=== PATIENT | female | born 1945 | race Caucasian/White ===

== ENCOUNTER → 2017-03-16 | Outpatient (CLI) | payer BC ==
[~2017-03-16] MED LIST: ASPI81TA28 PO; ATOR-24 PO; CALC-354 PO; CARB50TA3 PO; CHOL1000 PO; CLOP1TAB15 PO; CYAN30003 SL; DILT120C51 PO; GABA-113 PO; ISOS30TA3 PO; MAGN65TA PO; METH500T37 PO; NTRGSL/4 UT; OXYB10TA13 PO; OXYC-57 PO; ROPI1TAB PO; VITA1TAB4 PO; [UNRECOGNIZED DRUG - OTHER] SQ
--- NOTE | 2017-03-16 12:20 | DIAGNOSTIC IMAGING REPORT ---
CHEST 2 VIEWS ROUTINE HISTORY: PRE OP COMPARISON: None. FINDINGS: The lungs are clear. Cardiac silhouette is normal in size. No pleural effusions. No pneumothorax. IMPRESSION: No acute process. Electronically signed by: Dennys Parish M.D. 03/16/2017 12:19 PM Dictated Date/Time: 03/16/2017 12:16 PM
[2017-03-16 12:57] LABS: BASO % 0.3 %; BASO ABS # 0.02 K/uL (0-0.2); COMPLETE YES; HEMATOCRIT 36.3 % (37-47); IG% 0.2 %; LYMPH % 22.4 %; LYMPH ABS # 1.32 K/uL (1.2-3.4); MEAN CELL VOLUME 92.4 fL (80-100); MEAN CORPUSCULAR HEMOGLOBIN 29.5 pg (25-34); MEAN PLATELET VOLUME 10.6 fL (7.4-10.4); MONO % 8.8 %; NEUT % 66.3 %; PLATELET COUNT 334 K/uL (130-400); RED BLOOD COUNT 3.93 M/uL (4.2-5.4)
[2017-03-16 13:27] LABS: BLOOD UREA NITROGEN 22 mg/dl (7-18); CARBON DIOXIDE 28 mmol/L (21-32); CHLORIDE 109 mmol/L (98-107); CREATININE 0.79 mg/dl (0.60-1.20); GLUCOSE 84 mg/dl (70-99); POTASSIUM 4.1 mmol/L (3.5-5.1); SODIUM 143 mmol/L (136-145)
--- NOTE | 2017-04-05 08:19 | CODING QUERY MEDICAL NECESSITY ---
CQSUPPORTING DIAGNOSIS NEEDED A supporting diagnosis is required for the test/procedure performed on this patient in order for us to be reimbursed by the patient's insurance. Please provide a supporting diagnosis for the following test/procedure listed below next to the test name along with your signature. *If there is no additional diagnosis for this patient that would support the following test/procedure please document that below next to the test/procedure. Test(s)/Procedure(s) that require a supporting diagnosis: DOS 03/16/17 BLOOD COUNT Provider Signature: Date: Thank you Rosalie Mcwilliams [employer] Once completed, please kindly fax back to [phone] For questions please call [phone]
== END | disposition home or self-care (01) ==
LOC: C.CPL 10:38
PROVIDERS: ATTEND Orthopaedic Surgery
DX: M75.111 Incomplete rotator cuff tear or rupture of right shoulder, not specified as traumatic (principal)

== ENCOUNTER → 2017-03-31 | Day surgery (SDC) | payer BC ==
[2017-03-21 08:53] VITALS: Ht 165.1 cm; Wt 102.3 kg
[~2017-03-31] VITALS: Ht 165.1 cm; Wt 102.3 kg
[~2017-03-31] MED LIST changes: +ATROPINE SULFATE 0.1 MG/ML 5ML SYR IV PRN; +BUPIVACAINE/EPINEPHRINE 0.25% 1:200,000 30 ML VIAL ONE; +CEFAZOLIN 2000 MG/60 ML D5W IV SCH; +DEXAMETHASONE SOD INJ 4 MG/ML VIAL ONE; +EpHEDrine SULFATE 50MG/5ML SYR ONE; +EpHEDrine SULFATE INJ 50 MG/ML AMP IV PRN; +EpINEphrine INJ 1MG/ML AMP 1 MG/ML AMP ONE; +FENTANYL CITRATE INJ 50 MCG/1 ML 2 ML VIAL IV PRN; +FENTANYL CITRATE INJ 50 MCG/1 ML 2 ML VIAL ONE; +HYDROmorphone INJ 1 MG/ML SYR IV PRN; +LACTATED RINGER'S 1000ML 1,000 ML IV SCH; +LIDOCAINE HCL 1% MPF 2 ML VIAL ONE; +LIDOCAINE HCL 2% 2 ML VIAL (20MG/ML) ONE; +MIDAZOLAM HCL 1 MG/ML 2ML VIAL ONE; +ONDANSETRON INJ 2 MG/ML 2 ML VIAL IV PRN; +ONDANSETRON INJ 2 MG/ML 2 ML VIAL ONE; +OXYCODONE/ACETAMINOPHEN 5-325 TAB PO PRN; +PROPOFOL IV EMULSION 10 MG/ML 20 ML VIAL IV ONE; +ROPIVACAINE 0.5% 5 MG/ML 30 ML VIAL ONE; +SODIUM CHLORIDE 0.9% 1000ML 1,000 ML IV SCH
--- NOTE | 2017-03-31 06:59 | History & Physical Bridge - SC ---
H&P Re-Evaluation Bridge Note: I have examined the patient, reviewed the History & Physical and in the interval since the performance of the History & Physical I have noted the following changes of clinical significance: No changes noted
--- NOTE | 2017-03-31 09:55 | [facility] Post Operative Brief Note ---
Immediate Operative Summary Operative Date Mar 31, 2017. Pre-Operative Diagnosis Right Shoulder Rotator Cuff Syndrome Post-Operative Diagnosis Same Procedure(s) Performed Right Shoulder Arthroscopy, Small Rotator Cuff Repair Surgeon Dr Busch Model Maker Surgeon(s) Kenji Mcneal PA-C Estimated Blood Loss Trace Findings as above Specimens None Complication(s) None Disposition Recovery Room / PACU
--- NOTE | 2017-03-31 09:59 | Discharge Instructions-SurgCtr ---
Discharge Instructions Date of Service Mar 31, 2017. Visit Reason for Visit: Right Shoulder Rotator Cuff Syndrome, Pain Discharge Discharge Diagnosis / Problem: SAME ABOVE Discharge Goals Goal(s): Decrease discomfort, Improve function Medications Stopped Medications Name(s): held plavix for one week Restart Stopped Medication(s): MAY RESTART 01/29/2017 Activity Recommendations Activity Limitations: as noted below Lifting Limitations: until after follow-up appointment Shower/Bathe: tomorrow Anesthesia . Post Anesthesia Instructions: If you have had General Anesthesia or IV Sedation: * Do not drive today. * Resume driving when surgeon permits. * Do not make important decisions or sign legal documents today. * Call surgeon for: 1. Temperature elevations greater than 101 degrees F. 2. Uncontrollable pain. 3. Excessive bleeding. 4. Persistent nausea and vomiting. 5. Medication intolerance (nausea, vomiting or rash). * For nausea and vomiting use only clear liquids such as: tea, soda, bouillon until nausea subsides, then gradually increase diet as tolerated. * If you have any concerns or questions, call your surgeon's office. If physician is unavailable and it is an emergency, call 911 or go to the nearest emergency room. . Instructions / Follow-Up Instructions / Follow-Up MEDICATIONS: * Resume previous medications unless instructed otherwise by your surgeon. * Always take pain medication on a full stomach or with food to avoid upset stomach. * Do not drink alcohol or drive while taking narcotics. * Ibuprofen or Tylenol may be taken if narcotic not needed. SPECIAL CARE INSTRUCTIONS: __ None _X_ Keep extremity elevated and iced x 48 hours; apply ice 20-30 minutes 8-10 times/day. May remove at night. __ Sling __24 hrs/day __ Remove at night _X_ Shoulder Immobilizer (MAY REMOVE AFTER 48 HOURS ONLY TO SHOWER AND FOR THERAPY) _X_ 24 hrs/day __ Remove at night _X_ Dressing __ Maintain until seen in office, may shower with plastic over site _X_ Remove dressings in 24-48 hours and then may shower _X_ Cover incisions with band-aids after showering __ Do not remove steri-strips Call physician if chills or temperature rises above 102 degrees or pain unrelieved by prescribed pain medications at . . Diet Recommendations Home Diet: no limitations Procedures Procedures Performed: Right Shoulder Arthroscopy, Small Rotator Cuff Repair Pending Studies Studies pending at discharge: no Work Instructions Lifting Limitations: NO LIFTING WITH RIGHT ARM Medical Emergencies . Who to Call and When: Medical Emergencies: If at any time you feel your situation is an emergency, please call 911 immediately. . Non-Emergent Contact Non-Emergency issues call your: Primary Care Provider Call Non-Emergent contact if: you have a fever, temperature is above 101.5 . . "Provider Documentation" section prepared by Solitario Mcneal. .
--- NOTE | 2017-03-31 10:10 | OPERATIVE REPORT ---
DATE OF OPERATION: 03/31/2017 PREOPERATIVE DIAGNOSIS: Severe external impingement with medium sized rotator cuff tear of the right shoulder. POSTOPERATIVE DIAGNOSIS: Same. PROCEDURES: Right shoulder diagnostic arthroscopy with limited debridement, acromioplasty, medium size rotator cuff repair and arthroscopic biceps tenodesis. SURGEON: Dr. Garrett Busch. GERMINATION TESTING MANAGER: Kenji Mcneal PA-C, whose assistance was necessary for positioning the arm and helping with instrumentation. ANESTHESIA: General with a right interscalene nerve block. COMPLICATIONS: None. CONDITION: Stable to PACU. INDICATIONS: Gustavo is a 72-year-old female who has been having a several month history of increasing right shoulder pain. MRI and clinical examination were diagnostic for severe external impingement and medium size cuff tear. After failing conservative treatment, she elected to undergo an arthroscopy. DESCRIPTION OF PROCEDURE: On 03/31/2017, she arrived at [facility] for the above procedure. She was seen in the preoperative holding area and the operative extremity was identified and signed. She was given a preoperative antibiotic and a right interscalene nerve block. She was taken back to the operating room, laid on the table in supine position and put under general anesthesia. She was then put into the beachchair position. The right shoulder was prepped and draped in the sterile fashion. Time-out was done and the patient and operative extremity was properly identified. A scope was introduced in the posterior portal. Diagnostic arthroscopy showed grade 2 and grade 3 chondral changes on both the glenoid and the humeral head. There was no exposed bone. There was significant fraying of the anterior and superior labrum. There was a little fraying of the upper border of the subscapularis, but no detachment. There was a tear of the majority of the supraspinatus. The infraspinatus and teres minor were intact. An anterior portal was made. A shaver was used to do a limited debridement of the intraarticular structures and the biceps tendon was arthroscopically tenotomized. The scope was then put into the subacromial space. A lateral portal was made. A shaver was used to do a complete subacromial and subdeltoid bursectomy. An ablator was used to tease the coracoacromial ligament off the undersurface of the acromion and a 5-0 itz was used to complete an acromioplasty of a Bigliani type 3 subacromial spur. A shaver was used to remove any excess debris and attention was turned to the rotator cuff. An additional anterolateral portal was made and Thelma cannulas were placed in each of the lateral portals. Multiple pictures were taken of the cuff tear. The tuberosity was prepared with a ring curette and a microfracture. It was a 2-cm crescent-shaped tear. It was fixed with an Arthrex SpeedBridge configuration using 4.75-mm BioComposite SwiveLock suture anchors on the medial row. The long head of the biceps tendon was tagged with a FiberLink and incorporated into the anterior medial anchor. The fiber tapes were then passed through the tendon at the anticipator articular margin and brought down to two 5.5-mm BioComposite SwiveLock suture anchors. This gave a nice knotless SpeedBridge repair. The remaining stay sutures were tied across anchor to each other to hold down the medial row. Multiple pictures were taken. The scope was then placed back into the glenohumeral joint and the articular margin of the rotator cuff had been restored. Pictures were taken. Arthroscopic instruments removed from the shoulder. Portal sites were closed with 3-0 nylon. She was then placed in a soft dressing and an abduction arm sling. She was then extubated, transferred to a litter and taken to the postanesthesia care unit in stable condition. She tolerated the procedure well. I attest to the content of the Intraoperative Record and any orders documented therein. Any exception s are noted below.
--- NOTE | 2017-03-31 11:13 | Anesthesia Progress Nt - [facility] ---
Anesthesia Post Op Note Date & Time Mar 31, 2017 at 11:13 Vital Signs Pain Intensity: 0 Vital Signs Past 12 Hours Date Time Temp Pulse Resp B/P (MAP) Pulse Ox O2 Delivery O2 Flow Rate FiO2 03/31/17 10:46 58 14 93 03/31/17 10:46 60 14 03/31/17 10:41 58 13 106/50 89 03/31/17 10:41 53 13 03/31/17 10:36 56 12 105/52 92 03/31/17 10:36 55 12 03/31/17 10:35 36.4 56 12 105/52 94 Room Air 03/31/17 10:31 56 13 104/59 96 03/31/17 10:31 57 13 03/31/17 10:26 60 16 107/57 94 03/31/17 10:26 61 16 03/31/17 10:22 101/56 03/31/17 10:21 61 13 03/31/17 10:21 62 13 91/61 92 03/31/17 10:16 14 03/31/17 10:16 62 14 114/78 03/31/17 10:11 58 13 116/61 99 03/31/17 10:11 57 13 03/31/17 10:06 61 13 03/31/17 10:06 62 13 116/61 98 03/31/17 10:01 64 18 03/31/17 10:01 64 18 116/61 96 03/31/17 09:56 71 03/31/17 09:56 71 116/54 97 03/31/17 09:55 36.5 70 16 116/54 96 Mask 9 03/31/17 08:41 0 03/31/17 08:40 16 03/31/17 08:36 131/65 03/31/17 08:35 50 03/31/17 08:35 50 9 99 03/31/17 08:31 119/64 03/31/17 08:30 49 8 100 03/31/17 08:30 49 03/31/17 08:26 123/64 03/31/17 08:25 53 03/31/17 08:25 53 14 99 03/31/17 08:21 132/65 03/31/17 08:20 58 03/31/17 08:20 57 36 100 03/31/17 08:16 120/62 03/31/17 08:15 51 03/31/17 08:15 52 0 99 03/31/17 08:11 119/64 03/31/17 08:10 51 03/31/17 08:10 51 13 99 03/31/17 08:06 119/66 03/31/17 08:05 54 03/31/17 08:05 54 12 99 03/31/17 08:02 127/66 03/31/17 08:01 127/66 03/31/17 08:00 54 4 98 03/31/17 08:00 54 03/31/17 07:57 120/60 03/31/17 07:55 57 03/31/17 07:55 55 8 100 03/31/17 07:51 143/68 03/31/17 07:50 57 23 100 03/31/17 07:50 57 03/31/17 07:46 122/80 03/31/17 07:45 58 0 97 03/31/17 07:45 57 03/31/17 07:44 126/66 03/31/17 07:40 53 03/31/17 07:40 54 0 97 03/31/17 06:35 36.6 57 18 131/71 (91) 95 Room Air Notes Mental Status: alert / awake / arousable, participated in evaluation Pt Amnestic to Procedure: Yes Nausea / Vomiting: adequately controlled Pain: adequately controlled Airway Patency, RR, SpO2: stable & adequate BP & HR: stable & adequate Hydration State: stable & adequate Anesthetic Complications: no major complications apparent
[2017-03-31 11:53] VITALS: BP 104/63; PULSE 53; TEMP 36.5; O2SAT 95
== END | disposition home or self-care (01) ==
LOC: X.SURG 06:04
PROVIDERS: ATTEND Orthopaedic Surgery
DX: M75.101 Unspecified rotator cuff tear or rupture of right shoulder, not specified as traumatic (principal); M25.811 Other specified joint disorders, right shoulder

== ENCOUNTER 2018-08-08 13:00 | Inpatient (IN) ==
[2018-08-08] MEDS ORDERED: SODIUM CHLORIDE 0.9% 500 ML IV STA (13:26)
[2018-08-08] MEDS ORDERED: HYDROmorphone INJ 0.5 MG/0.5 ML SYR IV STA (13:26)
[2018-08-08] MEDS ORDERED: ONDANSETRON INJ 2 MG/ML 2 ML VIAL IV STA (13:26)
[2018-08-08] MEDS ORDERED: ACETAMINOPHEN 1000 MG/100 ML IV IV STA (13:28)
[2018-08-08 13:58] LABS: Hematocrit (blood only) 36.4 % (37-47); Hemoglobin 11.7 g/dL (12.0-16.0); Mean Corpuscular Hgb Conc 32.1 g/dL (32-36); Mean Corpuscular Volume 92.4 fL (80-100); Platelet Count 342 K/uL (130-400); RDW Coefficient of Variation 13.2 % (11.5-14.5); RDW Standard Deviation 44.7 fL (36.4-46.3); Red Blood Count 3.94 M/uL (4.2-5.4); White Blood Count 9.83 K/uL (4.8-10.8)
[2018-08-08 14:13] LABS: BUN Creatinine Ratio 15.5 (10-20); Calcium 8.9 mg/dl (8.5-10.1); Creatinine Clr Calc Pharmacy 55.2 ml/min; Est GFR (African American) 60.3; Potassium 3.4 mmol/L (3.5-5.1)
[2018-08-08 14:25] LABS: Appearance Urine Turbid (Clear); Bacteria Urine Automated Negative (Negative); Color Urine Dark Yellow; Epithelial Cell Urine Auto >30 /lpf (0-5); Glucose Urine UA Negative (Negative); Ketones Urine 1+ (Negative); Leukocyte Esterase Urine Trace (Negative); Nitrite Urine Negative (Negative); Protein Urine 1+ (Negative); Specific Gravity Urine 1.042 (1.000-1.030); Urobilinogen Urine Negative (Negative)
[2018-08-08 14:32] LABS: Bilirubin Urine Negative (Negative); Ictotest Urine Negative (Negative)
[2018-08-08 14:38] LABS: Calcium Oxalate Crystals Urine Present (None Prsent); Mucus Urine Present (None Prsent)
--- NOTE | 2018-08-08 14:56 | CT Scan Report ---
CT abd pelvis wo con CT DOSE: 973.34 mGycm HISTORY: Flank pain left flank pain TECHNIQUE: Multiaxial CT images of the abdomen and pelvis were performed without contrast. A dose lo wering technique was utilized adhering to the principles of ALARA. COMPARISON STUDY: None. FINDINGS: Lung bases are clear. Liver spleen and pancreas appear unremarkable. Operative findings of a prior gastric bypass type procedure process gastrectomy. Prior cholecystectomy. Right kidney demons trates several parapelvic cysts but no evidence for calcification or hydronephrosis. There are findings of several nonobstructing left renal calcifications with additional evidence for a 3 mm obstructing calculus of the proximal left ureter. There is mild left hydronephrosis. The bowel pattern overall is nonobstructive. Appendix is normal. Mild atelectatic change abdominal an d pelvic arterial vasculature are in the postoperative changes to the anterior abdominal wall. IMPRESSION: Obstructing 3 mm calculus proximal left ureter. Mild left hydronephrosis. The above report was generated using voice recognition software. It may contain grammatical, syntax or spelling errors. Electronically signed by: Francisco Paz M.D. 08/08/2018 2:55 PM
--- NOTE | 2018-08-08 15:50 | History & Physical Report ---
Date of Service August 08, 2018 Assessment & Plan (1) Kidney stone on left side: CT a/p on 08/08 showed 3mm left-sided stone is present at the proximal left ureter with mild hydronephrosis. - IV fluids - Pain and nausea control - Tamsulosin - Urology consult - Hold abx given lack of infectious signs/symptoms - NPO @ midnight (2) CVA (cerebral vascular accident): In 2004 with some residual balance issues. - Holding ASA/Plavix for now if urology wants to proceed with a stent - Continue statin (3) Hypertension: BP in the ED was 115/60. - Continue home meds (4) Stable angina: Per patient, has stable angina for which she takes her isosorbide and nitro PRN, but does not have any stents or history of [place]. - Continue home isosorbide - Monitor for symptoms inpatient (5) Hypothyroidism: No signs/symptoms of hypo-/hyperthyroidism. - Continue home Synthroid 25 mcg (6) Restless leg syndrome: Reports taking the Sinemet QID and Requip TID. No current symptoms. - Continue home meds (7) DVT prophylaxis: SCDs while awaiting urology consult History of Present Illness Primary Care Provider: Laurie Cedeno MD 73yo F w/ hx of Parkinson disease who presents with left-sided kidney stone. Was recently seen at [facility] for left flank pain and was diagnosed with the kidney stone. Was sent home with oral pain meds, but was unable to tolerate this and re-presented with nausea, emesis, and continued pain. On CT ap, the 3mm left-sided stone is present at the proximal left ureter with mild hydronephrosis. Allergies Allergy/AdvReac Type Severity Reaction Status Date / Time shellfish derived Allergy Severe HIVES Verified 08/08/18 13:35 pregabalin Allergy Intermediate TRIPLE Verified 08/08/18 13:35 VISION Sulfa (Sulfonamide Allergy Intermediate ITCH Verified 08/08/18 13:35 Antibiotics) pecan nut Allergy Hives Verified 08/08/18 13:35 ibuprofen AdvReac Intermediate NAUSEA/UPSET Verified 08/08/18 13:35 STOMACH Home Medications Home Medications Medication Instructions Recorded Confirmed Type aspirin [Aspir-81] 81 mg PO 3XWK 07/26/18 08/08/18 History atorvastatin [Lipitor] 40 mg PO QAM 07/26/18 08/08/18 History calcium carbonate-vitamin D3 1 tab PO QDL 07/26/18 08/08/18 History [Caltrate 600 + D] carbidopa-levodopa [Sinemet CR] 1 tab PO TID 07/26/18 08/08/18 History cholecalciferol (vitamin D3) 1,000 unit PO QDL 07/26/18 08/08/18 History [Vitamin D3] clopidogrel [Plavix] 75 mg PO QAM 07/26/18 08/08/18 History cyanocobalamin (vitamin B-12) 500 mcg SUBLINGUAL QDL 07/26/18 08/08/18 History diltiazem HCl [Cardizem CD] 120 mg PO HS 07/26/18 08/08/18 History gabapentin 600 mg PO HS 07/26/18 08/08/18 History isosorbide dinitrate 30 mg PO QAM 07/26/18 08/08/18 History levothyroxine 25 mcg PO QAM 07/26/18 08/08/18 History magnesium chloride [Mag 64] 64 mg PO QDL 07/26/18 08/08/18 History methocarbamol 500 mg PO HS 07/26/18 08/08/18 History nitroglycerin 1 tab SUBLINGUAL UD PRN 07/26/18 08/08/18 History ropinirole [Requip] 1 mg PO TID 07/26/18 08/08/18 History vitamin E 400 unit PO QDL 07/26/18 08/08/18 History trazodone 50 mg PO HS 08/02/18 08/08/18 History denosumab [Prolia] 60 mg SUBCUT Q6M 08/08/18 08/08/18 History ferrous gluconate [Fergon] 240 mg PO QDL 08/08/18 08/08/18 History hydrocodone-acetaminophen 1 tab PO UD 08/08/18 08/08/18 History ranitidine HCl [Zantac] 150 mg PO BID 08/08/18 08/08/18 History Past Med/Surg History Medical History Cardiac murmur Hyperlipidemia Hypertension Hypothyroidism Osteoarthritis Osteoporosis Restless leg syndrome 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) "FALLS TO LEFT IF IN A DARK ROOM WITH EYES CLOSE" Transient ischemic attack (TIA) Surgical History Family history of reaction to anesthesia NAUSEA/VOMITTING History of bilateral tubal ligation History of bowel resection BOWEL OBSTRUCTION History of cardiac cath NO STENTS (4 YEARS AGO?) History of cholecystectomy History of colonoscopy History of herniorrhaphy X 3 IN ABDOMEN History of laminectomy LUMBAR History of tooth extraction History of total abdominal hysterectomy and bilateral salpingo-oophorectomy Nausea and vomiting after administration of anesthetic agent Stye SURGICALLY REMOVED Social History Current Living Situation: Spouse Feels Safe at Home: Yes Smoking Status: Former smoker Cigarettes per Day: QUIT 40 YEARS AGO Hx Alcohol Use: Yes Alcohol type: wine Alcohol Intake Frequency: a few times a month Hx Substance Use: No Beliefs That Will Affect Care: None Preferred Language: German Communication Ability: Effective Review of Systems Constitutional: no fever, no chills and no sweats Eyes: no diplopia Ear, Nose, Mouth, Throat: no ear trauma, no nasal discharge and no dental pain Respiratory: no cough, no chest congestion and no dyspnea Cardiovascular: no chest pain, no dyspnea on exertion, no palpitations and no syncope Gastrointestinal: no abdominal pain, no belching, no constipation, no diarrhea/ loose stools, no blood in stools and no melena Genitourinary (Female): + hematuria and + flank pain (Left) Musculoskeletal: no back pain, no joint pain and no muscle weakness Integumentary: no rash, no skin ulcer and no erythema Neurologic: no generalized weakness, no loss of sensation, no numbness and no paresthesia Psychiatric: no depression and no anxiety Endocrine: no fatigue, no polydipsia and no polyphagia Physical Exam 2 Vital Signs (Past 24 Hours): Last Vital Signs Temp 36.3 C L 08/08/18 13:01 Pulse 57 L 08/08/18 15:22 Resp 18 08/08/18 15:22 BP 114/61 08/08/18 15:22 Pulse Ox 99 08/08/18 15:22 Constitutional: WD/WN, vitals as above Eyes: EOM intact bilaterally; no conjunctival abnormality ENMT: external ear and nose normal, oropharynx normal Neck: trachea midline, no thyromegaly normal visual inspection Respiratory: normal respiratory effort, lungs clear to auscultation no respiratory distress Cardiovascular: RRR, no murmur, no edema Gastrointestinal (Abdomen): Inspection/Auscultation: abdomen normal to inspection; abdomen not distended Musculoskeletal: no cyanosis or clubbing, extremities motor strength 5/5 Skin: no rashes, warm and dry Neurologic: moves all extremities and awake Psychiatric: Orientation: alert, oriented to person and cooperative
--- NOTE | 2018-08-08 16:14 | Emergency Department Note ---
Entered by Rosemary Patricia acting as a scribe for Jayden Houston MD History of Present Illness General Chief complaint: Kidney Stone Stated complaint: KIDNEY STONE Time Seen by Provider: 08/08/18 13:22 Source: patient Limitations: no limitations History of Present Illness Provider complaint: left side pain Onset (ago): day(s) 2 Location: left Radiation: back Severity: severe Pain Consistency: + constant Maximum Pain Intensity: 10 Current Pain Intensity: 10 ("12") Quality: + other (side pain) Associated symptoms: + other (Associated symptoms: dry heaving. Denies: fevers, burning with urination, frequency of urination) Treatments prior to arrival: other (hydrocodone) The patient is a 73 year old female who presents to the Emergency Room with complaints of constant, severe left sided abdominal and flank pain beginning 2 days ago. She notes her pain radiates to her back and rates it a 12/10 in severity. The patient reports dry heaving. She denies fevers, burning with urination, or frequency of urination. The patient states she was seen at [facility] 2 days ago, and diagnosed with a "big" left sided kidney stone. She notes she took hydrocodone 1.5 hours ago, which relieved her symptoms for only a short time. The patient denies history of previous kidney stones. Home Medications Home Medications Medication Instructions Recorded Confirmed Type aspirin [Aspir-81] 81 mg PO 3XWK 07/26/18 08/08/18 History atorvastatin [Lipitor] 40 mg PO QAM 07/26/18 08/08/18 History calcium carbonate-vitamin D3 1 tab PO QDL 07/26/18 08/08/18 History [Caltrate 600 + D] carbidopa-levodopa [Sinemet CR] 1 tab PO TID 07/26/18 08/08/18 History cholecalciferol (vitamin D3) 1,000 unit PO QDL 07/26/18 08/08/18 History [Vitamin D3] clopidogrel [Plavix] 75 mg PO QAM 07/26/18 08/08/18 History cyanocobalamin (vitamin B-12) 500 mcg SUBLINGUAL QDL 07/26/18 08/08/18 History diltiazem HCl [Cardizem CD] 120 mg PO HS 07/26/18 08/08/18 History gabapentin 600 mg PO HS 07/26/18 08/08/18 History isosorbide dinitrate 30 mg PO QAM 07/26/18 08/08/18 History levothyroxine 25 mcg PO QAM 07/26/18 08/08/18 History magnesium chloride [Mag 64] 64 mg PO QDL 07/26/18 08/08/18 History methocarbamol 500 mg PO HS 07/26/18 08/08/18 History nitroglycerin 1 tab SUBLINGUAL UD PRN 07/26/18 08/08/18 History ropinirole [Requip] 1 mg PO TID 07/26/18 08/08/18 History vitamin E 400 unit PO QDL 07/26/18 08/08/18 History trazodone 50 mg PO HS 08/02/18 08/08/18 History denosumab [Prolia] 60 mg SUBCUT Q6M 08/08/18 08/08/18 History ferrous gluconate [Fergon] 240 mg PO QDL 08/08/18 08/08/18 History hydrocodone-acetaminophen 1 tab PO UD 08/08/18 08/08/18 History ranitidine HCl [Zantac] 150 mg PO BID 08/08/18 08/08/18 History Allergies Allergy/AdvReac Type Severity Reaction Status Date / Time shellfish derived Allergy Severe HIVES Verified 08/08/18 13:35 pregabalin Allergy Intermediate TRIPLE Verified 08/08/18 13:35 VISION Sulfa (Sulfonamide Allergy Intermediate ITCH Verified 08/08/18 13:35 Antibiotics) pecan nut Allergy Hives Verified 08/08/18 13:35 ibuprofen AdvReac Intermediate NAUSEA/UPSET Verified 08/08/18 13:35 STOMACH Past Med/Surg History Medical History Cardiac murmur Hyperlipidemia Hypertension Hypothyroidism Osteoarthritis Osteoporosis Restless leg syndrome 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) "FALLS TO LEFT IF IN A DARK ROOM WITH EYES CLOSE" Transient ischemic attack (TIA) Surgical History Family history of reaction to anesthesia NAUSEA/VOMITTING History of bilateral tubal ligation History of bowel resection BOWEL OBSTRUCTION History of cardiac cath NO STENTS (4 YEARS AGO?) History of cholecystectomy History of colonoscopy History of herniorrhaphy X 3 IN ABDOMEN History of laminectomy LUMBAR History of tooth extraction History of total abdominal hysterectomy and bilateral salpingo-oophorectomy Nausea and vomiting after administration of anesthetic agent Stye SURGICALLY REMOVED Social History Current Living Situation: Spouse Other Information That Helps Us Care for You: No Feels Safe at Home: Yes Safety Concerns: Feels Safe At This Time Smoking Status: Former smoker Tobacco Type: cigarettes Do You Dip or Chew Tobacco: No Smoking End Date: 1987 Second Hand Exposure: No Tobacco Cessation Education Requested by Patient: No Hx Alcohol Use: No Hx Substance Use: No Beliefs That Will Affect Care: None Preferred Language: Swiss Communication Ability: Effective College Director Required: No Review of Systems See HPI for pertinent positives & negatives. and A total of 10 systems reviewed and were otherwise negative Physical Exam Vital Signs Vital Signs - 24 hr 08/08/18 13:01 08/08/18 14:13 08/08/18 14:18 Temperature 36.3 C L Temperature Source Oral Sepsis Recent Fever Within 48 Hours No Sepsis Action Taken by Nursing No Action Required Pulse Rate 72 Pulse Rate [Left Finger] 53 L Pulse Rhythm Regular Pulse Rhythm [Left Finger] Pulse Strength [Left Finger] Respiratory Rate 20 18 Respiratory Effort / Characteristics Respiratory Depth Respiratory Pattern Blood Pressure 154/89 H Blood Pressure [Left Arm] 96/54 L Blood Pressure Mean 110 Blood Pressure Mean [Left Arm] 68 Blood Pressure Position Sitting Blood Pressure Position [Left Arm] Pulse Oximetry 100 97 97 Oxygen Delivery Method Room Air Room Air Nasal Cannula Oxygen Flow Rate 2 08/08/18 14:21 08/08/18 15:22 08/08/18 16:53 Temperature Temperature Source Sepsis Recent Fever Within 48 Hours Sepsis Action Taken by Nursing Pulse Rate Pulse Rate [Left Finger] 57 L 59 L Pulse Rhythm Pulse Rhythm [Left Finger] Pulse Strength [Left Finger] Respiratory Rate 18 18 Respiratory Effort / Characteristics Respiratory Depth Respiratory Pattern Blood Pressure Blood Pressure [Left Arm] 105/58 L 114/61 117/71 Blood Pressure Mean Blood Pressure Mean [Left Arm] 73 78 86 Blood Pressure Position Blood Pressure Position [Left Arm] Pulse Oximetry 99 99 Oxygen Delivery Method Nasal Cannula Room Air Oxygen Flow Rate 1 08/08/18 18:11 08/08/18 18:43 Temperature 36.7 C Temperature Source Oral Sepsis Recent Fever Within 48 Hours Sepsis Action Taken by Nursing Pulse Rate 56 L Pulse Rate [Left Finger] 64 Pulse Rhythm Pulse Rhythm [Left Finger] Regular Pulse Strength [Left Finger] Normal Respiratory Rate 20 16 Respiratory Effort / Characteristics Non-Labored Spontaneous Normal for Patient Respiratory Depth Normal Respiratory Pattern Regular Blood Pressure 113/66 Blood Pressure [Left Arm] 148/78 H Blood Pressure Mean Blood Pressure Mean [Left Arm] 101 Blood Pressure Position Blood Pressure Position [Left Arm] Lying Pulse Oximetry 99 96 Oxygen Delivery Method Room Air Room Air Oxygen Flow Rate GENERAL: Patient is in significant distress from pain. HEENT: No acute trauma, normocephalic atraumatic, mucous membranes moist, no nasal congestion, no scleral icterus. NECK: No stridor, no adenopathy, no meningismus, trachea is midline. LUNGS: Clear to auscultation bilaterally, no wheeze, no rhonchi, breath sounds equal. HEART: 2/6 systolic murmur, regular rate and rhythm. ABDOMEN: Soft, bowel sounds positive, no hernias, no peritonitis. Tender along entire left side. BACK: Left flank discomfort with percussion. EXTREMITIES: No cyanosis or edema, full range of motion of all the joints without pain or difficulty, no signs for acute trauma. NEUROLOGIC: Oriented x 3, no acute motor or sensory deficits, no focal weakness. SKIN: No rash, no jaundice, no diaphoresis. Course 1324: Past medical records reviewed. The patient was evaluated in room A3, and a complete history and physical examination were performed. 1517: Upon reevaluation, the patient is resting comfortably. I discussed test results. They verbalized agreement with the treatment plan. The patient will be admitted for further evaluation. 1526: I reviewed the patient's case with Dr. Woodward, [facility] hospitalist. He will evaluate the patient for further management. Consultations Consultation #1: I reviewed the patient's case with Dr. Woodward [facility] hospitalist. He will evaluate the patient for further management. Time: 15:26 Administered Medications Carbidopa/Levodopa (Sinemet Cr 50/200mg) 1 tab PO QID [facility] Stop: 09/07/18 16:59 Last Admin: 08/08/18 16:51 Dose: 1 tab Diltiazem HCl (Cardizem Cd) 120 mg PO HS [facility] Stop: 09/07/18 20:59 Last Admin: 08/08/18 20:02 Dose: Not Given Gabapentin (Neurontin) 600 mg PO HS [facility] Stop: 09/07/18 20:59 Last Admin: 08/08/18 20:05 Dose: 600 mg Sodium Chloride (Nss 1000ml) 1,000 mls @ 80 mls/hr IV .[id number] [facility] Stop: 09/07/18 18:59 Last Admin: 08/08/18 19:57 Dose: 80 mls/hr Methocarbamol (Robaxin) 500 mg PO [facility] Stop: 09/07/18 20:59 Last Admin: 08/08/18 20:04 Dose: 500 mg Ranitidine HCl (Zantac) 150 mg PO BID [facility] Stop: 09/07/18 20:59 Last Admin: 08/08/18 20:03 Dose: Not Given Ropinirole HCl (Requip) 1 mg PO TID [facility] Stop: 09/07/18 20:59 Last Admin: 08/08/18 16:51 Dose: 1 mg Tamsulosin HCl (Flomax) 0.4 mg PO [facility] Stop: 09/07/18 20:59 Last Admin: 08/08/18 20:04 Dose: 0.4 mg Trazodone HCl (Desyrel) 50 mg PO [facility] Stop: 09/07/18 20:59 Last Admin: 08/08/18 20:03 Dose: 50 mg Discontinued Medications Acetaminophen (Ofirmev) 1,000 mg IV NOW STA Stop: 08/08/18 13:29 Last Admin: 08/08/18 14:02 Dose: 1,000 mg Hydromorphone HCl (Dilaudid) 0.5 mg IV NOW STA Stop: 08/08/18 13:27 Last Admin: 08/08/18 14:02 Dose: 0.5 mg Sodium Chloride (Nss) 500 mls @ 999 mls/hr IV .Q31M STA Stop: 08/08/18 13:56 Last Infusion: 08/08/18 14:36 Dose: 0 mls/hr Admin: 08/08/18 14:03 Dose: 999 mls/hr Ondansetron HCl (Zofran) 4 mg IV NOW STA Stop: 08/08/18 13:27 Last Admin: 08/08/18 14:02 Dose: 4 mg Medical Decision Making Differential Diagnosis Etiologies considered include renal colic, UTI, pyelonephritis, diverticulitis, nerve impingement, musculoskeletal pain, hydronephrosis, failed outpatient treatment Medical Records Attestation: I reviewed the patient's medical records. Home Medications Current Medication List: was personally reviewed by me Laboratory Data Attestation: I reviewed the patient's lab results. Result diagrams: 08/08/18 13:50 08/08/18 13:50 Lab Results 08/08/18 08/08/18 08/08/18 Range/Units 13:50 13:50 14:15 WBC 9.83 (4.8-10.8) K/uL RBC 3.94 L (4.2-5.4) M/uL Hgb 11.7 L (12.0-16.0) g/dL Hct 36.4 L (37-47) % MCV 92.4 (80-100) fL MCH 29.7 (25-34) pg MCHC 32.1 (32-36) g/dL RDW Std Deviation 44.7 (36.4-46.3) fL RDW Coeff of Jeyson 13.2 (11.5-14.5) % Plt Count 342 (130-400) K/uL MPV 10.0 (7.4-10.4) fL Sodium 140 (136-145) mmol/L Potassium 3.4 L (3.5-5.1) mmol/L Chloride 102 (98-107) mmol/L Carbon Dioxide 29 (21-32) mmol/L Anion Gap 9.0 (3-11) BUN 16 (7-18) mg/dl Creatinine 1.06 (0.6-1.2) mg/dl Est Cr Clr Drug Dosing 55.2 ml/min Est GFR ( Amer) 60.3 Est GFR (Non-Af Amer) 52.0 BUN/Creatinine Ratio 15.5 (10-20) Glucose 109 H (70-99) mg/dl Calcium 8.9 (8.5-10.1) mg/dl Urine Color Dark Yellow Urine Appearance Turbid H (Clear) Urine pH 5.0 (4.5-7.5) Ur Specific [place] 1.042 H (1.000-1.030) Urine Protein 1+ H (Negative) Urine Glucose (UA) Negative (Negative) Urine Ketones 1+ H (Negative) Urine Blood 3+ H (Negative) Urine Nitrite Negative (Negative) Urine Bilirubin Negative (Negative) Urine Urobilinogen Negative (Negative) Ur Leukocyte Esterase Trace H (Negative) Urine WBC (Auto) 10-30 H (0-5) /hpf Urine RBC (Auto) >30 H (0-4) /hpf U Hyaline Cast (Auto) 10-30 H (0-5) /lpf U Epithel Cells (Auto) >30 H (0-5) /lpf Urine Bacteria (Auto) Negative (Negative) Calcium Oxalate Crystal Present H (None Prsent) Urine Mucus Present H (None Prsent) Imaging Data Radiologist's Impression: Radiology results as stated below per my review and the radiologist's interpretation: CT abd pelvis wo con CT DOSE: 973.34 mGycm HISTORY: Flank pain left flank pain TECHNIQUE: Multiaxial CT images of the abdomen and pelvis were performed without contrast. A dose lowering technique was utilized adhering to the principles of ALARA. COMPARISON STUDY: None. FINDINGS: Lung bases are clear. Liver spleen and pancreas appear unremarkable. Operative findings of a prior gastric bypass type procedure process gastrectomy. Prior cholecystectomy. Right kidney demonstrates several parapelvic cysts but no evidence for calcification or hydronephrosis. There are findings of several nonobstructing left renal calcifications with additional evidence for a 3 mm obstructing calculus of the proximal left ureter. There is mild left hydronephrosis. The bowel pattern overall is nonobstructive. Appendix is normal. Mild atelectatic change abdominal and pelvic arterial vasculature are in the postoperative changes to the anterior abdominal wall. IMPRESSION: Obstructing 3 mm calculus proximal left ureter. Mild left hydronephrosis. The above report was generated using voice recognition software. It may contain grammatical, syntax or spelling errors. Electronically signed by: Francisco Paz M.D. 08/08/2018 2:55 PM Blood Pressure Blood Pressure Findings: Elevated blood pressure Blood Pressure Disposition: elevated BP felt to be situational MDM Narrative There is no leukocytosis or worrisome anemia. No significant electrolyte abnormality or kidney failure. Urinalysis shows hematuria and contamination, no obvious infection. Abdominal and pelvis CT shows hydronephrosis with a left ureteral stone about 3 mm in size. No bowel obstruction. The patient was in significant distress. She had an IV placed. She was given IV saline, IV Tylenol, IV Dilaudid and IV Zofran. She feels significantly improved. She did require some O2 supplementation when her saturation dropped slightly after the pain medication was administered. Patient has failed outpatient treatment. She is vomiting, her pain is not controlled despite hydrocodone. I do think a hospital stay is warranted. She may require stenting or some other type of urologic intervention. I did speak to the patient and case management. The on-call hospitalist was consulted. Impression & Plan Left flank pain, Renal colic, Vomiting, Failure of outpatient treatment Discharge Plan Visit Data *Final* Discharge Date/Time: 08/08/18 18:11 Chief Complaint: Kidney Stone Stated Complaint: KIDNEY STONE ED Provider: Jayden Houston Discharge Problem: Left flank pain, Renal colic, Vomiting, Failure of outpatient treatment Patient Disposition: Admitted As Inpatient Discharge Instructions Interventions: ED Discharge Assessment Last Done: 08/08/18 18:11 The milagrose's documentation has been prepared under my direction and personally reviewed by me in its entirety. I confirm that the note above accurately reflects all work, treatment, procedures, and medical decision making performed by me.
[2018-08-08] MEDS: CARBIDOPA/LEVODOPA 50/200MG EXT REL TAB PO SCH ×2 (16:51→20:47)
[2018-08-08] MEDS: ROPINIROLE HCL 1 MG TABLET PO SCH ×2 (16:51→20:47)
[2018-08-08] MEDS ORDERED: ONDANSETRON INJ 2 MG/ML 2 ML VIAL IV PRN (18:38)
[2018-08-08] MEDS ORDERED: MoRPHine SULFATE 4 MG/ML 1 ML CARP\\VIAL IV PRN (18:38)
[2018-08-08] MEDS ORDERED: KETOROLAC TROMETHAMINE 15 MG/ML VIAL IV PRN (18:38)
[2018-08-08] MEDS ORDERED: ACETAMINOPHEN 325 MG TAB PO PRN (18:38)
[2018-08-08] MEDS: SODIUM CHLORIDE 0.9% 1000ML 1,000 ML IV SCH (19:57)
[2018-08-08] MEDS ORDERED: dilTIAZem HCL 120 MG CAPCR PO SCH (21:00)
[2018-08-08] MEDS ORDERED: TRAZODONE HCL 50 MG TAB PO SCH (21:00)
[2018-08-08] MEDS ORDERED: METHOCARBAMOL 500 MG TABLET PO SCH (21:00)
[2018-08-08] MEDS ORDERED: GABAPENTIN 300 MG CAP PO SCH (21:00)
[2018-08-08] MEDS ORDERED: TAMSULOSIN HCL 0.4 MG CAP PO SCH (21:00)
[2018-08-09] MEDS ORDERED: LEVOTHYROXINE SODIUM 25 MCG TABLET PO SCH (06:30)
[2018-08-09 07:35] LABS: Hematocrit (blood only) 32.8 % (37-47); Hemoglobin 10.3 g/dL (12.0-16.0); Mean Corpuscular Hgb Conc 31.4 g/dL (32-36); Mean Corpuscular Volume 91.9 fL (80-100); Mean Platelet Volume 10.3 fL (7.4-10.4); Platelet Count 285 K/uL (130-400); RDW Coefficient of Variation 13.3 % (11.5-14.5); RDW Standard Deviation 44.7 fL (36.4-46.3); Red Blood Count 3.57 M/uL (4.2-5.4); White Blood Count 4.89 K/uL (4.8-10.8)
--- NOTE | 2018-08-09 07:45 | Urology Consultation ---
Date of Consultation August 09, 2018 Assessment & Plan (1) Left flank pain: (2) Kidney stone on left side: 73yo F with 3mm proximal L ureteral stone with mild hydro Hemodynamically stable, afebrile. Cr and WBC within normal limits. Denies flank or abdominal pain at this time. Denies dizziness/lightheadedness since initiating flomax. If continues with SBP 90-100s, may consider discontinuing. UA with contamination, UC&S pending. Agree to hold antibiotics for now. Case discussed with Dr. Tripathi. No urgent surgical intervention required at the present. >8 hours without requiring pain medication. Okay to advance diet to clears for now, will change diet. Will get KUB today to assess stone progression. If able to visualize, we may be able to consider outpatient ESWL therapy if she continues to have pain controlled with PO options. Please contact our service immediately if pt becomes febrile, intractable vomiting, or pain becomes uncontrolled. We will continue to monitor with primary service, thank you for the consultation. History of Present Illness Reason for Consultation: ureteral stone Requesting Physician: ureteral stone Attending Physician: Jag Woodward MD History of Present Illness 73yo F with hx parkinsons, CVA in 2004, and recurrent small bowel obstructions presents with acute L flank and abdominal pain, associated with dry heaving to ED last evening. Previously diagnosed with ureteral stone by [facility] 2 days prior. Diagnosed with 3mm L proximal ureteral stone with mild hydro on CT. Pt currently in no acute distress at time of evaluation, no famly members at bedside. Reports pain and nausea currently controlled. Last dose pain medication, Toradol approximately 2100. Able to sleep through the night comfortably. Currently NPO status. Denies any urinary symptoms, or gross hematuria. Denies fevers/chills. This is her first kidney stone, has never had previous urologic evaluation for any other reason. Recent endoscopy/colonscopy for evaluation of recurrent SBOs. Plavix currently on hold. Allergies Allergy/AdvReac Type Severity Reaction Status Date / Time shellfish derived Allergy Severe HIVES Verified 08/08/18 13:35 pregabalin Allergy Intermediate TRIPLE Verified 08/08/18 13:35 VISION Sulfa (Sulfonamide Allergy Intermediate ITCH Verified 08/08/18 13:35 Antibiotics) pecan nut Allergy Hives Verified 08/08/18 13:35 ibuprofen AdvReac Intermediate NAUSEA/UPSET Verified 08/08/18 13:35 STOMACH Home Medications Home Medications Medication Instructions Recorded Confirmed Type aspirin [Aspir-81] 81 mg PO 3XWK 07/26/18 08/08/18 History atorvastatin [Lipitor] 40 mg PO QAM 07/26/18 08/08/18 History calcium carbonate-vitamin D3 1 tab PO QDL 07/26/18 08/08/18 History [Caltrate 600 + D] carbidopa-levodopa [Sinemet CR] 1 tab PO TID 07/26/18 08/08/18 History cholecalciferol (vitamin D3) 1,000 unit PO QDL 07/26/18 08/08/18 History [Vitamin D3] clopidogrel [Plavix] 75 mg PO QAM 07/26/18 08/08/18 History cyanocobalamin (vitamin B-12) 500 mcg SUBLINGUAL QDL 07/26/18 08/08/18 History diltiazem HCl [Cardizem CD] 120 mg PO HS 07/26/18 08/08/18 History gabapentin 600 mg PO HS 07/26/18 08/08/18 History isosorbide dinitrate 30 mg PO QAM 07/26/18 08/08/18 History levothyroxine 25 mcg PO QAM 07/26/18 08/08/18 History magnesium chloride [Mag 64] 64 mg PO QDL 07/26/18 08/08/18 History methocarbamol 500 mg PO HS 07/26/18 08/08/18 History nitroglycerin 1 tab SUBLINGUAL UD PRN 07/26/18 08/08/18 History ropinirole [Requip] 1 mg PO TID 07/26/18 08/08/18 History vitamin E 400 unit PO QDL 07/26/18 08/08/18 History trazodone 50 mg PO HS 08/02/18 08/08/18 History denosumab [Prolia] 60 mg SUBCUT Q6M 08/08/18 08/08/18 History ferrous gluconate [Fergon] 240 mg PO QDL 08/08/18 08/08/18 History hydrocodone-acetaminophen 1 tab PO UD 08/08/18 08/08/18 History ranitidine HCl [Zantac] 150 mg PO BID 08/08/18 08/08/18 History Patient History Medical History Cardiac murmur Hyperlipidemia Hypertension Hypothyroidism Osteoarthritis Osteoporosis Restless leg syndrome 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) "FALLS TO LEFT IF IN A DARK ROOM WITH EYES CLOSE" Transient ischemic attack (TIA) Surgical History Family history of reaction to anesthesia NAUSEA/VOMITTING History of bilateral tubal ligation History of bowel resection BOWEL OBSTRUCTION History of cardiac cath NO STENTS (4 YEARS AGO?) History of cholecystectomy History of colonoscopy History of herniorrhaphy X 3 IN ABDOMEN History of laminectomy LUMBAR History of tooth extraction History of total abdominal hysterectomy and bilateral salpingo-oophorectomy Nausea and vomiting after administration of anesthetic agent Stye SURGICALLY REMOVED Social History Current Living Situation: Spouse Other Information That Helps Us Care for You: No Feels Safe at Home: Yes Safety Concerns: Feels Safe At This Time Smoking Status: Former smoker Tobacco Type: cigarettes Do You Dip or Chew Tobacco: No Smoking End Date: 1987 Second Hand Exposure: No Tobacco Cessation Education Requested by Patient: No Hx Alcohol Use: No Hx Substance Use: No Beliefs That Will Affect Care: None Preferred Language: Romansh Communication Ability: Effective Mailroom Coordinator Required: No Review of Systems Constitutional: no fever, no chills and no fatigue Eyes: no problem reported Ear, Nose, Mouth, Throat: no ear trauma Respiratory: no cough and no dyspnea Cardiovascular: no chest pain Gastrointestinal: no abdominal pain, no nausea, no vomiting and no constipation Genitourinary (Female): no dysuria, no difficulty urinating, no urinary hesitancy, no urinary urgency and no hematuria Musculoskeletal: no back pain Integumentary: no rash Neurologic: no problem reported Psychiatric: no behavioral changes Endocrine: no polydipsia Allergy / Immunological: no lip swelling Physical Exam 2 Vital Signs (Past 24 Hours): Last Vital Signs Temp 36.6 C 08/08/18 22:57 Pulse 56 L 08/08/18 22:57 Resp 18 08/08/18 22:57 BP 90/56 L 08/08/18 22:57 Pulse Ox 96 08/08/18 22:57 Constitutional: well developed; no acute distress and not ill appearing Eyes: corrective lenses intact ENMT: Ears: no hearing impairment Neck: trachea midline Respiratory: no respiratory distress and does not use accessory muscles Cardiovascular: Rate/Rhythm: + abnormal rate Vessels: no JVD Gastrointestinal (Abdomen): Percussion/Palpation: + abdomen tender (Mild LLQ tenderness with palpation) and abdomen soft; abdomen not rigid Musculoskeletal: Head/Neck/Chest: normocephalic Skin: no rashes, warm and dry Neurologic: awake; not confused and not obtunded Psychiatric: Orientation: alert and oriented to place Lymphatic: no cervical or axillary lymphadenopathy Results & Data Laboratory Results Laboratory Results - last 48 hr 08/08/18 08/08/18 08/08/18 13:50 13:50 14:15 WBC 9.83 RBC 3.94 L Hgb 11.7 L Hct 36.4 L MCV 92.4 MCH 29.7 MCHC 32.1 RDW Std Deviation 44.7 RDW Coeff of Jeyson 13.2 Plt Count 342 MPV 10.0 Sodium 140 Potassium 3.4 L Chloride 102 Carbon Dioxide 29 Anion Gap 9.0 BUN 16 Creatinine 1.06 Est Cr Clr Drug Dosing 55.2 Est GFR ( Amer) 60.3 Est GFR (Non-Af Amer) 52.0 BUN/Creatinine Ratio 15.5 Glucose 109 H Calcium 8.9 Urine Color Dark Yellow Urine Appearance Turbid H Urine pH 5.0 Ur Specific [place] 1.042 H Urine Protein 1+ H Urine Glucose (UA) Negative Urine Ketones 1+ H Urine Blood 3+ H Urine Nitrite Negative Urine Bilirubin Negative Urine Urobilinogen Negative Ur Leukocyte Esterase Trace H Urine WBC (Auto) 10-30 H Urine RBC (Auto) >30 H U Hyaline Cast (Auto) 10-30 H U Epithel Cells (Auto) >30 H Urine Bacteria (Auto) Negative Calcium Oxalate Crystal Present H Urine Mucus Present H 08/09/18 07:20 WBC 4.89 RBC 3.57 L Hgb 10.3 L Hct 32.8 L MCV 91.9 MCH 28.9 MCHC 31.4 L RDW Std Deviation 44.7 RDW Coeff of Jeyson 13.3 Plt Count 285 MPV 10.3 Sodium Potassium Chloride Carbon Dioxide Anion Gap BUN Creatinine Est Cr Clr Drug Dosing Est GFR ( Amer) Est GFR (Non-Af Amer) BUN/Creatinine Ratio Glucose Calcium Urine Color Urine Appearance Urine pH Ur Specific [place] Urine Protein Urine Glucose (UA) Urine Ketones Urine Blood Urine Nitrite Urine Bilirubin Urine Urobilinogen Ur Leukocyte Esterase Urine WBC (Auto) Urine RBC (Auto) U Hyaline Cast (Auto) U Epithel Cells (Auto) Urine Bacteria (Auto) Calcium Oxalate Crystal Urine Mucus
[2018-08-09 08:11] LABS: BUN Creatinine Ratio 18.5 (10-20); Calcium 8.4 mg/dl (8.5-10.1); Est GFR (African American) 87.4; Est GFR (Non-African American) 75.4; Potassium 3.3 mmol/L (3.5-5.1)
[2018-08-09] MEDS: ROPINIROLE HCL 1 MG TABLET PO SCH (08:22)
[2018-08-09] MEDS: SODIUM CHLORIDE 0.9% 1000ML 1,000 ML IV SCH (08:22)
[2018-08-09] MEDS: CARBIDOPA/LEVODOPA 50/200MG EXT REL TAB PO SCH (08:23)
[2018-08-09] MEDS ORDERED: ISOSORBIDE DINITRATE 10 MG TAB PO SCH (09:00)
[2018-08-09] MEDS ORDERED: CLOPIDOGREL BISULFATE 75 MG TAB PO SCH (09:00)
[2018-08-09] MEDS ORDERED: ATORVASTATIN 40 MG TAB PO SCH (09:00)
--- NOTE | 2018-08-09 09:51 | XRay Report ---
KUB CLINICAL HISTORY: L ureteral stone COMPARISON STUDY: CT of the abdomen and pelvis August 08, 2018. FINDINGS: Several left renal calculi measure up to 5 mm. The left ureteral calculus shown on CT of 2018 is not visualized although this could be due to technique. Pelvic calcifications refle ct phleboliths. Surgical sutures and bowel anastomosis as well as cholecystectomy clips are noted. IMPRESSION: 1. Nonvisualization of the left ureteral calculus shown on CT of August 08, 2018, possibly due to te chnique. 2. Left-sided nephrolithiasis. Electronically signed by: Ashu Bustos M.D. 08/09/2018 9:49 AM
--- NOTE | 2018-08-09 14:51 | Discharge Summary ---
Date of Service August 09, 2018 Admission HPI Per Admitting Provider 73yo F w/ hx of Parkinson disease who presents with left-sided kidney stone. Was recently seen at [place] for left flank pain and was diagnosed with the kidney stone. Was sent home with oral pain meds, but was unable to tolerate this and re-presented with nausea, emesis, and continued pain. On CT ap, the 3mm left-sided stone is present at the proximal left ureter with mild hydronephrosis. Admission Exam Per Admitting Provider Constitutional: WD/WN, vitals as above Eyes: EOM intact bilaterally; no conjunctival abnormality ENMT: external ear and nose normal, oropharynx normal Neck: trachea midline, no thyromegaly normal visual inspection Respiratory: normal respiratory effort, lungs clear to auscultation no respiratory distress Cardiovascular: RRR, no murmur, no edema Gastrointestinal (Abdomen): Inspection/Auscultation: abdomen normal to inspection; abdomen not distended Musculoskeletal: no cyanosis or clubbing, extremities motor strength 5/5 Skin: no rashes, warm and dry Neurologic: moves all extremities and awake Psychiatric: Orientation: alert, oriented to person and cooperative Principal Diagnosis Left ureteral stone Discharge Exam Constitutional WD/WN, vitals as above Eyes PERRL, conjunctivae normal, anicteric sclerae ENMT external ear and nose normal, oropharynx normal Neck trachea midline, no thyromegaly Respiratory normal respiratory effort, lungs clear to auscultation Cardiovascular RRR, no murmur, no edema Gastrointestinal (Abdomen) normal bowel sounds, soft, nontender, no hepatosplenomegaly Musculoskeletal no cyanosis or clubbing, extremities motor strength 5/5 Skin no rashes, warm and dry Neurologic patellar DTR's 2+ bilat, sensation intact and PERRL, EOMI, accommodation nl, no face palsy, no dysarthria Psychiatric A+Ox3, euthymic affect Lymphatic no cervical or axillary lymphadenopathy Discharge Data Allergies Allergy/AdvReac Type Severity Reaction Status Date / Time shellfish derived Allergy Severe HIVES Verified 08/08/18 13:35 pregabalin Allergy Intermediate TRIPLE Verified 08/08/18 13:35 VISION Sulfa (Sulfonamide Allergy Intermediate ITCH Verified 08/08/18 13:35 Antibiotics) pecan nut Allergy Hives Verified 08/08/18 13:35 ibuprofen AdvReac Intermediate NAUSEA/UPSET Verified 08/08/18 13:35 STOMACH Consultations 08/08/18 15:29 ED Decision to Admit Stat 08/08/18 18:38 Consult Urology Routine Ordered Studies 08/08/18 13:26 CT abd pelvis wo con Stat Hospital Course (1) Kidney stone on left side: CT a/p on 08/08 showed 3mm left-sided stone is present at the proximal left ureter with mild hydronephrosis. pain controlled since admission, only using Tylenol since the night before KUB on 08/09 did not show stone urology consult - no intervention needed, follow up in office in two weeks will continue Flomax until stone passes provided with strainer instructed to stay well hydrated (2) CVA (cerebral vascular accident): In 2004 with some residual balance issues. - continue ASA/Plavix since no intervention needed - Continue statin (3) Hypertension: BP in the ED was 115/60. - Continue home meds (4) Stable angina: Per patient, has stable angina for which she takes her isosorbide and nitro PRN, but does not have any stents or history of CO. - Continue home isosorbide - Monitor for symptoms inpatient (5) Hypothyroidism: No signs/symptoms of hypo-/hyperthyroidism. - Continue home Synthroid 25 mcg (6) Restless leg syndrome: Reports taking the Sinemet QID and Requip TID. No current symptoms. - Continue home meds (7) DVT prophylaxis: SCDs while awaiting urology consult Total Time Total Time Spent Total Time Spent (In Minutes): 20 minutes Total Time Includes: Examination of the Patient, Discharge Planning, Medication Reconciliation and Communication With Other Providers (urology PA) Discharge Plan Discharge Items Patient Disposition: Home - Self-Care Reason For Visit: KIDNEY STONE Discharge Diagnosis: Left sided kidney stone Condition: Good Discharge Goals: Decrease discomfort and Improve disease control Activity: Resume your previous activity Non-emergency contact: Primary Care Provider and Urologist Call non-emergency contact if: you have any medication questions, your symptoms worsen, your pain is not controlled and you have a fever Follow-up/Referrals: Laurie Cedeno MD [Primary Care Provider] - 08/16/18 1:40 pm (Please, follow up with Dr. Cedeno on TuesdayAugust 16 at 1:40 pm. ) Diet: Heart Healthy Add Provider Instructions: Medications: - FLOMAX: take daily until stone passes, relaxes urethra Left ureteral stone: small, measured 3mm, should pass spontaneously stone not seen on repeat x-ray today continue to stay well hydrated and strain urine at home to check for stone or fragments of stone follow up with [facility] in 2 weeks, their office will call you for appointment Prescriptions: New tamsulosin 0.4 mg Capsule 0.4 mg PO HS 14 Days Qty: 14 RF: 0 Continue atorvastatin [Lipitor] 40 mg Tablet 40 mg PO QAM RF: 0 methocarbamol 500 mg Tablet 500 mg PO HS RF: 0 ropinirole [Requip] 1 mg Tablet 1 mg PO TID RF: 0 carbidopa-levodopa [Sinemet CR] 50-200 mg Tablet Extended Release 1 tab PO TID RF: 0 clopidogrel [Plavix] 75 mg Tablet 75 mg PO QAM RF: 0 aspirin [Aspir-81] 81 mg Tablet,Delayed Release (Dr/Ec) 81 mg PO 3XWK RF: 0 levothyroxine 25 mcg Tablet 25 mcg PO QAM RF: 0 isosorbide dinitrate 30 mg Tablet 30 mg PO QAM RF: 0 nitroglycerin 0.4 mg Tablet, Sublingual 1 tab Sublingual UD PRN (Reason: Chest Pain) RF: 0 gabapentin 300 mg Capsule 600 mg PO HS RF: 0 diltiazem HCl [Cardizem CD] 120 mg Capsule,Extended Release 24hr 120 mg PO HS RF: 0 vitamin E 400 unit Capsule 400 unit PO QDL RF: 0 cholecalciferol (vitamin D3) [Vitamin D3] 1,000 unit Capsule 1,000 unit PO QDL RF: 0 magnesium chloride [Mag 64] 64 mg Tablet,Delayed Release (Dr/Ec) 64 mg PO QDL RF: 0 calcium carbonate-vitamin D3 [Caltrate 600 + D] 600 mg (1,500 mg)-800 unit Tablet,Chewable 1 tab PO QDL RF: 0 cyanocobalamin (vitamin B-12) 500 mcg Tablet, Sublingual 500 mcg SUBLINGUAL QDL RF: 0 trazodone 50 mg Tablet 50 mg PO HS RF: 0 hydrocodone-acetaminophen 10-325 mg tablet 1 tab PO UD RF: 0 ranitidine HCl [Zantac] 150 mg Tablet 150 mg PO BID RF: 0 ferrous gluconate [Fergon] 240 mg (27 mg iron) Tablet 240 mg PO QDL RF: 0 denosumab 60 mg/mL syringe 60 mg subcut Q6M RF: 0 Stand-Alone Forms: [facility] Discharge Orders: Discharge Order (Routine); Ordered 08/09/18 Ordered By: John Melissa Admission Data Admit Date/Time: 08/08/18 16:22 Attending Provider: John Melissa Admit Provider: Jag Woodward Primary Care Provider: Laurie Cedeno Other Providers: Jag Woodward ; Carson Tripathi II Service: Medical Other Interventions: Discharge Summary Assessment (RN) Last Done: 08/09/18 12:19 DC Date/Time DO NOT enter until pt leaves facility: 08/09/18 12:40
== END 2018-08-09 12:40 | disposition home or self-care (01) | DRG 694 ==
LOC: ED 13:00 → SUATTDRO 16:22 → 4E 16:22

== ENCOUNTER 2018-09-27 12:18 | Observation (INO) ==
[2018-09-27] MEDS ORDERED: SODIUM CHLORIDE 0.9% 500 ML IV SCH (13:00)
[2018-09-27 13:15] LABS: Basophils # (auto) 0.01 K/uL (0-0.2); Basophils % (auto) 0.2 %; Eosinophils # (auto) 0.05 K/uL (0-0.5); Eosinophils % (auto) 0.8 %; Hematocrit (blood only) 36.3 % (37-47); Hemoglobin 11.8 g/dL (12.0-16.0); Immature Granulocytes # (auto) 0.01 K/uL (0.00-0.02); Immature Granulocytes % (auto) 0.2 %; Lymphocytes # (auto) 0.63 K/uL (1.2-3.4); Lymphocytes % (auto) 10.5 %; Mean Corpuscular Hgb Conc 32.5 g/dL (32-36); Mean Corpuscular Volume 89.9 fL (80-100); Mean Platelet Volume 10.2 fL (7.4-10.4); Monocytes # (auto) 0.33 K/uL (0.11-0.59); Monocytes % (auto) 5.5 %; Neutrophils # (auto) 4.99 K/uL (1.4-6.5); Neutrophils % (auto) 82.8 %; Platelet Count 271 K/uL (130-400); RDW Coefficient of Variation 15.1 % (11.5-14.5); RDW Standard Deviation 49.6 fL (36.4-46.3); Red Blood Count 4.04 M/uL (4.2-5.4); White Blood Count 6.02 K/uL (4.8-10.8)
[2018-09-27 13:20] LABS: iSTAT Creatinine 0.7 mg/dl (0.6-1.3); iSTAT Hemoglobin 11.6 g/dl (12.0-16.0); iSTAT Ionized Calcium 1.13 mmol/l (1.12-1.32); iSTAT Potassium 3.9 mEq/L (3.3-5.0)
[2018-09-27] MEDS ORDERED: IOVERSOL 100ml IV PRN (13:22)
--- NOTE | 2018-09-27 13:23 | XRay Report ---
XR chest 1V portable CLINICAL HISTORY: abd pain pain COMPARISON STUDY: 08/30/2018 FINDINGS: The bones soft tissues and hemidiaphragms are normal. The cardiomediastinal silhouette is n ormal. The lungs are clear. The pulmonary vasculature is normal. IMPRESSION: Negative chest. The above report was generated using voice recognition software. It may contain grammatical, syntax or spelling errors. Electronically signed by: Francisco Paz M.D. 09/27/2018 1:21 PM
[2018-09-27 13:24] LABS: Prothrombin Time 10.2 Seconds (9.0-12.0)
[2018-09-27 13:30] LABS: Albumin Level 3.2 gm/dl (3.4-5.0); BUN Creatinine Ratio 16.5 (10-20); Calcium 9.1 mg/dl (8.5-10.1); Creatinine Clr Calc Pharmacy 72.8 ml/min; Est GFR (African American) 86.1; Est GFR (Non-African American) 74.3; Potassium 3.9 mmol/L (3.5-5.1)
[2018-09-27 13:33] LABS: Albumin Globulin Ratio 0.9 (0.9-2); Bilirubin,Total 0.5 mg/dl (0.2-1); Globulin 3.6 gm/dl (2.5-4.0); Total Protein 6.9 gm/dl (6.4-8.2)
[2018-09-27 13:51] LABS: Appearance Urine Clear (Clear); Bilirubin Urine Negative (Negative); Blood Urine Negative (Negative); Color Urine Yellow; Glucose Urine UA Negative (Negative); Ketones Urine Negative (Negative); Leukocyte Esterase Urine Negative (Negative); Nitrite Urine Negative (Negative); Protein Urine Negative (Negative); Specific Gravity Urine 1.017 (1.000-1.030); Urobilinogen Urine Negative (Negative); pH Urine >= 9.0 (4.5-7.5)
--- NOTE | 2018-09-27 13:53 | CT Scan Report ---
CT abd pelvis IV con only CT DOSE: 1242.80 mGy.cm HISTORY: Nausea vomiting TECHNIQUE: Multiaxial CT images of the abdomen and pelvis were performed following the use of intrave nous contrast. A dose lowering technique was utilized adhering to the principles of ALARA. COMPARISON STUDY: 08/08/2018 FINDINGS: Lung bases are clear. Liver is uniform throughout. Spleen and pancreas are unremarkable. Prior partial gastrectomy/bypass type procedure combine with cholecystectomy. Several right renal per ipelvic cyst. No evidence for right renal hydronephrosis. Chronic fullness left renal pelvis with several parapelvic cyst. Multiple left renal nonobstructing c alcifications. The appendix is normal. Evidence for an increased fecal load at the low pelvic anastomosis. This may represent a component of fecal stasis. Bladder is midline. The sigmoid shows no evidence for distention. IMPRESSION: 1. Focal distention of the small bowel in the low left central abdomen at a surgically placed anastom otic site. 2. This suggestive of focal fecal stasis in the absence of a mechanical obstructive process. 3. Stable postoperative changes of the upper abdomen. 4. Bilateral renal parapelvic cysts with several nonobstructing left renal calcifications. The above report was generated using voice recognition software. It may contain grammatical, syntax or spelling errors. Electronically signed by: Francisco Paz M.D. 09/27/2018 1:52 PM
[2018-09-27] MEDS ORDERED: MoRPHine SULFATE 4 MG/ML 1 ML CARP\\VIAL IV STA (14:27)
[2018-09-27] MEDS ORDERED: ONDANSETRON INJ 2 MG/ML 2 ML VIAL IV STA (14:27)
--- NOTE | 2018-09-27 16:22 | Surgery Consultation ---
Date of Consultation September 27, 2018 Assessment & Plan (1) Abdominal pain: 73 year-old female with one day history of severe abdominal pain 10/10 that woke her up this morning at 4 am with associated nausea. + bowel function. Pain similar to previous SBO's. Surgical history included hysterectomy, cholecystectomy, gastric bypass, multiple hernia repair with ? mesh, lysis of adhesions for SBO. CT scan of abdomen and pelvis showing focal distention of small bowel at anastomotic site with increased fecal load suggesting fecal stasis. Abdomen is soft, tender, no peritonitis Ddx: Fecal stasis causing focal small bowel distention at anastomosis vs early low grade partial obstruction Plan: There is no acute surgical intervention required at this time. Given her pain is still moderate at 5/10 (after administration of pain medication) and similar to her previous SBO's would recommend medicine admit for observation and conservative management: NPO, IV Fluids, IV pain medicaiton prn, IV Zofran as needed. She may require laxatives given fecal stasis if her pain improves and labs are stable in the morning. Encourage ambulation and oob to chair as much as possible Discussed patient with Dr. Liao who agrees with above and will evaluate patient later. I ( Dr. Liao) reviewed pt's H/P with pt, and agree with the treatment plan, History of Present Illness Reason for Consultation: Abdominal pain, nausea, prior history of SBO Requesting Physician: Dr. Renee History of Present Illness Gustavo is a very pleasant 73 year-old female who presented to emergency department today with complaint of sudden abdominal pain that woke her up this morning at 4 am. States it felt like someone twisting a screwdriver in my abdomen. She has surgical history of hysterectomy, cholecystectomy, gastric bypass, multiple hernia repairs, and ex lap for SBO requiring lysis of adhesions. Last surgery was about 7 years ago for SBO. She states the pain is similar to her previous episodes of SBO. She had two other SBO in which she was treated conservatively with NGT and did not require surgery. Pain currently 5/10 after Morphine administration. She states she has a bowel movement twice a day and last bowel movement was this morning, normal soft and formed. States she is also passing flatus. Emergency room work-up included labs which showed no leukcoytosis, bmp wnl, CT scan of abdomen and pelvis with IV contrast showing a focally distended loop of small bowel in the left lower abdomen at site of surgical anastomosis with evidence of increased fecal load at the anastomosis suggesting of fecal stasis. Allergies Allergy/AdvReac Type Severity Reaction Status Date / Time shellfish derived Allergy Severe HIVES Verified 09/08/18 12:20 Sulfa (Sulfonamide Allergy Intermediate ITCH Verified 09/08/18 12:20 Antibiotics) pecan nut Allergy Hives Verified 09/08/18 12:20 ibuprofen AdvReac Intermediate NAUSEA/UPSET Verified 09/08/18 12:20 STOMACH pregabalin AdvReac Intermediate TRIPLE Verified 09/08/18 12:20 VISION Home Medications Home Medications Medication Instructions Recorded Confirmed Type Caltrate 600 + D 1 tab PO QDL 07/26/18 09/27/18 History aspirin [Aspir-81] 81 mg PO 3XWK 07/26/18 09/27/18 History atorvastatin [Lipitor] 40 mg PO QAM 07/26/18 09/27/18 History carbidopa-levodopa [Sinemet CR] 1 tab PO TID 07/26/18 09/27/18 History cholecalciferol (vitamin D3) 1,000 unit PO DAILY 07/26/18 09/27/18 History [Vitamin D3] clopidogrel [Plavix] 75 mg PO QAM 07/26/18 09/27/18 History cyanocobalamin (vitamin B-12) 500 mcg SUBLINGUAL DAILY 07/26/18 09/27/18 History diltiazem HCl [Cardizem CD] 120 mg PO HS 07/26/18 09/27/18 History levothyroxine 25 mcg PO QAM 07/26/18 09/27/18 History magnesium chloride [Mag 64] 64 mg PO HS 07/26/18 09/27/18 History methocarbamol 500 mg PO HS 07/26/18 09/27/18 History nitroglycerin 1 tab SUBLINGUAL UD PRN 07/26/18 09/27/18 History ropinirole [Requip] 1 mg PO TID 07/26/18 09/27/18 History vitamin E 400 unit PO DAILY 07/26/18 09/27/18 History trazodone 50 mg PO HS 08/02/18 09/27/18 History denosumab 60 mg SUBCUT Q6M 08/08/18 09/27/18 History ferrous gluconate [Fergon] 240 mg PO QDL 08/08/18 09/27/18 History isosorbide mononitrate 30 mg PO QAM 08/11/18 09/27/18 History Patient History Medical History Small bowel obstruction Cardiac murmur Hyperlipidemia Hypertension Hypothyroidism Kidney stones Obese Osteoarthritis Osteoporosis Parkinsons Restless leg syndrome 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) "FALLS TO LEFT IF IN A DARK ROOM WITH EYES CLOSE" Transient ischemic attack (TIA) Surgical History Family history of reaction to anesthesia NAUSEA/VOMITTING History of bilateral tubal ligation History of bowel resection History of cardiac cath NO STENTS (4 YEARS AGO) History of cholecystectomy History of colonoscopy History of herniorrhaphy X 3 IN ABDOMEN History of laminectomy LUMBAR History of tooth extraction History of total abdominal hysterectomy and bilateral salpingo-oophorectomy Nausea and vomiting after administration of anesthetic agent S/P cystoscopy with ureteral stent placement 08/2018 [facility] Stye SURGICALLY REMOVED Family History Other Family history non-contributory Social History Preferred Language: Pakistani Communication Ability: Effective Food Service Worker Required: No Beliefs That Will Affect Care: None marital status: Current Living Situation: Spouse Other Information That Helps Us Care for You: No Feels Safe at Home: Yes Safety Concerns: Feels Safe At This Time Smoking Status: Former smoker Hx Alcohol Use: No Hx Substance Use: No Review of Systems Constitutional: as per Subjective / HPI Physical Exam Vital Signs (Past 24 Hours): Last Vital Signs Temp 36.5 C 09/27/18 12:26 Pulse 55 L 09/27/18 14:18 Resp 18 09/27/18 14:18 BP 148/95 H 09/27/18 14:18 Pulse Ox 98 09/27/18 14:18 Constitutional: WD/WN, vitals as above + obese; no acute distress and not ill appearing Respiratory: normal respiratory effort, lungs clear to auscultation Cardiovascular: RRR, no murmur, no edema Gastrointestinal (Abdomen): Inspection/Auscultation: abdomen not distended and + abnormal bowel sounds Percussion/Palpation: + abdomen tender (LUQ) and abdomen soft; no guarding and abdomen not rigid Skin: no rashes, warm and dry Psychiatric: A+Ox3, euthymic affect Results & Data Laboratory Results 09/27/18 09/27/18 09/27/18 Range/Units 13:35 13:35 13:08 WBC (4.8-10.8) K/uL RBC (4.2-5.4) M/uL Hgb (12.0-16.0) g/dL POC Hgb 11.6 L (12.0-16.0) g/dl Hct (37-47) % POC Hct 34 L (37-47) % MCV (80-100) fL MCH (25-34) pg MCHC (32-36) g/dL RDW Std Deviation (36.4-46.3) fL RDW Coeff of Jeyson (11.5-14.5) % Plt Count (130-400) K/uL MPV (7.4-10.4) fL Immature Gran % (Auto) % Neut % (Auto) % Lymph % (Auto) % [place] % (Auto) % Eos % (Auto) % Baso % (Auto) % Immature Gran # (Auto) (0.00-0.02) K/uL Neut # (Auto) (1.4-6.5) K/uL Lymph # (Auto) (1.2-3.4) K/uL [place] # (Auto) (0.11-0.59) K/uL Eos # (Auto) (0-0.5) K/uL Baso # (Auto) (0-0.2) K/uL PT (9.0-12.0) Seconds INR (0.9-1.1) POC Sodium 143 (135-144) mEq/L Sodium (136-145) mmol/L POC Potassium 3.9 (3.3-5.0) mEq/L Potassium (3.5-5.1) mmol/L POC Chloride 106 (101-112) mEq/L Chloride (98-107) mmol/L Carbon Dioxide (21-32) mmol/L POC Total CO2 24 (24-31) mEq/l Anion Gap (3-11) POC Anion Gap 18.0 (16-25) mmol/L POC BUN 12 (7-18) mg/dl BUN (7-18) mg/dl Creatinine (0.6-1.2) mg/dl POC Creatinine 0.7 (0.6-1.3) mg/dl Est Cr Clr Drug Dosing ml/min Est GFR ( Amer) Est GFR (Non-Af Amer) BUN/Creatinine Ratio (10-20) Glucose (70-99) mg/dl POC Glucose (other) 107 H (70-99) mg/dl Calcium (8.5-10.1) mg/dl POC Ioniz Calcium Donavon 1.13 (1.12-1.32) mmol/l Total Bilirubin (0.2-1) mg/dl AST (15-37) U/L ALT (12-78) U/L Alkaline Phosphatase (45-117) U/L Total Protein (6.4-8.2) gm/dl Albumin (3.4-5.0) gm/dl Globulin (2.5-4.0) gm/dl Albumin/Globulin Ratio (0.9-2) Lipase (73-393) U/L Urine Color Yellow Urine Appearance Clear (Clear) Urine pH >= 9.0 H (4.5-7.5) POC Urine pH Cancelled Ur Specific [place] 1.017 (1.000-1.030) Urine Protein Negative (Negative) POC Urine Protein Cancelled Urine Glucose (UA) Negative (Negative) POC Ur Glucose (UA) Cancelled Urine Ketones Negative (Negative) POC Urine Ketones Cancelled Urine Blood Negative (Negative) POC Urine Blood Cancelled Urine Nitrite Negative (Negative) POC Urine Nitrite Cancelled Urine Bilirubin Negative (Negative) POC Urine Bilirubin Cancelled Urine Urobilinogen Negative (Negative) POC Urine Urobilinogen Cancelled Ur Leukocyte Esterase Negative (Negative) POC U Leukocyte Esteras Cancelled 09/27/18 09/27/18 09/27/18 Range/Units 13:00 13:00 13:00 WBC 6.02 (4.8-10.8) K/uL RBC 4.04 L (4.2-5.4) M/uL Hgb 11.8 L (12.0-16.0) g/dL POC Hgb (12.0-16.0) g/dl Hct 36.3 L (37-47) % POC Hct (37-47) % MCV 89.9 (80-100) fL MCH 29.2 (25-34) pg MCHC 32.5 (32-36) g/dL RDW Std Deviation 49.6 H (36.4-46.3) fL RDW Coeff of Jeyson 15.1 H (11.5-14.5) % Plt Count 271 (130-400) K/uL MPV 10.2 (7.4-10.4) fL Immature Gran % (Auto) 0.2 % Neut % (Auto) 82.8 % Lymph % (Auto) 10.5 % [place] % (Auto) 5.5 % Eos % (Auto) 0.8 % Baso % (Auto) 0.2 % Immature Gran # (Auto) 0.01 (0.00-0.02) K/uL Neut # (Auto) 4.99 (1.4-6.5) K/uL Lymph # (Auto) 0.63 L (1.2-3.4) K/uL [place] # (Auto) 0.33 (0.11-0.59) K/uL Eos # (Auto) 0.05 (0-0.5) K/uL Baso # (Auto) 0.01 (0-0.2) K/uL PT 10.2 (9.0-12.0) Seconds INR 1.0 (0.9-1.1) POC Sodium (135-144) mEq/L Sodium 141 (136-145) mmol/L POC Potassium (3.3-5.0) mEq/L Potassium 3.9 (3.5-5.1) mmol/L POC Chloride (101-112) mEq/L Chloride 110 H (98-107) mmol/L Carbon Dioxide 28 (21-32) mmol/L POC Total CO2 (24-31) mEq/l Anion Gap 3.0 (3-11) POC Anion Gap (16-25) mmol/L POC BUN (7-18) mg/dl BUN 13 (7-18) mg/dl Creatinine 0.79 (0.6-1.2) mg/dl POC Creatinine (0.6-1.3) mg/dl Est Cr Clr Drug Dosing 72.8 ml/min Est GFR ( Amer) 86.1 Est GFR (Non-Af Amer) 74.3 BUN/Creatinine Ratio 16.5 (10-20) Glucose 102 H (70-99) mg/dl POC Glucose (other) (70-99) mg/dl Calcium 9.1 (8.5-10.1) mg/dl POC Ioniz Calcium [place] (1.12-1.32) mmol/l Total Bilirubin 0.5 (0.2-1) mg/dl AST 12 L (15-37) U/L ALT 12 (12-78) U/L Alkaline Phosphatase 73 (45-117) U/L Total Protein 6.9 (6.4-8.2) gm/dl Albumin 3.2 L (3.4-5.0) gm/dl Globulin 3.6 (2.5-4.0) gm/dl Albumin/Globulin Ratio 0.9 (0.9-2) Lipase 87 (73-393) U/L Urine Color Urine Appearance (Clear) Urine pH (4.5-7.5) POC Urine pH Ur Specific [place] (1.000-1.030) Urine Protein (Negative) POC Urine Protein Urine Glucose (UA) (Negative) POC Ur Glucose (UA) Urine Ketones (Negative) POC Urine Ketones Urine Blood (Negative) POC Urine Blood Urine Nitrite (Negative) POC Urine Nitrite Urine Bilirubin (Negative) POC Urine Bilirubin Urine Urobilinogen (Negative) POC Urine Urobilinogen Ur Leukocyte Esterase (Negative) POC U Leukocyte Esteras Diagnostic Findings [place], [place] [phone] CT Scan Report Patient: GUSTAVO PULIDOmit Date: 09/27/18 MR#: [id number] [address] Acct ID:[id number]: Date: [address] [place] [address] Zip: [place] [address] Age: 73Location: ED Sex: F Room/Bed: Att Phy: Diagnosis: SEVERE PAIN Jumana Phy: Laurie Cedeno MDServwilbert Date: 09/27/18 Fam Phy: Interpreting Phy: Francisco Paz MD Admit Phy: Ordering Phy: Arvin Renee DO cc: ~ CT abd pelvis IV con only CT DOSE: 1242.80 mGy.cm HISTORY: Nausea vomiting TECHNIQUE: Multiaxial CT images of the abdomen and pelvis were performed following the use of intravenous contrast. A dose lowering technique was utilized adhering to the principles of ALARA. COMPARISON STUDY: 08/08/2018 FINDINGS: Lung bases are clear. Liver is uniform throughout. Spleen and pancreas are unremarkable. Prior partial gastrectomy/bypass type procedure combine with cholecystectomy. Several right renal peripelvic cyst. No evidence for right renal hydronephrosis. Chronic fullness left renal pelvis with several parapelvic cyst. Multiple left renal nonobstructing calcifications. The appendix is normal. Evidence for an increased fecal load at the low pelvic anastomosis. This may represent a component of fecal stasis. Bladder is midline. The sigmoid shows no evidence for distention. IMPRESSION: 1. Focal distention of the small bowel in the low left central abdomen at a surgically placed anastomotic site. 2. This suggestive of focal fecal stasis in the absence of a mechanical obstructive process. 3. Stable postoperative changes of the upper abdomen. 4. Bilateral renal parapelvic cysts with several nonobstructing left renal calc ifications.
--- NOTE | 2018-09-27 17:26 | History & Physical Report ---
Date of Service September 27, 2018 Assessment & Plan (1) Abdominal pain: Patient with acute onset mid and right sided abdominal pain. Pain similar to prior SBOs. She is afebrile, hemodynamically stable. Abdominal exam with significant tenderness and voluntary guarding otherwise normoactive BS, non- distended. CT with focal distention fo the small bowel in the low left central abdomen suggestive of focal fecal stasis. No definite obstruction noted. -Observation to medical floor -NPO except medications -IVF, NSS at 100mL/hr x 2 liters -Monitor electrolytes and optimize as needed -Zofran PRN nausea -Morphine PRN pain -Appreciate input from Surgery Present on Admission?: Yes (2) Partial small bowel obstruction: As above, concern for partial SBO. Not clearly identified on CT. -Management as above Present on Admission?: Yes (3) Hypertension: Blood pressure mildly elevated at 165/81. -Pain control as above -Continue Diltiazem, monitor HR -Continue Isosorbide -Continue to monitor Present on Admission?: Yes (4) Hypothyroidism: Chronic -Continue Synthroid 25mcg po daily Present on Admission?: Yes (5) Restless leg syndrome: Chronic. Stable -Continue Ropinirole 1mg po TID Present on Admission?: Yes (6) Parkinson disease: Chronic. Stable -Continue Sinimet -Continue Methocarbamol F/E/N - NSS at 100mL/hr x 1 liter, monitor electrolytes and replete as needed, NPO for now Ppx - SCDs to bilateral LE. Will hold ASA and Plavix for now in event of garcia rgical intervention Code - Full Dispo - Observation to medical floor Present on Admission?: Yes History of Present Illness Chief Complaint: abdominal pain Primary Care Provider: Laurie Cedeno MD Patient is a pleasant 73yo female with history of HTN, prior TIA/CVA on ASA and Plavix, PD and RLS presenting today with acute abdominal pain. Pain started suddenly this AM at 04:00 waking her from sleep. Severe, 10/10 located in the mid abdomen with band-like radiation to the back. Pain associated with nausea but no vomiting. She is having normal BMs twice daily and passing flatus. Patient has history of multiple abdominal surgeries, hernia/panchito/TAHBSO, prior SBOs x 4, the first of which required surgical intervention which was performed at [facility]. Remaining SBOs resolved with conservative management. Patient states that the pain this AM was the same as the pain associated with her prior SBOs. No additional complaints at this time. ER Course: Morphine 4mg IV, Zofran mg IV, NSS x 500mL Allergies Allergy/AdvReac Type Severity Reaction Status Date / Time shellfish derived Allergy Severe HIVES Verified 09/08/18 12:20 Sulfa (Sulfonamide Allergy Intermediate ITCH Verified 09/08/18 12:20 Antibiotics) pecan nut Allergy Hives Verified 09/08/18 12:20 ibuprofen AdvReac Intermediate NAUSEA/UPSET Verified 09/08/18 12:20 STOMACH pregabalin AdvReac Intermediate TRIPLE Verified 09/08/18 12:20 VISION Home Medications Home Medications Medication Instructions Recorded Confirmed Type Caltrate 600 + D 1 tab PO QDL 07/26/18 09/27/18 History aspirin [Aspir-81] 81 mg PO 3XWK 07/26/18 09/27/18 History atorvastatin [Lipitor] 40 mg PO QAM 07/26/18 09/27/18 History carbidopa-levodopa [Sinemet CR] 1 tab PO TID 07/26/18 09/27/18 History cholecalciferol (vitamin D3) 1,000 unit PO DAILY 07/26/18 09/27/18 History [Vitamin D3] clopidogrel [Plavix] 75 mg PO QAM 07/26/18 09/27/18 History cyanocobalamin (vitamin B-12) 500 mcg SUBLINGUAL DAILY 07/26/18 09/27/18 History diltiazem HCl [Cardizem CD] 120 mg PO HS 07/26/18 09/27/18 History levothyroxine 25 mcg PO QAM 07/26/18 09/27/18 History magnesium chloride [Mag 64] 64 mg PO HS 07/26/18 09/27/18 History methocarbamol 500 mg PO HS 07/26/18 09/27/18 History nitroglycerin 1 tab SUBLINGUAL UD PRN 07/26/18 09/27/18 History ropinirole [Requip] 1 mg PO TID 07/26/18 09/27/18 History vitamin E 400 unit PO DAILY 07/26/18 09/27/18 History trazodone 50 mg PO HS 08/02/18 09/27/18 History denosumab 60 mg SUBCUT Q6M 08/08/18 09/27/18 History ferrous gluconate [Fergon] 240 mg PO QDL 08/08/18 09/27/18 History isosorbide mononitrate 30 mg PO QAM 08/11/18 09/27/18 History Past Med/Surg History Medical History Small bowel obstruction Cardiac murmur Hyperlipidemia Hypertension Hypothyroidism Kidney stones Obese Osteoarthritis Osteoporosis Parkinsons Restless leg syndrome 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) "FALLS TO LEFT IF IN A DARK ROOM WITH EYES CLOSE" Transient ischemic attack (TIA) Surgical History Family history of reaction to anesthesia NAUSEA/VOMITTING History of bilateral tubal ligation History of bowel resection History of cardiac cath NO STENTS (4 YEARS AGO) History of cholecystectomy History of colonoscopy History of herniorrhaphy X 3 IN ABDOMEN History of laminectomy LUMBAR History of tooth extraction History of total abdominal hysterectomy and bilateral salpingo-oophorectomy Nausea and vomiting after administration of anesthetic agent S/P cystoscopy with ureteral stent placement 08/2018 [facility] Stye SURGICALLY REMOVED Family History Other Family history non-contributory Social History Preferred Language: Wolof Beliefs That Will Affect Care: None marital status: Current Living Situation: Spouse Feels Safe at Home: Yes Smoking Status: Never smoker Hx Alcohol Use: No Hx Substance Use: No Review of Systems All systems reviewed & are unremarkable except as noted in HPI & below Physical Exam Vital Signs (Past 24 Hours): Last Vital Signs Temp 36.5 C 09/27/18 12:26 Pulse 56 L 09/27/18 16:18 Resp 16 09/27/18 16:18 BP 165/81 H 09/27/18 16:18 Pulse Ox 99 09/27/18 16:18 Physical Exam: General: patient resting comfortably, NAD, non-toxic in appearance, AA&O x 4 Skin: warm, dry, intact, no rashes or lesions HEENT: NC/AT, PERRL, EOMI, anicteric sclera, conjunctiva without injection, external ear normal to inspection and nontender, nares patent, moist mucus membranes, dentures in place, no oropharyngeal lesions, neck supple, trachea midline, no LAD, no thyromegaly, no JVD Heart: +S1/S2, regular, 2/6 BARTOLO at cardiac apex with radiation across the precordium Lungs: equal air entry bilaterally, no rales/rhonchi/wheezes Abd: +BS normoactive, soft, tender with palpation of RUQ area, no rebound but some voluntary guarding, ND, no masses/organomegaly/ascites Ext: warm, 2+ pulses in UE/LE bilaterally, no clubbing/cyanosis or edema Neuro: nonfocal, patient AA&O x 4, speech intact, no facial droop, moving all extremities on command with equal strength 5/5 Results & Data Laboratory Results Lab Results 09/27/18 09/27/18 09/27/18 Range/Units 13:00 13:00 13:00 WBC 6.02 (4.8-10.8) K/uL RBC 4.04 L (4.2-5.4) M/uL Hgb 11.8 L (12.0-16.0) g/dL POC Hgb (12.0-16.0) g/dl Hct 36.3 L (37-47) % POC Hct (37-47) % MCV 89.9 (80-100) fL MCH 29.2 (25-34) pg MCHC 32.5 (32-36) g/dL RDW Std Deviation 49.6 H (36.4-46.3) fL RDW Coeff of Jeyson 15.1 H (11.5-14.5) % Plt Count 271 (130-400) K/uL MPV 10.2 (7.4-10.4) fL Immature Gran % (Auto) 0.2 % Neut % (Auto) 82.8 % Lymph % (Auto) 10.5 % [place] % (Auto) 5.5 % Eos % (Auto) 0.8 % Baso % (Auto) 0.2 % Immature Gran # (Auto) 0.01 (0.00-0.02) K/uL Neut # (Auto) 4.99 (1.4-6.5) K/uL Lymph # (Auto) 0.63 L (1.2-3.4) K/uL [place]y # (Auto) 0.33 (0.11-0.59) K/uL Eos # (Auto) 0.05 (0-0.5) K/uL Baso # (Auto) 0.01 (0-0.2) K/uL PT 10.2 (9.0-12.0) Seconds INR 1.0 (0.9-1.1) POC Sodium (135-144) mEq/L Sodium 141 (136-145) mmol/L POC Potassium (3.3-5.0) mEq/L Potassium 3.9 (3.5-5.1) mmol/L POC Chloride (101-112) mEq/L Chloride 110 H (98-107) mmol/L Carbon Dioxide 28 (21-32) mmol/L POC Total CO2 (24-31) mEq/l Anion Gap 3.0 (3-11) POC Anion Gap (16-25) mmol/L POC BUN (7-18) mg/dl BUN 13 (7-18) mg/dl Creatinine 0.79 (0.6-1.2) mg/dl POC Creatinine (0.6-1.3) mg/dl Est Cr Clr Drug Dosing 72.8 ml/min Est GFR ( Amer) 86.1 Est GFR (Non-Af Amer) 74.3 BUN/Creatinine Ratio 16.5 (10-20) Glucose 102 H (70-99) mg/dl POC Glucose (other) (70-99) mg/dl Calcium 9.1 (8.5-10.1) mg/dl POC Ioniz Calcium [place] (1.12-1.32) mmol/l Total Bilirubin 0.5 (0.2-1) mg/dl AST 12 L (15-37) U/L ALT 12 (12-78) U/L Alkaline Phosphatase 73 (45-117) U/L Total Protein 6.9 (6.4-8.2) gm/dl Albumin 3.2 L (3.4-5.0) gm/dl Globulin 3.6 (2.5-4.0) gm/dl Albumin/Globulin Ratio 0.9 (0.9-2) Lipase 87 (73-393) U/L Urine Color Urine Appearance (Clear) Urine pH (4.5-7.5) POC Urine pH Ur Specific [place] (1.000-1.030) Urine Protein (Negative) POC Urine Protein Urine Glucose (UA) (Negative) POC Ur Glucose (UA) Urine Ketones (Negative) POC Urine Ketones Urine Blood (Negative) POC Urine Blood Urine Nitrite (Negative) POC Urine Nitrite Urine Bilirubin (Negative) POC Urine Bilirubin Urine Urobilinogen (Negative) POC Urine Urobilinogen Ur Leukocyte Esterase (Negative) POC U Leukocyte Esteras 09/27/18 09/27/18 09/27/18 Range/Units 13:08 13:35 13:35 WBC (4.8-10.8) K/uL RBC (4.2-5.4) M/uL Hgb (12.0-16.0) g/dL POC Hgb 11.6 L (12.0-16.0) g/dl Hct (37-47) % POC Hct 34 L (37-47) % MCV (80-100) fL MCH (25-34) pg MCHC (32-36) g/dL RDW Std Deviation (36.4-46.3) fL RDW Coeff of Jeyson (11.5-14.5) % Plt Count (130-400) K/uL MPV (7.4-10.4) fL Immature Gran % (Auto) % Neut % (Auto) % Lymph % (Auto) % [place] % (Auto) % Eos % (Auto) % Baso % (Auto) % Immature Gran # (Auto) (0.00-0.02) K/uL Neut # (Auto) (1.4-6.5) K/uL Lymph # (Auto) (1.2-3.4) K/uL [place]y # (Auto) (0.11-0.59) K/uL Eos # (Auto) (0-0.5) K/uL Baso # (Auto) (0-0.2) K/uL PT (9.0-12.0) Seconds INR (0.9-1.1) POC Sodium 143 (135-144) mEq/L Sodium (136-145) mmol/L POC Potassium 3.9 (3.3-5.0) mEq/L Potassium (3.5-5.1) mmol/L POC Chloride 106 (101-112) mEq/L Chloride (98-107) mmol/L Carbon Dioxide (21-32) mmol/L POC Total CO2 24 (24-31) mEq/l Anion Gap (3-11) POC Anion Gap 18.0 (16-25) mmol/L POC BUN 12 (7-18) mg/dl BUN (7-18) mg/dl Creatinine (0.6-1.2) mg/dl POC Creatinine 0.7 (0.6-1.3) mg/dl Est Cr Clr Drug Dosing ml/min Est GFR ( Amer) Est GFR (Non-Af Amer) BUN/Creatinine Ratio (10-20) Glucose (70-99) mg/dl POC Glucose (other) 107 H (70-99) mg/dl Calcium (8.5-10.1) mg/dl POC Ioniz Calcium [place] 1.13 (1.12-1.32) mmol/l Total Bilirubin (0.2-1) mg/dl AST (15-37) U/L ALT (12-78) U/L Alkaline Phosphatase (45-117) U/L Total Protein (6.4-8.2) gm/dl Albumin (3.4-5.0) gm/dl Globulin (2.5-4.0) gm/dl Albumin/Globulin Ratio (0.9-2) Lipase (73-393) U/L Urine Color Yellow Urine Appearance Clear (Clear) Urine pH >= 9.0 H (4.5-7.5) POC Urine pH Cancelled Ur Specific [place] 1.017 (1.000-1.030) Urine Protein Negative (Negative) POC Urine Protein Cancelled Urine Glucose (UA) Negative (Negative) POC Ur Glucose (UA) Cancelled Urine Ketones Negative (Negative) POC Urine Ketones Cancelled Urine Blood Negative (Negative) POC Urine Blood Cancelled Urine Nitrite Negative (Negative) POC Urine Nitrite Cancelled Urine Bilirubin Negative (Negative) POC Urine Bilirubin Cancelled Urine Urobilinogen Negative (Negative) POC Urine Urobilinogen Cancelled Ur Leukocyte Esterase Negative (Negative) POC U Leukocyte Esteras Cancelled Diagnostic Findings XR chest 1V portable CLINICAL HISTORY: abd pain pain COMPARISON STUDY: 08/30/2018 FINDINGS: The bones soft tissues and hemidiaphragms are normal. The cardiomediastinal silhouette is normal. The lungs are clear. The pulmonary vas culature is normal. IMPRESSION: Negative chest. The above report was generated using voice recognition software. It may contain grammatical, syntax or spelling errors. Electronically signed by: Francisco Paz M.D. 09/27/2018 1:21 PM Dictated: 09/27/18 1317 Transcribed: 09/27/[address] abd pelvis IV con only CT DOSE: 1242.80 mGy.cm HISTORY: Nausea vomiting TECHNIQUE: Multiaxial CT images of the abdomen and pelvis were performed following the use of intravenous contrast. A dose lowering technique was utilized adhering to the principles of ALARA. COMPARISON STUDY: 08/08/2018 FINDINGS: Lung bases are clear. Liver is uniform throughout. Spleen and pancreas are unremarkable. Prior partial gastrectomy/bypass type procedure combine with cholecystectomy. Several right renal peripelvic cyst. No evidence for right renal hydronephrosis. Chronic fullness left renal pelvis with several parapelvic cyst. Multiple left renal nonobstructing calcifications. The appendix is normal. Evidence for an increased fecal load at the low pelvic anastomosis. This may represent a component of fecal stasis. Bladder is midline. The sigmoid shows no evidence for distention. IMPRESSION: 1. Focal distention of the small bowel in the low left central abdomen at a surgically placed anastomotic site. 2. This suggestive of focal fecal stasis in the absence of a mechanical obstructive process. 3. Stable postoperative changes of the upper abdomen. 4. Bilateral renal parapelvic cysts with several nonobstructing left renal calcifications. The above report was generated using voice recognition software. It may contain grammatical, syntax or spelling errors. Electronically signed by: Francisco Paz M.D. 09/27/2018 1:52 PM Dictated: 09/27/18 1344 Transcribed: 09/27/18 1344 Code Status & VTE Plan Code Status Full code (1) Abdominal pain Abdominal location: unspecified location Qualified Code(s): R10.9 - Unspecified abdominal pain (2) Hypertension Hypertension type: essential hypertension Qualified Code(s): I10 - Essential (primary) hypertension (3) Hypothyroidism Hypothyroidism type: unspecified Qualified Code(s): E03.9 - Hypothyroidism, unspecified
--- NOTE | 2018-09-27 17:53 | Emergency Department Note ---
Entered by Mary Church acting as a scribe for Arvin Renee DO History of Present Illness General Chief complaint: Pain (Generalized) Stated complaint: SEVERE PAIN Source: patient History of Present Illness Onset (ago): hour(s) 8 Location: abdomen Radiation: back Severity: similar to prior episodes (small bowel obstructions) Pain Consistency: + other (worsening) Maximum Pain Intensity: 10 Quality: + sharp and + other ("punched in the stomach") Associated symptoms: + nausea/vomiting (Positive nausea. Negative vomiting. ) and + other (abdomen feeling distended) The patient is a 73 year old female who presents to the Emergency Room with complaints of worsening abdominal pain starting 8 hours ago. The patient states that she has a history of small bowel obstructions and she thinks she has another. She states that this morning she started having right sided abdominal pain that felt like she was punched in the stomach. She reports that the pain then radiated into her back. She notes that intermittently she has a sharp pain in her abdomen. The patient complains of nausea and her abdomen feeling larger than normal. She notes that she has had a cholecystectomy. The patient denies vomiting. Home Medications Home Medications Medication Instructions Recorded Confirmed Type Caltrate 600 + D 1 tab PO QDL 07/26/18 09/27/18 History aspirin [Aspir-81] 81 mg PO [id number] 07/26/18 09/27/18 History atorvastatin [Lipitor] 40 mg PO QAM 07/26/18 09/27/18 History carbidopa-levodopa [Sinemet CR] 1 tab PO TID 07/26/18 09/27/18 History cholecalciferol (vitamin D3) 1,000 unit PO DAILY 07/26/18 09/27/18 History [Vitamin D3] clopidogrel [Plavix] 75 mg PO QAM 07/26/18 09/27/18 History cyanocobalamin (vitamin B-12) 500 mcg SUBLINGUAL DAILY 07/26/18 09/27/18 History diltiazem HCl [Cardizem CD] 120 mg PO HS 07/26/18 09/27/18 History levothyroxine 25 mcg PO QAM 07/26/18 09/27/18 History magnesium chloride [Mag 64] 64 mg PO HS 07/26/18 09/27/18 History methocarbamol 500 mg PO HS 07/26/18 09/27/18 History nitroglycerin 1 tab SUBLINGUAL UD PRN 07/26/18 09/27/18 History ropinirole [Requip] 1 mg PO BID 07/26/18 09/28/18 History vitamin E 400 unit PO DAILY 07/26/18 09/27/18 History trazodone 50 mg PO HS 08/02/18 09/27/18 History denosumab 60 mg SUBCUT Q6M 08/08/18 09/27/18 History ferrous gluconate [Fergon] 240 mg PO QDL 08/08/18 09/27/18 History isosorbide mononitrate 30 mg PO QAM 08/11/18 09/27/18 History Allergies Allergy/AdvReac Type Severity Reaction Status Date / Time shellfish derived Allergy Severe HIVES Verified 09/08/18 12:20 Sulfa (Sulfonamide Allergy Intermediate ITCH Verified 09/08/18 12:20 Antibiotics) pecan nut Allergy Hives Verified 09/08/18 12:20 ibuprofen AdvReac Intermediate NAUSEA/UPSET Verified 09/08/18 12:20 STOMACH pregabalin AdvReac Intermediate TRIPLE Verified 09/08/18 12:20 VISION Past Med/Surg History Medical History Small bowel obstruction Cardiac murmur Hyperlipidemia Hypertension Hypothyroidism Kidney stones Obese Osteoarthritis Osteoporosis Parkinsons Restless leg syndrome 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) "FALLS TO LEFT IF IN A DARK ROOM WITH EYES CLOSE" Transient ischemic attack (TIA) Surgical History Family history of reaction to anesthesia NAUSEA/VOMITTING History of bilateral tubal ligation History of bowel resection History of cardiac cath NO STENTS (4 YEARS AGO) History of cholecystectomy History of colonoscopy History of herniorrhaphy X 3 IN ABDOMEN History of laminectomy LUMBAR History of tooth extraction History of total abdominal hysterectomy and bilateral salpingo-oophorectomy Nausea and vomiting after administration of anesthetic agent S/P cystoscopy with ureteral stent placement 08/2018 [facility] [place] SURGICALLY REMOVED Family History Other Family history non-contributory Social History Preferred Language: Liberian Communication Ability: Effective Rip Saw Operator Required: No Beliefs That Will Affect Care: None marital status: Current Living Situation: Spouse Other Information That Helps Us Care for You: No Feels Safe at Home: Yes Safety Concerns: Feels Safe At This Time Smoking Status: Former smoker Hx Alcohol Use: No Hx Substance Use: No Review of Systems See HPI for pertinent positives & negatives. and A total of 10 systems reviewed and were otherwise negative Physical Exam Vital Signs Vital Signs - 24 hr 09/28/18 15:13 09/28/18 20:12 09/28/18 23:32 Temperature 36.4 C L 36.5 C Temperature Source Oral Oral Pulse Rate [Finger] 56 L 57 L Pulse Rate [Left Apical] 55 L Pulse Rhythm [Finger] Regular Pulse Rhythm [Left Apical] Regular Pulse Strength [Finger] Normal Pulse Strength [Left Apical] Normal Respiratory Rate 18 18 Respiratory Effort / Characteristics Non-Labored Respiratory Depth Normal Respiratory Pattern Regular Blood Pressure [Right Arm] 112/68 130/65 Blood Pressure Mean [Right Arm] 82 86 Blood Pressure Position [Right Arm] Lying Lying Pulse Oximetry 96 98 Oxygen Delivery Method Room Air Room Air 09/29/18 07:54 09/29/18 09:11 09/29/18 11:36 Temperature 36.8 C 36.6 C Temperature Source Oral Oral Pulse Rate [Finger] Pulse Rate [Left Apical] 61 63 Pulse Rhythm [Finger] Pulse Rhythm [Left Apical] Regular Regular Pulse Strength [Finger] Pulse Strength [Left Apical] Normal Normal Respiratory Rate 14 14 Respiratory Effort / Characteristics Non-Labored Spontaneous Non-Labored Spontaneous Non-Labored Spontaneous Respiratory Depth Normal Normal Normal Respiratory Pattern Regular Regular Regular Blood Pressure [Right Arm] 134/37 L 114/70 Blood Pressure Mean [Right Arm] 69 84 Blood Pressure Position [Right Arm] Lying Lying Pulse Oximetry 95 96 Oxygen Delivery Method Room Air Room Air Room Air GENERAL: Patient is awake, alert, and anxious appearing. She appears uncomfortable. EYES: The conjunctivae are clear. The pupils are round and reactive. EARS, NOSE, MOUTH AND THROAT: The nose is without any evidence of deformity. Mucous membranes are moist. Tongue is midline. NECK: The neck is nontender and supple. RESPIRATORY: Normal respiratory effort is noted. There is no evidence of wheezing rhonchi or rales to auscultation. CARDIOVASCULAR: Regular rate and rhythm noted. There are no murmurs rubs or gallops. Normal S1, normal S2. GASTROINTESTINAL: The abdomen is moderately distended and diffusely tender. Bowel sounds are present in all quadrants. BACK: No midline tenderness or step-off noted. Full range of motion in flexion and extension as well as rotation. No signs of muscle spasm noted. MUSCULOSKELETAL/EXTREMITIES: There is no evidence of gross deformity. Full range of motion is noted in the hips and shoulders. SKIN: There is no obvious evidence of any rash. No edema was noted. There is no petechiae, pallor or cyanosis noted. NEUROLOGIC: Patient is awake alert and oriented x3. Course 1252: Past medical records reviewed. The patient was evaluated in room D4A, and a complete history and physical examination were performed. 1538: I reevaluated the patient and updated her on her test results at this time. 1540: I discussed the patient's case with WILFREDO Maynard. She will come look at her. 1612: WILFREDO Maynard recommends the patient be admitted for observation. She states that she already went over it with patient and she is agreeable. 1624: I reviewed the patient's case with Dr. Razia PANTOJA Hospitalist. She will evaluate the patient for further management. Consultations Consultation #1: I discussed the patient's case with WILFREDO Maynard. She will come look at her. Time: 15:40 Consultation #2: WILFREDO Maynard recommends the patient be admitted for observation. She states that she already went over it with patient and she is agreeable. Time: 16:12 Consultation #3: I reviewed the patient's case with Dr. Razia PANTOJA Hospitalist. She will evaluate the patient for further management. Time: 16:24 Administered Medications Atorvastatin Calcium (Lipitor) 40 mg PO QAM [facility] Stop: 10/28/18 08:59 Last Admin: 09/29/18 08:27 Dose: 40 mg Documented by: [id number] Admin: 09/28/18 07:30 Dose: 40 mg Documented by: [id number] Carbidopa/Levodopa (Sinemet Cr 50/200mg) 1 tab PO TID [facility], [facility]1983 Stop: 10/27/18 20:59 Last Admin: 09/29/18 13:51 Dose: 1 tab Documented by: [id number] Admin: 09/29/18 08:27 Dose: 1 tab Documented by: [id number] Admin: 09/28/18 20:16 Dose: 1 tab Documented by: [id number] Admin: 09/28/18 15:00 Dose: 1 tab Documented by: [id number] Admin: 09/28/18 07:30 Dose: 1 tab Documented by: [id number] Admin: 09/27/18 21:28 Dose: 1 tab Documented by: [id number] Cyanocobalamin (Vitamin B-12) 500 mcg PO DAILY OLIVA Stop: 10/28/18 08:59 Last Admin: 09/29/18 08:27 Dose: 500 mcg Documented by: [id number] Admin: 09/28/18 07:30 Dose: 500 mcg Documented by: [id number] Diltiazem HCl (Cardizem Cd) 120 mg PO HS OLIVA Stop: 10/27/18 20:59 Last Admin: 09/28/18 20:13 Dose: Not Given Documented by: [id number] Admin: 09/27/18 21:27 Dose: Not Given Documented by: [id number] Docusate Sodium (Colace) 100 mg PO BID OLIVA Stop: 10/28/18 11:29 Last Admin: 09/29/18 08:26 Dose: 100 mg Documented by: [id number] Admin: 09/28/18 20:15 Dose: 100 mg Documented by: [id number] Admin: 09/28/18 11:59 Dose: 100 mg Documented by: [id number] Isosorbide Mononitrate (Imdur Extended Rel) 30 mg PO QAM OLIVA Stop: 10/28/18 08:59 Last Admin: 09/29/18 08:26 Dose: 30 mg Documented by: [id number] Admin: 09/28/18 07:30 Dose: 30 mg Documented by: [id number] Levothyroxine Sodium (Synthroid) 25 mcg PO DAILYBB OLIVA Stop: 10/28/18 06:29 Last Admin: 09/29/18 06:37 Dose: 25 mcg Documented by: [id number] Admin: 09/28/18 05:18 Dose: 25 mcg Documented by: [id number] Magnesium Chloride (Slow-Mag) 64 mg PO HS OLIVA Stop: 10/27/18 20:59 Last Admin: 09/28/18 20:16 Dose: 64 mg Documented by: [id number] Admin: 09/27/18 21:29 Dose: 64 mg Documented by: [id number] Methocarbamol (Robaxin) 500 mg PO HS [facility], [facility] Stop: 10/27/18 20:59 Last Admin: 09/28/18 20:21 Dose: 500 mg Documented by: [id number] Admin: 09/27/18 21:28 Dose: 500 mg Documented by: [id number] Miscellaneous (Order Awaiting Action) 1 ea N/A QS [facility], [facility]1983 Stop: 10/28/18 00:00 Last Admin: 09/29/18 13:52 Dose: Not Given Documented by: [id number] Admin: 09/29/18 07:04 Dose: Not Given Documented by: [id number] Admin: 09/29/18 02:11 Dose: Not Given Documented by: [id number] Admin: 09/28/18 15:24 Dose: Not Given Documented by: [id number] Admin: 09/28/18 06:54 Dose: Not Given Documented by: [id number] Admin: 09/27/18 23:44 Dose: Not Given Documented by: [id number] Morphine Sulfate (Morphine Sulfate) 4 mg IV Q4H PRN PRN Reason: pain Stop: 10/11/18 18:25 Last Admin: 09/28/18 00:47 Dose: 4 mg Documented by: [id number] Admin: 09/27/18 18:55 Dose: 4 mg Documented by: [id number] Ondansetron HCl (Zofran) 4 mg IV Q6H PRN PRN Reason: Nausea Stop: 10/27/18 18:25 Last Admin: 09/28/18 05:35 Dose: 4 mg Documented by: [id number] Polyethylene Glycol (Miralax Powder Packet) 17 gm PO DAILY [facility]1983 Stop: 10/28/18 11:29 Last Admin: 09/29/18 08:27 Dose: 17 gm Documented by: [id number] Admin: 09/28/18 11:59 Dose: 17 gm Documented by: [id number] Ropinirole HCl (Requip) 1 mg PO BID@1700,2100 OLIVA; Protocol Stop: 10/28/18 16:59 Last Admin: 09/28/18 20:15 Dose: 1 mg Documented by: [id number] Admin: 09/28/18 17:02 Dose: 1 mg Documented by: [id number] Trazodone HCl (Desyrel) 50 mg PO [facility] Stop: 10/27/18 20:59 Last Admin: 09/28/18 20:15 Dose: 50 mg Documented by: [id number] Admin: 09/27/18 21:29 Dose: 50 mg Documented by: [id number] Discontinued Medications Sodium Chloride (Nss) 500 mls @ 999 mls/hr IV .Q31M OLIVA Stop: 09/27/18 13:30 Last Infusion: 09/27/18 13:44 Dose: 0 mls/hr Documented by: [id number] Admin: 09/27/18 13:13 Dose: 999 mls/hr Documented by: [id number] Sodium Chloride (Nss 1000ml) 1,000 mls @ 100 mls/hr IV .Q10H OLIVA Stop: 09/28/18 14:25 Last Infusion: 09/28/18 15:14 Dose: 0 mls/hr Documented by: [id number] Infusion: 09/28/18 05:44 Dose: 100 mls/hr Documented by: [id number] Admin: 09/28/18 05:14 Dose: 100 mls/hr Documented by: [id number] Infusion: 09/28/18 04:55 Dose: 100 mls/hr Documented by: [id number] Admin: 09/27/18 18:55 Dose: 100 mls/hr Documented by: [id number] Ioversol (Optiray 320 100ml) 100 ml IV ONCE PRN PRN Reason: Interaction Checking Stop: 10/01/18 13:21 Last Admin: 09/27/18 13:24 Dose: 100 ml Documented by: [id number] Morphine Sulfate (Morphine Sulfate) 4 mg IV NOW STA Stop: 09/27/18 14:28 Last Admin: 09/27/18 14:37 Dose: 4 mg Documented by: [id number] Ondansetron HCl (Zofran) 4 mg IV NOW STA Stop: 09/27/18 14:28 Last Admin: 09/27/18 14:38 Dose: 4 mg Documented by: [id number] Ropinirole HCl (Requip) 1 mg PO TID OLIVA Stop: 10/27/18 20:59 Last Admin: 09/28/18 15:00 Dose: Not Given Documented by: [id number] Admin: 09/28/18 07:30 Dose: 1 mg Documented by: [id number] Admin: 09/27/18 21:29 Dose: 1 mg Documented by: [id number] Medical Decision Making Differential Diagnosis Etiologies such as appendicitis, diverticulitis, obstruction, inflammatory bowel disease, renal colic, PUD, biliary pathology, pancreatitis, mesenteric ischemia, aortic pathology, infections, gentourinary, UTI, perforated viscus, as well as others were entertained. Medical Records Attestation: I reviewed the patient's medical records. Home Medications Current Medication List: was personally reviewed by me Laboratory Data Attestation: I reviewed the patient's lab results. Result diagrams: 09/28/18 07:22 09/28/18 07:03 Lab Results 09/27/18 09/27/18 09/27/18 Range/Units 13:00 13:00 13:00 WBC 6.02 (4.8-10.8) K/uL RBC 4.04 L (4.2-5.4) M/uL Hgb 11.8 L (12.0-16.0) g/dL POC Hgb (12.0-16.0) g/dl Hct 36.3 L (37-47) % POC Hct (37-47) % MCV 89.9 (80-100) fL MCH 29.2 (25-34) pg MCHC 32.5 (32-36) g/dL RDW Std Deviation 49.6 H (36.4-46.3) fL RDW Coeff of Jeyson 15.1 H (11.5-14.5) % Plt Count 271 (130-400) K/uL MPV 10.2 (7.4-10.4) fL Immature Gran % (Auto) 0.2 % Neut % (Auto) 82.8 % Lymph % (Auto) 10.5 % [place] % (Auto) 5.5 % Eos % (Auto) 0.8 % Baso % (Auto) 0.2 % Immature Gran # (Auto) 0.01 (0.00-0.02) K/uL Neut # (Auto) 4.99 (1.4-6.5) K/uL Lymph # (Auto) 0.63 L (1.2-3.4) K/uL Sumner # (Auto) 0.33 (0.11-0.59) K/uL Eos # (Auto) 0.05 (0-0.5) K/uL Baso # (Auto) 0.01 (0-0.2) K/uL PT 10.2 (9.0-12.0) Seconds INR 1.0 (0.9-1.1) POC Sodium (135-144) mEq/L Sodium 141 (136-145) mmol/L POC Potassium (3.3-5.0) mEq/L Potassium 3.9 (3.5-5.1) mmol/L POC Chloride (101-112) mEq/L Chloride 110 H (98-107) mmol/L Carbon Dioxide 28 (21-32) mmol/L POC Total CO2 (24-31) mEq/l Anion Gap 3.0 (3-11) POC Anion Gap (16-25) mmol/L POC BUN (7-18) mg/dl BUN 13 (7-18) mg/dl Creatinine 0.79 (0.6-1.2) mg/dl POC Creatinine (0.6-1.3) mg/dl Est Cr Clr Drug Dosing 72.8 ml/min Est GFR ( Amer) 86.1 Est GFR (Non-Af Amer) 74.3 BUN/Creatinine Ratio 16.5 (10-20) Glucose 102 H (70-99) mg/dl POC Glucose (other) (70-99) mg/dl Calcium 9.1 (8.5-10.1) mg/dl POC Ioniz Calcium [place] (1.12-1.32) mmol/l Phosphorus (2.5-4.9) mg/dl Magnesium (1.8-2.4) mg/dl Total Bilirubin 0.5 (0.2-1) mg/dl AST 12 L (15-37) U/L ALT 12 (12-78) U/L Alkaline Phosphatase 73 (45-117) U/L Total Protein 6.9 (6.4-8.2) gm/dl Albumin 3.2 L (3.4-5.0) gm/dl Globulin 3.6 (2.5-4.0) gm/dl Albumin/Globulin Ratio 0.9 (0.9-2) Lipase 87 (73-393) U/L Urine Color Urine Appearance (Clear) Urine pH (4.5-7.5) POC Urine pH Ur Specific [place] (1.000-1.030) Urine Protein (Negative) POC Urine Protein Urine Glucose (UA) (Negative) POC Ur Glucose (UA) Urine Ketones (Negative) POC Urine Ketones Urine Blood (Negative) POC Urine Blood Urine Nitrite (Negative) POC Urine Nitrite Urine Bilirubin (Negative) POC Urine Bilirubin Urine Urobilinogen (Negative) POC Urine Urobilinogen Ur Leukocyte Esterase (Negative) POC U Leukocyte Esteras 09/27/18 09/27/18 09/27/18 Range/Units 13:00 13:08 13:35 WBC (4.8-10.8) K/uL RBC (4.2-5.4) M/uL Hgb (12.0-16.0) g/dL POC Hgb 11.6 L (12.0-16.0) g/dl Hct (37-47) % POC Hct 34 L (37-47) % MCV (80-100) fL MCH (25-34) pg MCHC (32-36) g/dL RDW Std Deviation (36.4-46.3) fL RDW Coeff of Jeyson (11.5-14.5) % Plt Count (130-400) K/uL MPV (7.4-10.4) fL Immature Gran % (Auto) % Neut % (Auto) % Lymph % (Auto) % [place] % (Auto) % Eos % (Auto) % Baso % (Auto) % Immature Gran # (Auto) (0.00-0.02) K/uL Neut # (Auto) (1.4-6.5) K/uL Lymph # (Auto) (1.2-3.4) K/uL Sumner # (Auto) (0.11-0.59) K/uL Eos # (Auto) (0-0.5) K/uL Baso # (Auto) (0-0.2) K/uL PT (9.0-12.0) Seconds INR (0.9-1.1) POC Sodium 143 (135-144) mEq/L Sodium (136-145) mmol/L POC Potassium 3.9 (3.3-5.0) mEq/L Potassium (3.5-5.1) mmol/L POC Chloride 106 (101-112) mEq/L Chloride (98-107) mmol/L Carbon Dioxide (21-32) mmol/L POC Total CO2 24 (24-31) mEq/l Anion Gap (3-11) POC Anion Gap 18.0 (16-25) mmol/L POC BUN 12 (7-18) mg/dl BUN (7-18) mg/dl Creatinine (0.6-1.2) mg/dl POC Creatinine 0.7 (0.6-1.3) mg/dl Est Cr Clr Drug Dosing ml/min Est GFR ( Amer) Est GFR (Non-Af Amer) BUN/Creatinine Ratio (10-20) Glucose (70-99) mg/dl POC Glucose (other) 107 H (70-99) mg/dl Calcium (8.5-10.1) mg/dl POC Ioniz Calcium [place] 1.13 (1.12-1.32) mmol/l Phosphorus 2.6 (2.5-4.9) mg/dl Magnesium 2.1 (1.8-2.4) mg/dl Total Bilirubin (0.2-1) mg/dl AST (15-37) U/L ALT (12-78) U/L Alkaline Phosphatase (45-117) U/L Total Protein (6.4-8.2) gm/dl Albumin (3.4-5.0) gm/dl Globulin (2.5-4.0) gm/dl Albumin/Globulin Ratio (0.9-2) Lipase (73-393) U/L Urine Color Urine Appearance (Clear) Urine pH (4.5-7.5) POC Urine pH Cancelled Ur Specific [place] (1.000-1.030) Urine Protein (Negative) POC Urine Protein Cancelled Urine Glucose (UA) (Negative) POC Ur Glucose (UA) Cancelled Urine Ketones (Negative) POC Urine Ketones Cancelled Urine Blood (Negative) POC Urine Blood Cancelled Urine Nitrite (Negative) POC Urine Nitrite Cancelled Urine Bilirubin (Negative) POC Urine Bilirubin Cancelled Urine Urobilinogen (Negative) POC Urine Urobilinogen Cancelled Ur Leukocyte Esterase (Negative) POC U Leukocyte Esteras Cancelled 09/27/18 09/28/18 09/28/18 Range/Units 13:35 07:03 07:22 WBC 5.34 (4.8-10.8) K/uL RBC 3.59 L (4.2-5.4) M/uL Hgb 10.3 L (12.0-16.0) g/dL POC Hgb (12.0-16.0) g/dl Hct 32.7 L (37-47) % POC Hct (37-47) % MCV 91.1 (80-100) fL MCH 28.7 (25-34) pg MCHC 31.5 L (32-36) g/dL RDW Std Deviation 51.4 H (36.4-46.3) fL RDW Coeff of Jeyson 15.3 H (11.5-14.5) % Plt Count 232 (130-400) K/uL MPV 10.0 (7.4-10.4) fL Immature Gran % (Auto) 0.4 % Neut % (Auto) 74.2 % Lymph % (Auto) 15.9 % Sumner % (Auto) 7.1 % Eos % (Auto) 2.2 % Baso % (Auto) 0.2 % Immature Gran # (Auto) 0.02 (0.00-0.02) K/uL Neut # (Auto) 3.96 (1.4-6.5) K/uL Lymph # (Auto) 0.85 L (1.2-3.4) K/uL [place] # (Auto) 0.38 (0.11-0.59) K/uL Eos # (Auto) 0.12 (0-0.5) K/uL Baso # (Auto) 0.01 (0-0.2) K/uL PT (9.0-12.0) Seconds INR (0.9-1.1) POC Sodium (135-144) mEq/L Sodium 144 (136-145) mmol/L POC Potassium (3.3-5.0) mEq/L Potassium 3.8 (3.5-5.1) mmol/L POC Chloride (101-112) mEq/L Chloride 113 H (98-107) mmol/L Carbon Dioxide 28 (21-32) mmol/L POC Total CO2 (24-31) mEq/l Anion Gap 2.0 L (3-11) POC Anion Gap (16-25) mmol/L POC BUN (7-18) mg/dl BUN 12 (7-18) mg/dl Creatinine 0.73 (0.6-1.2) mg/dl POC Creatinine (0.6-1.3) mg/dl Est Cr Clr Drug Dosing 78.8 ml/min Est GFR ( Amer) 94.7 Est GFR (Non-Af Amer) 81.7 BUN/Creatinine Ratio 17.0 (10-20) Glucose 83 (70-99) mg/dl POC Glucose (other) (70-99) mg/dl Calcium 7.9 L (8.5-10.1) mg/dl POC Ioniz Calcium [place] (1.12-1.32) mmol/l Phosphorus (2.5-4.9) mg/dl Magnesium (1.8-2.4) mg/dl Total Bilirubin (0.2-1) mg/dl AST (15-37) U/L ALT (12-78) U/L Alkaline Phosphatase (45-117) U/L Total Protein (6.4-8.2) gm/dl Albumin (3.4-5.0) gm/dl Globulin (2.5-4.0) gm/dl Albumin/Globulin Ratio (0.9-2) Lipase (73-393) U/L Urine Color Yellow Urine Appearance Clear (Clear) Urine pH >= 9.0 H (4.5-7.5) POC Urine pH Ur Specific [place] 1.017 (1.000-1.030) Urine Protein Negative (Negative) POC Urine Protein Urine Glucose (UA) Negative (Negative) POC Ur Glucose (UA) Urine Ketones Negative (Negative) POC Urine Ketones Urine Blood Negative (Negative) POC Urine Blood Urine Nitrite Negative (Negative) POC Urine Nitrite Urine Bilirubin Negative (Negative) POC Urine Bilirubin Urine Urobilinogen Negative (Negative) POC Urine Urobilinogen Ur Leukocyte Esterase Negative (Negative) POC U Leukocyte Esteras Imaging Data Radiologist's Impression: Radiology results as stated below per my review and the radiologist's interpretation: XR chest 1V portable CLINICAL HISTORY: abd pain pain COMPARISON STUDY: 08/30/2018 FINDINGS: The bones soft tissues and hemidiaphragms are normal. The card iomediastinal silhouette is normal. The lungs are clear. The pulmonary vasculature is normal. IMPRESSION: Negative chest. The above report was generated using voice recognition software. It may contain grammatical, syntax or spelling errors. Electronically signed by: Francisco Paz M.D. 09/27/2018 1:[address] abd pelvis IV con only CT DOSE: 1242.80 mGy.cm HISTORY: Nausea vomiting TECHNIQUE: Multiaxial CT images of the abdomen and pelvis were performed fol lowing the use of intravenous contrast. A dose lowering technique was utilized adhering to the principles of ALARA. COMPARISON STUDY: 08/08/2018 FINDINGS: Lung bases are clear. Liver is uniform throughout. Spleen and pancreas are unremarkable. Prior partial gastrectomy/bypass type procedure combine with cholecystectomy. Several right renal peripelvic cyst. No evidence for right renal hydronephrosis. Chronic fullness left renal pelvis with several parapelvic cyst. Multiple left renal nonobstructing calcifications. The appendix is normal. Evidence for an increased fecal load at the low pelvic anastomosis. This may represent a component of fecal stasis. Bladder is midline. The sigmoid shows no evidence for distention. IMPRESSION: 1. Focal distention of the small bowel in the low left central abdomen at a surgically placed anastomotic site. 2. This suggestive of focal fecal stasis in the absence of a mechanical obstructive process. 3. Stable postoperative changes of the upper abdomen. 4. Bilateral renal parapelvic cysts with several nonobstructing left renal calcifications. The above report was generated using voice recognition software. It may contain grammatical, syntax or spelling errors. Electronically signed by: Francisco Paz M.D. 09/27/2018 1:52 PM Blood Pressure Blood Pressure Findings: Elevated blood pressure Blood Pressure Disposition: Referred to patients primary care provider MDM Narrative The patient is a 73-year-old female who presented to the emergency department for an evaluation of abdominal distention as well as abdominal pain. The patient has a history of similar episodes in the past with bowel obstruction. She has a physical exam that is consistent with significant abdominal discomfort. I discussed the patient's laboratory and radiographic studies with her. Her studies do not appear to be overwhelmingly consistent with bowel obstruction however given her pain and radiographic studies I discussed her case with the on-call general surgical group. They have evaluated the patient in the emergency department and felt that she may require further inpatient observation. For this reason I discussed her case with the on-call hospitalist group. They have agreed to evaluate the patient in the emergency department for further management and disposition. The patient was treated with IV fluids and IV pain medication she was reevaluated multiple times. She was feeling somewhat improved on final reevaluation. Impression & Plan Abdominal pain, Partial small bowel obstruction Discharge Plan Visit Data *Final* Discharge Date/Time: 09/27/18 18:18 Chief Complaint: Pain (Generalized) Stated Complaint: SEVERE PAIN ED Provider: Arvin Renee Discharge Problem: Abdominal pain, Partial small bowel obstruction Patient Disposition: Admitted As Inpatient Discharge Instructions Interventions: ED Discharge Assessment Last Done: 09/27/18 18:18 Discharge Problem: Abdominal pain Qualifiers: Abdominal location: unspecified location Qualified Code(s): R10.9 - Unspecified abdominal pain The scribe's documentation has been prepared under my direction and personally reviewed by me in its entirety. I confirm that the note above accurately reflects all work, treatment, procedures, and medical decision making performed by me.
[2018-09-27] MEDS ORDERED: ONDANSETRON INJ 2 MG/ML 2 ML VIAL IV PRN (18:26)
[2018-09-27] MEDS ORDERED: NON-FORMULARY MEDICATION (Denosumab 60 MG) SQ SCH (18:26)
[2018-09-27] MEDS: SODIUM CHLORIDE 0.9% 1000ML 1,000 ML IV SCH (18:55)
[2018-09-27] MEDS: MoRPHine SULFATE 4 MG/ML 1 ML CARP\\VIAL IV PRN (18:55)
[2018-09-27 19:11] LABS: Magnesium 2.1 mg/dl (1.8-2.4); Phosphorus 2.6 mg/dl (2.5-4.9)
[2018-09-27] MEDS: dilTIAZem HCL 120 MG CAPCR PO SCH (21:27)
[2018-09-27] MEDS: METHOCARBAMOL 500 MG TABLET PO SCH (21:28)
[2018-09-27] MEDS: CARBIDOPA/LEVODOPA 50/200MG EXT REL TAB PO SCH (21:28)
[2018-09-27] MEDS: ROPINIROLE HCL 1 MG TABLET PO SCH (21:29)
[2018-09-27] MEDS: TRAZODONE HCL 50 MG TAB PO SCH (21:29)
[2018-09-27] MEDS: MAGNESIUM CHLORIDE 64MG DELAYED REL TAB PO SCH (21:29)
[2018-09-28] MEDS: MoRPHine SULFATE 4 MG/ML 1 ML CARP\\VIAL IV PRN (00:47)
[2018-09-28] MEDS: SODIUM CHLORIDE 0.9% 1000ML 1,000 ML IV SCH (05:14)
[2018-09-28] MEDS: LEVOTHYROXINE SODIUM 25 MCG TABLET PO SCH (05:18)
[2018-09-28] MEDS: ISOSORBIDE MONO EXTENDED REL 30 MG TABCR PO SCH (07:30)
[2018-09-28] MEDS: CARBIDOPA/LEVODOPA 50/200MG EXT REL TAB PO SCH ×3 (07:30→20:16)
[2018-09-28] MEDS: ATORVASTATIN 40 MG TAB PO SCH (07:30)
[2018-09-28] MEDS: CYANOCOBALAMIN 500 MCG TABLET (VITAMIN B-12) PO SCH (07:30)
[2018-09-28] MEDS: ROPINIROLE HCL 1 MG TABLET PO SCH ×4 (07:30→20:15)
[2018-09-28 07:35] LABS: Basophils # (auto) 0.01 K/uL (0-0.2); Basophils % (auto) 0.2 %; Eosinophils # (auto) 0.12 K/uL (0-0.5); Eosinophils % (auto) 2.2 %; Hematocrit (blood only) 32.7 % (37-47); Hemoglobin 10.3 g/dL (12.0-16.0); Immature Granulocytes # (auto) 0.02 K/uL (0.00-0.02); Immature Granulocytes % (auto) 0.4 %; Lymphocytes # (auto) 0.85 K/uL (1.2-3.4); Lymphocytes % (auto) 15.9 %; Mean Corpuscular Hgb Conc 31.5 g/dL (32-36); Mean Corpuscular Volume 91.1 fL (80-100); Monocytes # (auto) 0.38 K/uL (0.11-0.59); Monocytes % (auto) 7.1 %; Neutrophils # (auto) 3.96 K/uL (1.4-6.5); Neutrophils % (auto) 74.2 %; Platelet Count 232 K/uL (130-400); RDW Coefficient of Variation 15.3 % (11.5-14.5); RDW Standard Deviation 51.4 fL (36.4-46.3); Red Blood Count 3.59 M/uL (4.2-5.4); White Blood Count 5.34 K/uL (4.8-10.8)
[2018-09-28 08:09] LABS: Calcium 7.9 mg/dl (8.5-10.1); Creatinine Clr Calc Pharmacy 78.8 ml/min; Est GFR (African American) 94.7; Est GFR (Non-African American) 81.7; Potassium 3.8 mmol/L (3.5-5.1)
--- NOTE | 2018-09-28 11:21 | Surgery Progress Note ---
Date of Service September 28, 2018 Assessment & Plan (1) Abdominal pain: 73 year-old female with one day history of severe abdominal pain 10/10 that woke her up with associated nausea. + bowel function. Pain similar to previous SBO's. Surgical history included hysterectomy, cholecystectomy, ga stric bypass, multiple hernia repair with ? mesh, lysis of adhesions for SBO. CT scan of abdomen and pelvis showing focal distention of small bowel at anastomotic site with increased fecal load suggesting fecal stasis. Abdomen is soft, tender, no peritonitis Ddx: Fecal stasis causing focal small bowel distention at anastomosis vs early low grade partial obstruction 09/28/2018 Still passing flatus, no bowel movement since admission abdominal pain improved, none so far today no nausea or vomiting Plan: Okay to advance diet to clear liquids, advised to take slow Oral Colace and Miralax given fecal stasis on CT scan OOB to chair and ambulate continue medical management Dr. Liao has seen and examined pt, agrees with above Subjective no pain this morning, had pain at 130 and had Morhpine which completely relieved pain some dry heaves after taking Thyroid medication this morning, otherwise no nausea or vomiting passing flatus, no bowel movement yet this morning Physical Exam Vital Signs (Past 24 Hours): Last Vital Signs Temp 36.5 C 09/28/18 07:40 Pulse 61 09/28/18 07:40 Resp 16 09/28/18 07:40 BP 121/72 09/28/18 07:40 Pulse Ox 96 09/28/18 07:40 Constitutional: WD/WN, vitals as above no acute distress and not ill appearing Respiratory: normal respiratory effort; no respiratory distress Gastrointestinal (Abdomen): Inspection/Auscultation: abdomen not distended and + abnormal bowel sounds Percussion/Palpation: + abdomen tender (LUQ and LLQ, improved, mild guarding) and abdomen soft; abdomen not rigid Skin: no rashes, warm and dry Psychiatric: A+Ox3, euthymic affect Results & Data Laboratory Results 09/28/18 09/28/18 09/27/18 Range/Units 07:22 07:03 13:35 WBC 5.34 (4.8-10.8) K/uL RBC 3.59 L (4.2-5.4) M/uL Hgb 10.3 L (12.0-16.0) g/dL POC Hgb (12.0-16.0) g/dl Hct 32.7 L (37-47) % POC Hct (37-47) % MCV 91.1 (80-100) fL MCH 28.7 (25-34) pg MCHC 31.5 L (32-36) g/dL RDW Std Deviation 51.4 H (36.4-46.3) fL RDW Coeff of Jeyson 15.3 H (11.5-14.5) % Plt Count 232 (130-400) K/uL MPV 10.0 (7.4-10.4) fL Immature Gran % (Auto) 0.4 % Neut % (Auto) 74.2 % Lymph % (Auto) 15.9 % Gila % (Auto) 7.1 % Eos % (Auto) 2.2 % Baso % (Auto) 0.2 % Immature Gran # (Auto) 0.02 (0.00-0.02) K/uL Neut # (Auto) 3.96 (1.4-6.5) K/uL Lymph # (Auto) 0.85 L (1.2-3.4) K/uL Gila # (Auto) 0.38 (0.11-0.59) K/uL Eos # (Auto) 0.12 (0-0.5) K/uL Baso # (Auto) 0.01 (0-0.2) K/uL PT (9.0-12.0) Seconds INR (0.9-1.1) POC Sodium (135-144) mEq/L Sodium 144 (136-145) mmol/L POC Potassium (3.3-5.0) mEq/L Potassium 3.8 (3.5-5.1) mmol/L POC Chloride (101-112) mEq/L Chloride 113 H (98-107) mmol/L Carbon Dioxide 28 (21-32) mmol/L POC Total CO2 (24-31) mEq/l Anion Gap 2.0 L (3-11) POC Anion Gap (16-25) mmol/L POC BUN (7-18) mg/dl BUN 12 (7-18) mg/dl Creatinine 0.73 (0.6-1.2) mg/dl POC Creatinine (0.6-1.3) mg/dl Est Cr Clr Drug Dosing 78.8 ml/min Est GFR ( Amer) 94.7 Est GFR (Non-Af Amer) 81.7 BUN/Creatinine Ratio 17.0 (10-20) Glucose 83 (70-99) mg/dl POC Glucose (other) (70-99) mg/dl Calcium 7.9 L (8.5-10.1) mg/dl POC Ioniz Calcium Donavon (1.12-1.32) mmol/l Phosphorus (2.5-4.9) mg/dl Magnesium (1.8-2.4) mg/dl Total Bilirubin (0.2-1) mg/dl AST (15-37) U/L ALT (12-78) U/L Alkaline Phosphatase (45-117) U/L Total Protein (6.4-8.2) gm/dl Albumin (3.4-5.0) gm/dl Globulin (2.5-4.0) gm/dl Albumin/Globulin Ratio (0.9-2) Lipase (73-393) U/L Urine Color Yellow Urine Appearance Clear (Clear) Urine pH >= 9.0 H (4.5-7.5) POC Urine pH Ur Specific [place] 1.017 (1.000-1.030) Urine Protein Negative (Negative) POC Urine Protein Urine Glucose (UA) Negative (Negative) POC Ur Glucose (UA) Urine Ketones Negative (Negative) POC Urine Ketones Urine Blood Negative (Negative) POC Urine Blood Urine Nitrite Negative (Negative) POC Urine Nitrite Urine Bilirubin Negative (Negative) POC Urine Bilirubin Urine Urobilinogen Negative (Negative) POC Urine Urobilinogen Ur Leukocyte Esterase Negative (Negative) POC U Leukocyte Esteras 09/27/18 09/27/18 09/27/18 Range/Units 13:35 13:08 13:00 WBC (4.8-10.8) K/uL RBC (4.2-5.4) M/uL Hgb (12.0-16.0) g/dL POC Hgb 11.6 L (12.0-16.0) g/dl Hct (37-47) % POC Hct 34 L (37-47) % MCV (80-100) fL MCH (25-34) pg MCHC (32-36) g/dL RDW Std Deviation (36.4-46.3) fL RDW Coeff of Jeyson (11.5-14.5) % Plt Count (130-400) K/uL MPV (7.4-10.4) fL Immature Gran % (Auto) % Neut % (Auto) % Lymph % (Auto) % Gila % (Auto) % Eos % (Auto) % Baso % (Auto) % Immature Gran # (Auto) (0.00-0.02) K/uL Neut # (Auto) (1.4-6.5) K/uL Lymph # (Auto) (1.2-3.4) K/uL Gila # (Auto) (0.11-0.59) K/uL Eos # (Auto) (0-0.5) K/uL Baso # (Auto) (0-0.2) K/uL PT (9.0-12.0) Seconds INR (0.9-1.1) POC Sodium 143 (135-144) mEq/L Sodium (136-145) mmol/L POC Potassium 3.9 (3.3-5.0) mEq/L Potassium (3.5-5.1) mmol/L POC Chloride 106 (101-112) mEq/L Chloride (98-107) mmol/L Carbon Dioxide (21-32) mmol/L POC Total CO2 24 (24-31) mEq/l Anion Gap (3-11) POC Anion Gap 18.0 (16-25) mmol/L POC BUN 12 (7-18) mg/dl BUN (7-18) mg/dl Creatinine (0.6-1.2) mg/dl POC Creatinine 0.7 (0.6-1.3) mg/dl Est Cr Clr Drug Dosing ml/min Est GFR ( Amer) Est GFR (Non-Af Amer) BUN/Creatinine Ratio (10-20) Glucose (70-99) mg/dl POC Glucose (other) 107 H (70-99) mg/dl Calcium (8.5-10.1) mg/dl POC Ioniz Calcium Donavon 1.13 (1.12-1.32) mmol/l Phosphorus 2.6 (2.5-4.9) mg/dl Magnesium 2.1 (1.8-2.4) mg/dl Total Bilirubin (0.2-1) mg/dl AST (15-37) U/L ALT (12-78) U/L Alkaline Phosphatase (45-117) U/L Total Protein (6.4-8.2) gm/dl Albumin (3.4-5.0) gm/dl Globulin (2.5-4.0) gm/dl Albumin/Globulin Ratio (0.9-2) Lipase (73-393) U/L Urine Color Urine Appearance (Clear) Urine pH (4.5-7.5) POC Urine pH Cancelled Ur Specific [place] (1.000-1.030) Urine Protein (Negative) POC Urine Protein Cancelled Urine Glucose (UA) (Negative) POC Ur Glucose (UA) Cancelled Urine Ketones (Negative) POC Urine Ketones Cancelled Urine Blood (Negative) POC Urine Blood Cancelled Urine Nitrite (Negative) POC Urine Nitrite Cancelled Urine Bilirubin (Negative) POC Urine Bilirubin Cancelled Urine Urobilinogen (Negative) POC Urine Urobilinogen Cancelled Ur Leukocyte Esterase (Negative) POC U Leukocyte Esteras Cancelled 09/27/18 09/27/18 09/27/18 Range/Units 13:00 13:00 13:00 WBC 6.02 (4.8-10.8) K/uL RBC 4.04 L (4.2-5.4) M/uL Hgb 11.8 L (12.0-16.0) g/dL POC Hgb (12.0-16.0) g/dl Hct 36.3 L (37-47) % POC Hct (37-47) % MCV 89.9 (80-100) fL MCH 29.2 (25-34) pg MCHC 32.5 (32-36) g/dL RDW Std Deviation 49.6 H (36.4-46.3) fL RDW Coeff of Jeyson 15.1 H (11.5-14.5) % Plt Count 271 (130-400) K/uL MPV 10.2 (7.4-10.4) fL Immature Gran % (Auto) 0.2 % Neut % (Auto) 82.8 % Lymph % (Auto) 10.5 % Gila % (Auto) 5.5 % Eos % (Auto) 0.8 % Baso % (Auto) 0.2 % Immature Gran # (Auto) 0.01 (0.00-0.02) K/uL Neut # (Auto) 4.99 (1.4-6.5) K/uL Lymph # (Auto) 0.63 L (1.2-3.4) K/uL Gila # (Auto) 0.33 (0.11-0.59) K/uL Eos # (Auto) 0.05 (0-0.5) K/uL Baso # (Auto) 0.01 (0-0.2) K/uL PT 10.2 (9.0-12.0) Seconds INR 1.0 (0.9-1.1) POC Sodium (135-144) mEq/L Sodium 141 (136-145) mmol/L POC Potassium (3.3-5.0) mEq/L Potassium 3.9 (3.5-5.1) mmol/L POC Chloride (101-112) mEq/L Chloride 110 H (98-107) mmol/L Carbon Dioxide 28 (21-32) mmol/L POC Total CO2 (24-31) mEq/l Anion Gap 3.0 (3-11) POC Anion Gap (16-25) mmol/L POC BUN (7-18) mg/dl BUN 13 (7-18) mg/dl Creatinine 0.79 (0.6-1.2) mg/dl POC Creatinine (0.6-1.3) mg/dl Est Cr Clr Drug Dosing 72.8 ml/min Est GFR ( Amer) 86.1 Est GFR (Non-Af Amer) 74.3 BUN/Creatinine Ratio 16.5 (10-20) Glucose 102 H (70-99) mg/dl POC Glucose (other) (70-99) mg/dl Calcium 9.1 (8.5-10.1) mg/dl POC Ioniz Calcium Donavon (1.12-1.32) mmol/l Phosphorus (2.5-4.9) mg/dl Magnesium (1.8-2.4) mg/dl Total Bilirubin 0.5 (0.2-1) mg/dl AST 12 L (15-37) U/L ALT 12 (12-78) U/L Alkaline Phosphatase 73 (45-117) U/L Total Protein 6.9 (6.4-8.2) gm/dl Albumin 3.2 L (3.4-5.0) gm/dl Globulin 3.6 (2.5-4.0) gm/dl Albumin/Globulin Ratio 0.9 (0.9-2) Lipase 87 (73-393) U/L Urine Color Urine Appearance (Clear) Urine pH (4.5-7.5) POC Urine pH Ur Specific [place] (1.000-1.030) Urine Protein (Negative) POC Urine Protein Urine Glucose (UA) (Negative) POC Ur Glucose (UA) Urine Ketones (Negative) POC Urine Ketones Urine Blood (Negative) POC Urine Blood Urine Nitrite (Negative) POC Urine Nitrite Urine Bilirubin (Negative) POC Urine Bilirubin Urine Urobilinogen (Negative) POC Urine Urobilinogen Ur Leukocyte Esterase (Negative) POC U Leukocyte Esteras
[2018-09-28] MEDS: DOCUSATE SODIUM 100 MG CAP PO SCH ×2 (11:59→20:15)
[2018-09-28] MEDS: POLYETHYLENE (MIRALAX) 17 GM PACK PO SCH (11:59)
[2018-09-28] MEDS: dilTIAZem HCL 120 MG CAPCR PO SCH (20:13)
[2018-09-28] MEDS: TRAZODONE HCL 50 MG TAB PO SCH (20:15)
[2018-09-28] MEDS: MAGNESIUM CHLORIDE 64MG DELAYED REL TAB PO SCH (20:16)
[2018-09-28] MEDS: METHOCARBAMOL 500 MG TABLET PO SCH (20:21)
--- NOTE | 2018-09-28 23:17 | Hospitalist Progress Note ---
Date of Service September 28, 2018 Assessment & Plan (1) Abdominal pain: Patient with acute onset mid and right sided abdominal pain. Pain similar to prior SBOs. She is afebrile, hemodynamically stable. Abdominal exam with significant tenderness and voluntary guarding otherwise normoactive BS, non- distended. CT with focal distention fo the small bowel in the low left central abdomen suggestive of focal fecal stasis. No definite obstruction noted. -Observation to medical floor Patient is tolerating clear liquids. Will slowly advance diet. Patient appears to have a partial -Monitor electrolytes and optimize as needed -Zofran PRN nausea -Morphine PRN pain -Appreciate input from Surgery: will continue conservative management (2) Partial small bowel obstruction: As above, concern for partial SBO. Not clearly identified on CT. -Management as above (3) Hypertension: Blood pressure mildly elevated at 165/81. -Pain control as above -Continue Diltiazem, monitor HR -Continue Isosorbide -Continue to monitor (4) Hypothyroidism: Chronic -Continue Synthroid 25mcg po daily (5) Restless leg syndrome: Chronic. Stable -Continue Ropinirole 1mg po TID (6) Parkinson disease: Chronic. Stable -Continue Sinimet -Continue Methocarbamol Dispo - Observation to medical floor Spent 25 minutes in management of case. Subjective Patient reports feeling well. She is tolerating her liquid diet. She reports that she has not had a BM this morning, but no longer complainng of N/V.She denies any abdominal pain. Physical Exam Vital Signs (Past 24 Hours): Last Vital Signs Temp 36.4 C L 09/28/18 15:13 Pulse 55 L 09/28/18 20:12 Resp 18 09/28/18 15:13 BP 112/68 09/28/18 15:13 Pulse Ox 96 09/28/18 15:13 Physical Exam: General: patient resting comfortably, NAD, non-toxic in appearance, AA&O x 4 Skin: warm, dry, intact, no rashes or lesions HEENT: NC/AT, PERRL, EOMI, anicteric sclera, conjunctiva without injection, external ear normal to inspection and nontender, nares patent, moist mucus membranes, dentures in place, no oropharyngeal lesions, neck supple, trachea midline, no LAD, no thyromegaly, no JVD Heart: +S1/S2, regular, 2/6 BARTOLO at cardiac apex with radiation across the precordium Lungs: equal air entry bilaterally, no rales/rhonchi/wheezes Abd: +BS normoactive, soft,NT/ND no rebound but some voluntary guarding, no masses/organomegaly/ascites Ext: warm, 2+ pulses in UE/LE bilaterally, no clubbing/cyanosis or edema Neuro: nonfocal, patient AA&O x 4, speech intact, no facial droop, moving all extremities on command with equal strength 5/5 (1) Hypothyroidism Hypothyroidism type: unspecified Qualified Code(s): E03.9 - Hypothyroidism, unspecified (2) Abdominal pain Abdominal location: unspecified location Qualified Code(s): R10.9 - Unspecified abdominal pain (3) Hypertension Hypertension type: essential hypertension Qualified Code(s): I10 - Essential (primary) hypertension
[2018-09-29] MEDS: LEVOTHYROXINE SODIUM 25 MCG TABLET PO SCH (06:37)
[2018-09-29] MEDS: ISOSORBIDE MONO EXTENDED REL 30 MG TABCR PO SCH (08:26)
[2018-09-29] MEDS: DOCUSATE SODIUM 100 MG CAP PO SCH (08:26)
[2018-09-29] MEDS: CARBIDOPA/LEVODOPA 50/200MG EXT REL TAB PO SCH ×2 (08:27→13:51)
[2018-09-29] MEDS: CYANOCOBALAMIN 500 MCG TABLET (VITAMIN B-12) PO SCH (08:27)
[2018-09-29] MEDS: POLYETHYLENE (MIRALAX) 17 GM PACK PO SCH (08:27)
[2018-09-29] MEDS: ATORVASTATIN 40 MG TAB PO SCH (08:27)
--- NOTE | 2018-09-29 09:54 | Surgery Progress Note ---
Date of Service September 29, 2018 Assessment & Plan (1) Abdominal pain: 73 year-old female who presented to ER on 09/27/2018 with one day history of severe abdominal pain / that woke her up with associated nausea. + bowel function. Pain similar to previous SBO's. Surgical history included hysterectomy, cholecystectomy, gastric bypass, multiple hernia repair with ? mesh, lysis of adhesions for SBO. CT scan of abdomen and pelvis showing focal distention of small bowel at anastomotic site with increased fecal load suggesting fecal stasis. Abdomen is soft, tender, no peritonitis Ddx: Fecal stasis causing focal small bowel distention at anastomosis vs early low grade partial obstruction 09/29/2018 + flatus an bowel movement tolerating clear liquids no n/v minimal pain, abdomen soft, mildly tender in RLQ, right mid abdomen Plan: Okay to advance diet to full liquids, advance as tolerated Oral Colace and Miralax given fecal stasis on CT scan, would recommend continuation of bowel regimen on discharge OOB to chair and ambulate continue medical management Our services signing off, thank you for consultation Dr. Liao was present during my examination, agrees with above Subjective feeling good minimal abdominal pain + gas and bowel movement no nausea or vomiting with liquids Physical Exam Vital Signs (Past 24 Hours): Last Vital Signs Temp 36.8 C 09/29/18 07:54 Pulse 61 09/29/18 07:54 Resp 14 09/29/18 07:54 BP 134/37 L 09/29/18 07:54 Pulse Ox 95 09/29/18 07:54 Constitutional: WD/WN, vitals as above no acute distress and not ill appearing Respiratory: normal respiratory effort; no respiratory distress Gastrointestinal (Abdomen): Inspection/Auscultation: abdomen normal to inspection and normal bowel sounds; abdomen not distended Percussion/Palpation: + abdomen tender (mild in the RLQ, improved) and abdomen soft; no guarding and abdomen not rigid Skin: no rashes, warm and dry Psychiatric: A+Ox3, euthymic affect
[2018-09-29] MEDS: ROPINIROLE HCL 1 MG TABLET PO SCH (16:51)
--- NOTE | 2018-10-03 11:34 | Discharge Summary ---
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 Pain started suddenly this AM at 04:00 waking her from sleep. Severe, 10/10 located in the mid abdomen with band-like radiation to the back. Pain associated with nausea but no vomiting. She is having normal BMs twice daily and passing flatus. Patient has history of multiple abdominal surgeries, hernia/panchito/TAHBSO, prior SBOs x 4, the first of which required surgical intervention which was performed at [facility]. Remaining SBOs resolved with conservative management. Patient states that the pain this AM was the same as the pain associated with her prior SBOs. No additional complaints at this time. ER Course: Morphine 4mg IV, Zofran mg IV, NSS x 500mL Principal Diagnosis Partial Small bowel obstruction Discharge Exam General: patient resting comfortably, NAD, non-toxic in appearance, AA&O x 4 Skin: warm, dry, intact, no rashes or lesions HEENT: NC/AT, PERRL, EOMI, anicteric sclera, conjunctiva without injection, external ear normal to inspection and nontender, nares patent, moist mucus membranes, dentures in place, no oropharyngeal lesions, neck supple, trachea midline, no LAD, no thyromegaly, no JVD Heart: +S1/S2, regular, 2/6 BARTOLO at cardiac apex with radiation across the precordium Lungs: equal air entry bilaterally, no rales/rhonchi/wheezes Abd: +BS normoactive, soft,NT/ND no rebound but some voluntary guarding, no masses/organomegaly/ascites Ext: warm, 2+ pulses in UE/LE bilaterally, no clubbing/cyanosis or edema Neuro: nonfocal, patient AA&O x 4, speech intact, no facial droop, moving all extremities on command with equal strength 5/5 Discharge Data Allergies Allergy/AdvReac Type Severity Reaction Status Date / Time shellfish derived Allergy Severe HIVES Verified 09/08/18 12:20 Sulfa (Sulfonamide Allergy Intermediate ITCH Verified 09/08/18 12:20 Antibiotics) pecan nut Allergy Hives Verified 09/08/18 12:20 ibuprofen AdvReac Intermediate NAUSEA/UPSET Verified 09/08/18 12:20 STOMACH pregabalin AdvReac Intermediate TRIPLE Verified 09/08/18 12:20 VISION Consultations 09/27/18 16:24 ED Decision to Admit Stat 09/27/18 18:26 Consult General Surgery Routine Ordered Studies 09/27/18 12:54 CT abd pelvis IV con only Stat Hospital Course (1) Abdominal pain: Patient with acute onset mid and right sided abdominal pain. Pain similar to prior SBOs. She is afebrile, hemodynamically stable. Abdominal exam with significant tenderness and voluntary guarding otherwise normoactive BS, non- distended. CT with focal distention fo the small bowel in the low left central abdomen suggestive of focal fecal stasis. No definite obstruction noted. -Observation to medical floor Patient is tolerating clear liquids. Will slowly advance diet. Patient appears to have a partial SBO. -Monitor electrolytes and optimize as needed -Zofran PRN nausea -Morphine PRN pain -Appreciate input from Surgery: will continue conservative management On day of discharge, patient was tolerating regular diet and had a BM. (2) Partial small bowel obstruction: As above, concern for partial SBO. Not clearly identified on CT. -Management as above (3) Hypertension: Blood pressure mildly elevated at 165/81. -Pain control as above -Continue Diltiazem, monitor HR -Continue Isosorbide -Continue to monitor (4) Hypothyroidism: Chronic -Continue Synthroid 25mcg po daily (5) Restless leg syndrome: Chronic. Stable -Continue Ropinirole 1mg po TID (6) Parkinson disease: Chronic. Stable -Continue Sinimet -Continue Methocarbamol Dispo - Observation to medical floor Total Time Total Time Spent Total Time Spent (In Minutes): 31 Total Time Includes: Examination of the Patient, Discharge Planning, Medication Reconciliation and Communication With Other Providers Discharge Plan Discharge Items Patient Disposition: Home - Self-Care Reason For Visit: POSSIBLE SBO Discharge Diagnosis: Possible small bowel obstruction Discharge Goals: Decrease discomfort Activity: Resume your previous activity Non-emergency contact: Primary Care Provider Call non-emergency contact if: you have any medication questions Follow-up/Referrals: Laurie Cedeno MD [Primary Care Provider] - 10/05/18 10:20 am (Please, follow up with Dr. Cedeno on October 05 at 10:20 am. *If you need to change this appointment, call the office at [phone].) Diet: Heart Healthy Diet Comment: Drink plenty of fluids/ low fiber diet Addtl Provider Instructions: You were seen for a partial small bowel. You improved with conservative management. Prescriptions: New polyethylene glycol 3350 [Miralax] 17 gram Powder In Packet 17 g PO DAILY PRN (Reason: constipation) Qty: 0 RF: 0 docusate sodium 100 mg Capsule 100 mg PO BID Qty: 0 RF: 0 Continued atorvastatin [Lipitor] 40 mg Tablet 40 mg PO QAM RF: 0 methocarbamol 500 mg Tablet 500 mg PO HS RF: 0 ropinirole [Requip] 1 mg Tablet 1 mg PO BID RF: 0 carbidopa-levodopa [Sinemet CR] 50-200 mg Tablet Extended Release 1 tab PO TID RF: 0 clopidogrel [Plavix] 75 mg Tablet 75 mg PO QAM RF: 0 aspirin [Aspir-81] 81 mg Tablet,Delayed Release (Dr/Ec) 81 mg PO 3XWK RF: 0 levothyroxine 25 mcg Tablet 25 mcg PO QAM RF: 0 nitroglycerin 0.4 mg Tablet, Sublingual 1 tab Sublingual UD PRN (Reason: Chest Pain) RF: 0 diltiazem HCl [Cardizem CD] 120 mg Capsule,Extended Release 24hr 120 mg PO HS RF: 0 vitamin E 400 unit Capsule 400 unit PO DAILY RF: 0 cholecalciferol (vitamin D3) [Vitamin D3] 1,000 unit Capsule 1,000 unit PO DAILY RF: 0 magnesium chloride [Mag 64] 64 mg Tablet,Delayed Release (Dr/Ec) 64 mg PO HS RF: 0 Caltrate 600 + D 600 mg (1,500 mg)-800 unit Tablet,Chewable 1 tab PO QDL RF: 0 cyanocobalamin (vitamin B-12) 500 mcg Tablet, Sublingual 500 mcg SUBLINGUAL DAILY RF: 0 trazodone 50 mg Tablet 50 mg PO HS RF: 0 ferrous gluconate [Fergon] 240 mg (27 mg iron) Tablet 240 mg PO QDL RF: 0 denosumab 60 mg/mL syringe 60 mg subcut Q6M RF: 0 isosorbide mononitrate 30 mg tablet extended release 24 hr 30 mg PO QAM RF: 0 Stand-Alone Forms: [facility] Discharge Orders: Discharge Order (Routine); Ordered 09/29/18 Ordered By: Keon Priest Admission Data Admit Date/Time: 09/27/18 17:07 Attending Provider: Keon Priest Admit Provider: Joy Martines Primary Care Provider: Laurie Cedeno Other Providers: Joy Martines ; Reggie Liao Service: Surgical Services Other Interventions: Discharge Summary Assessment (RN) Last Done: 09/29/18 19:18 DC Date/Time DO NOT enter until pt leaves facility: 09/29/18 19:49
== END 2018-09-29 19:49 | disposition home or self-care (01) ==
LOC: 3N 12:18 → ED 12:18 → SUATTDRO 17:07 → 3N 18:18

== ENCOUNTER 2020-11-01 18:32 | Observation (INO) ==
[2020-11-01] MEDS ORDERED: SODIUM CHLORIDE 0.9% 500 ML IV STA (19:04)
[2020-11-01] MEDS ORDERED: MoRPHine SULFATE 4 MG/ML 1 ML CARP\\VIAL IV STA (19:04)
--- NOTE | 2020-11-01 19:16 | Emergency Department Note ---
History of Present Illness General Chief complaint: Abdominal Pain Stated complaint: SEVERE PAIN-SURGERY FOR KIDNEY STONES ON TUESDAY Time Seen by Provider: 11/01/20 18:59 Source: patient Mode of arrival: ambulatory Limitations: no limitations History of Present Illness Provider complaint: Left flank pain Maximum Pain Intensity: 10 This is a 75-year-old female who presents to the ED with a chief complaint of left leg pain. The patient states that she had some kidney stones in the left u reter/kidney that were retrieved on . A stent was placed at that time. The patient had a little bit of pain at the time of the stent but she states this morning when she awoke her pain was very bad. The oxycodone that she was prescribed has not helped much. She took it at 11 AM. She states her pain is now unbearable. It radiates from the left flank to the left abdomen. She had some dry heaves yesterday but none today. No fevers. No additional symptoms. Home Medications Medication Instructions Recorded Confirmed Type clopidogrel [Plavix] 75 mg PO QAM 07/26/18 11/01/20 History cyanocobalamin (vitamin B-12) 500 mcg SUBLINGUAL QA 07/26/18 11/01/20 History magnesium chloride [Mag 64] 64 mg PO HS 07/26/18 11/01/20 History methocarbamol 500 mg PO HS 07/26/18 11/01/20 History vitamin E 400 unit PO QAM 07/26/18 11/01/20 History ferrous gluconate [Fergon] 240 mg PO QAM 08/08/18 11/01/20 History polyethylene glycol 3350 [Miralax] 17 g PO DAILY PRN #0 ea 09/29/18 11/01/20 Rx nitroglycerin 0.4 mg sublingual 0.4 mg SUBLINGUAL Q5M PRN #30 tab 02/14/19 11/01/20 Rx tablet atorvastatin 40 mg tablet 40 mg PO QPM tab 03/13/19 11/01/20 History docusate sodium 100 mg PO QAM 11/13/19 11/01/20 History carbidopa ER 50 mg-levodopa 200 mg 1 tab PO TID #90 tab 05/19/20 11/01/20 Rx tablet,extended release verapamil 180 mg tablet,extended 180 mg PO BID #180 tab 06/04/20 11/01/20 Rx release levothyroxine [Synthroid] 75 mcg PO QAM 08/21/20 11/01/20 History potassium chloride 20 meq PO QPM 08/21/20 11/01/20 History carbidopa ER 25 mg-levodopa 100 mg 1 tab PO TID 30 Days #90 tab 10/01/20 11/01/20 Rx tablet,extended release alendronate 70 mg tablet 70 mg PO .COMPLEX tab 10/08/20 11/01/20 History ropinirole 1 mg PO HS 10/15/20 11/01/20 History ropinirole 2 mg PO QAM 10/15/20 11/01/20 History tamsulosin 0.4 mg PO QAM 10/15/20 11/01/20 History ciprofloxacin HCl [Cipro] 500 mg PO Q12H #6 tab 10/30/20 11/01/20 Rx oxycodone-acetaminophen [Percocet] 1 tab PO Q8H PRN #7 tab 10/30/20 11/01/20 Rx Allergies Allergy/AdvReac Type Severity Reaction Status Date / Time shellfish derived Allergy Severe HIVES Verified 11/01/20 19:50 pecan nut Allergy Intermediate Hives Verified 11/01/20 19:50 Sulfa (Sulfonamide Allergy Intermediate ITCH Verified 11/01/20 19:50 Antibiotics) ibuprofen AdvReac Intermediate NAUSEA/UPSET Verified 11/01/20 19:50 STOMACH pregabalin AdvReac Intermediate TRIPLE Verified 11/01/20 19:50 VISION Past Med/Surg History Medical History Aortic stenosis Mild; per 10/15/19 ECHO= HARPREET 1.6 cm; mean gradient 9 mmHg; AV peak velocity 2.15 m/s Follows with [facility] cardio Hyperlipidemia Hypertension Hypothyroidism Non-occlusive coronary artery disease Per cardio records = Cardiac Syndrome X (small vessel dysfunction causing angina pectoris in a patient with mild nonocclusive CAD) Osteoporosis Restless leg syndrome Follows with neuro Trialing Sinemet for RLS- "no signs of parkinsonism on exam to suggest that symptoms are due to PD." per neuro Small bowel obstruction H/O SOB (shortness of breath) on exertion 1 FLIGHT/FLAT SURFACE 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) "FALLS TO LEFT IF IN A DARK ROOM WITH EYES CLOSE" Transient ischemic attack (TIA) h/o - years ago UTI (urinary tract infection) HX-AVG 1-2 X A YEAR Venous insufficiency (chronic) (peripheral) Per cardio records Surgical History Family history of reaction to anesthesia NAUSEA/VOMITTING History of bilateral tubal ligation History of cardiac cath 10/25/19> [facility]> DUE TO C.P> NO STENTS; 2016- NO STENTS [facility] History of cholecystectomy History of colonoscopy History of esophagogastroduodenoscopy (EGD) History of gastric bypass 2000 History of herniorrhaphy X 3 IN ABDOMEN History of intestinal surgery History of laminectomy LUMBAR [place] of [place]otri[place] [facility] [place] History of tooth extraction History of total abdominal hysterectomy and bilateral salpingo-oophorectomy Nausea and vomiting after administration of anesthetic agent S/P cystoscopy with ureteral stent placement 11/19/2019 [facility] S/P extracorporeal shock wave therapy Stye SURGICALLY REMOVED Family History Sister Ovarian cancer Breast cancer Daughter Family history of reaction to anesthesia PONV Family history of diabetes mellitus Other Family history non-contributory Denies family history of Prostate cancer Myocardial infarction Colorectal cancer Social History Smoking Status: Never smoker Cigarettes Per Day: QUIT 40 YEARS AGO; Second Hand Exposure: Yes (FATHER SMOKED); Hx Alcohol Use: No Hx Substance Use: No Preferred Language: Lao Communication Ability: Effective Social Media Campaign Manager Required: No Beliefs That Will Affect Care: None marital status: Current Living Situation: Spouse current occupational status: retired How many Children do You have: 1 Feels Safe at Home: Yes Dental Care, Regularly: No Physical Activity Frequency: Does not Exercise Seatbelt Use: always Assistive Devices: Cane, Denture - Lower and Glasses Review of Systems A total of 10 systems reviewed and were otherwise negative Physical Exam Vital Signs Vital Signs - 24 hr 11/01/20 18:41 11/01/20 19:04 11/01/20 19:09 Temperature 36.7 C Temperature Source Temporal Artery Scan Pulse Rate 79 78 Pulse Rate from SpO2 Sensor 78 Pulse Rhythm Regular Pulse Strength Normal Respiratory Rate 18 19 Respiratory Effort / Characteristics Non-Labored Spontaneous Respiratory Depth Normal Respiratory Pattern Regular Blood Pressure 138/81 127/67 Blood Pressure Mean 100 87 Blood Pressure Position Sitting Pulse Oximetry 94 100 94 Oxygen Delivery Method Room Air Room Air Sepsis Recent Fever Within 48 Hours No Sepsis New/Unexplained Change in Mental Status N/A Sepsis Action Taken by Nursing No Action Required 11/01/20 19:11 11/01/20 19:23 11/01/20 19:24 Temperature Temperature Source Pulse Rate 80 102 H 80 Pulse Rate from SpO2 Sensor 80 81 Pulse Rhythm Pulse Strength Respiratory Rate 24 20 16 Respiratory Effort / Characteristics Respiratory Depth Respiratory Pattern Blood Pressure 157/80 H Blood Pressure Mean 105 Blood Pressure Position Pulse Oximetry 94 95 Oxygen Delivery Method Sepsis Recent Fever Within 48 Hours Sepsis New/Unexplained Change in Mental Status Sepsis Action Taken by Nursing 11/01/20 19:30 11/01/20 19:40 11/01/20 20:00 Temperature Temperature Source Pulse Rate 75 73 71 Pulse Rate from SpO2 Sensor 73 72 Pulse Rhythm Pulse Strength Respiratory Rate 15 22 17 Respiratory Effort / Characteristics Respiratory Depth Respiratory Pattern Blood Pressure 161/81 H 168/81 H Blood Pressure Mean 107 110 Blood Pressure Position Pulse Oximetry 95 91 Oxygen Delivery Method Sepsis Recent Fever Within 48 Hours Sepsis New/Unexplained Change in Mental Status Sepsis Action Taken by Nursing 11/01/20 20:01 Temperature Temperature Source Pulse Rate 70 Pulse Rate from SpO2 Sensor 70 Pulse Rhythm Pulse Strength Respiratory Rate 15 Respiratory Effort / Characteristics Respiratory Depth Respiratory Pattern Blood Pressure Blood Pressure Mean Blood Pressure Position Pulse Oximetry 93 Oxygen Delivery Method Sepsis Recent Fever Within 48 Hours Sepsis New/Unexplained Change in Mental Status Sepsis Action Taken by Nursing CONSTITUTIONAL/VITAL SIGNS: Reviewed / noted above. GENERAL: Non-toxic in appearance. INTEGUMENTARY: Warm, dry, and [place]. HEAD: Normocephalic. EYES: without scleral icterus or trauma. ENT/OROPHARYNX: clear and moist. LYMPHADENOPATHY/NECK: Is supple without lymphadenopathy or meningismus. RESPIRATORY: Lungs clear and equal. CARDIOVASCULAR: Regular rate and rhythm. GI/ABDOMEN: Soft and mildly tender in the left lower abdomen. No organomegaly or pulsatile mass. No rebound or guarding. Normal bowel sounds. EXTREMITIES: Warm and well perfused. BACK: Left-sided CVA tenderness. NEUROLOGICAL: Intact without focal deficits. PSYCHIATRIC: normal affect. MUSCULOSKELETAL: Normally developed with good muscle tone. TRIAGE NURSING DOCUMENTATION REVIEWED. Course Administered Medications Discontinued Medications Sodium Chloride (Nss) 500 mls @ 999 mls/hr IV .Q31M STA Stop: 11/01/20 19:34 Last Infusion: 11/01/20 20:16 Dose: 0 mls/hr Documented by: [id number] Admin: 11/01/20 19:25 Dose: 999 mls/hr Documented by: [id number] Morphine Sulfate (Morphine Sulfate 4 Mg/Ml 1 Ml Carp\\Vial) 4 mg IV NOW STA Stop: 11/01/20 19:05 Last Admin: 11/01/20 19:25 Dose: 4 mg Documented by: [id number] Medical Decision Making Differential Diagnosis Differential considered: pancreatitis, hepatitis, acute cholecystitis, AAA, UTI, pyelonephritis, kidney stones, appendicitis, diverticulitis, shingles, bowel obstruction, mesenteric ischemia, intussusception,hernia, stent complication. Medical Records Attestation: I reviewed the patient's medical records. Home Medications Current Medication List: was personally reviewed by me Laboratory Data Attestation: I reviewed the patient's lab results. Result diagrams: 11/01/20 19:14 11/01/20 19:14 Lab Results 11/01/20 11/01/20 Range/Units 19:14 19:14 WBC 10.88 H (4.8-10.8) K/uL RBC 3.49 L (4.2-5.4) M/uL Hgb 10.5 L (12.0-16.0) g/dL Hct 32.5 L (37-47) % MCV 93.1 (80-100) fL MCH 30.1 (25-34) pg MCHC 32.3 (32-36) g/dL RDW Std Deviation 48.7 H (36.4-46.3) fL RDW Coeff of Jeyson 14.4 (11.5-14.5) % Plt Count 263 (130-400) K/uL MPV 10.1 (7.4-10.4) fL Immature Gran % (Auto) 0.2 % Neut % (Auto) 84.1 % Lymph % (Auto) 5.5 % [place] % (Auto) 9.8 % Eos % (Auto) 0.3 % Baso % (Auto) 0.1 % Neut # (Auto) 9.15 H (1.4-6.5) K/uL Lymph # (Auto) 0.60 L (1.2-3.4) K/uL [place] # (Auto) 1.07 H (0.11-0.59) K/uL Eos # (Auto) 0.03 (0-0.5) K/uL Baso # (Auto) 0.01 (0-0.2) K/uL Immature Gran # (Auto) 0.02 (0.00-0.02) K/uL Sodium 141 (136-145) mmol/L Potassium 3.9 (3.5-5.1) mmol/L Chloride 111 H (98-107) mmol/L Carbon Dioxide 27 (21-32) mmol/L Anion Gap 3.0 (3-11) BUN 17 (7-18) mg/dl Creatinine 1.04 (0.6-1.2) mg/dl Est Cr Clr Drug Dosing Not Reportable Est GFR ( Amer) 60.9 Est GFR (Non-Af Amer) 52.5 BUN/Creatinine Ratio 16.6 (10-20) Glucose 115 H (70-99) mg/dl Calcium 8.7 (8.5-10.1) mg/dl Total Bilirubin 0.5 (0.2-1) mg/dl AST 12 L (15-37) U/L ALT 10 L (12-78) U/L Alkaline Phosphatase 61 (45-117) U/L Total Protein 6.7 (6.4-8.2) gm/dl Albumin 3.2 L (3.4-5.0) gm/dl Globulin 3.5 (2.5-4.0) gm/dl Albumin/Globulin Ratio 0.9 (0.9-2) Imaging Data Radiologist's Impression: Abdomen/Pelvis CT 11/01/20 19:04 CT SCAN OF THE ABDOMEN AND PELVIS WITHOUT CONTRAST CLINICAL HISTORY: left flank pain, stent x 2 days COMPARISON STUDY: September 23, 2020 TECHNIQUE: CT scan of the abdomen and pelvis was performed from the lung bases to the proximal femurs. Images are reviewed in the axial, sagittal, and coronal planes. IV contrast was not administered for this examination. A dose lowering technique was utilized adhering to the principles of ALARA. CT DOSE: 1604.10 mGy.cm FINDINGS: Lower chest: There are small bilateral pleural effusions right greater than left. There are basilar opacities statistically atelectatic. Liver: The unenhanced liver is normal in size, contour, and attenuation. There is no intrahepatic biliary ductal dilatation. Gallbladder: Surgically absent Spleen: Normal in size and attenuation. Pancreas: Unremarkable. Adrenal glands: Unremarkable. Kidneys: There are bilateral renal calculi. There is left-sided perinephric stra nding. There are parapelvic renal cysts. There is been interval insertion of a double pigtail left sided nephroureteral stent. There is gas present within the bladder, likely iatrogenic. There is a 2 mm calculus adjacent to the stent at the level of the ureteropelvic junction Bowel: There are no transition zones indicate bowel obstruction. There are postsurgical changes of a gastric bypass. There is no evidence of acute diverticulitis. There is no evidence of acute appendicitis. There is moderate right colonic stool. Peritoneum: There is trace pelvic free fluid. There is no free air Vasculature: The abdominal aorta is normal in course and caliber. Adenopathy: None. Pelvic viscera: The uterus is surgically absent. There is presacral edema. Skeletal structures: No destructive osseous lesions are seen. IMPRESSION: 1. Interval development of small bilateral pleural effusions right greater than left with associated basilar atelectasis 2. Bilateral nephrolithiasis and parapelvic cysts 3. Interval placement of a double pigtail left sided nephroureteral stent. Mild left-sided perinephric stranding. 2 mm calculus adjacent to the stent at the level the left UPJ. Left-sided perinephric stranding. 4. Gas within the bladder, likely iatrogenic 5. No evidence of bowel obstruction. No evidence of free air 6. Mild presacral edema 7. Trace free fluid within the pelvis ACT 112: Negative or not required by law. Electronically signed by: Dimitry Mendez M.D. 11/01/2020 7:28 PM MDM Narrative Patient presents with a left flank pain that radiates to the left groin with history of recent stent placement 2 days ago. Details above. Vital signs are normal. Physical exam revealed left CVA tenderness and some left lower quadrant tenderness. The patient CBC was unremarkable. Chemistry panel was unremarkable. CT scan as noted above. Patient was treated with IV morphine for her pain. She still has some pain and does not feel comfortable going home as her oxycodone did not even touch the pain. For this reason she will be observed for further evaluation and care. Impression & Plan Renal colic, S/P ureteral stent placement Discharge Plan Visit Data Chief Complaint: Abdominal Pain Stated Complaint: SEVERE PAIN-SURGERY FOR KIDNEY STONES ON TUESDAY ED Provider: Junito Woodward Discharge Problem: Renal colic, S/P ureteral stent placement Patient Disposition: Being Evaluated by Hospitalist Forms Stand Alone Forms: [facility], Virtual Emergency Department, Important Visit Information Prescriptions Prescriptions: No Action nitroglycerin 0.4 mg tablet, sublingual 0.4 mg Sublingual Q5M PRN (Reason: Chest Pain) Qty: 30 RF: 5 carbidopa-levodopa 50-200 mg tablet extended release 1 tab PO TID Qty: 90 RF: 0 Hold Instructions: trial lower dose verapamil 180 mg tablet extended release 180 mg PO BID Qty: 180 RF: 3 carbidopa-levodopa 25-100 mg tablet extended release 1 tab PO TID 30 Days Qty: 90 RF: 1 alendronate [Fosamax] 70 mg tablet 70 mg PO .COMPLEX RF: 0 methocarbamol 500 mg Tablet 500 mg PO HS RF: 0 clopidogrel [Plavix] 75 mg Tablet 75 mg PO QAM RF: 0 vitamin E 400 unit Capsule 400 unit PO QAM RF: 0 magnesium chloride [Mag 64] 64 mg Tablet,Delayed Release (Dr/Ec) 64 mg PO HS RF: 0 cyanocobalamin (vitamin B-12) 500 mcg Tablet, Sublingual 500 mcg SUBLINGUAL QAM RF: 0 atorvastatin [Lipitor] 40 mg tablet 40 mg PO QPM RF: 0 docusate sodium 100 mg capsule 100 mg PO QAM RF: 0 potassium chloride 20 mEq/15 mL liquid 20 meq PO QPM RF: 0 levothyroxine [Synthroid] 75 mcg tablet 75 mcg PO QAM RF: 0 ferrous gluconate [Fergon] 240 mg (27 mg iron) Tablet 240 mg PO QAM RF: 0 polyethylene glycol 3350 [Miralax] 17 gram Powder In Packet 17 g PO DAILY PRN (Reason: constipation) Qty: 0 RF: 0 tamsulosin 0.4 mg capsule 0.4 mg PO QAM RF: 0 ropinirole 2 mg tablet extended release 24 hr 2 mg PO QAM RF: 0 ropinirole 1 mg tablet 1 mg PO HS RF: 0 ciprofloxacin HCl [Cipro] 500 mg tablet 500 mg PO Q12H Qty: 6 RF: 0 oxycodone-acetaminophen [Percocet] 7.5-325 mg tablet 1 tab PO Q8H PRN (Reason: pain) Qty: 7 RF: 0 Referrals Referrals: Laurie Cedeno MD [Primary Care Provider] -
[2020-11-01 19:27] LABS: Basophils # (auto) 0.01 K/uL (0-0.2); Basophils % (auto) 0.1 %; Eosinophils # (auto) 0.03 K/uL (0-0.5); Eosinophils % (auto) 0.3 %; Hematocrit (blood only) 32.5 % (37-47); Hemoglobin 10.5 g/dL (12.0-16.0); Immature Granulocytes # (auto) 0.02 K/uL (0.00-0.02); Immature Granulocytes % (auto) 0.2 %; Lymphocytes % (auto) 5.5 %; Mean Corpuscular Hemoglobin 30.1 pg (25-34); Mean Corpuscular Hgb Conc 32.3 g/dL (32-36); Mean Corpuscular Volume 93.1 fL (80-100); Mean Platelet Volume 10.1 fL (7.4-10.4); Monocytes # (auto) 1.07 K/uL (0.11-0.59); Monocytes % (auto) 9.8 %; Neutrophils # (auto) 9.15 K/uL (1.4-6.5); Neutrophils % (auto) 84.1 %; Platelet Count 263 K/uL (130-400); RDW Coefficient of Variation 14.4 % (11.5-14.5); RDW Standard Deviation 48.7 fL (36.4-46.3); Red Blood Count 3.49 M/uL (4.2-5.4); White Blood Count 10.88 K/uL (4.8-10.8)
--- NOTE | 2020-11-01 19:30 | CT Scan Report ---
CT SCAN OF THE ABDOMEN AND PELVIS WITHOUT CONTRAST CLINICAL HISTORY: left flank pain, stent x 2 days COMPARISON STUDY: September 23, 2020 TECHNIQUE: CT scan of the abdomen and pelvis was performed from the lung bases to the proximal femurs . Images are reviewed in the axial, sagittal, and coronal planes. IV contrast was not administered fo r this examination. A dose lowering technique was utilized adhering to the principles of ALARA. CT DOSE: 1604.10 mGy.cm FINDINGS: Lower chest: There are small bilateral pleural effusions right greater than left. There are basilar o pacities statistically atelectatic. Liver: The unenhanced liver is normal in size, contour, and attenuation. There is no intrahepatic belle iary ductal dilatation. Gallbladder: Surgically absent Spleen: Normal in size and attenuation. Pancreas: Unremarkable. Adrenal glands: Unremarkable. Kidneys: There are bilateral renal calculi. There is left-sided perinephric stranding. There are para pelvic renal cysts. There is been interval insertion of a double pigtail left sided nephroureteral st ent. There is gas present within the bladder, likely iatrogenic. There is a 2 mm calculus adjacent to the stent at the level of the ureteropelvic junction Bowel: There are no transition zones indicate bowel obstruction. There are postsurgical changes of a gastric bypass. There is no evidence of acute diverticulitis. There is no evidence of acute appendici tis. There is moderate right colonic stool. Peritoneum: There is trace pelvic free fluid. There is no free air Vasculature: The abdominal aorta is normal in course and caliber. Adenopathy: None. Pelvic viscera: The uterus is surgically absent. There is presacral edema. Skeletal structures: No destructive osseous lesions are seen. IMPRESSION: 1. Interval development of small bilateral pleural effusions right greater than left with associated basilar atelectasis 2. Bilateral nephrolithiasis and parapelvic cysts 3. Interval placement of a double pigtail left sided nephroureteral stent. Mild left-sided perinephri c stranding. 2 mm calculus adjacent to the stent at the level the left UPJ. Left-sided perinephric st randing. 4. Gas within the bladder, likely iatrogenic 5. No evidence of bowel obstruction. No evidence of free air 6. Mild presacral edema 7. Trace free fluid within the pelvis ACT 112: Negative or not required by law. Electronically signed by: Dimitry Mendez M.D. 11/01/2020 7:28 PM
[2020-11-01 19:44] LABS: Alanine Aminotransferase 10 U/L (12-78); Albumin Level 3.2 gm/dl (3.4-5.0); Aspartate Aminotransferase 12 U/L (15-37); BUN Creatinine Ratio 16.6 (10-20); Blood Urea Nitrogen 17 mg/dl (7-18); Calcium 8.7 mg/dl (8.5-10.1); Carbon Dioxide 27 mmol/L (21-32); Chloride 111 mmol/L (98-107); Est GFR (African American) 60.9; Est GFR (Non-African American) 52.5; Glucose 115 mg/dl (70-99); Potassium 3.9 mmol/L (3.5-5.1); Sodium 141 mmol/L (136-145)
[2020-11-01 19:46] LABS: Albumin Globulin Ratio 0.9 (0.9-2); Alkaline Phosphatase 61 U/L (45-117); Bilirubin,Total 0.5 mg/dl (0.2-1); Globulin 3.5 gm/dl (2.5-4.0); Total Protein 6.7 gm/dl (6.4-8.2)
[2020-11-01 21:08] LABS: Appearance Urine Cloudy (Clear); Color Urine Brown
[2020-11-01 21:12] LABS: Epithelial Cell Urine >30 /lpf (0-5); RBC Urine >30 /hpf (0-4); WBC Urine >30 /hpf (0-5)
[2020-11-01 21:13] LABS: Bacteria Urine Negative (Negative)
[2020-11-01] MEDS ORDERED: MoRPHine SULFATE 2 MG/ML CARP IV STA (21:14)
[2020-11-01 22:00] LABS: Influenza A virus by PCR Negative (Neg); Influenza B virus by PCR Negative (Neg); RSV by PCR Negative (Neg); SARS CoV2 RNA(COVID-19) InHosp NEGATIVE (Negative)
[2020-11-01] MEDS ORDERED: ONDANSETRON INJ 2 MG/ML 2 ML VIAL IV PRN (22:28)
[2020-11-01] MEDS ORDERED: NALOXONE HCL 0.4 MG/1 ML VIAL/CARP IV PRN (22:28)
[2020-11-01] MEDS ORDERED: MoRPHine SULFATE 2 MG/ML CARP IV PRN (22:28)
[2020-11-01] MEDS ORDERED: cefTRIAXone SODIUM 1,000 MG in DEXTROSE 5% 50 ML IV SCH (22:30)
--- NOTE | 2020-11-01 22:37 | History & Physical Report ---
Date of Service November 01, 2020 Assessment & Plan (1) Renal colic: 75 yo F PMHx nonocclusive CAD, HTN, HLD, hypothyroidism, nephrolithiasis with recent left ureteral stent placement admitted for intractable nausea and pain despite PO medications in outpatient setting. Intractable pain/ nausea due to recent ureteral stent placement, recurrent nephrolithiasis, pyelonephritis: History of nephrolithiasis, with recent stent placement 10/[address] Tripathi. Was prescribed cipro and oxycodone, however pain has worsened despite oxy. CTAP shows stent with 2mm adjacent stone, left perinephric stranding. Urology consult placed. NPO with NSS at 80cc/hr with close fluid monitoring given Hx diastolic HF. Will start ceftriaxone for suspected left pyelonephritis. Blood and urine cultures collected. Morphine, Toradol prn pain. Continue Tamsulosin. Non-occlusive CAD, HTN, HLD, diastolic dysfunction, LE edema: Echo 10/2019 with normal LVEF, grade 1 diastolic dysfunction. Holding Bumex in leiu of gentle fluids given nephrolithiasis, concern for pyelonephritis, and NPO. Patient reports LE edema despite KRISTINE hosiery and Bumex; suspect fluid secondary to venous stasis. Continue Plavix, statin, verapamil. Resume Bumex when appropriate. Anemia: History of normocytic anemia on daily iron PO therapy. Hgb appears to be at baseline this admission. Hypothyroidism: Continue home levothyroxine. Osteoporosis: Hold alendronate; resume on discharge. Encourage weight bearing exercise. ?Parkinson's disease, restless legs syndrome, Hx CVA: No current neurologic symptoms. Continue Requip, Plavix, carbidopa-levodopa. Code Status: FULL CODE FEN: NPO with NSS at 80cc/hr DVT ppx: medical prophylaxis held in the event of Urology intervention tomorrow; SCDs. Dispo: Med/Surg with Telemetry (2) S/P ureteral stent placement: History of Present Illness Chief Complaint: left flank pain, nausea Primary Care Provider: Laurie Cedeno MD 75 yo F PMHx non-occlusive CAD, HTN, HLD, hypothyroidism, nephrolithiasis with recent left ureteral stent placement presented to ED for nausea and pain despite PO medications in outpatient setting. Reports that she had ureteral stent placed on 10/[address] Tripathi. Since this procedure, she has had some left flank pain, however it has been worsening despite taking the PRN oxycodone she was prescribed. Yesterday and today she had nausea and vomiting as well. She called the Urology line and was advised to go to ER. In hte ER patient was hemodynamically stable, labwork showed mild leukocytosis, creatinine at baseline, urine with large amounts of blood and leukocytes, unable to interpret for LE or nitrites due to blood. CTAP showed small bilateral renal calculi, left perinephric stranding, mild presacral edema. Patient was given IV pain medication and fluids, and hospitalist service was consulted for admission. Allergies Allergy/AdvReac Type Severity Reaction Status Date / Time shellfish derived Allergy Severe HIVES Verified 11/01/20 19:50 pecan nut Allergy Intermediate Hives Verified 11/01/20 19:50 Sulfa (Sulfonamide Allergy Intermediate ITCH Verified 11/01/20 19:50 Antibiotics) ibuprofen AdvReac Intermediate NAUSEA/UPSET Verified 11/01/20 19:50 STOMACH pregabalin AdvReac Intermediate TRIPLE Verified 11/01/20 19:50 VISION Home Medications Medication Instructions Recorded Confirmed Type clopidogrel [Plavix] 75 mg PO QAM 07/26/18 11/01/20 History cyanocobalamin (vitamin B-12) 500 mcg SUBLINGUAL QAM 07/26/18 11/01/20 History magnesium chloride [Mag 64] 64 mg PO HS 07/26/18 11/01/20 History methocarbamol 500 mg PO HS 07/26/18 11/01/20 History vitamin E 400 unit PO QAM 07/26/18 11/01/20 History ferrous gluconate [Fergon] 240 mg PO QAM 08/08/18 11/01/20 History polyethylene glycol 3350 [Miralax] 17 g PO DAILY PRN #0 ea 09/29/18 11/01/20 Rx nitroglycerin 0.4 mg sublingual 0.4 mg SUBLINGUAL Q5M PRN #30 tab 02/14/19 11/01/20 Rx tablet atorvastatin 40 mg tablet 40 mg PO QPM tab 03/13/19 11/01/20 History docusate sodium 100 mg PO QAM 11/13/19 11/01/20 History carbidopa ER 50 mg-levodopa 200 mg 1 tab PO TID #90 tab 05/19/20 11/01/20 Rx tablet,extended release verapamil 180 mg tablet,extended 180 mg PO BID #180 tab 06/04/20 11/01/20 Rx release levothyroxine [Synthroid] 75 mcg PO QAM 08/21/20 11/01/20 History potassium chloride 20 meq PO QPM 08/21/20 11/01/20 History carbidopa ER 25 mg-levodopa 100 mg 1 tab PO TID 30 Days #90 tab 10/01/20 11/01/20 Rx tablet,extended release alendronate 70 mg tablet 70 mg PO .COMPLEX tab 10/08/20 11/01/20 History ropinirole 1 mg PO HS 10/15/20 11/01/20 History ropinirole 2 mg PO QAM 10/15/20 11/01/20 History tamsulosin 0.4 mg PO QAM 10/15/20 11/01/20 History ciprofloxacin HCl [Cipro] 500 mg PO Q12H #6 tab 10/30/20 11/01/20 Rx oxycodone-acetaminophen [Percocet] 1 tab PO Q8H PRN #7 tab 10/30/20 11/01/20 Rx Past Med/Surg History Medical History Aortic stenosis Mild; per 10/15/19 ECHO= HARPREET 1.6 cm; mean gradient 9 mmHg; AV peak velocity 2.15 m/s Follows with [facility] cardio Hyperlipidemia Hypertension Hypothyroidism Non-occlusive coronary artery disease Per cardio records = Cardiac Syndrome X (small vessel dysfunction causing angina pectoris in a patient with mild nonocclusive CAD) Osteoporosis Restless leg syndrome Follows with neuro Trialing Sinemet for RLS- "no signs of parkinsonism on exam to suggest that symptoms are due to PD." per neuro Small bowel obstruction H/O SOB (shortness of breath) on exertion 1 FLIGHT/FLAT SURFACE 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) "FALLS TO LEFT IF IN A DARK ROOM WITH EYES CLOSE" Transient ischemic attack (TIA) h/o - years ago UTI (urinary tract infection) HX-AVG 1-2 X A YEAR Venous insufficiency (chronic) (peripheral) Per cardio records Surgical History Family history of reaction to anesthesia NAUSEA/VOMITTING History of bilateral tubal ligation History of cardiac cath 4/23/20> [facility]> DUE TO C.P> NO STENTS; 2016- NO STENTS [facility] History of cholecystectomy History of colonoscopy History of esophagogastroduodenoscopy (EGD) History of gastric bypass 2000 History of herniorrhaphy X 3 IN ABDOMEN History of intestinal surgery History of laminectomy LUMBAR History of lithotripsy 09/08/2018 [facility] LMA 4 History of tooth extraction History of total abdominal hysterectomy and bilateral salpingo-oophorectomy Nausea and vomiting after administration of anesthetic agent S/P cystoscopy with ureteral stent placement 11/19/2019 [place] S/P extracorporeal shock wave therapy Stye SURGICALLY REMOVED Family History Sister Ovarian cancer Breast cancer Daughter Family history of reaction to anesthesia PONV Family history of diabetes mellitus Other Family history non-contributory Denies family history of Prostate cancer Myocardial infarction Colorectal cancer Social History Smoking Status: Former smoker Cigarettes Per Day: QUIT 40 YEARS AGO; Smoking End Date: 45 yrs ago; Second Hand Exposure: Yes (FATHER SMOKED); Hx Substance Use: No Preferred Language: Hebrew Communication Ability: Effective Plate Roller Required: No Beliefs That Will Affect Care: None marital status: Current Living Situation: Spouse Current Living Situation Comment: current occupational status: retired How many Children do You have: 1 Feels Safe at Home: Yes Safety Concerns: Feels Safe At This Time Dental Care, Regularly: No Physical Activity Frequency: Does not Exercise Seatbelt Use: always Assistive Devices: None Review of Systems Review of Systems: All systems reviewed & are unremarkable except as noted in HPI & below Constitutional: + malaise; no fever and no chills Respiratory: no cough and no dyspnea Cardiovascular: no chest pain, no palpitations and no edema Gastrointestinal: no abdominal pain, no constipation and no diarrhea/loose stools Genitourinary: + hematuria and + flank pain; no dysuria Physical Exam Constitutional: WD/WN, vitals as above Eyes: PERRL, conjunctivae normal, anicteric sclerae ENMT: external ear and nose normal, oropharynx normal Neck: normal visual inspection Respiratory: normal respiratory effort, lungs clear to auscultation Cardiovascular: Rate/Rhythm: regular rate and regular rhythm Heart Sounds: no murmur Extremities: + edema (2+ pitting edema bialteral ankles) Gastrointestinal (Abdomen): protuberant abdomen, soft, tender to palpation in LLQ without rebound or guarding; no suprapubic tenderness Musculoskeletal: no cyanosis or clubbing, extremities motor strength 5/5 Skin: no rashes, warm and dry Neurologic: AAOx3, normal speech. Bilateral UE, LE, and face without sensory or motor deficits. No tremor. Psychiatric: A+Ox3, euthymic affect Results & Data Results & Data ([facility]) Vital Signs (Past 12 Hours) Vital Signs Temp Pulse Resp BP Pulse Ox 11/01/20 22:01 78 22 93 11/01/20 22:00 79 19 168/84 H 94 11/01/20 21:31 81 18 93 11/01/20 21:30 80 21 157/77 H 93 11/01/20 21:01 83 23 94 11/01/20 21:00 85 22 178/83 H 94 11/01/20 20:31 76 15 94 11/01/20 20:30 74 16 162/90 H 93 11/01/20 20:01 70 15 93 11/01/20 20:00 71 17 168/81 H 91 11/01/20 19:40 73 22 95 11/01/20 19:30 75 15 161/81 H 11/01/20 19:24 80 16 157/80 H 95 11/01/20 19:23 102 H 20 11/01/20 19:11 80 24 94 11/01/20 19:09 78 19 127/67 94 11/01/20 19:04 100 11/01/20 18:41 36.7 C 79 18 138/81 94 Code Status & VTE Plan VTE Prophylaxis Plan VTE Prophylaxis will be ordered: Yes Supervising Physician Co-Signing Physician Notes Attending addendum: I have physically seen this patient, have supervised the medical residents activities, and agree with the H&P unless as otherwise noted. Assessment and Plan: Intractable left flank pain/status post left nephroureteral stent/left perinephric stranding- Status post stent placement 10/[address] Tripathi Follow urine culture and sensitivity Progression of symptoms despite Cipro and oxycodone as outpatient NPO NSS at 80 mils per hour Ceftriaxone 2 g IV daily Morphine and Toradol as needed pain Continue tamsulosin Consult urology CAD/hypertension/HFpEF/lower extremity edema Hold Bumex during gentle IVF rehydration. Monitor for fluid overload Continue Plavix, verapamil and atorvastatin Remaining orders and notations as noted Resident Activity Tracking Resident Involvement: Resident Care Provided Care Provided: Adult Hospital Medicine
[2020-11-02] MEDS ORDERED: POLYETHYLENE (MIRALAX) 17 GM PACK PO PRN (00:46)
[2020-11-02] MEDS ORDERED: ACETAMINOPHEN 325 MG TAB PO PRN (00:46)
[2020-11-02] MEDS ORDERED: ACETAMINOPHEN 1000 MG/100 ML IV IV PRN (01:01)
[2020-11-02] MEDS: SODIUM CHLORIDE 0.9% 1000ML 1,000 ML IV SCH ×2 (01:28→13:00)
[2020-11-02] MEDS: cefTRIAXone SODIUM 2,000 MG in DEXTROSE 5% 50 ML IV SCH (02:15)
[2020-11-02] MEDS: MoRPHine SULFATE 4 MG/ML 1 ML CARP\\VIAL IV PRN ×3 (03:51→21:09)
[2020-11-02] MEDS: KETOROLAC 30 MG/ML VIAL IV PRN ×2 (06:00→12:59)
[2020-11-02] MEDS: LEVOTHYROXINE SODIUM 75 MCG TABLET PO SCH (06:03)
[2020-11-02] MEDS ORDERED: CARBIDOPA/LEVODOPA 50/200MG EXT REL TAB PO SCH (09:00)
[2020-11-02 10:44] LABS: Hematocrit (blood only) 31.6 % (37-47); Hemoglobin 10.3 g/dL (12.0-16.0); Mean Corpuscular Hemoglobin 30.6 pg (25-34); Mean Corpuscular Hgb Conc 32.6 g/dL (32-36); Mean Corpuscular Volume 93.8 fL (80-100); Mean Platelet Volume 10.8 fL (7.4-10.4); Platelet Count 259 K/uL (130-400); RDW Coefficient of Variation 14.4 % (11.5-14.5); RDW Standard Deviation 49.6 fL (36.4-46.3); Red Blood Count 3.37 M/uL (4.2-5.4); White Blood Count 9.99 K/uL (4.8-10.8)
--- NOTE | 2020-11-02 12:20 | Hospitalist Progress Note ---
Date of Service November 02, 2020 Assessment & Plan (1) Renal colic: (2) S/P ureteral stent placement: (3) Obstruction of left ureteropelvic junction due to stone: Renal colic secondary to ureteral stent placement, 2mm left UPJ stone, and ? pyelonephritis. Fevers resolved. WBC count normalized. Blood and urine cultures pending. Continue ceftriaxone. LLQ abdominal and left flank persists, but improved with Morphine. Continue Morphine and Toradol PRN for pain. Continue tamsulosin. Consider adding Pyridium or an anticholinergic if pain persists. Continue gentle IVF at 80mls/hr. Hx of diastolic HF. Appears euvolemic. Urology consult pending. OK to feed patient per Dr. Tripathi as she is stable and afebrile. Likely no intervention at this time unless she would deteriorate. (4) Anemia: History of normocytic anemia on daily iron PO therapy. Hgb appears to be at baseline this admission. (5) Hypothyroidism: Last TSH 2.210 on 09-15-20. Continue levothyroxine 75mcg daily. (6) Osteoporosis: Alendronate on hold. Resume on discharge. Encourage weight bearing exercises. (7) CVA (cerebral vascular accident): Continue Plavix. No significant deficits. (8) Parkinson disease: Continue carbidopa-levodopa. (9) Restless leg syndrome: Continue Requip. (10) Hypertension: BP stable at 130/80. Continue Verapamil. (11) Non-occlusive coronary artery disease: Echo 10/2019 with normal LVEF, grade 1 diastolic dysfunction. Continue statin. (12) Hyperlipidemia: Continue statin. (13) Diastolic dysfunction: Bumex on hold. Gentle IVF provided. Patient appears euvolemic on exam today. Continue to monitor. Hx of lower extremity edema. ? chronic venous insufficiency. (14) DVT prophylaxis: Hold chemical prophylaxis for possible urologic procedure. SCDs. Code Status: Full Code Dispo: Continue Med/Surg telemetry Admission and Anticipated Discharge Date Admission Date: November 01, 2020 Subjective 75 year old female s/p left ureteroscopy and laser lithotripsy with stent placement on 10/30/20 admitted for renal colic and fever. ? pyelonephritis. Blood and urine cultures pending. She is currently on ceftriaxone. Patient continues to have abdominal and left flank pain this morning. Morphine helping with the pain. She denies f/c, n/v, dysuria, or hematuria. Urology consult pending. Review of Systems Constitutional: no fever and no chills Eyes: no worsening vision Ear, Nose, Mouth, Throat: no dizziness Respiratory: no dyspnea Cardiovascular: no chest pain Gastrointestinal: + abdominal pain (LLQ ); no nausea and no vomiting Genitourinary: no dysuria and no hematuria Physical Exam Physical Exam: Temp Pulse Resp BP Pulse Ox 36.6 C 77 16 130/80 92 11/02/20 10:58 11/02/20 10:58 11/02/20 10:58 11/02/20 10:58 11/02/20 10:58 Patient is afebrile. Vital signs stable. Constitutional: + overweight; no acute distress ENMT: Ears: no hearing impairment Neck: normal visual inspection Respiratory: normal respiratory effort, lungs clear to auscultation Cardiovascular: Rate/Rhythm: regular rate and regular rhythm Heart Sounds: + murmur Gastrointestinal (Abdomen): Inspection/Auscultation: normal bowel sounds Percussion/Palpation: + abdomen tender (LLQ and left flank ) and abdomen soft Musculoskeletal: Head/Neck/Chest: normocephalic Psychiatric: A+Ox3, euthymic affect Results & Data Results & Data ([facility]) Vital Signs (Past 12 Hours) Vital Signs Temp Pulse Pulse Resp BP Pulse Ox 11/02/20 10:58 36.6 C 77 16 130/80 92 11/02/20 08:31 36.7 C 66 18 112/70 94 11/02/20 03:18 37.4 C 69 18 112/74 93 11/02/20 01:41 85 11/02/20 01:02 38.7 C H 102 H 16 138/76 91 11/02/20 00:20 87 20 153/79 H 94 PG Care Time/CCT Total # of Minutes Spent Total Time Spent with Patient: Total time spent is greater than 50% in coordination of care (as documented) at patient's floor/unit and/or counseling patient: Coding Level of Care Code 19989 Subseq Obs Care Lvl 2 Diagnoses Renal colic N23 S/P ureteral stent placement Z96.0 Obstruction of left ureteropelvic junction due to stone N20.1 Anemia D64.9 Hypothyroidism E03.9 Hypothyroidism type: unspecified Osteoporosis M81.0 CVA (cerebral vascular accident) I63.9 Parkinson disease G20 Restless leg syndrome G25.81 Hypertension I10 Hypertension type: essential hypertension Non-occlusive coronary artery disease I25.10 Hyperlipidemia E78.5 Diastolic dysfunction I51.89 DVT prophylaxis Z29.9 (1) Hypothyroidism Hypothyroidism type: unspecified Qualified Code(s): E03.9 - Hypothyroidism, unspecified (2) Hypertension Hypertension type: essential hypertension Qualified Code(s): I10 - Essential (primary) hypertension
[2020-11-02] MEDS: TAMSULOSIN HCL 0.4 MG CAP PO SCH (13:30)
[2020-11-02] MEDS: CARBIDOPA/LEVODOPA 25/100MG EXT REL TAB PO SCH ×3 (13:30→21:10)
[2020-11-02] MEDS: VERAPAMIL HCL 180 MG TABCR PO SCH ×2 (13:31→21:11)
[2020-11-02] MEDS: CLOPIDOGREL BISULFATE 75 MG TAB PO SCH (13:31)
--- NOTE | 2020-11-02 15:52 | Urology Consultation ---
Date of Consultation November 02, 2020 Assessment & Plan (1) Obstruction of left ureteropelvic junction due to stone: (2) Ureteral stricture: Severe strictures with multiple areas of narrowing and significant stone burden status post treatment. Patient was dealing with increasing discomfort. Began having ill feelings. Was admitted for hydration and monitoring. Patient's vitals have been stable without severe changes. Patient had one elevated temperature which returned to normal and has since been afebrile. Patient is undergoing symptomatic control. Has been dealing with ill feeling pain discomfort going in waves into the back. Patient is hydrating. Has severe issues due to stricture disease with major stone burden. Plan was to maintain stent for at least 2 to 3 weeks with plans to reimage to assess kidney stone burden. At that time may need further intervention. We will continue with supportive care hydration and monitoring unless patient develops worsening severe issues especially fever or signs of major infection. Would be limited in options due to severity of strictures with multiple areas narrowed and difficulty accessing kidney after considerable endoscopic stone treatment. Patient complicated medical history was reviewed and summarized above. Imaging was reviewed interpreted by myself. Does appear to have stent in good position with small stone fragments along the ureter. No signs of major injury. History of Present Illness Attending Physician: Jag Woodward MD History of Present Illness New consultation for patient with pain after stone treatment with pressure from stent, discomfort, and ill feelings. Patient developed sudden onset of pain into flank going down and radiating into groin and back in waves comes and goes. Can be severe at times. Discussed and reviewed patient's family history for any history of issues, infections, and disease. Also, discussed patient's medical/surgery history especially related to any history of urinary issues or stone disease. Patient was admitted and is undergoing observation with broad spectrum IV antibiotics. Allergies Allergy/AdvReac Type Severity Reaction Status Date / Time shellfish derived Allergy Severe HIVES Verified 11/01/20 19:50 pecan nut Allergy Intermediate Hives Verified 11/01/20 19:50 Sulfa (Sulfonamide Allergy Intermediate ITCH Verified 11/01/20 19:50 Antibiotics) ibuprofen AdvReac Intermediate NAUSEA/UPSET Verified 11/01/20 19:50 STOMACH pregabalin AdvReac Intermediate TRIPLE Verified 11/01/20 19:50 VISION Home Medications Medication Instructions Recorded Confirmed Type clopidogrel [Plavix] 75 mg PO QAM 07/26/18 11/01/20 History cyanocobalamin (vitamin B-12) 500 mcg SUBLINGUAL QAM 07/26/18 11/01/20 History magnesium chloride [Mag 64] 64 mg PO HS 07/26/18 11/01/20 History methocarbamol 500 mg PO HS 07/26/18 11/01/20 History vitamin E 400 unit PO QAM 07/26/18 11/01/20 History ferrous gluconate [Fergon] 240 mg PO QAM 08/08/18 11/01/20 History polyethylene glycol 3350 [Miralax] 17 g PO DAILY PRN #0 ea 09/29/18 11/01/20 Rx nitroglycerin 0.4 mg sublingual 0.4 mg SUBLINGUAL Q5M PRN #30 tab 02/14/19 11/01/20 Rx tablet atorvastatin 40 mg tablet 40 mg PO QPM tab 03/13/19 11/01/20 History docusate sodium 100 mg PO QAM 11/13/19 11/01/20 History carbidopa ER 50 mg-levodopa 200 mg 1 tab PO TID #90 tab 05/19/20 11/01/20 Rx tablet,extended release verapamil 180 mg tablet,extended 180 mg PO BID #180 tab 06/04/20 11/01/20 Rx release levothyroxine [Synthroid] 75 mcg PO QAM 08/21/20 11/01/20 History potassium chloride 20 meq PO QPM 08/21/20 11/01/20 History carbidopa ER 25 mg-levodopa 100 mg 1 tab PO TID 30 Days #90 tab 10/01/20 11/01/20 Rx tablet,extended release alendronate 70 mg tablet 70 mg PO .COMPLEX tab 10/08/20 11/01/20 History ropinirole 1 mg PO HS 10/15/20 11/01/20 History ropinirole 2 mg PO QAM 10/15/20 11/01/20 History tamsulosin 0.4 mg PO QAM 10/15/20 11/01/20 History ciprofloxacin HCl [Cipro] 500 mg PO Q12H #6 tab 10/30/20 11/01/20 Rx oxycodone-acetaminophen [Percocet] 1 tab PO Q8H PRN #7 tab 10/30/20 11/01/20 Rx Patient History Medical History Aortic stenosis Mild; per 10/15/19 ECHO= HARPREET 1.6 cm; mean gradient 9 mmHg; AV peak velocity 2.15 m/s Follows with [facility] cardio Hyperlipidemia Hypertension Hypothyroidism Non-occlusive coronary artery disease Per cardio records = Cardiac Syndrome X (small vessel dysfunction causing angina pectoris in a patient with mild nonocclusive CAD) Osteoporosis Restless leg syndrome Follows with neuro Trialing Sinemet for RLS- "no signs of parkinsonism on exam to suggest that symptoms are due to PD." per neuro Small bowel obstruction H/O SOB (shortness of breath) on exertion 1 FLIGHT/FLAT SURFACE 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) "FALLS TO LEFT IF IN A DARK ROOM WITH EYES CLOSE" Transient ischemic attack (TIA) h/o - years ago UTI (urinary tract infection) HX-AVG 1-2 X A YEAR Venous insufficiency (chronic) (peripheral) Per cardio records Surgical History Family history of reaction to anesthesia NAUSEA/VOMITTING History of bilateral tubal ligation History of cardiac cath 10/25/19> [facility]> DUE TO C.P> NO STENTS; 2016- NO STENTS [facility] History of cholecystectomy History of colonoscopy History of esophagogastroduodenoscopy (EGD) History of gastric bypass 2000 History of herniorrhaphy X 3 IN ABDOMEN History of intestinal surgery History of laminectomy LUMBAR History of lithotripsy 09/08/2018 [facility] LMA 4 History of tooth extraction History of total abdominal hysterectomy and bilateral salpingo-oophorectomy Nausea and vomiting after administration of anesthetic agent S/P cystoscopy with ureteral stent placement 11/19/2019 [place] S/P extracorporeal shock wave therapy Stye SURGICALLY REMOVED Family History Sister Ovarian cancer Breast cancer Daughter Family history of reaction to anesthesia PONV Family history of diabetes mellitus Other Family history non-contributory Denies family history of Prostate cancer Myocardial infarction Colorectal cancer Social History Smoking Status: Former smoker Cigarettes Per Day: QUIT 40 YEARS AGO; Smoking End Date: 45 yrs ago; Second Hand Exposure: Yes (FATHER SMOKED); Hx Substance Use: No Preferred Language: Romanian Communication Ability: Effective German Instructor Required: No Beliefs That Will Affect Care: None marital status: Current Living Situation: Spouse Current Living Situation Comment: current occupational status: retired How many Children do You have: 1 Feels Safe at Home: Yes Safety Concerns: Feels Safe At This Time Dental Care, Regularly: No Physical Activity Frequency: Does not Exercise Seatbelt Use: always Assistive Devices: None Review of Systems Review of Systems: All systems reviewed & are unremarkable except as noted in HPI & below Physical Exam Physical Exam: General: Alert and oriented x 3 in no acute distress. Patient is well nourished and well kept. HEENT: Normocephalic Atraumatic. Inspection normal. Cranial Nerves 2-12 Grossly intact. Nares are clear. Neck is supple. Normal inspection of face. Normal inspection of neck. Neurologic: No deficits on inspection. Baseline for motor function and sensory. Psychologic: Normal affect. Respiratory: Nonlabored. No use of accessory muscles. No tachypnea or dyspnea. Cardiovascular: No tachycardia Skin: [place] and Dry. No rashes or visible lesions. Extremities: Moving without issues. No motor deficits on inspection Lymphatics: No edema Abdomen: Soft Non-distended. No acites. No rebound or guarding. Results & Data ([facility]) Vital Signs (Past 12 Hours) Vital Signs Temp Pulse Resp BP Pulse Ox 11/02/20 15:32 37.4 C 72 18 135/80 95 11/02/20 10:58 36.6 C 77 16 130/80 92 11/02/20 08:31 36.7 C 66 18 112/70 94 PG Care Time/CCT Total # of Minutes Spent Total Time Spent with Patient: Total time spent is greater than 50% in coordination of care (as documented) at patient's floor/unit and/or counseling patient: Coding Level of Care Code 62799 Initial Inpt Care Lvl 3 Diagnoses Obstruction of left ureteropelvic junction due to stone N20.1 Ureteral stricture N13.5
[2020-11-02] MEDS ORDERED: POTASSIUM CHLORIDE 20 MEQ/15 ML UDC PO SCH (21:00)
[2020-11-02] MEDS ORDERED: ATORVASTATIN 40 MG TAB PO SCH (21:00)
[2020-11-02] MEDS ORDERED: METHOCARBAMOL 500 MG TABLET PO SCH (21:00)
[2020-11-02] MEDS ORDERED: rOPINIRole HCL 1 MG TABLET PO SCH (21:00)
[2020-11-02] MEDS ORDERED: MAGNESIUM CHLORIDE 64MG DELAYED REL TAB PO SCH (21:00)
[2020-11-03] MEDS: SODIUM CHLORIDE 0.9% 1000ML 1,000 ML IV SCH (01:53)
[2020-11-03] MEDS: cefTRIAXone SODIUM 2,000 MG in DEXTROSE 5% 50 ML IV SCH (04:38)
--- NOTE | 2020-11-03 04:52 | Billing Data ---
Date of Service November 03, 2020 Coding Level of Care Code 64440 OBS Care - Level 3
[2020-11-03] MEDS: LEVOTHYROXINE SODIUM 75 MCG TABLET PO SCH (07:00)
[2020-11-03] MEDS: VERAPAMIL HCL 180 MG TABCR PO SCH (07:50)
[2020-11-03] MEDS: CLOPIDOGREL BISULFATE 75 MG TAB PO SCH (07:50)
[2020-11-03] MEDS: TAMSULOSIN HCL 0.4 MG CAP PO SCH (07:51)
[2020-11-03] MEDS: CARBIDOPA/LEVODOPA 25/100MG EXT REL TAB PO SCH (07:51)
[2020-11-03 08:50] LABS: Hematocrit (blood only) 29.1 % (37-47); Hemoglobin 9.5 g/dL (12.0-16.0); Mean Corpuscular Hgb Conc 32.6 g/dL (32-36); Mean Corpuscular Volume 91.8 fL (80-100); Mean Platelet Volume 10.4 fL (7.4-10.4); Platelet Count 250 K/uL (130-400); RDW Coefficient of Variation 14.5 % (11.5-14.5); Red Blood Count 3.17 M/uL (4.2-5.4); White Blood Count 7.18 K/uL (4.8-10.8)
[2020-11-03 09:17] LABS: BUN Creatinine Ratio 22.5 (10-20); Calcium 8.7 mg/dl (8.5-10.1); Creatinine Clr Calc Pharmacy 69.9 ml/min; Est GFR (African American) 75.5; Est GFR (Non-African American) 65.2; Magnesium 2.1 mg/dl (1.8-2.4)
--- NOTE | 2020-11-03 09:50 | Urology Progress Note ---
Date of Service November 03, 2020 Assessment & Plan (1) Obstruction of left ureteropelvic junction due to stone: (2) Ureteral stricture: (3) Renal colic: (4) S/P ureteral stent placement: 75yo F admitted with renal colic and nausea secondary to recent left ureteral stent placement on 10/[address] Tripathi. - Intractable pain and nausea secondary to left ureteral stent placement. - CT abdomen pelvis noted a 2mm left UPJ stone and left perinephric stranding. - She remains afebrile, VSS. - Pain improved today. No nausea. - Labs reviewed, Wbc and creatinine remain stable. - Urine and blood cultures pending. - No acute intervention warranted at this time. - Continue supportive care, pain control, and antibiotic therapy- follow cultures. - Continue Tamsulosin. - Will plan to keep stent for 2-3 weeks and will plan for reimaging to assess kidney stone burden. - Will arrange outpatient follow-up with urology for stone and stent management. - Thank you for allowing us to participate in the acute care of Mrs. Dominguez. - Please reconsult us with additional questions, concerns or changes in patient status. Admission and Anticipated Discharge Date Admission Date: November 01, 2020 Subjective Pt examined at bedside this AM. Awake, resting in bed on arrival. No complaints of pain or discomfort at this time. Denies fevers/chills. Tolerating diet, no nausea or vomiting. Some hematuria. No dysuria. Feels she is emptying her bladder well. Chart review: Afebrile, Wbc 7.18, Hgb 9.5, Cr 0.87. Review of Systems Constitutional: as per Subjective / HPI Gastrointestinal: as per Subjective / HPI Genitourinary: as per Subjective / HPI Physical Exam Constitutional: well developed, well nourished and + obese; no acute distress Respiratory: normal respiratory effort and able to speak in complete sentences Cardiovascular: Extremities: no calf tenderness Gastrointestinal (Abdomen): Percussion/Palpation: abdomen soft; abdomen nontender and no guarding Musculoskeletal: Head/Neck/Chest: normocephalic Skin: No visible rashes or lesions. Psychiatric: Orientation: alert, oriented x 3 and cooperative Genitourinary: no CVA tenderness Results & Data ([facility]) Vital Signs (Past 12 Hours) Vital Signs Temp Pulse Pulse Resp BP Pulse Ox 11/03/20 07:54 113/73 11/03/20 07:42 37.5 C 63 18 95/63 L 95 11/03/20 07:09 60 11/03/20 04:00 37.7 C H 71 18 94/52 L 94 11/02/20 22:44 37.6 C H 74 18 116/76 95 PG Care Time/CCT Total # of Minutes Spent Total Time Spent with Patient: Total time spent is greater than 50% in coordination of care (as documented) at patient's floor/unit and/or counseling patient: Coding Level of Care Code 15175 Subseq Hosp Care Lvl 2 Diagnoses Obstruction of left ureteropelvic junction due to stone N20.1 Ureteral stricture N13.5 Renal colic N23 S/P ureteral stent placement Z96.0
[2020-11-03] MEDS ORDERED: oxyCODONE/ACETAMINOPHEN 5mg/325mg TAB PO PRN (10:55)
--- NOTE | 2020-11-03 16:19 | Discharge Summary ---
Date of Service November 03, 2020 Admission HPI Per Admitting Provider 75 yo F PMHx non-occlusive CAD, HTN, HLD, hypothyroidism, nephrolithiasis with recent left ureteral stent placement presented to ED for nausea and pain despite PO medications in outpatient setting. Reports that she had ureteral stent placed on 10/[address] Tripathi. Since this procedure, she has had some left flank pain, however it has been worsening despite taking the PRN oxycodone she was prescribed. Yesterday and today she had nausea and vomiting as well. She called the Urology line and was advised to go to ER. In hte ER patient was hemodynamically stable, labwork showed mild leukocytosis, creatinine at baseline, urine with large amounts of blood and leukocytes, unable to interpret for LE or nitrites due to blood. CTAP showed small bilateral renal calculi, left perinephric stranding, mild presacral edema. Patient was given IV pain medication and fluids, and hospitalist service was consulted for admission. Principal Diagnosis Renal colic from stent Discharge Exam Constitutional WD/WN, vitals as above Eyes EOM intact bilaterally; no conjunctival abnormality ENMT external ear and nose normal, oropharynx normal Neck trachea midline, no thyromegaly normal visual inspection Respiratory normal respiratory effort, lungs clear to auscultation no respiratory distress Cardiovascular RRR, no murmur, no edema Gastrointestinal (Abdomen) Inspection/Auscultation: abdomen normal to inspection; abdomen not distended Musculoskeletal no cyanosis or clubbing, extremities motor strength 5/5 Skin no rashes, warm and dry Neurologic moves all extremities and awake Psychiatric Orientation: alert, oriented to person and cooperative Discharge Data Allergies Allergy/AdvReac Type Severity Reaction Status Date / Time shellfish derived Allergy Severe HIVES Verified 11/01/20 19:50 pecan nut Allergy Intermediate Hives Verified 11/01/20 19:50 Sulfa (Sulfonamide Allergy Intermediate ITCH Verified 11/01/20 19:50 Antibiotics) ibuprofen AdvReac Intermediate NAUSEA/UPSET Verified 11/01/20 19:50 STOMACH pregabalin AdvReac Intermediate TRIPLE Verified 11/01/20 19:50 VISION Consultations 11/01/20 20:49 ED Decision to Admit Stat 11/01/20 22:28 Consult Urology Routine Ordered Studies 11/01/20 19:04 CT abd pelvis wo con Stat Hospital Course (1) Renal colic: From prior ureteral stent. - By 11/03, she was comfortable with no indication of systemic infection. Discussed with urology. Discharge with a small amount of additional PO pain meds. Discharged with 5 more days of antibiotics (cefdinir). Will keep present appointment with urology for appropriate follow-up and stent removal. (2) S/P ureteral stent placement: Total Time Total Time Spent Total Time Spent (In Minutes): 35 Discharge Plan Discharge Items Patient Disposition: Home - Self-Care Reason For Visit: INTRACTABLE PAIN, RECENT URETERAL STENT PLACEMENT Discharge Diagnosis: Intractable pain from stent Activity: Resume your previous activity Non-emergency contact: Primary Care Provider and Urologist Call non-emergency contact if: your symptoms worsen Follow-up/Referrals: Laurie Cedeno MD [Primary Care Provider] - 11/07/20 10:20 am Carson Tripathi DO [Physician] - (Please see Dr. Tripathi at your previously scheduled appointment.) Diet: Regular Addtl Attending Provider Instructions: Ms. Ivan, You were admitted with pain from your stent and recent procedure with the Urology team. Fortunately, we don't see that your stent or blood are infected. To be safe, we will send you with a few extra days of antibiotics. Your next dose of antibiotic will be tomorrow morning because you got IV antibiotic this morning before you left the hospital. We will also send a short course of pain medication. Please follow up with Dr. Tripathi or the urology team at your previously scheduled appointment. Pending Studies at Discharge: No Stand-Alone Forms: My Dely, Smoking Cessation Medications and DC Order Prescriptions: New cefdinir 300 mg capsule 300 mg PO BID 5 Days Qty: 10 RF: 0 Continued nitroglycerin 0.4 mg tablet, sublingual 0.4 mg Sublingual Q5M PRN (Reason: Chest Pain) Qty: 30 RF: 5 carbidopa-levodopa 50-200 mg tablet extended release 1 tab PO TID Qty: 90 RF: 0 Hold Instructions: trial lower dose verapamil 180 mg tablet extended release 180 mg PO BID Qty: 180 RF: 3 carbidopa-levodopa 25-100 mg tablet extended release 1 tab PO TID 30 Days Qty: 90 RF: 1 alendronate [Fosamax] 70 mg tablet 70 mg PO .COMPLEX RF: 0 methocarbamol 500 mg Tablet 500 mg PO HS RF: 0 clopidogrel [Plavix] 75 mg Tablet 75 mg PO QAM RF: 0 vitamin E 400 unit Capsule 400 unit PO QAM RF: 0 magnesium chloride [Mag 64] 64 mg Tablet,Delayed Release (Dr/Ec) 64 mg PO HS RF: 0 cyanocobalamin (vitamin B-12) 500 mcg Tablet, Sublingual 500 mcg SUBLINGUAL QAM RF: 0 atorvastatin [Lipitor] 40 mg tablet 40 mg PO QPM RF: 0 docusate sodium 100 mg capsule 100 mg PO QAM RF: 0 potassium chloride 20 mEq/15 mL liquid 20 meq PO QPM RF: 0 levothyroxine [Synthroid] 75 mcg tablet 75 mcg PO QAM RF: 0 ferrous gluconate [Fergon] 240 mg (27 mg iron) Tablet 240 mg PO QAM RF: 0 polyethylene glycol 3350 [Miralax] 17 gram Powder In Packet 17 g PO DAILY PRN (Reason: constipation) Qty: 0 RF: 0 tamsulosin 0.4 mg capsule 0.4 mg PO QAM RF: 0 ropinirole 2 mg tablet extended release 24 hr 2 mg PO QAM RF: 0 ropinirole 1 mg tablet 1 mg PO HS RF: 0 Changed oxycodone-acetaminophen [Percocet] 7.5-325 mg tablet 1 tab PO Q6H PRN (Reason: pain) Qty: 10 RF: 0 Discontinued ciprofloxacin HCl [Cipro] 500 mg tablet 500 mg PO Q12H Qty: 6 RF: 0 Discharge Orders: Discharge Order (Routine); Ordered 11/03/20 Ordered By: Jag Woodward Admission Data Admit Date/Time: 11/01/20 22:28 Attending Provider: Jag Woodward Admit Provider: Stephanie Morales Primary Care Provider: Laurie Cedeno Other Providers: Carson Tripathi ; Jag Woodward Other Interventions: Discharge Summary Assessment (RN) Last Done: 11/03/20 11:21 Coding Level of Care Code D/C Day Management >30 mins Diagnoses Renal colic N23 S/P ureteral stent placement Z96.0
== END 2020-11-03 13:03 | disposition home or self-care (01) ==
LOC: ED 18:32 → 2W 18:32 → SUATTDRO 22:28 → 2W 11-02 00:26

== ENCOUNTER 2024-01-22 16:12 | Observation (INO) ==
--- OUTSIDE RECORDS SUMMARY | 2024-01-22 16:21 | External Medical Summary | Continuity of Care Document ---
Author Name Unknown Organization [id number] Address [address] [place] [id number] Care Team Providers Care Animal Shelter Worker Name Role Phone Wilian Laurie Mabel Primary Care Physician [phone] Encounter [id number] Date(s): 01/17/24 - 01/17/24 [facility] [address] [id number] [facility] [address] [place] [id number] Encounter Diagnosis Left carpal tunnel syndrome(Discharge Diagnosis) - 01/17/24 Discharge Disposition: Home or Self Care Attending Physician: MD Toribio Paul K Allergies, Adverse Reactions, Alerts Substance Criticality Severity Reaction Reaction Severity Status Adhesive bandage 1 rash A ctive Lyrica confusion Active 1only allergic to liquid adhesive Assessment and Plan Extracted from: Title:Donal Toribio Author:Sarah Medina ate:01/17/24 Impression:[id number] male 1) S/p left wrist ORIF fordistal radius fracture, DOS 09/22/2023 2) Carpal tunnel syndrome Plan: - I have ordered an EMG/NCS of the left upper extremity to evaluate for carpal tunnel syndrome. - Patient's physical therapist is happy with the patient's progress and recommends discontinuing formal physical therapy. - Follow-up for EMG/NCS results. The patient understood all my instructions and explanation; all their questions were satisfactorily addressed. Medications atorvastatin 40 mg oral tablet Start: 09/23/23 11:21:00 AM EDT Start Date: 09/23/23 Status: Ordered carbidopa-levodopa 25 mg-100 mg oral tablet, extended release Start: 09/23/23 11:21:00 AM EDT Start Date: 09/23/23 Status: Ordered clopidogrel 75 mg oral tablet Start: 09/23/23 11:21:00 AM EDT Start Date: 09/23/23 Status: Ordered folic acid 1 mg oral tablet Start: 09/23/23 11:21:00 AM EDT Start Date: 09/23/23 Status: Ordered furosemide 20 mg oral tablet Start: 09/23/23 11:21:00 AM EDT Start Date: 09/23/23 Status: Ordered gabapentin 300 mg oral capsule Start: 09/23/23 11:21:00 AM EDT Start Date: 09/23/23 Status: Ordered hydroxychloroquine 200 mg oral tablet Start: 09/23/23 11:21:00 AM EDT Start Date: 09/23/23 Status: Ordered levothyroxine 100 mcg (0.1 mg) oral tablet Start: 09/23/23 11:21:00 AM EDT Start Date: 09/23/23 Status: Ordered methocarbamol 500 mg oral tablet Start: 09/23/23 11:21:00 AM EDT Start Date: 09/23/23 Status: Ordered methotrexate 2.5 mg oral tablet Start: 09/23/23 11:21:00 AM EDT Start Date: 09/23/23 Status: Ordered Metoprolol Succinate ER 25 mg oral tablet, extended release Start: 09/23/23 11:22:00 AM EDT Start Date: 09/23/23 Status: Ordered oxyBUTYnin 15 mg/24 hr oral tablet, extended release Start: 09/23/23 11:21:00 AM EDT Start Date: 09/23/23 Status: Ordered pantoprazole 40 mg oral delayed release tablet Start: 09/23/23 11:22:00 AM EDT Start Date: 09/23/23 Status: Ordered rOPINIRole 2 mg oral tablet, extended release Start: 09/23/23 11:21:00 AM EDT Start Date: 09/23/23 Status: Ordered verapamil 180 mg/12 hours oral tablet, extended release Start: 09/23/23 11:21:00 AM EDT Start Date: 09/23/23 Status: Ordered Vitamin D2 1.25 mg (50,000 intl units) oral capsule Start: 09/23/23 11:21:00 AM EDT Start Date: 09/23/23 Status: Ordered Mental Status 01/17/24 Barriers to Learning one year None evide nt Mandatory Health Literacy Documentation Yes Health Literacy Communication Barriers N ever Primary Language Tamazight Problem List No Chronic Problems Diagnosis Diagnosis Type Effective Dates Health Status Cl inical Service Informant Left carpal tunnel syndrome Discharge Diagnosis 01/17/24 Social History Social History Type Response Smoking Status Never smoked cigaret jamshid Sex Female Ortho Outpt Note * Sarah Medina: PERFORM, MODIFY, MODIFY Event Display: Ortho Outpt Note Authored Date: [id number] Primary Care Provider MD Wilian, Laurie Monroe Chief Complaint 4-month F/u s/p left wrist ORIF fordistal radius fracture, DOS 09/22/2023 History of Present Illness [id number] is s/p left wrist ORIF. She is still experiencingtingling in her fingers and has not noticed improvement since her last visit. Patient has been in physical therapy. Review of Systems Refer to the HPI. Physical Exam Focusing on the patient'sleftupper extremity: Wrist ROM: Extension 65 / Flexion 55 / Ulnar deviation 45 / Radial deviation 20 Decreased sensation to light touch in the volar aspect of thelong and ring fingers and to a lesser extent in the pinky finger No obvious atrophy + Tinel's in the carpal tunnel Diagnostic Results X-ray imaginviews of theleft wristobtained today and personally interpreted by me show hardware in good position and healing across the fracture site. Assessment/Plan Impression:[id number] 1) S/p left wrist ORIF fordistal radius fracture, DOS 09/22/2023 2) Carpal tunnel syndrome Plan: - I have ordered an EMG/NCS of the left upper extremity to evaluate for carpal tunnel syndrome. - Patient's physical therapist is happy with the patient's progress and recommends discontinuing formal physical therapy. - Follow-up for EMG/NCS results. The patient understood all my instructions and explanation; all their questions were satisfactorilyaddressed. Attestation I, Sarah Medina, have scribed for, and in the presence of, Donal Toribio, on this date,01/17/2024 15:25:50. Problem List/Past Medical History Ongoing No chronic problems Medications atorvastatin(atorvastatin 40 mg oral tablet) carbidopa-levodopa(carbidopa-levodopa 25 mg-100 mg oral tablet, extended release) clopidogrel(clopidogrel 75 mg oral tablet) ergocalciferol(Vitamin D2 1.25 mg (50,000 intl units) oral capsule) folic acid(folic acid 1 mg oral tablet) furosemide(furosemide 20 mg oral tablet) gabapentin(gabapentin 300 mg oral capsule) hydroxychloroquine(hydroxychloroquine 200 mg oral tablet) levothyroxine(levothyroxine 100 mcg (0.1 mg) oral tablet) methocarbamol(methocarbamol 500 mg oral tablet) methotrexate(methotrexate 2.5 mg oral tablet) metoprolol(Metoprolol Succinate ER 25 mg oral tablet, extended release) oxyBUTYnin(oxyBUTYnin 15 mg/24 hr oral tablet, extended release) pantoprazole(pantoprazole 40 mg oral delayed release tablet) rOPINIRole(rOPINIRole 2 mg oral tablet, extended release) verapamil(verapamil 180 mg/12 hours oral tablet, extended release) Allergies Adhesive bandagerash Lyricaconfusion Social History Smoking Status Never smoked cigarettes Recommendations Health Maintenance Pending(in the next year) Due Adult Influenza Vaccine due01/01/24and every 1year Adult COVID-19 Vaccination due01/17/24Unknown Frequency Adult Social Determinants of Health Screening due01/17/24Unknown Frequency Adult Tdap/Td Vaccine due01/17/24Unknown Frequency Body Mass Index due01/17/24Unknown Frequency Hepatitis C Screening due01/17/24One-time only Lipid Screening due01/17/24Unknown Frequency Medicare Annual Wellness Visit due01/17/24and every 1year Osteoporosis Screening due01/17/24One-time only Pneumococcal Vaccine Older Adults due01/17/24One-time only Shingles Vaccine due01/17/24One-time only Satisfied(in the past 1 year) There are no satisfied recommendations within the defined date range Electronic Signature on File Electronically Reviewed/Signed by: Sarah Medina Author Signature Dt/Tm:01/17/2024 03:36 PM Electronically Reviewed/Signed by: Donal Toribio MD Cosigner Signature Dt/Tm: 01/17/2024 04:24PM Division of Sports Medicine OA Patient Care team information Care Team Personnel Name: MD Catarino, Donal Carmona Position: Physician - Sports Medicine [place] Member Role: Lifetime Relationship Address: Address: [address] [place] [address] Name: MD Wilian, Laurie Monroe Position: Referring Member Role: Primary Care Provider Address: Address: [facility] [place] [address]
--- NOTE | 2024-01-22 16:39 | Emergency Department Note ---
Impression & Plan Ataxia, Ambulatory dysfunction ED Provider Note Name: NUSRAT PULIDO Age: 78 Sex: Female Arrives Via: Walk-In Informant: Patient ED Provider: Cornelius Vazquez MD Chief Complaint: Walking difficulty Impression: As per impressions above Medical Decision Makin-year-old female arrives for evaluation of inability to walk straight. This began when she awoke this morning having felt well when she went to bed. Patient does have a history of stroke though only residual deficit from that was some swaying if she closes her eyes to the left. Today the patient is essentially unable to walk in a straight line stumbling both directions. She has no neurodeficits on examination and no significant ataxia of hands. CT of the head is fortunately unremarkable. She is not a tPA/TNKase candidate given her prolonged symptoms. She does not have large vessel occlusion findings. CT of the head is unremarkable as are majority of her laboratory findings. She was given some IV fluids as the past she has had some issues with dehydration. Unfortunately no significant improvement with IV fluids. Patient agreeable to hospitalization for further workup and evaluation of possible stroke. Triage/Nursing Notes reviewed by Me Differential:Infection, dehydration, metabolic abnormality, hypo/hyperglycemia, electrolyte disturbance, anemia, hypoxia, cardiac sources, intracerebral event, toxicologic, neurologic, as well as other pathologies. Vital Signs: reviewed and remarkable for no significant abnormalities Interventions: nss bolus Labs:ED labs Reviewed by me and remarkable for no significant abnormalities Imaging:CT of the head without contrast as per my informal interpretation reveals no intracranial hemorrhage or mass effect. This confirmed by radiologist. EKG:As per my interpretation. Indication weakness. Sinus rhythm 60 bpm QTc of 494. There is no ectopy nor ischemia. When compared to an EKG of October 30, 2023 there is no significant change. Consults:Discussed with Dr. Tinoco of the [facility] who will evaluate and bring in for further management. Plan: Disposition:Hospitalization. Condition: Good History of Present Illness: 78-year-old female arrives for evaluation of ambulatory dysfunction. Patient notes she was feeling well yesterday when she went to bed. On awakening this morning around 6 AM she noted that she was feeling quite tired and weak. Every time she gets up she stumbles around and cannot walk straight. She denies any specific weakness in her arms or legs. She denies any pain or headaches. Has not had any nausea, vomiting, dizziness, vertiginous symptoms, spinning vision, fevers, chills, neck pain, chest pain, shortness of breath, palpitations, abdominal pain, urinary symptoms or other concerning signs or symptoms. Patient notes she has a history of a stroke several years ago for which she is on Plavix. Her primary symptoms from that stroke are a bit of imbalance if she closes her eyes but she has never had this degree of ambulatory dysfunction before. She does note though that she might be a bit dehydrated and has had weakness before when she gets dehydrated. No medications prior to arrival. No recent injuries. She denies any slurred speech, difficulty thinking straight or other concerns. Notes that she did note her left ear was a bit sore earlier today. Past Medical History:See Below Home Medications:See Below Allergies:See Below Vitals:Blood Pressure: 100/66, Pulse 69, RR 19, T 36.9C, O2 98% on RA Physical Exam: GENERAL: Patient is tired/dehydrated appearing and in minimal distress. HEAD: AT/NC EENT: Normal, normal TM on left NECK: NO nuchal rigidity, no stepoff, no masses appreciated. RESPIRATORY: No dyspnea. Clear to auscultation and equal bilaterally. CARDIOVASCULAR: Regular rate and rhythm.No murmur appreciated. GASTROINTESTINAL: Abdomen soft, non-tender, no peritonitis. BACK No midline TTP, no cva TTP EXTREMITIES: Normal motion all extremities, no cyanosis, no edema. NEUROLOGIC: Alert and oriented. No focal neurologic deficits appreciated SKIN: No rash, no jaundice, no diaphoresis. PSYCH: Appropriate GCS: 15 ED Course: Times/Reassessments: Patient stable no significant distress though she does continue to have ambulatory dysfunction. Cornelius Vazquez MD Past Med/Surg History Problem List (Updated 01/22/24 @ 23:00 by Cornelius Vazquez MD) Ambulatory dysfunction (Acute) Ataxia (Acute) Gait disturbance Iron deficiency Hyperparathyroidism, secondary Lumbar spinal stenosis B12 deficiency Gait apraxia Displaced fracture of distal end of radius (09/20/23) from a fall-had ORIF on 09/22/23 Vitamin D deficiency Intermittent claudication Headache Arthritis of carpometacarpal (CMC) joints of both thumbs Rheumatoid arthritis Abnormal finding on diagnostic imaging of left kidney Hydronephrosis, left Ureteral stricture Restless leg syndrome (Chronic) Obstruction of left ureteropelvic junction due to stone (Acute) S/P ureteral stent placement (Acute) Renal colic (Acute) Left flank pain Urinary urgency Recurrent nephrolithiasis Diastolic dysfunction Grade 1 Hyperlipidemia (Chronic) Insomnia (Chronic) Osteoporosis (Chronic) Edema of both lower extremities (Chronic) Stable angina (Chronic) Hypothyroidism (Chronic) Hypertension (Chronic) Kidney stone on left side (Acute) Lymphedema resolved w/procedure w/dr. aguiar Cardiac syndrome X Anemia (Chronic) Paresthesia of hand, bilateral Degenerative disc disease Spinal stenosis Venous insufficiency (chronic) (peripheral) Per cardio records Non-occlusive coronary artery disease (Chronic) Per cardio records = Cardiac Syndrome X (small vessel dysfunction causing angina pectoris in a patient with mild nonocclusive CAD) Aortic stenosis Per 09/21/23 ECHO- Mild aortic stenosis. HARPREET 1.6-1.7 cm; AV mean PG 11.8 mmHg. AV max velocity 2.355 m/s Follows with [facility] cardio Medical History (Updated 01/22/24 @ 23:00 by Cornelius Vazquez MD) History of femur fracture S/p IM nailing 09/2022 at [facility] from fall Hx of renal calculi Small bowel obstruction H/O Osteoporosis Hypothyroidism Restless leg syndrome Follows with neuro Trialing Sinemet for RLS- "no signs of parkinsonism on exam to suggest that symptoms are due to PD." per neuro Transient ischemic attack (TIA) h/o - years ago 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) >only side effect from stroke is that she "FALLS TO LEFT IF IN A DARK ROOM WITH EYES CLOSE" Hypertension Hyperlipidemia Surgical History History of open reduction and internal fixation (ORIF) procedure rt femur>hardware intact History of gastric bypass 2000 History of esophagogastroduodenoscopy (EGD) History of lithotripsy 09/08/[place] [facility] History of intestinal surgery S/P extracorporeal shock wave therapy S/P cystoscopy with ureteral stent placement Family history of reaction to anesthesia nausea/vomiting Nausea and vomiting after administration of anesthetic agent "has been fine w/ procedures at [facility]" History of bilateral tubal ligation History of total abdominal hysterectomy and bilateral salpingo-oophorectomy History of laminectomy LUMBAR History of colonoscopy History of cholecystectomy History of herniorrhaphy X 3 IN ABDOMEN History of tooth extraction Stye SURGICALLY REMOVED History of cardiac cath 10/25/19> [facility]> DUE TO C.P> NO STENTS; 2016- NO STENTS [facility] Family History Sister Ovarian cancer Breast cancer Daughter Family history of reaction to anesthesia Family history of diabetes mellitus Other Family history non-contributory Denies family history of Prostate cancer Myocardial infarction Colorectal cancer Social History Smoking Status: Current every day smoker Tobacco Type: Cigarettes Age Started Using Tobacco: 18; Age Quit Using Tobacco: 38; Cigarettes Per Day: 5; Second Hand Exposure: No; Do You Dip or Chew Tobacco: No; Hx Alcohol Use: Yes Alcohol type: wine Alcohol Intake Frequency: 2-3 x/Week Hx Substance Use: No Preferred Language: Croatian Communication Ability: Effective Visual Impairment: No Limitations Hearing Ability: Normal Field Specialist Required: No Beliefs That Will Affect Care: None marital status: Current Living Situation: Spouse Current Living Situation Comment: current occupational status: retired How many Children do You have: 5 Feels Safe at Home: Yes Childhood Exposure to Second-Hand Smoke: Yes Diet: regular Diet Comment: regular caffeine: Yes during the past year weight has: increased > 10 lbs Dental Care, Regularly: No Physical Activity Frequency: Does not Exercise Seatbelt Use: always Sunscreen Use: No Assistive Devices: Denture - Upper and Glasses Allergies Allergies Allergy/AdvReac Type Severity Reaction Status Date / Time shellfish derived Allergy Severe HIVES Verified 01/22/24 18:19 pecan nut Allergy Intermediate Hives Verified 01/22/24 18:19 Sulfa (Sulfonamide Allergy Intermediate ITCH Verified 01/22/24 18:19 Antibiotics) alcohol Allergy Unknown Unknown Verified 01/22/24 18:19 [From Mastisol Liquid Adhesive] gum mastic Allergy Unknown Unknown Verified 01/22/24 18:19 [From Mastisol Liquid Adhesive] methyl salicylate Allergy Unknown Unknown Verified 01/22/24 18:19 [From Mastisol Liquid Adhesive] storax Allergy Unknown Unknown Verified 01/22/24 18:19 [From Mastisol Liquid Adhesive] ibuprofen AdvReac Intermediate NAUSEA/UPSET Verified 01/22/24 18:19 STOMACH pregabalin AdvReac Intermediate TRIPLE Verified 01/22/24 18:19 VISION Home Meds Home Medications Medication Instructions Recorded Confirmed magnesium chloride 64 mg 64 mg PO HS 07/26/18 01/22/24 (magnesium chloride) tablet,delayed release (Mag 64) vitamin E 268 mg (400 unit) capsule 400 unit PO QAM 07/26/18 01/22/24 alendronate 70 mg tablet (Fosamax) 70 mg PO Q7D 10/08/20 01/22/24 hydroxychloroquine 200 mg tablet 200 mg PO BID 09/04/21 01/22/24 folic acid 1 mg tablet 1 mg PO QAM 03/29/23 01/22/24 methotrexate sodium 2.5 mg tablet 15 mg PO Q7D 03/29/23 01/22/24 gabapentin 300 mg capsule 300 mg PO BID 09/21/23 01/22/24 oxybutynin chloride 15 mg 15 mg PO QAM 09/21/23 01/22/24 tablet,extended release 24 hr carbidopa ER 25 mg-levodopa 100 mg 1 tab PO HS PRN RESTLESS LEGS 01/22/24 01/22/24 tablet,extended release cholecalciferol (vitamin D3) 1,250 50,000 unit PO 2XWK 01/22/24 01/22/24 mcg (50,000 unit) capsule nystatin 100,000 unit/gram topical 1 applic topical BID PRN SKIN 01/22/24 01/22/24 cream IRRITATIONS triamcinolone acetonide 0.1 % 1 applic topical BID PRN SKIN 01/22/24 01/22/24 topical cream IRRITATIONS Previous Rx's Medication Instructions Recorded nitroglycerin 0.4 mg sublingual 0.4 mg sublingual Q5M PRN Chest 02/14/19 tablet Pain #30 tabs levothyroxine 100 mcg tablet 100 mcg PO QAM #90 tabs 01/03/23 ropinirole 2 mg tablet,extended 2 mg PO HS #90 tabs 03/03/23 release 24 hr methocarbamol 500 mg tablet 500 mg PO HS #90 tabs 07/22/23 clopidogrel 75 mg tablet (Plavix) 75 mg PO QAM #90 tabs 08/03/23 atorvastatin 40 mg tablet (Lipitor) 40 mg PO HS #90 tabs 10/07/23 meclizine 25 mg tablet 25 mg PO TID PRN dizziness #20 tabs 10/31/23 ferrous sulfate 325 mg (65 mg 325 mg PO DAILY #30 tabs 11/07/23 iron) tablet (Feosol) carbidopa ER 25 mg-levodopa 100 mg 1 tab PO QAM 90 days #90 tabs 11/18/23 tablet,extended release verapamil 180 mg tablet,extended 180 mg PO BID #180 tabs 11/18/23 release cyanocobalamin (vitamin B-12) 1,000 mcg subcut WK #10 mL 12/08/23 1,000 mcg/mL injection solution mirabegron 25 mg tablet,extended 25 mg PO DAILY #30 tabs 01/03/24 release 24 hr (Myrbetriq) Results & Data (ED) Vital Signs Vital Signs - 24 hr 01/22/24 16:18 01/22/24 17:31 Temperature 36.9 C Temperature Source Temporal Artery Scan Pulse Rate 69 58 L Respiratory Rate 19 Respiratory Effort / Characteristics Non-Labored Spontaneous Respiratory Depth Normal Blood Pressure 100/66 Blood Pressure Mean 77 Pulse Oximetry 98 Oxygen Delivery Method Room Air Sepsis Recent Fever Within 48 Hours No Sepsis New/Unexplained Change in Mental Status N/A Sepsis Action Taken by Nursing No Action Required Laboratory Data 01/22/24 16:32 01/22/24 16:32 Lab Results 01/22/24 01/22/24 01/22/24 Range/Units 16:32 16:43 18:54 WBC 7.98 (4.8-10.8) K/ul RBC 3.75 L (4.20-5.40) M/uL Hgb 12.1 (12.0-16.0) g/dl Hct 37.0 (37.0-47.0) % MCV 98.7 (80.0-100.0) fL MCH 32.3 (25.0-34.0) pg MCHC 32.7 (32.0-36.0) g/dL RDW Std Deviation 48.4 H (36.4-46.3) fL RDW Coeff of [place] 13.5 (11.5-14.5) % Plt Count 302 (130-400) K/uL MPV 10.5 (9.4-12.4) fL Immature Gran % (Auto) 0.3 % Neut % (Auto) 78.6 % Lymph % (Auto) 12.9 % [place] % (Auto) 6.9 % Eos % (Auto) 0.8 % Baso % (Auto) 0.5 % Neut # (Auto) 6.28 (1.40-6.50) K/uL Lymph # (Auto) 1.03 L (1.20-3.40) K/uL [place] # (Auto) 0.55 (0.11-0.59) K/uL Eos # (Auto) 0.06 (0.00-0.50) K/uL Baso # (Auto) 0.04 (0.00-0.20) K/uL Immature Gran # (Auto) 0.02 (0.01-0.20) K/uL Sodium 140 (136-145) mmol/L Potassium 4.3 (3.5-5.1) mmol/L Chloride 111 H (98-107) mmol/L Carbon Dioxide 24 (21-32) mmol/L Anion Gap 5 (3-11) BUN 22 (6-23) mg/dl Creatinine 1.09 (0.6-1.2) mg/dl Est Cr Clr Drug Dosing Not Reportable Est GFR ( Amer) 56.3 ml/min Est GFR (Non-Af Amer) 48.6 ml/min BUN/Creatinine Ratio 20.2 H (10-20) Glucose 83 (70-99(Fasting)) mg/dl Calcium 8.6 (8.6-10.3) mg/dl Magnesium 2.0 (1.7-2.4) mg/dl Total Bilirubin 0.3 (0.2-1.0) mg/dl Direct Bilirubin 0.1 (0-0.2) mg/dl AST 20 (13-39) U/L ALT 16 (7-52) U/L Alkaline Phosphatase 69 (34-104) U/L Troponin I High Sens 7.4 (0-14) pg/ml Total Protein 6.1 (6.0-8.3) gm/dl Albumin 3.4 (3.4-5.0) gm/dl Urine Color Yellow Urine Appearance Clear (Clear) Urine pH 5.5 (4.5-7.5) Ur Specific [place] 1.014 (1.000-1.030) Urine Protein Negative (Negative) Urine Glucose (UA) Negative (Negative) Urine Ketones Negative (Negative) Urine Blood Negative (Negative) Urine Nitrite Negative (Negative) Urine Bilirubin Negative (Negative) Urine Urobilinogen Negative (Negative) Ur Leukocyte Esterase 1+ H (Negative) Urine WBC (Auto) 11-20 H (0-5) /hpf Urine RBC (Auto) 0-2 (0-2) /hpf U Hyaline Cast (Auto) 0-2 (0-2) /lpf U Epithel Cells (Auto) 11-20 H (0-2) /hpf Urine Bacteria (Auto) None Seen (None Seen) SARS-CoV-2 (PCR) NEGATIVE (Negative) Influenza Type A (PCR) Negative (Neg) Influenza Type B (PCR) Negative (Neg) RSV (RT-PCR) Negative (Neg) Administered Medications Atorvastatin Calcium (Atorvastatin 40 Mg Tab) 80 mg PO HS OLIVA Stop: 02/21/24 20:59 Last Admin: 01/22/24 20:30 Dose: 80 mg Documented By: SIDRA Carbidopa/Levodopa (Carbidopa/Levodopa 25/100mg Ext Rel Tab) 1 tab PO HS PRN PRN Reason: RESTLESS LEGS Stop: 02/21/24 19:45 Last Admin: 01/22/24 21:16 Dose: 1 tab Documented By: SIDRA Gabapentin (Gabapentin 300 Mg Cap) 300 mg PO BID OLIVA Stop: 02/21/24 20:59 Last Admin: 01/22/24 20:30 Dose: 300 mg Documented By: SIDRA Hydroxychloroquine Sulfate (Hydroxychloroquine Sulfate 200 Mg Tab) 200 mg PO BID OLIVA Stop: 02/21/24 20:59 Last Admin: 01/22/24 20:30 Dose: 200 mg Documented By: SIDRA Magnesium Chloride (Magnesium Chloride W/Calcium 64mg Delayed Rel Tab) 64 mg PO HS OLIVA Stop: 02/21/24 20:59 Last Admin: 01/22/24 20:31 Dose: 64 mg Documented By: SIDRA Methocarbamol (Methocarbamol 500 Mg Tablet) 500 mg PO HS OLIVA Stop: 02/21/24 20:59 Last Admin: 01/22/24 20:30 Dose: 500 mg Documented By: SIDRA Discontinued Medications Aspirin (Aspirin 81 Mg Chew) 324 mg PO NOW STA Stop: 01/22/24 18:21 Last Admin: 01/22/24 18:40 Dose: 324 mg Documented By: MMF Sodium Chloride (Nss) 500 mls @ 999 mls/hr IV .Q31M ONE Stop: 01/22/24 17:04 Last Infusion: 01/22/24 17:50 Dose: Infused Documented By: Admin: 01/22/24 16:48 Dose: 999 mls/hr Documented By: ML Ioversol (Optiray 320 125ml) 120 ml IV ONCE ONE Stop: 01/22/24 18:48 Last Admin: 01/22/24 18:48 Dose: 120 ml Documented By: ELMO Imaging Data Radiologist's Impression: Head CT 01/22/24 16:[address] DOSE: 625.8 mGy.cm HISTORY: weakness TECHNIQUE: Multiaxial CT images of the head were performed without the use of intravenous contrast. Automated exposure control was utilized for this study. A dose lowering technique was utilized adhering to the principles of ALARA. Comparison: Head CT 10/31/2023 Findings: The paranasal sinuses and mastoid air cells are clear. The calvarium and skull base are intact. There is no mass, hematoma, midline shift, acute infarct. White matter hypodensity is nonspecific but suggestive of microvascular ischemic change. The ventricles and sulci demonstrate mild age-related involutional changes. A few scattered frontal lobe punctate calcifications are again noted. Impression: No significant change compared to the prior study. No acute intracranial abnormality. ACT 112: Negative or not required by law. Electronically signed by: Dennys Parish M.D. 01/22/2024 5:20 PM Chest X-Ray 01/22/24 16:35 XR chest 1V portable HISTORY: weakness COMPARISON: Chest 10/30/2023. FINDINGS: The lungs are clear. Cardiac silhouette is normal in size. No pleural effusions. No pneumothorax. IMPRESSION: No acute process. ACT 112: Negative or not required by law. Electronically signed by: Dennys Parish M.D. 01/22/2024 6:23 PM Head CTA 01/22/24 18:23 HEAD & NECK CTA HISTORY: stroke eval, ataxic gait TECHNIQUE: Multiaxial CT images of the head were performed following the intravenous administration of contrast to evaluate the major cerebral vessels. Multiaxial CT images of the neck were also performed following the intravenous administration of contrast to evaluate the major cervical vessels. 3D/MIP images were also obtained. Sagittal and coronal reformats were reviewed. A dose lowering technique was utilized adhering to the principles of ALARA. COMPARISON: Head CT 01/22/2024. FINDINGS: There is no mass, hematoma, midline shift, or acute infarct. Visualized intracranial internal carotid arteries, distal vertebral arteries, and basilar artery are widely patent. There is no significant stenosis, occlusion, or aneurysm seen within the bilateral ACAs, MCAs, or insurance healthcare representative. Mild calcified plaque within the bilateral carotid siphons.. The major dural venous sinuses are patent. The aortic arch and proximal great vessels are widely patent. There is no significant stenosis, occlusion, or dissection identified within the bilateral common carotid, internal carotid, or vertebral arteries. Mild calcified plaque within the bilateral carotid bifurcations. IMPRESSION: 1. No significant stenosis, occlusion, or aneurysm within the [place] of [place]. 2. No significant stenosis, occlusion, or dissection identified within the carotid or vertebral arteries. ACT 112: Negative or not required by law. Electronically signed by: Dennys Parish M.D. 01/22/2024 8:00 PM Neck CTA 01/22/24 18:23 HEAD & NECK CTA HISTORY: stroke eval, ataxic gait TECHNIQUE: Multiaxial CT images of the head were performed following the intravenous administration of contrast to evaluate the major cerebral vessels. Multiaxial CT images of the neck were also performed following the intravenous administration of contrast to evaluate the major cervical vessels. 3D/MIP images were also obtained. Sagittal and coronal reformats were reviewed. A dose lowering technique was utilized adhering to the principles of ALARA. COMPARISON: Head CT 01/22/2024. FINDINGS: There is no mass, hematoma, midline shift, or acute infarct. Visualized intracranial internal carotid arteries, distal vertebral arteries, and basilar artery are widely patent. There is no significant stenosis, occlusion, or aneurysm seen within the bilateral ACAs, MCAs, or insurance healthcare representative. Mild calcified plaque within the bilateral carotid siphons.. The major dural venous sinuses are patent. The aortic arch and proximal great vessels are widely patent. There is no significant stenosis, occlusion, or dissection identified within the bilateral common carotid, internal carotid, or vertebral arteries. Mild calcified plaque within the bilateral carotid bifurcations. IMPRESSION: 1. No significant stenosis, occlusion, or aneurysm within the [place] of [place]. 2. No significant stenosis, occlusion, or dissection identified within the carotid or vertebral arteries. ACT 112: Negative or not required by law. Electronically signed by: Dennys Parish M.D. 01/22/2024 8:00 PM Discharge Plan Visit Data Chief Complaint: TIA Symptoms Stated Complaint: UNBALANCED, HEAD FOGGY, LT EAR PAIN ED Provider: Cornelius Vazquez Discharge Problem: Ataxia, Ambulatory dysfunction Discharge Instructions Interventions: ED Discharge Assessment Last Done: 01/22/24 19:33
[2024-01-22] MEDS: SODIUM CHLORIDE 0.9% 500 ML IV ONE (16:48)
[2024-01-22 17:10] LABS: Basophils # (auto) 0.04 K/uL (0.00-0.20); Basophils % (auto) 0.5 %; Eosinophils # (auto) 0.06 K/uL (0.00-0.50); Eosinophils % (auto) 0.8 %; Hemoglobin 12.1 g/dl (12.0-16.0); Immature Granulocytes # (auto) 0.02 K/uL (0.01-0.20); Immature Granulocytes % (auto) 0.3 %; Lymphocytes # (auto) 1.03 K/uL (1.20-3.40); Lymphocytes % (auto) 12.9 %; Mean Corpuscular Hemoglobin 32.3 pg (25.0-34.0); Mean Corpuscular Hgb Conc 32.7 g/dL (32.0-36.0); Mean Corpuscular Volume 98.7 fL (80.0-100.0); Mean Platelet Volume 10.5 fL (9.4-12.4); Monocytes # (auto) 0.55 K/uL (0.11-0.59); Monocytes % (auto) 6.9 %; Neutrophils # (auto) 6.28 K/uL (1.40-6.50); Neutrophils % (auto) 78.6 %; Platelet Count 302 K/uL (130-400); RDW Coefficient of Variation 13.5 % (11.5-14.5); RDW Standard Deviation 48.4 fL (36.4-46.3); Red Blood Count 3.75 M/uL (4.20-5.40); White Blood Count 7.98 K/ul (4.8-10.8)
--- NOTE | 2024-01-22 17:22 | CT Scan Report ---
HEAD CT NONCONTRAST CT DOSE: 625.8 mGy.cm HISTORY: weakness TECHNIQUE: Multiaxial CT images of the head were performed without the use of intravenous contrast. A utomated exposure control was utilized for this study. A dose lowering technique was utilized adheri ng to the principles of ALARA. Comparison: Head CT 10/31/2023 Findings: The paranasal sinuses and mastoid air cells are clear. The calvarium and skull base are int act. There is no mass, hematoma, midline shift, acute infarct. White matter hypodensity is nonspecifi c but suggestive of microvascular ischemic change. The ventricles and sulci demonstrate mild age-rela dajuan involutional changes. A few scattered frontal lobe punctate calcifications are again noted. Impression: No significant change compared to the prior study. No acute intracranial abnormality. ACT 112: Negative or not required by law. Electronically signed by: Dennys Parish M.D. 01/22/2024 5:20 PM
[2024-01-22 17:27] LABS: Alanine Aminotransferase 16 U/L (7-52); Albumin Level 3.4 gm/dl (3.4-5.0); Alkaline Phosphatase 69 U/L (34-104); Anion Gap 5 (3-11); Aspartate Aminotransferase 20 U/L (13-39); BUN Creatinine Ratio 20.2 (10-20); Bilirubin Direct 0.1 mg/dl (0-0.2); Bilirubin,Total 0.3 mg/dl (0.2-1.0); Blood Urea Nitrogen 22 mg/dl (6-23); Calcium 8.6 mg/dl (8.6-10.3); Carbon Dioxide 24 mmol/L (21-32); Chloride 111 mmol/L (98-107); Est GFR (African American) 56.3 ml/min; Est GFR (Non-African American) 48.6 ml/min; Glucose 83 mg/dl (70-99(Fasting)); Potassium 4.3 mmol/L (3.5-5.1); Sodium 140 mmol/L (136-145); Total Protein 6.1 gm/dl (6.0-8.3)
[2024-01-22 17:34] LABS: Troponin I High Sensitivity 7.4 pg/ml (0-14)
[2024-01-22 17:42] LABS: Influenza A virus by PCR Negative (Neg); Influenza B virus by PCR Negative (Neg); RSV by PCR Negative (Neg); SARS CoV2 RNA(COVID-19) Ceph NEGATIVE (Negative)
[2024-01-22] MEDS ORDERED: PHARMACIST DISCHARGE MED REC CONSULT PRN ×2 (18:20→19:33)
--- NOTE | 2024-01-22 18:24 | XRay Report ---
XR chest 1V portable HISTORY: weakness COMPARISON: Chest 10/30/2023. FINDINGS: The lungs are clear. Cardiac silhouette is normal in size. No pleural effusions. No pneumot horax. IMPRESSION: No acute process. ACT 112: Negative or not required by law. Electronically signed by: Dennys Parish M.D. 01/22/2024 6:23 PM
--- NOTE | 2024-01-22 18:26 | History & Physical Report ---
Date of Service January 22, 2024 Assessment & Plan (1) Gait disturbance: Plan: Prior CVA many years ago on Plavix. With her eyes closed she will to the left side, otherwise no residual deficits. No strength or sensation deficits Last known well 9 PM 01/21/2024. Awoke this morning and could not walk a straight line. Has had a history of vertigo but notes this is completely different and has no spinning quality. Suspicious for cerebellar stroke. Strength testing, [id number], finger-nose intact and without abnormality. Patient is unable to walk a straight line due to acute balance difficulties CThead without acute findings, CTA pending, MRI pending Received full dose aspirin Atorvastatin increased to 80 mg Follow MRI, completion of stroke workup as above May start Lovenox for DVT prophylaxis 01/22 Unclear duration of onset as people woke up this morning with new deficits, will allow permissive hypertension until a.m./pending MRI completion. She is normotensive on admission High-sensitivity troponin normal hx aortic stenosis. Do not see record of bubble study on prior echoes. Limited bubble study added PT OT pending (2) Aortic stenosis: Plan: Asymptomatic (3) Hypothyroidism: Plan: Continue Synthroid (4) Hypertension: Plan: Permissive hypertension until 01/22, or MRI is negative. Normotensive at assessment (5) Non-occlusive coronary artery disease: Plan: Nonocclusive coronary disease. History of syndrome X. Denies recent angina. Statin, Plavix continued Plan ED prophylaxis: Lovenox starting 01/22, SCDs overnight Diet: Heart healthy once able to pass swallow eval CODE STATUS: Full code Disposition: Medical telemetry History of Present Illness Primary Care Provider: Laurie Cedeno MD Gustavo is a 79-year-old female with past medical history of abnormal gait, restless leg syndrome, spinal stenosis, aortic stenosis who presents with ambulatory dysfunction. Last known well was yesterday evening, 6 AM this morning woke up feeling weak and tired and could not walk in a straight line. Stumbling with attempted ambulation. Denies room spinning. No chest pain, chest pressure, fever, chills, sinus congestion. Has not had any infectious symptoms including URI symptoms, dysuria, abdominal pain, nausea/diarrhea. No slurred speech, no focal strength or sensory deficits. CThead without acute findings. Finger to nose normal. Prior hx balance deficits with 6am this morning got up, couldn't walk a straight line. Feels like she just can't balance. Had a hx of BPPV, but this feels different because there is no spinning she just cant walk straight/balance. No chest pain or chest pressure. No fever or chills. Denies weakness in arms or legs. No speech difficulty, denies dysarthria and aphasia. Denies headache. PMHx of CVA 2004, on plaavix since. Only residual deficit from original strike is some listing to the left if she closes her eyes. No strength/sensory deficits. Hx palpitations on verapamil. HTN as well. Endores hx of , thyroid disease, RA on hydroxychloroquine. Denies chest pain on exertion, denies hx GA Medical History: Reviewed Medications: Reviewed Surgical History: Reviewed Family history: Reviewed Allergies: Reviewed Social History: Reviewed. Current smoker, 0.5ppd for 'a long long time' then quit, and started again 3 years ago. 1 glass of wine 1-2x per year. Declines nicotine patch Code Status:Full R forearm abrasion due to injury from dog sliding down her arm and causing a skin tear a week ago. No signs of demarcated erythema, slowly healing. Would like a tetanus booster. Allergies Allergy/AdvReac Type Severity Reaction Status Date / Time shellfish derived Allergy Severe HIVES Verified 01/22/24 18:19 pecan nut Allergy Intermediate Hives Verified 01/22/24 18:19 Sulfa (Sulfonamide Allergy Intermediate ITCH Verified 01/22/24 18:19 Antibiotics) alcohol Allergy Unknown Unknown Verified 01/22/24 18:19 [From Mastisol Liquid Adhesive] gum mastic Allergy Unknown Unknown Verified 01/22/24 18:19 [From Mastisol Liquid Adhesive] methyl salicylate Allergy Unknown Unknown Verified 01/22/24 18:19 [From Mastisol Liquid Adhesive] storax Allergy Unknown Unknown Verified 01/22/24 18:19 [From Mastisol Liquid Adhesive] ibuprofen AdvReac Intermediate NAUSEA/UPSET Verified 01/22/24 18:19 STOMACH pregabalin AdvReac Intermediate TRIPLE Verified 01/22/24 18:19 VISION Home Medications Medication Instructions Recorded Confirmed Type magnesium chloride 64 mg 64 mg PO HS 07/26/18 01/25/24 History (magnesium chloride) tablet,delayed release (Mag 64) vitamin E 268 mg (400 unit) capsule 400 unit PO QAM 07/26/18 01/25/24 History nitroglycerin 0.4 mg sublingual 0.4 mg sublingual Q5M PRN Chest 02/14/19 01/25/24 Rx tablet Pain #30 tabs alendronate 70 mg tablet (Fosamax) 70 mg PO Q7D 10/08/20 01/25/24 History hydroxychloroquine 200 mg tablet 200 mg PO BID 09/04/21 01/25/24 History ropinirole 2 mg tablet,extended 2 mg PO HS #90 tabs 03/03/23 01/25/24 Rx release 24 hr folic acid 1 mg tablet 1 mg PO QAM 03/29/23 01/25/24 History methotrexate sodium 2.5 mg tablet 15 mg PO Q7D 03/29/23 01/25/24 History clopidogrel 75 mg tablet (Plavix) 75 mg PO QAM #90 tabs 08/03/23 01/25/24 Rx gabapentin 300 mg capsule 300 mg PO BID 09/21/23 01/25/24 History oxybutynin chloride 15 mg 15 mg PO QAM 09/21/23 01/25/24 History tablet,extended release 24 hr atorvastatin 40 mg tablet (Lipitor) 40 mg PO HS #90 tabs 10/07/23 01/25/24 Rx meclizine 25 mg tablet 25 mg PO TID PRN dizziness #20 tabs 10/31/23 01/25/24 Rx carbidopa ER 25 mg-levodopa 100 mg 1 tab PO QAM 90 days #90 tabs 11/18/23 01/25/24 Rx tablet,extended release verapamil 180 mg tablet,extended 180 mg PO BID #180 tabs 11/18/23 01/25/24 Rx release mirabegron 25 mg tablet,extended 25 mg PO DAILY #30 tabs 01/03/24 01/25/24 Rx release 24 hr (Myrbetriq) carbidopa ER 25 mg-levodopa 100 mg 1 tab PO HS PRN RESTLESS LEGS 01/22/24 01/25/24 History tablet,extended release cholecalciferol (vitamin D3) 1,250 50,000 unit PO 2XWK 01/22/24 01/25/24 History mcg (50,000 unit) capsule nystatin 100,000 unit/gram topical 1 applic topical BID PRN SKIN 01/22/24 01/25/24 History cream IRRITATIONS triamcinolone acetonide 0.1 % 1 applic topical BID PRN SKIN 01/22/24 01/25/24 History topical cream IRRITATIONS levothyroxine 100 mcg tablet 100 mcg PO QAM #90 tabs 01/24/24 01/25/24 Rx Past Med/Surg History Problem List (Updated 01/22/24 @ 23:00 by Cornelius Vazquez MD) Ambulatory dysfunction (Acute) Ataxia (Acute) Gait disturbance Iron deficiency Hyperparathyroidism, secondary Lumbar spinal stenosis B12 deficiency Gait apraxia Displaced fracture of distal end of radius (09/20/23) from a fall-had ORIF on 09/22/23 Vitamin D deficiency Intermittent claudication Headache Arthritis of carpometacarpal (CMC) joints of both thumbs Rheumatoid arthritis Abnormal finding on diagnostic imaging of left kidney Hydronephrosis, left Ureteral stricture Restless leg syndrome (Chronic) Obstruction of left ureteropelvic junction due to stone (Acute) S/P ureteral stent placement (Acute) Renal colic (Acute) Left flank pain Urinary urgency Recurrent nephrolithiasis Diastolic dysfunction Grade 1 Hyperlipidemia (Chronic) Insomnia (Chronic) Osteoporosis (Chronic) Edema of both lower extremities (Chronic) Stable angina (Chronic) Hypothyroidism (Chronic) Hypertension (Chronic) Kidney stone on left side (Acute) Lymphedema resolved w/procedure w/dr. aguiar Cardiac syndrome X Anemia (Chronic) Paresthesia of hand, bilateral Degenerative disc disease Spinal stenosis Venous insufficiency (chronic) (peripheral) Per cardio records Non-occlusive coronary artery disease (Chronic) Per cardio records = Cardiac Syndrome X (small vessel dysfunction causing angina pectoris in a patient with mild nonocclusive CAD) Aortic stenosis Per 09/21/23 ECHO- Mild aortic stenosis. HARPREET 1.6-1.7 cm; AV mean PG 11.8 mmHg. AV max velocity 2.355 m/s Follows with [facility] cardio Medical History (Updated 01/22/24 @ 23:00 by Cornelius Vazquez MD) History of femur fracture S/p IM nailing 09/2022 at [facility] from fall Hx of renal calculi Small bowel obstruction H/O Osteoporosis Hypothyroidism Restless leg syndrome Follows with neuro Trialing Sinemet for RLS- "no signs of parkinsonism on exam to suggest that symptoms are due to PD." per neuro Transient ischemic attack (TIA) h/o - years ago Stroke 2005 (REASON FOR PLAVIX) >only side effect from stroke is that she "FALLS TO LEFT IF IN A DARK ROOM WITH EYES CLOSE" Hypertension Hyperlipidemia Surgical History History of open reduction and internal fixation (ORIF) procedure rt femur>hardware intact History of gastric bypass 2000 History of esophagogastroduodenoscopy (EGD) History of lithotripsy 09/08/2018 [facility] [place] History of intestinal surgery S/P extracorporeal shock wave therapy S/P cystoscopy with ureteral stent placement Family history of reaction to anesthesia nausea/vomiting Nausea and vomiting after administration of anesthetic agent "has been fine w/ procedures at [facility]" History of bilateral tubal ligation History of total abdominal hysterectomy and bilateral salpingo-oophorectomy History of laminectomy LUMBAR History of colonoscopy History of cholecystectomy History of herniorrhaphy X 3 IN ABDOMEN History of tooth extraction Stye SURGICALLY REMOVED History of cardiac cath 10/25/19> [facility]> DUE TO C.P> NO STENTS; 2016- NO STENTS [facility] Family History Sister Ovarian cancer Breast cancer Daughter Family history of reaction to anesthesia Family history of diabetes mellitus Other Family history non-contributory Denies family history of Prostate cancer Myocardial infarction Colorectal cancer Social History Smoking Status: Former smoker Tobacco Type: Cigarettes Age Started Using Tobacco: 18; Age Quit Using Tobacco: 38; Cigarettes Per Day: 5; Second Hand Exposure: Yes; Do You Dip or Chew Tobacco: No; Hx Alcohol Use: Yes Alcohol type: wine Alcohol Intake Frequency: 2-3 x/Week Hx Substance Use: No Preferred Language: Macedonian Communication Ability: Effective Visual Impairment: No Limitations Hearing Ability: Normal Road Mixer Operator Required: No Beliefs That Will Affect Care: None marital status: Current Living Situation: Spouse Current Living Situation Comment: current occupational status: retired How many Children do You have: 5 Feels Safe at Home: Yes Childhood Exposure to Second-Hand Smoke: Yes Diet: regular Diet Comment: regular caffeine: Yes during the past year weight has: increased > 10 lbs Dental Care, Regularly: No Physical Activity Frequency: Does not Exercise Seatbelt Use: always Sunscreen Use: No Assistive Devices: Cane, Denture - Upper and Glasses Physical Exam Physical Exam: General: A&Ox3. NAD. Cooperative. HEENT: Atraumatic, normocephalic. Vision and hearing grossly intact. Pupils equal and reactive to light and accommodation Pulm: CTAB A&P. -wheezes, -rales, -rhonchi. Symmetrical chest rise. No increased work of breathing. No respiratory distress. Cardiac: RRR, +sm. Radial pulses intact and symmetrical. Abdominal: Nontender, nondistended, soft. BS present. Extremities: Warm and dry. Bottle Line Worker strength, elbow flexion, hip flexion, ankle dorsiflexion/plantarflexion 5/5 and symmetrical. Here to camacho intact without dysmetria, [id number] intact without ataxia. Patient walked with nursing with immediate drifting and inability to walk straight line, no vertigo Results & Data Results & Data Vital Signs (Past 12 Hours) Vital Signs Temp Pulse Resp BP Pulse Ox O2 Del Method 01/22/24 17:31 58 L 01/22/24 16:18 36.9 C 69 19 100/66 98 Room Air PG Care Time/CCT Total # of Minutes Spent Total Time Spent with Patient: Total time spent is greater than 50% in coordination of care (as documented) at patient's floor/unit and/or counseling patient: Coding Level of Care Code 30285 INT INP/OBS CARE 3/75MIN Diagnoses Gait disturbance R26.9 Nonrheumatic aortic valve stenosis I35.0 Cardiac valve disease etiology: nonrheumatic Hypothyroidism, unspecified type E03.9 Hypothyroidism type: unspecified Essential hypertension I10 Hypertension type: essential hypertension Non-occlusive coronary artery disease I25.10 (2) Aortic stenosis Cardiac valve disease etiology: nonrheumatic Qualified Code(s): I35.0 - Nonrheumatic aortic (valve) stenosis (3) Hypothyroidism Hypothyroidism type: unspecified Qualified Code(s): E03.9 - Hypothyroidism, unspecified (4) Hypertension Hypertension type: essential hypertension Qualified Code(s): I10 - Essential (primary) hypertension
[2024-01-22] MEDS: ASPIRIN 81 MG CHEW PO STA (18:40)
[2024-01-22] MEDS: OPTIRAY 320 125ml IV ONE (18:48)
[2024-01-22 19:13] LABS: Appearance Urine Clear (Clear); Bacteria Urine Automated None Seen (None Seen); Bilirubin Urine Negative (Negative); Blood Urine Negative (Negative); Cast Urine Automated 0-2 /lpf (0-2); Color Urine Yellow; Glucose Urine UA Negative (Negative); Ketones Urine Negative (Negative); Leukocyte Esterase Urine 1+ (Negative); Nitrite Urine Negative (Negative); Protein Urine Negative (Negative); RBC Urine Automated 0-2 /hpf (0-2); Specific Gravity Urine 1.014 (1.000-1.030); Urobilinogen Urine Negative (Negative); pH Urine 5.5 (4.5-7.5)
[2024-01-22] MEDS ORDERED: TRIAMCINOLONE ACET 0.1% CR 15 GM TUBE TOP PRN (19:33)
[2024-01-22] MEDS ORDERED: ACETAMINOPHEN 325 MG TAB PO PRN (19:33)
[2024-01-22] MEDS ORDERED: NITROGLYCERIN SL 0.4 MG/TAB TAB SL PRN (19:33)
[2024-01-22] MEDS ORDERED: MECLIZINE HCL 25 MG TAB PO PRN (19:33)
--- NOTE | 2024-01-22 20:03 | CT Scan Report ---
HEAD & NECK CTA HISTORY: stroke eval, ataxic gait TECHNIQUE: Multiaxial CT images of the head were performed following the intravenous administration o f contrast to evaluate the major cerebral vessels. Multiaxial CT images of the neck were also perform ed following the intravenous administration of contrast to evaluate the major cervical vessels. 3D/WI P images were also obtained. Sagittal and coronal reformats were reviewed. A dose lowering technique was utilized adhering to the principles of ALARA. COMPARISON: Head CT 01/22/2024. FINDINGS: There is no mass, hematoma, midline shift, or acute infarct. Visualized intracranial internal carotid arteries, distal vertebral arteries, and basilar artery are widely patent. There is no significant s tenosis, occlusion, or aneurysm seen within the bilateral ACAs, MCAs, or senior technical specialist. Mild calcified plaque within the bilateral carotid siphons.. The major dural venous sinuses are patent. The aortic arch and proximal great vessels are widely patent. There is no significant stenosis, occ lusion, or dissection identified within the bilateral common carotid, internal carotid, or vertebral arteries. Mild calcified plaque within the bilateral carotid bifurcations. IMPRESSION: 1. No significant stenosis, occlusion, or aneurysm within the [place]. 2. No significant stenosis, occlusion, or dissection identified within the carotid or vertebral arter ies. ACT 112: Negative or not required by law. Electronically signed by: Dennys Parish M.D. 01/22/2024 8:00 PM
--- NOTE | 2024-01-22 20:03 | CT Scan Report ---
HEAD & NECK CTA HISTORY: stroke eval, ataxic gait TECHNIQUE: Multiaxial CT images of the head were performed following the intravenous administration o f contrast to evaluate the major cerebral vessels. Multiaxial CT images of the neck were also perform ed following the intravenous administration of contrast to evaluate the major cervical vessels. 3D/SC P images were also obtained. Sagittal and coronal reformats were reviewed. A dose lowering technique was utilized adhering to the principles of ALARA. COMPARISON: Head CT 01/22/2024. FINDINGS: There is no mass, hematoma, midline shift, or acute infarct. Visualized intracranial internal carotid arteries, distal vertebral arteries, and basilar artery are widely patent. There is no significant s tenosis, occlusion, or aneurysm seen within the bilateral ACAs, MCAs, or robotic welding operator. Mild calcified plaque within the bilateral carotid siphons.. The major dural venous sinuses are patent. The aortic arch and proximal great vessels are widely patent. There is no significant stenosis, occ lusion, or dissection identified within the bilateral common carotid, internal carotid, or vertebral arteries. Mild calcified plaque within the bilateral carotid bifurcations. IMPRESSION: 1. No significant stenosis, occlusion, or aneurysm within the [place]. 2. No significant stenosis, occlusion, or dissection identified within the carotid or vertebral arter ies. ACT 112: Negative or not required by law. Electronically signed by: Dennys Parish M.D. 01/22/2024 8:00 PM
[2024-01-22] MEDS: HYDROXYCHLOROQUINE SULFATE 200 MG TAB PO SCH (20:30)
[2024-01-22] MEDS: GABAPENTIN 300 MG CAP PO SCH (20:30)
[2024-01-22] MEDS: ATORVASTATIN 40 MG TAB PO SCH (20:30)
[2024-01-22] MEDS: METHOCARBAMOL 500 MG TABLET PO SCH (20:30)
[2024-01-22] MEDS: MAGNESIUM CHLORIDE W/CALCIUM 64MG DELAYED REL TAB PO SCH (20:31)
[2024-01-22] MEDS: CARBIDOPA/LEVODOPA 25/100MG EXT REL TAB PO PRN (21:16)
--- NOTE | 2024-01-23 01:55 | Magnetic Resonance Report ---
Exam(s): MRI HEAD Without Contrast EXAM: MR Head Without Intravenous Contrast CLINICAL HISTORY: Reason for exam: cva eval, gait ataxia. TECHNIQUE: Magnetic resonance images of the head/brain without intravenous contrast in multiple planes. COMPARISON: Head CT from January 22, 2024. FINDINGS: Brain: Advanced nonspecific white matter changes. The flow voids at the base of the brain are intact. No mass. No hemorrhage. No acute infarct. Ventricles: Unremarkable. No ventriculomegaly. Bones/joints: Unremarkable. No acute fracture. Sinuses: Unremarkable as visualized. No acute sinusitis. Mastoid air cells: Unremarkable as visualized. No mastoid effusion. Orbits: Bilateral lens replacements. IMPRESSION: No evidence of acute intracranial pathology. Electronically signed by: Marie Tsang MD 01/23/24 01:54 AM
[2024-01-23] MEDS: LEVOTHYROXINE SODIUM 100 MCG TABLET PO SCH (05:37)
[2024-01-23 06:54] LABS: Basophils # (auto) 0.04 K/uL (0.00-0.20); Basophils % (auto) 0.5 %; Eosinophils % (auto) 1.3 %; Hematocrit (blood only) 32.7 % (37.0-47.0); Hemoglobin 10.6 g/dl (12.0-16.0); Immature Granulocytes # (auto) 0.03 K/uL (0.01-0.20); Immature Granulocytes % (auto) 0.4 %; Lymphocytes # (auto) 1.26 K/uL (1.20-3.40); Lymphocytes % (auto) 16.4 %; Mean Corpuscular Hemoglobin 32.1 pg (25.0-34.0); Mean Corpuscular Hgb Conc 32.4 g/dL (32.0-36.0); Mean Corpuscular Volume 99.1 fL (80.0-100.0); Mean Platelet Volume 10.2 fL (9.4-12.4); Monocytes # (auto) 0.68 K/uL (0.11-0.59); Monocytes % (auto) 8.8 %; Neutrophils # (auto) 5.58 K/uL (1.40-6.50); Neutrophils % (auto) 72.6 %; Platelet Count 269 K/uL (130-400); RDW Coefficient of Variation 13.3 % (11.5-14.5); RDW Standard Deviation 48.3 fL (36.4-46.3); White Blood Count 7.69 K/ul (4.8-10.8)
[2024-01-23 07:22] LABS: BUN Creatinine Ratio 21.6 (10-20); Calcium 8.3 mg/dl (8.6-10.3); Creatinine Clr Calc Pharmacy 54.7 ml/min; Est GFR (African American) 72.9 ml/min; Est GFR (Non-African American) 62.9 ml/min; Potassium 4.2 mmol/L (3.5-5.1)
[2024-01-23 08:19] LABS: Estimated Average Glucose 100 mg/dl; Hemoglobin A1C 5.1 % (4.5-5.6)
[2024-01-23] MEDS: metHOTREXate sodium 2.5 MG TAB PO SCH (09:18)
[2024-01-23] MEDS: TOCOPHERYL, DL-ALPHA 400 UNITS 180 MG CAP PO SCH (09:20)
[2024-01-23] MEDS: CLOPIDOGREL BISULFATE 75 MG TAB PO SCH (09:20)
[2024-01-23] MEDS: OXYBUTYNIN CHLORIDE XL 5 MG TABCR PO SCH (09:20)
[2024-01-23] MEDS: ERGOCALCIFEROL 1250 MCG (50,000 UNITS) CAP PO SCH (09:21)
[2024-01-23] MEDS: FOLIC ACID 1 MG TAB PO SCH (09:21)
[2024-01-23] MEDS: CARBIDOPA/LEVODOPA 25/100MG EXT REL TAB PO SCH (09:22)
[2024-01-23] MEDS: VIBEGRON 75 MG TAB PO SCH (10:05)
--- NOTE | 2024-01-23 12:02 | Discharge Summary ---
Date of Service January 23, 2024 Admission HPI Per Admitting Provider Gustavo is a 79-year-old female with past medical history of abnormal gait, restless leg syndrome, spinal stenosis, aortic stenosis who presents with ambulatory dysfunction. Last known well was yesterday evening, 6 AM this morning woke up feeling weak and tired and could not walk in a straight line. Stumbling with attempted ambulation. Denies room spinning. No chest pain, chest pressure, fever, chills, sinus congestion. Has not had any infectious symptoms including URI symptoms, dysuria, abdominal pain, nausea/diarrhea. No slurred speech, no focal strength or sensory deficits. CThead without acute findings. Finger to nose normal. Prior hx balance deficits with 6am this morning got up, couldn't walk a straight line. Feels like she just can't balance. Had a hx of BPPV, but this feels different because there is no spinning she just cant walk straight/balance. No chest pain or chest pressure. No fever or chills. Denies weakness in arms or legs. No speech difficulty, denies dysarthria and aphasia. Denies headache. PMHx of CVA 2004, on plaavix since. Only residual deficit from original strike is some listing to the left if she closes her eyes. No strength/sensory deficits. Hx palpitations on verapamil. HTN as well. Endores hx of , thyroid disease, RA on hydroxychloroquine. Denies chest pain on exertion, denies hx AR Medical History: Reviewed Medications: Reviewed Surgical History: Reviewed Family history: Reviewed Allergies: Reviewed Social History: Reviewed. Current smoker, 0.5ppd for 'a long long time' then quit, and started again 3 years ago. 1 glass of wine 1-2x per year. Declines nicotine patch Code Status:Full R forearm abrasion due to injury from dog sliding down her arm and causing a skin tear a week ago. No signs of demarcated erythema, slowly healing. Would like a tetanus booster. Principal Diagnosis Imbalance with gait disturbance Discharge Exam General-alert and oriented x3, no fever, no chills HEENT-head atraumatic and normocephalic, pupils equal and reactive to light, extraocular muscles intact Neck-no lymphadenopathy or thyromegaly, trachea midline Chest-clear to auscultation. No rales, wheezing or rhonchi Cardiac-regular rate and rhythm, normal S1 and S2 Abdomen-normal bowel sounds, no hepatosplenomegaly Extremities-no cyanosis, clubbing, or edema Neuro-cranial nerves II through XII intact, motor and sensory function within normal limits, strength symmetrical, no focal deficits Psych-normal affect, normal mood Discharge Data Allergies Allergy/AdvReac Type Severity Reaction Status Date / Time shellfish derived Allergy Severe HIVES Verified 01/22/24 18:19 pecan nut Allergy Intermediate Hives Verified 01/22/24 18:19 Sulfa (Sulfonamide Allergy Intermediate ITCH Verified 01/22/24 18:19 Antibiotics) alcohol Allergy Unknown Unknown Verified 01/22/24 18:19 [From Mastisol Liquid Adhesive] gum mastic Allergy Unknown Unknown Verified 01/22/24 18:19 [From Mastisol Liquid Adhesive] methyl salicylate Allergy Unknown Unknown Verified 01/22/24 18:19 [From Mastisol Liquid Adhesive] storax Allergy Unknown Unknown Verified 01/22/24 18:19 [From Mastisol Liquid Adhesive] ibuprofen AdvReac Intermediate NAUSEA/UPSET Verified 01/22/24 18:19 STOMACH pregabalin AdvReac Intermediate TRIPLE Verified 01/22/24 18:19 VISION Consultations 01/22/24 18:20 ED Decision to Admit Stat Ordered Studies 01/22/24 16:34 CT head/brain wo con Stat 01/22/24 18:20 MR brain wo con Routine 01/22/24 18:23 CT angio head w con Routine CT angio neck with con Routine Hospital Course (1) Gait disturbance: Now resolved. Fortunately brain MRI scan is negative for CVA. She has markedly improved. OT and PT assessments were completed and both agree that she can be discharged to home. (2) Aortic stenosis: Stable. Asymptomatic. No intervention necessary at this time (3) Hypothyroidism: Stable. Continue Synthroid (4) Hypertension: Stable. Continue current medical management (5) Non-occlusive coronary artery disease: Stable. Continue current medical management Plan Home today, January 22 Total Time Total Time Spent Total Time Spent (In Minutes): 45 minutes Discharge Plan Discharge Items Patient Disposition: Home - Self-Care Reason For Visit: CVA EVAL Discharge Diagnosis: Imbalance/gait disturbance Activity: Resume your previous activity Non-emergency contact: Primary Care Provider Call non-emergency contact if: your symptoms worsen Follow-up/Referrals: Laurie Cedeno MD [Primary Care Provider] - Diet: Regular and Heart Healthy Addtl Attending Provider Instructions: All medications remain the same Pending Studies at Discharge: No Stand-Alone Forms: [facility], Smoking Cessation Medications and DC Order Prescriptions: Continued nitroglycerin 0.4 mg tablet, sublingual 0.4 mg Sublingual Q5M PRN (Reason: Chest Pain) Qty: 30 5RF Rx Instructions: May take up to 3 doses as needed for chest pain. Call 911 if pain persists. levothyroxine 100 mcg tablet 100 mcg PO QAM Qty: 90 3RF methocarbamol 500 mg tablet 500 mg PO HS Qty: 90 1RF clopidogrel [Plavix] 75 mg tablet 75 mg PO QAM Qty: 90 3RF atorvastatin [Lipitor] 40 mg tablet 40 mg PO HS Qty: 90 1RF ferrous sulfate [Feosol] 325 mg (65 mg iron) tablet 325 mg PO DAILY Qty: 30 0RF carbidopa-levodopa 25-100 mg tablet extended release 1 tab PO QAM 90 Days Qty: 90 3RF Rx Instructions: take an extra dose at HS prn verapamil 180 mg tablet extended release 180 mg PO BID Qty: 180 3RF cyanocobalamin (vitamin B-12) 1,000 mcg/mL solution 1,000 mcg subcut WK Qty: 10 0RF Rx Instructions: INJECT 1 mL INTO SUBCUTANEOUS TISSUE OR INTRAMUSCULARLY ONCE WEEKLY FOR 10 WEEKS mirabegron [Myrbetriq] 25 mg tablet extended release 24 hr 25 mg PO DAILY Qty: 30 2RF hydroxychloroquine 200 mg tablet 200 mg PO BID ropinirole 2 mg tablet extended release 24 hr 2 mg PO HS Qty: 90 3RF alendronate [Fosamax] 70 mg tablet 70 mg PO Q7D Rx Instructions: PER PT "HAVEN'T TAKEN THIS MED IN A LONG TIME". TAKES USUALLY ON WEDNESDAYS vitamin E 400 unit Capsule 400 unit PO QAM magnesium chloride [Mag 64] 64 mg Tablet,Delayed Release (Dr/Ec) 64 mg PO HS methotrexate sodium 2.5 mg tablet 15 mg PO Q7D Rx Instructions: take 6 tablets weekly take mondays folic acid 1 mg tablet 1 mg PO QAM meclizine 25 mg tablet 25 mg PO TID PRN (Reason: dizziness) Qty: 20 0RF triamcinolone acetonide 0.1 % cream 1 applic topical BID PRN (Reason: SKIN IRRITATIONS) Rx Instructions: combine small amount with nystatin cream and apply to affected area nystatin 100,000 unit/gram cream 1 applic topical BID PRN (Reason: SKIN IRRITATIONS) Rx Instructions: combine small amount with triamcinolone cream and apply to affected areas cholecalciferol (vitamin D3) 1,250 mcg (50,000 unit) capsule 50,000 unit PO 2XWK Rx Instructions: please take twice weekly carbidopa-levodopa 25-100 mg tablet extended release 1 tab PO HS PRN (Reason: RESTLESS LEGS) oxybutynin chloride 15 mg tablet extended release 24hr 15 mg PO QAM gabapentin 300 mg capsule 300 mg PO BID Discharge Orders: Discharge Order (Routine); Ordered 01/23/24 Ordered By: Davi Chu Admission Data Admit Date/Time: 01/22/24 18:56 Attending Provider: Davi Chu Admit Provider: Donal Tinoco Primary Care Provider: Laurie Cedeno Other Providers: Donal Tinoco Coding Level of Care Code 24287 INP/OBS DISCH >30 MIN Diagnoses Gait disturbance R26.9 Nonrheumatic aortic valve stenosis I35.0 Cardiac valve disease etiology: nonrheumatic Hypothyroidism, unspecified type E03.9 Hypothyroidism type: unspecified Essential hypertension I10 Hypertension type: essential hypertension Non-occlusive coronary artery disease I25.10
[2024-01-23] MEDS ORDERED: STROKE PATIENT DISCHARGE STA (12:03)
--- NOTE | 2024-01-23 12:06 | Pharmacy Report ---
- Date of Service January 23, 2024 - Pharmacy CVA/TIA Medication Review Medications to Prevent Stroke handout has been added to the patients discharge packet. Antiplatelet(s) * Clopidogrel 75 mg PO daily Cholesterol * High intensity statin: atorvastatin 40 mg daily DVT Prophylaxis * SCD knee Therapeutic Anticoagulation * No history of Afib/Aflutter noted Type 2 Diabetes * Patient does not have T2DM
--- NOTE | 2024-01-24 06:44 | Electrocardiogram Report ---
Test Reason : Blood Pressure : / mmHG Vent. Rate : 060 BPM Atrial Rate : 060 BPM P-R Int : 218 ms QRS Dur : 086 ms QT Int : 494 ms P-R-T Axes : 057 018 053 degrees QTc Int : 494 ms Sinus rhythm with 1st degree A-V block Abnormal ECG When compared with ECG of 30-OCT-2023 21:54, No significant change was found Confirmed by Zaire Mcdonald ([id number]) on 01/24/2024 6:44:41 AM Referred By: REFERRED SELF Confirmed By:Zaire Mcdonald
== END 2024-01-23 13:15 | disposition home or self-care (01) ==
LOC: EDINP 16:12 → ED 16:12 → SUATTDRO 18:56 → EDINP 19:33 → 2S 01-23 00:26

== ENCOUNTER 2024-06-29 14:21 | Inpatient (IN) ==
[2024-06-29] MEDS: SODIUM CHLORIDE 0.9% 1,000 ML IV ONE (14:57)
[2024-06-29 15:05] LABS: Hematocrit (blood only) 25.3 % (37.0-47.0); Hemoglobin 8.3 g/dl (12.0-16.0); Mean Corpuscular Hemoglobin 31.7 pg (25.0-34.0); Mean Corpuscular Hgb Conc 32.8 g/dL (32.0-36.0); Mean Corpuscular Volume 96.6 fL (80.0-100.0); Platelet Count 168 K/uL (130-400); RDW Coefficient of Variation 14.7 % (11.5-14.5); RDW Standard Deviation 50.4 fL (36.4-46.3); Red Blood Count 2.62 M/uL (4.20-5.40); White Blood Count 6.39 K/ul (4.8-10.8)
[2024-06-29 15:06] LABS: iSTAT Creatinine 1.2 mg/dl (0.6-1.3); iSTAT Hemoglobin 8.8 g/dl (12.0-16.0); iSTAT Ionized Calcium 1.19 mmol/l (1.12-1.32); iSTAT Potassium 4.2 mmol/L (3.3-5.0)
--- NOTE | 2024-06-29 15:17 | XRay Report ---
XR chest 1V portable HISTORY: 79 years-old Female syncope COMPARISON: 04/04/2024 TECHNIQUE: AP view of the chest FINDINGS: Cardiac silhouette is upper limits of normal in size. No pneumothorax, pleural effusion or airspace c onsolidation. The bones appear grossly intact. IMPRESSION: No acute process. ACT 112: Negative or not required by law. The above report was generated using voice recognition software. It may contain grammatical, syntax o r spelling errors. Electronically signed by: Lucho Waters M.D. 06/29/2024 3:15 PM
[2024-06-29 15:19] LABS: Albumin Globulin Ratio 1.2 (0.9-2); Albumin Level 3.3 gm/dl (3.4-5.0); BUN Creatinine Ratio 29.6 (10-20); Bilirubin,Total 0.5 mg/dl (0.2-1.0); Calcium 8.8 mg/dl (8.6-10.3); Creatinine Clr Calc Pharmacy 42.4 ml/min; Globulin 2.8 gm/dl (2.5-4.0); Magnesium 1.8 mg/dl (1.7-2.4); Potassium 4.2 mmol/L (3.5-5.1); Total Protein 6.1 gm/dl (6.0-8.3)
--- NOTE | 2024-06-29 15:21 | CT Scan Report ---
CT head/brain wo con CLINICAL HISTORY: 79 years-old Female with syncope/CHI. Acute syncope with head trauma TECHNIQUE: Multiple axial CT images of the head were obtained without contrast. A dose lowering tech nique was utilized adhering to the principles of ALARA. CT DOSE: 625.8 mGy.cm COMPARISON: April 04, 2024 FINDINGS: No acute intracranial hemorrhage, midline shift, intracranial mass, hydrocephalus, territorial ischem ia or abnormal extra-axial collection. Involutional changes with chronic microvascular ischemic disea se. Partially empty sella. Unchanged scattered subcentimeter cortically based calcifications of the c erebral hemispheres. The calvarium is intact. Bilateral lens repair. The paranasal sinuses, mastoid air cells, and middle ear cavities are clear. IMPRESSION: No acute intracranial abnormality or calvarial fracture. ACT 112: Negative or not required by law. The above report was generated using voice recognition software. It may contain grammatical, syntax o r spelling errors. Electronically signed by: Lucho Waters M.D. 06/29/2024 3:20 PM
[2024-06-29 15:25] LABS: Basophils # (auto) 0.01 K/uL (0.00-0.20); Basophils % (auto) 0.2 %; Immature Granulocytes # (auto) 0.04 K/uL (0.01-0.20); Immature Granulocytes % (auto) 0.6 %; Lymphocytes # (auto) 0.58 K/uL (1.20-3.40); Lymphocytes % (auto) 9.1 %; Monocytes # (auto) 0.06 K/uL (0.11-0.59); Monocytes % (auto) 0.9 %; Neutrophils % (auto) 89.2 %
[2024-06-29 15:27] LABS: Troponin I High Sensitivity 10.1 pg/ml (0-14)
[2024-06-29 15:33] LABS: Partial Thromboplastin Ratio 0.9; Partial Thromboplastin Time 23 Seconds (21-31); Prothrombin Time 10.8 Seconds (9.0-12.0)
--- NOTE | 2024-06-29 17:39 | Ultrasound Report ---
EXAM: US Abdomen Limited Right Upper Quadrant INDICATION: Elevated liver function test. TECHNIQUE: Real-time ultrasound of the right upper quadrant with image documentation. COMPARISON: No relevant prior studies available. FINDINGS: Liver: Normal size and contour. Echogenic. No mass or ductal dilation. Gallbladder: No gallstones, wall thickening or surrounding fluid. Common bile duct: Normal common bile duct for age at 7 mm. No visible ductal stone. Tiny stones may not be sonographically detected. Pancreas: No significant abnormality noted. Right kidney: 9.9 cm long. Normal cortical thickness and echotexture. No mass, stone or hydronephrosis. IMPRESSION: 1. Hepatic steatosis. 2. No ductal dilatation. ACT 112: Negative or not required by law. Electronically signed by Michelle De Dios 06-29-2024 5:39 PM
--- NOTE | 2024-06-29 17:43 | Electrocardiogram Report ---
Test Reason : Blood Pressure : */* mmHG Vent. Rate : 79 BPM Atrial Rate : 70 BPM P-R Int : * ms QRS Dur : 84 ms QT Int : 414 ms P-R-T Axes : 24 -1 30 degrees QTcB Int : 474 ms Sinus rhythm with a competing junctional rhythm Otherwise normal ECG When compared with ECG of 04-May-2024 11:31, T wave amplitude has decreased in Lateral leads Confirmed by Victor Hugo Miller ([id number]) on 06/29/2024 5:43:27 PM Referred By: REFERRED SELF Confirmed By: Victor Hugo Miller
[2024-06-29] MEDS: PANTOprazole 80 MG in DEXTROSE 5% 100 ML IV ONE (18:03)
[2024-06-29] MEDS: PANTOPRAZOLE BOLUS/DRIP IV STA (18:23)
[2024-06-29] MEDS: PANTOprazole 40 MG in DEXTROSE 5% MINI-B 100 ML IV SCH (18:23)
--- NOTE | 2024-06-29 19:10 | History & Physical Report ---
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 She has been having melena several times a day for the last 3 days and feeling very fatigued. She was hypotensive and had a hemoglobin of 8.3 on arrival. #Syncope/hypotension-multiple episodes of syncope recently likely secondary to hypotension from acute blood loss anemia from GI bleed. ECG with some competing junctional pacemaker but not overly concerning and no bradycardia or heart block. Had mild aortic stenosis on echocardiogram in 09/2023-no need to repeat. Troponin here is negative and no subjective palpitations or chest pain with her symptoms. Admit to medical/telemetry unit for arrhythmia monitoring especially given hypotension and GI bleeding Received IV fluid resuscitation in the ER-give another bolus of normal saline 250 mL x 1 for ongoing soft BPs Transfuse blood as needed for persistent hypotension with active bleeding or hemoglobin less than 7 #GI bleed/acute blood loss anemia/history of gastric bypass-is at risk for anastomotic ulcers given history of gastric bypass and occasional NSAID use. She is also on Plavix chronically. Hemoglobin 8.3 on arrival down 2 g from previous hemoglobin in 04/2024. With chronic normocytic anemia likely secondary to gastric bypass and poor absorption nutritionally. With melena x 3 days. Most likely upper GI bleeding-denies epigastric pain or heartburn. Monitor serial CBC, check type and cross and hold 2 units PRBCs-transfuse for hemoglobin less than 7 or persistent hypotension with active bleeding Continue Protonix drip Consult GI and keep n.p.o. after midnight in case they can do EGD on 06/30 Hold Plavix and discourage NSAID use at home Check iron panel, ferritin, B12, folate and replace as needed #Transaminitis/fatty liver-AST and ALT elevated in the 200s and 100s which is new from previous. RUQ US performed in ED shows hepatic steatosis. Most likely liver injury from hypotension and should improve with blood pressure support and time Follow LFTs Hold home atorvastatin #History of CVA/HTN/mild aortic stenosis/cardiac syndrome X-history of CVA remotely and is on Plavix and atorvastatin. Blood pressures with hypotension from acute blood loss anemia/GI bleed Hold Plavix for bleeding, hold atorvastatin for transaminitis Hold home verapamil for hypotension Continue routine follow-up with cardiology as an outpatient #RLS-follows with neurology for many years. Is also suspected to maybe have NPH and is to complete brain MRI as an outpatient Continue home Sinemet which is for RLS and RUE tremor, continue gabapentin and ropinirole #History of kidney stones with recent ureteral stent removal/overactive bladder- stent recently removed 2 weeks ago by urology. No acute issues at this time Stop home tamsulosin and Pyridium as no stent or stone currently Continue home Myrbetriq or formulary equivalent for OAB #Osteoporosis/vitamin D deficiency-no acute issues, is on injectable romosozumab as an outpatient and follows with rheumatology, endocrinology Continue home calcitriol, hold weekly vitamin D #Hypothyroidism-TSH normal earlier this year Continue home levothyroxine #Rheumatoid arthritis-no acute issues, follows with rheumatology Continue home Plaquenil DVT prophylaxis-SCDs only at this time due to GI bleeding Disposition-admit to medical floor with telemetry History of Present Illness Chief Complaint: Passing out, fatigue Primary Care Provider: Laurie Cedeno MD This patient is a 79-year-old female with a history of RLS, ataxia with falls, gastric bypass surgery, HTN, kidney stones, hypothyroidism, RA, CVA, HL, mild- moderate aortic stenosis, 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 She has passed out a few times in the last couple of weeks but then was unable to get up off the ground today after she passed out. She denies pain or injuries anywhere. She has been feeling very fatigued and reports having black stools 3-4 times a day for the last 3 days. Denies abdominal pains or heartburn. Denies chest pains or shortness of breath. She reports she will take an occasional Aleve tablet every once a while for joint pains with her RA but knows that she is not supposed to with a history of gastric bypass. Otherwise, she is on Plavix for history of CVA in 2015. In the ER, she was found to be hypotensive with a systolic blood pressure in the 70s. Her hemoglobin was low at 8.3 which is a 2 g drop from her last check 2 months prior. Her blood pressure improved with IV fluid boluses and she was started on a Protonix drip. Her AST and ALT were elevated and an RUQ ultrasound showed fatty liver. ECG showed a sinus rhythm with some competing junctional pacemaker and normal rates, no ischemic changes. She will be admitted for syncope related to hypotension from GI bleeding. Allergies Allergy/AdvReac Type Severity Reaction Status Date / Time shellfish derived Allergy Severe Hives Verified 06/29/24 17:53 pecan nut Allergy Intermediate Hives Verified 06/29/24 17:53 Sulfa (Sulfonamide Allergy Intermediate Itching Verified 06/29/24 17:53 Antibiotics) oxycodone Allergy Mild Itching Verified 06/29/24 17:53 alcohol Allergy Unknown Unknown Verified 06/29/24 17:53 [From Mastisol Liquid Adhesive] gum mastic Allergy Unknown Unknown Verified 06/29/24 17:53 [From Mastisol Liquid Adhesive] methyl salicylate Allergy Unknown Unknown Verified 06/29/24 17:53 [From Mastisol Liquid Adhesive] storax Allergy Unknown Unknown Verified 06/29/24 17:53 [From Mastisol Liquid Adhesive] ibuprofen AdvReac Intermediate Nausea, Verified 06/29/24 17:53 upset stomach pregabalin AdvReac Intermediate Triple Verified 06/29/24 17:53 vision Home Medications Medication Instructions Recorded Confirmed Type magnesium chloride 64 mg 64 mg PO HS 07/26/18 06/29/24 History (magnesium chloride) tablet,delayed release (Mag 64) nitroglycerin 0.4 mg sublingual 0.4 mg sublingual Q5M PRN Chest 02/14/19 06/29/24 Rx tablet Pain #30 tabs hydroxychloroquine 200 mg tablet 200 mg PO BID 09/04/21 06/29/24 History clopidogrel 75 mg tablet (Plavix) 75 mg PO QAM #90 tabs 08/03/23 06/29/24 Rx verapamil 180 mg tablet,extended 180 mg PO BID #180 tabs 11/18/23 06/29/24 Rx release cholecalciferol (vitamin D3) 1,250 50,000 unit PO 2XWK 01/22/24 06/29/24 History mcg (50,000 unit) capsule nystatin 100,000 unit/gram topical 1 applic topical BID PRN SKIN 01/22/24 06/29/24 History cream IRRITATIONS triamcinolone acetonide 0.1 % 1 applic topical BID PRN SKIN 01/22/24 06/29/24 History topical cream IRRITATIONS levothyroxine 100 mcg tablet 100 mcg PO QAM #90 tabs 01/24/24 06/29/24 Rx prochlorperazine maleate 5 mg 5 mg PO DAILY PRN nausea and 02/11/24 06/29/24 Rx tablet (Compazine) vomiting/vertigo 1 dose #3 tabs ropinirole 2 mg tablet,extended 2 mg PO HS #90 tabs 03/19/24 06/29/24 Rx release 24 hr atorvastatin 40 mg tablet (Lipitor) 40 mg PO HS #90 tabs 04/11/24 06/29/24 Rx mirabegron 25 mg tablet,extended 25 mg PO DAILY #90 tabs 04/13/24 06/29/24 Rx release 24 hr (Myrbetriq) ondansetron 8 mg disintegrating 8 mg PO Q8H PRN nausea and 05/01/24 06/29/24 Rx tablet vomiting #30 tabs carbidopa ER 25 mg-levodopa 100 mg 1 tab PO QAM 90 days #90 tabs 05/10/24 06/29/24 Rx tablet,extended release gabapentin 300 mg capsule 300 mg PO BID #90 caps 05/10/24 06/29/24 Rx tramadol 50 mg tablet 50 mg PO Q6H PRN pain #20 tabs 05/11/24 06/29/24 Rx hydrocodone 5 mg-acetaminophen 300 1 tab PO BID PRN pain #10 tabs 05/15/24 06/29/24 Rx mg tablet romosozumab-aqqg 210 mg/2.34 210 mg (2.34 mL) subcut ONCE #2.34 05/25/24 06/29/24 Rx mL(105 mg/1.17 mL x2)subcutaneous mL syringe (Evenity) hydrocodone 7.5 mg-acetaminophen 1 tab PO Q8H PRN pain #7 tabs 05/28/24 06/29/24 Rx 325 mg tablet phenazopyridine 200 mg tablet 200 mg PO Q8H PRN pain #10 tabs 05/28/24 06/29/24 Rx (Pyridium) tamsulosin 0.4 mg capsule 0.4 mg PO HS #30 caps 05/28/24 06/29/24 Rx calcitriol 0.25 mcg capsule 0.25 mcg PO DAILY 06/29/24 06/29/24 History Past Med/Surg History Problem List (Updated 06/29/24 @ 20:05 by Mer Keller MD) Transaminitis GI bleed Syncope Acute blood loss anemia Arthralgia B12 deficiency Vitamin D deficiency Intermittent claudication Paresthesia of hand, bilateral Degenerative disc disease Ureteral stricture (Chronic) Restless leg syndrome (Chronic) Insomnia (Chronic) Medical History (Updated 06/29/24 @ 20:05 by Mer Keller MD) Fatty liver Cerebrovascular disease Per records Hydronephrosis, left Urinary urgency Hx of intermittent claudication Hyperparathyroidism, secondary follows with endocrine- likely secondary to gastric bypass surgery in 2000 Lymphedema resolved w/procedure w/dr. 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 Imaging not suggestive of NPH, does not have clinical signs or symptoms suggestive of Parkinson's disease. " Anemia Hgb usually in 10-11 range Vertigo [facility] ER 04/04/24 - states r/t dehydration (neuroimaging and lab studies reassuring per ED records) Urinary incontinence Non-occlusive coronary artery disease Per cardio records = Cardiac Syndrome X (small vessel dysfunction causing angina pectoris in a patient with mild nonocclusive CAD) Aortic stenosis Per 09/21/23 ECHO- Mild aortic stenosis. HARPREET 1.6-1.7 cm; AV mean PG 11.8 mmHg. AV max velocity 2.355 m/s Follows with [facility] cardio Hypothyroidism Hypertension History of femur fracture S/p IM nailing 09/2022 at [facility] from fall Hx of renal calculi Osteoporosis Restless leg syndrome Follows with neuro Trialing Sinemet for RLS- "no signs of parkinsonism on exam to suggest that symptoms are due to PD." per neuro Transient ischemic attack (TIA) Multiple, noted per remote records Stroke 2004 (reason for Plavix)- only residual issue of "falls to left if in a dark room with eyes closed" Hyperlipidemia Surgical History H/O wrist surgery repair after right wrist/forearm injury, done in 09/21/2023, done with [facility] orthopedics History of open reduction and internal fixation (ORIF) procedure rt femur>hardware intact History of gastric bypass 2000 History of esophagogastroduodenoscopy (EGD) History of lithotripsy 09/08/2018 [facility] 4 History of intestinal surgery S/P extracorporeal shock wave therapy S/P cystoscopy with ureteral stent placement multiple Family history of reaction to anesthesia nausea/vomiting Nausea and vomiting after administration of anesthetic agent "has been fine w/ procedures at [facility]" History of bilateral tubal ligation History of total abdominal hysterectomy and bilateral salpingo-oophorectomy History of laminectomy Lumbar History of colonoscopy History of cholecystectomy History of herniorrhaphy Abdomen, x3 History of tooth extraction Stye Surgically removed History of cardiac cath 2019- no stents Family History Sister Ovarian cancer Breast cancer Daughter Family history of reaction to anesthesia PONV Family history of diabetes mellitus Mother Osteoarthritis Other Family history non-contributory Denies family history of Prostate cancer Myocardial infarction Colorectal cancer Social History Smoking Status: Current every day smoker Tobacco Type: Cigarettes Age Started Using Tobacco: 18; Cigarettes Per Day: ~5-6; Second Hand Exposure: Yes (hx); Do You Dip or Chew Tobacco: No; Hx Alcohol Use: No Hx Substance Use: No Preferred Language: Tajik Communication Ability: Effective Visual Impairment: No Limitations Hearing Ability: Normal Crime Scene Investigator Required: No Beliefs That Will Affect Care: None marital status: Current Living Situation: Spouse Current Living Situation Comment: current occupational status: retired current occupation: was a homemaker How many Children do You have: 5 Feels Safe at Home: Yes Childhood Exposure to Second-Hand Smoke: Yes Diet: regular Diet Comment: regular caffeine: Yes during the past year weight has: increased > 10 lbs Dental Care, Regularly: No Physical Activity Frequency: Does not Exercise Seatbelt Use: always Sunscreen Use: Yes Assistive Devices: Cane, Denture - Upper and Glasses Physical Exam Constitutional: WD/WN, vitals as above Eyes: PERRL, conjunctivae normal, anicteric sclerae ENMT: external ear and nose normal, oropharynx normal Neck: trachea midline, no thyromegaly Respiratory: normal respiratory effort, lungs clear to auscultation Cardiovascular: Rate/Rhythm: regular rate and regular rhythm Heart Sounds: + murmur (2/6 BARTOLO at the RUSB) Chest (Breasts): Chest: normal inspection of chest Gastrointestinal (Abdomen): normal bowel sounds, soft, nontender, no hepatosplenomegaly Musculoskeletal: Extremities: extremities normal to inspection; no cyanosis and no clubbing Skin: no rashes, warm and dry Neurologic: moves all extremities and awake; no focal motor deficits Psychiatric: A+Ox3, euthymic affect Lymphatic: no lymphedema Results & Data Results & Data Vital Signs (Past 12 Hours) Vital Signs Temp Pulse Pulse Resp BP BP Pulse Ox 06/29/24 18:42 66 06/29/24 16:26 63 16 84/49 L 97 06/29/24 14:56 96 06/29/24 14:56 67 20 92/59 L 97 06/29/24 14:49 70 06/29/24 14:32 36.8 C 83 20 73/51 L 98 O2 Del Method 06/29/24 18:42 06/29/24 16:26 Room Air 06/29/24 14:56 Room Air 06/29/24 14:56 Room Air 06/29/24 14:49 06/29/24 14:32 Room Air Laboratory Results CBC, CMP, coags, magnesium, troponin reviewed Diagnostic Findings CT head and RUQ US reviewed ECG Additional Comments: ECG as per HPI Code Status & VTE Plan Code Status DNR/DNI VTE Prophylaxis Plan VTE Prophylaxis will be ordered: Yes PG Care Time/CCT Total # of Minutes Spent Total Time Spent with Patient: Total time spent is greater than 50% in coordination of care (as documented) at patient's floor/unit and/or counseling patient: Coding Level of Care Code 95264 INT INP/OBS CARE 3/75MIN Diagnoses Syncope R55 Acute blood loss anemia D62 GI bleed K92.2 Transaminitis R74.01
[2024-06-29] MEDS: SODIUM CHLORIDE 0.9% 250 ML IV ONE (19:31)
[2024-06-29] MEDS ORDERED: SODIUM CHLORIDE 0.9% 100 ML IV PRN ×2 (19:34→20:32)
[2024-06-29] MEDS ORDERED: SODIUM CHLORIDE 0.9% 50 ML IV PRN ×2 (19:34→20:32)
[2024-06-29] MEDS: rOPINIRole HCL 2 MG TABLET PO STA (19:49)
[2024-06-29 20:18] LABS: Ferritin 547.5 ng/ml (8-388)
[2024-06-29 20:32] LABS: Hematocrit (blood only) 20.9 % (37.0-47.0); Hemoglobin 6.8 g/dl (12.0-16.0); Mean Corpuscular Hemoglobin 31.3 pg (25.0-34.0); Mean Corpuscular Hgb Conc 32.5 g/dL (32.0-36.0); Mean Corpuscular Volume 96.3 fL (80.0-100.0); Mean Platelet Volume 10.9 fL (9.4-12.4); Platelet Count 138 K/uL (130-400); RDW Coefficient of Variation 14.7 % (11.5-14.5); RDW Standard Deviation 50.9 fL (36.4-46.3); Red Blood Count 2.17 M/uL (4.20-5.40); White Blood Count 4.79 K/ul (4.8-10.8)
[2024-06-29] MEDS ORDERED: ONDANSETRON INJ 2 MG/ML 2 ML VIAL IV PRN (23:47)
[2024-06-30] MEDS ORDERED: CARBIDOPA/LEVODOPA 25/100MG EXT REL TAB PO PRN (00:38)
[2024-06-30] MEDS: GABAPENTIN 300 MG CAP PO SCH (03:58)
[2024-06-30] MEDS: HYDROXYCHLOROQUINE SULFATE 200 MG TAB PO SCH (03:58)
[2024-06-30] MEDS: MAGNESIUM CHLORIDE W/CALCIUM 64MG DELAYED REL TAB PO SCH (03:59)
[2024-06-30] MEDS: LEVOTHYROXINE SODIUM 100 MCG TABLET PO SCH (05:36)
[2024-06-30] MEDS: VIBEGRON 75 MG TAB PO SCH (07:57)
[2024-06-30] MEDS: CARBIDOPA/LEVODOPA 25/100MG EXT REL TAB PO SCH (07:58)
[2024-06-30 08:24] LABS: Basophils # (auto) 0.04 K/uL (0.00-0.20); Basophils % (auto) 0.7 %; Eosinophils # (auto) 0.18 K/uL (0.00-0.50); Hematocrit (blood only) 27.6 % (37.0-47.0); Hemoglobin 9.2 g/dl (12.0-16.0); Immature Granulocytes # (auto) 0.04 K/uL (0.01-0.20); Immature Granulocytes % (auto) 0.7 %; Lymphocytes # (auto) 1.15 K/uL (1.20-3.40); Lymphocytes % (auto) 19.4 %; Mean Corpuscular Hemoglobin 30.5 pg (25.0-34.0); Mean Corpuscular Hgb Conc 33.3 g/dL (32.0-36.0); Mean Corpuscular Volume 91.4 fL (80.0-100.0); Mean Platelet Volume 10.4 fL (9.4-12.4); Monocytes # (auto) 0.08 K/uL (0.11-0.59); Monocytes % (auto) 1.4 %; Neutrophils # (auto) 4.43 K/uL (1.40-6.50); Neutrophils % (auto) 74.8 %; Platelet Count 159 K/uL (130-400); RDW Coefficient of Variation 15.8 % (11.5-14.5); RDW Standard Deviation 51.2 fL (36.4-46.3); Red Blood Count 3.02 M/uL (4.20-5.40); White Blood Count 5.92 K/ul (4.8-10.8)
[2024-06-30 08:38] LABS: Folate (Folic Acid),Ser orPlas 3.71 ng/ml (>5.38)
[2024-06-30 08:39] LABS: Albumin Globulin Ratio 1.2 (0.9-2); Albumin Level 2.7 gm/dl (3.4-5.0); Bilirubin,Total 1.2 mg/dl (0.2-1.0); Calcium 8.2 mg/dl (8.6-10.3); Creatinine Clr Calc Pharmacy 47.8 ml/min; Globulin 2.2 gm/dl (2.5-4.0); Magnesium 1.7 mg/dl (1.7-2.4); Potassium 4.1 mmol/L (3.5-5.1); Thyroid Stimulating Hormone 3.694 uIu/ml (0.300-4.500); Total Protein 4.9 gm/dl (6.0-8.3)
--- NOTE | 2024-06-30 10:11 | Gastrointestinal Consultation ---
Date of Consultation June 30, 2024 Assessment & Plan (1) GI bleed: Pleasant woman with what sounds like an UGI hemorrhage but it has been relatively slow--over the past week. She takes rare ibuprofen but has been battling kidney stones recently and is unsure what she has bee aking for them. I do think she needs upper endoscopy but she has been on plavix. If this were a more acute vigorous UGI hemorrhage then I think emergent EGD despite active plavix use would be warranted. However this has been going on for a week and she has been more than 24 hours without a bowel movement so if possible I would like to give it a couple more days for plavix to wear off if positive. For now I would start her on liquid diet and will tentatively plan EGD for tuesday which will give us three days off plavix (5 is optimal). History of Present Illness Reason for Consultation: anemia Attending Physician: Keon Priest History of Present Illness 79 year old female who is admitted for anemia with black stools. She tells me her stools have been black for a week or so. She says they are only daily and solid. She has not had one since yesterday. She denies abdominal pain and she feels like she is eating pretty well. She has had colonoscopy she says about 8- 9 years ago at [facility]. She denies NSAID usage but has been battling kidney stones recently. She currently feels well. She does take plavix for a stroke in 2004. Allergies Allergy/AdvReac Type Severity Reaction Status Date / Time shellfish derived Allergy Severe Hives Verified 06/29/24 17:53 pecan nut Allergy Intermediate Hives Verified 06/29/24 17:53 Sulfa (Sulfonamide Allergy Intermediate Itching Verified 06/29/24 17:53 Antibiotics) oxycodone Allergy Mild Itching Verified 06/29/24 17:53 alcohol Allergy Unknown Unknown Verified 06/29/24 17:53 [From Mastisol Liquid Adhesive] gum mastic Allergy Unknown Unknown Verified 06/29/24 17:53 [From Mastisol Liquid Adhesive] methyl salicylate Allergy Unknown Unknown Verified 06/29/24 17:53 [From Mastisol Liquid Adhesive] storax Allergy Unknown Unknown Verified 06/29/24 17:53 [From Mastisol Liquid Adhesive] ibuprofen AdvReac Intermediate Nausea, Verified 06/29/24 17:53 upset stomach pregabalin AdvReac Intermediate Triple Verified 06/29/24 17:53 vision Home Medications Medication Instructions Recorded Confirmed Type magnesium chloride 64 mg 64 mg PO HS 07/26/18 06/29/24 History (magnesium chloride) tablet,delayed release (Mag 64) nitroglycerin 0.4 mg sublingual 0.4 mg sublingual Q5M PRN Chest 02/14/19 06/29/24 Rx tablet Pain #30 tabs hydroxychloroquine 200 mg tablet 200 mg PO BID 09/04/21 06/29/24 History clopidogrel 75 mg tablet (Plavix) 75 mg PO QAM #90 tabs 08/03/23 06/29/24 Rx verapamil 180 mg tablet,extended 180 mg PO BID #180 tabs 11/18/23 06/29/24 Rx release cholecalciferol (vitamin D3) 1,250 50,000 unit PO 2XWK 01/22/24 06/29/24 History mcg (50,000 unit) capsule nystatin 100,000 unit/gram topical 1 applic topical BID PRN SKIN 01/22/24 06/29/24 History cream IRRITATIONS triamcinolone acetonide 0.1 % 1 applic topical BID PRN SKIN 01/22/24 06/29/24 History topical cream IRRITATIONS levothyroxine 100 mcg tablet 100 mcg PO QAM #90 tabs 01/24/24 06/29/24 Rx prochlorperazine maleate 5 mg 5 mg PO DAILY PRN nausea and 02/11/24 06/29/24 Rx tablet (Compazine) vomiting/vertigo 1 dose #3 tabs ropinirole 2 mg tablet,extended 2 mg PO HS #90 tabs 03/19/24 06/29/24 Rx release 24 hr atorvastatin 40 mg tablet (Lipitor) 40 mg PO HS #90 tabs 04/11/24 06/29/24 Rx mirabegron 25 mg tablet,extended 25 mg PO DAILY #90 tabs 04/13/24 06/29/24 Rx release 24 hr (Myrbetriq) ondansetron 8 mg disintegrating 8 mg PO Q8H PRN nausea and 05/01/24 06/29/24 Rx tablet vomiting #30 tabs carbidopa ER 25 mg-levodopa 100 mg 1 tab PO QAM 90 days #90 tabs 05/10/24 06/29/24 Rx tablet,extended release gabapentin 300 mg capsule 300 mg PO BID #90 caps 05/10/24 06/29/24 Rx tramadol 50 mg tablet 50 mg PO Q6H PRN pain #20 tabs 05/11/24 06/29/24 Rx hydrocodone 5 mg-acetaminophen 300 1 tab PO BID PRN pain #10 tabs 05/15/24 06/29/24 Rx mg tablet romosozumab-aqqg 210 mg/2.34 210 mg (2.34 mL) subcut ONCE #2.34 05/25/24 06/29/24 Rx mL(105 mg/1.17 mL x2)subcutaneous mL syringe (Evenity) hydrocodone 7.5 mg-acetaminophen 1 tab PO Q8H PRN pain #7 tabs 05/28/24 06/29/24 Rx 325 mg tablet phenazopyridine 200 mg tablet 200 mg PO Q8H PRN pain #10 tabs 05/28/24 06/29/24 Rx (Pyridium) tamsulosin 0.4 mg capsule 0.4 mg PO HS #30 caps 05/28/24 06/29/24 Rx calcitriol 0.25 mcg capsule 0.25 mcg PO DAILY 06/29/24 06/29/24 History Patient History Medical History Fatty liver Cerebrovascular disease Per records Hydronephrosis, left Urinary urgency Hx of intermittent claudication Hyperparathyroidism, secondary follows with endocrine- likely secondary to gastric bypass surgery in 2000 Lymphedema resolved w/procedure w/dr. 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 Imaging not suggestive of NPH, does not have clinical signs or symptoms suggestive of Parkinson's disease. " Anemia Hgb usually in 10-11 range Vertigo [facility] ER 04/04/24 - states r/t dehydration (neuroimaging and lab studies reassuring per ED records) Urinary incontinence Non-occlusive coronary artery disease Per cardio records = Cardiac Syndrome X (small vessel dysfunction causing angina pectoris in a patient with mild nonocclusive CAD) Aortic stenosis Per 09/21/23 ECHO- Mild aortic stenosis. HARPREET 1.6-1.7 cm; AV mean PG 11.8 mmHg. AV max velocity 2.355 m/s Follows with [facility] cardio Hypothyroidism Hypertension History of femur fracture S/p IM nailing 09/2022 at [facility] from fall Hx of renal calculi Osteoporosis Restless leg syndrome Follows with neuro Trialing Sinemet for RLS- "no signs of parkinsonism on exam to suggest that symptoms are due to PD." per neuro Transient ischemic attack (TIA) Multiple, noted per remote records Stroke 2004 (reason for Plavix)- only residual issue of "falls to left if in a dark room with eyes closed" Hyperlipidemia Surgical History H/O wrist surgery repair after right wrist/forearm injury, done in 09/21/2023, done with [facility] orthopedics History of open reduction and internal fixation (ORIF) procedure rt femur>hardware intact History of gastric bypass 2000 History of esophagogastroduodenoscopy (EGD) History of lithotripsy 09/08/2018 [facility] L[facility] 4 History of intestinal surgery S/P extracorporeal shock wave therapy S/P cystoscopy with ureteral stent placement multiple Family history of reaction to anesthesia nausea/vomiting Nausea and vomiting after administration of anesthetic agent "has been fine w/ procedures at [facility]" History of bilateral tubal ligation History of total abdominal hysterectomy and bilateral salpingo-oophorectomy History of laminectomy Lumbar History of colonoscopy History of cholecystectomy History of herniorrhaphy Abdomen, x3 History of tooth extraction Stye Surgically removed History of cardiac cath 2019- no stents Family History Sister Ovarian cancer Breast cancer Daughter Family history of reaction to anesthesia PONV Family history of diabetes mellitus Mother Osteoarthritis Other Family history non-contributory Denies family history of Prostate cancer Myocardial infarction Colorectal cancer Social History Smoking Status: Current every day smoker Tobacco Type: Cigarettes Age Started Using Tobacco: 18; Cigarettes Per Day: 5; Second Hand Exposure: No; Do You Dip or Chew Tobacco: No; Tobacco Cessation Education Requested by Patient: No Hx Alcohol Use: No Hx Substance Use: No Preferred Language: Tunisian Communication Ability: Effective Visual Impairment: No Limitations Hearing Ability: Normal Sausage Mixer Required: Voice Beliefs That Will Affect Care: None marital status: Current Living Situation: Spouse Current Living Situation Comment: home with current occupational status: retired current occupation: was a homemaker How many Children do You have: 5 Other Information That Helps Us Care for You: No Feels Safe at Home: Yes Safety Concerns: Feels Safe At This Time Childhood Exposure to Second-Hand Smoke: Yes Diet: regular Diet Comment: regular caffeine: Yes during the past year weight has: increased > 10 lbs Dental Care, Regularly: No Physical Activity Frequency: Does not Exercise Seatbelt Use: always Sunscreen Use: Yes Assistive Devices: Cane and Glasses Review of Systems Review of Systems: All systems reviewed & are unremarkable except as noted in HPI & below Physical Exam Physical Exam: Pleasant female in no distress Constitutional: WD/WN, vitals as above Neck: trachea midline, no thyromegaly Respiratory: normal respiratory effort, lungs clear to auscultation Cardiovascular: RRR, no murmur, no edema Gastrointestinal (Abdomen): normal bowel sounds, soft, nontender, no hepatosplenomegaly Results & Data Vital Signs (Past 12 Hours) Vital Signs Temp Pulse Pulse Resp BP BP Pulse Ox 06/30/24 07:50 06/30/24 07:46 36.8 C 75 16 112/66 96 06/30/24 04:23 36.8 C 74 18 108/54 L 97 06/30/24 03:31 36.8 C 75 18 113/64 97 06/30/24 02:31 36.8 C 74 18 98/61 L 97 06/30/24 02:01 36.6 C 72 18 105/65 96 06/30/24 01:46 36.7 C 75 18 113/53 L 95 06/30/24 01:23 36.8 C 74 18 115/54 L 98 06/30/24 00:05 36.7 C 74 18 100/56 L 98 06/30/24 00:03 36.7 C 72 18 110/68 97 06/29/24 23:05 36.6 C 71 17 99/48 L 98 06/29/24 22:35 36.7 C 75 14 105/55 L 97 06/29/24 22:20 36.6 C 75 21 101/59 L 97 06/29/24 22:07 36.8 C 75 18 99/52 L 96 O2 Del Method 06/30/24 07:50 Room Air 06/30/24 07:46 Room Air 06/30/24 04:23 06/30/24 03:31 06/30/24 02:31 06/30/24 02:01 06/30/24 01:46 06/30/24 01:23 06/30/24 00:05 06/30/24 00:03 Room Air 06/29/24 23:05 06/29/24 22:35 06/29/24 22:20 06/29/24 22:07 Laboratory Results 06/30/24 06/29/24 06/29/24 Range/Units 07:34 20:45 20:45 WBC 5.92 (4.8-10.8) K/ul RBC 3.02 L (4.20-5.40) M/uL Hgb 9.2 L (12.0-16.0) g/dl POC Hgb (12.0-16.0) g/dl Hct 27.6 L (37.0-47.0) % POC Hct (37-47) % MCV 91.4 D (80.0-100.0) fL MCH 30.5 (25.0-34.0) pg MCHC 33.3 (32.0-36.0) g/dL RDW Std Deviation 51.2 H (36.4-46.3) fL RDW Coeff of Jeyson 15.8 H (11.5-14.5) % Plt Count 159 (130-400) K/uL MPV 10.4 (9.4-12.4) fL Immature Gran % (Auto) 0.7 % Neut % (Auto) 74.8 % Lymph % (Auto) 19.4 % Hendricks % (Auto) 1.4 % Eos % (Auto) 3.0 % Baso % (Auto) 0.7 % Neut # (Auto) 4.43 (1.40-6.50) K/uL Lymph # (Auto) 1.15 L (1.20-3.40) K/uL Hendricks # (Auto) 0.08 L (0.11-0.59) K/uL Eos # (Auto) 0.18 (0.00-0.50) K/uL Baso # (Auto) 0.04 (0.00-0.20) K/uL Immature Gran # (Auto) 0.04 (0.01-0.20) K/uL PT (9.0-12.0) Seconds INR (0.9-1.1) APTT (21-31) Seconds PTT Ratio POC Sodium (135-144) mmol/L Sodium 143 (136-145) mmol/L POC Potassium (3.3-5.0) mmol/L Potassium 4.1 (3.5-5.1) mmol/L POC Chloride (101-112) mmol/L Chloride 113 H (98-107) mmol/L Carbon Dioxide 25 (21-32) mmol/L POC Total CO2 (24-31) mmol/L Anion Gap 5 (3-11) POC Anion Gap (16-25) mmol/L POC BUN (7-18) mg/dl BUN 29 H (6-23) mg/dl Creatinine 1.00 (0.6-1.2) mg/dl POC Creatinine (0.6-1.3) mg/dl Est Cr Clr Drug Dosing 47.8 ml/min eGFR 57.31 BUN/Creatinine Ratio 29.0 H (10-20) Glucose 69 L (70-99(Fasting)) mg/dl POC Glucose (other) (70-99) mg/dl Calcium 8.2 L (8.6-10.3) mg/dl POC Ioniz Calcium Donavon (1.12-1.32) mmol/l Magnesium 1.7 (1.7-2.4) mg/dl Iron (35-150) mcg/dl TIBC (250-450) mcg/dl Transferrin (200-360) mg/dl Transferrin % Sat (15-50) % Ferritin (8-388) ng/ml Total Bilirubin 1.2 H D (0.2-1.0) mg/dl AST 232 H (13-39) U/L ALT 162 H (7-52) U/L Alkaline Phosphatase 69 (34-104) U/L Troponin I High Sens (0-14) pg/ml Total Protein 4.9 L D (6.0-8.3) gm/dl Albumin 2.7 L (3.4-5.0) gm/dl Globulin 2.2 L (2.5-4.0) gm/dl Albumin/Globulin Ratio 1.2 (0.9-2) Vitamin B12 494 (180-914) pg/ml Folate 3.71 L (>5.38) ng/ml TSH 3.694 (0.300-4.500) uIu/ml Blood Type Blood Type Recheck Cancelled A Negative Antibody Screen Crossmatch 06/29/24 06/29/24 06/29/24 Range/Units 20:09 15:36 14:54 WBC 4.79 L (4.8-10.8) K/ul RBC 2.17 L (4.20-5.40) M/uL Hgb 6.8 L* (12.0-16.0) g/dl POC Hgb 8.8 L (12.0-16.0) g/dl Hct 20.9 L* (37.0-47.0) % POC Hct 26 L (37-47) % MCV 96.3 (80.0-100.0) fL MCH 31.3 (25.0-34.0) pg MCHC 32.5 (32.0-36.0) g/dL RDW Std Deviation 50.9 H (36.4-46.3) fL RDW Coeff of Jeyson 14.7 H (11.5-14.5) % Plt Count 138 (130-400) K/uL MPV 10.9 (9.4-12.4) fL Immature Gran % (Auto) % Neut % (Auto) % Lymph % (Auto) % Hendricks % (Auto) % Eos % (Auto) % Baso % (Auto) % Neut # (Auto) (1.40-6.50) K/uL Lymph # (Auto) (1.20-3.40) K/uL Hendricks # (Auto) (0.11-0.59) K/uL Eos # (Auto) (0.00-0.50) K/uL Baso # (Auto) (0.00-0.20) K/uL Immature Gran # (Auto) (0.01-0.20) K/uL PT (9.0-12.0) Seconds INR (0.9-1.1) APTT (21-31) Seconds PTT Ratio POC Sodium 143 (135-144) mmol/L Sodium (136-145) mmol/L POC Potassium 4.2 (3.3-5.0) mmol/L Potassium (3.5-5.1) mmol/L POC Chloride 108 (101-112) mmol/L Chloride (98-107) mmol/L Carbon Dioxide (21-32) mmol/L POC Total CO2 24 (24-31) mmol/L Anion Gap (3-11) POC Anion Gap 17.0 (16-25) mmol/L POC BUN 30 H (7-18) mg/dl BUN (6-23) mg/dl Creatinine (0.6-1.2) mg/dl POC Creatinine 1.2 (0.6-1.3) mg/dl Est Cr Clr Drug Dosing ml/min eGFR BUN/Creatinine Ratio (10-20) Glucose (70-99(Fasting)) mg/dl POC Glucose (other) 101 H (70-99) mg/dl Calcium (8.6-10.3) mg/dl POC Ioniz Calcium Donavon 1.19 (1.12-1.32) mmol/l Magnesium (1.7-2.4) mg/dl Iron (35-150) mcg/dl TIBC (250-450) mcg/dl Transferrin (200-360) mg/dl Transferrin % Sat (15-50) % Ferritin (8-388) ng/ml Total Bilirubin (0.2-1.0) mg/dl AST (13-39) U/L ALT (7-52) U/L Alkaline Phosphatase (34-104) U/L Troponin I High Sens (0-14) pg/ml Total Protein (6.0-8.3) gm/dl Albumin (3.4-5.0) gm/dl Globulin (2.5-4.0) gm/dl Albumin/Globulin Ratio (0.9-2) Vitamin B12 (180-914) pg/ml Folate (>5.38) ng/ml TSH (0.300-4.500) uIu/ml Blood Type A Negative Blood Type Recheck Antibody Screen NEGATIVE Crossmatch See Detail 06/29/24 Range/Units 14:09 WBC 6.39 (4.8-10.8) K/ul RBC 2.62 L (4.20-5.40) M/uL Hgb 8.3 L (12.0-16.0) g/dl POC Hgb (12.0-16.0) g/dl Hct 25.3 L (37.0-47.0) % POC Hct (37-47) % MCV 96.6 (80.0-100.0) fL MCH 31.7 (25.0-34.0) pg MCHC 32.8 (32.0-36.0) g/dL RDW Std Deviation 50.4 H (36.4-46.3) fL RDW Coeff of Jeyson 14.7 H (11.5-14.5) % Plt Count 168 (130-400) K/uL MPV 11.0 (9.4-12.4) fL Immature Gran % (Auto) 0.6 % Neut % (Auto) 89.2 % Lymph % (Auto) 9.1 % Hendricks % (Auto) 0.9 % Eos % (Auto) 0.0 % Baso % (Auto) 0.2 % Neut # (Auto) 5.70 (1.40-6.50) K/uL Lymph # (Auto) 0.58 L (1.20-3.40) K/uL Hendricks # (Auto) 0.06 L (0.11-0.59) K/uL Eos # (Auto) 0.00 (0.00-0.50) K/uL Baso # (Auto) 0.01 (0.00-0.20) K/uL Immature Gran # (Auto) 0.04 (0.01-0.20) K/uL PT 10.8 (9.0-12.0) Seconds INR 1.0 (0.9-1.1) APTT 23 (21-31) Seconds PTT Ratio 0.9 POC Sodium (135-144) mmol/L Sodium 142 (136-145) mmol/L POC Potassium (3.3-5.0) mmol/L Potassium 4.2 (3.5-5.1) mmol/L POC Chloride (101-112) mmol/L Chloride 110 H (98-107) mmol/L Carbon Dioxide 26 (21-32) mmol/L POC Total CO2 (24-31) mmol/L Anion Gap 6 (3-11) POC Anion Gap (16-25) mmol/L POC BUN (7-18) mg/dl BUN 34 H (6-23) mg/dl Creatinine 1.15 (0.6-1.2) mg/dl POC Creatinine (0.6-1.3) mg/dl Est Cr Clr Drug Dosing 42.4 ml/min eGFR 48.46 BUN/Creatinine Ratio 29.6 H (10-20) Glucose 109 H (70-99(Fasting)) mg/dl POC Glucose (other) (70-99) mg/dl Calcium 8.8 (8.6-10.3) mg/dl POC Ioniz Calcium Donavon (1.12-1.32) mmol/l Magnesium 1.8 (1.7-2.4) mg/dl Iron 55 (35-150) mcg/dl TIBC 252 (250-450) mcg/dl Transferrin 180 L (200-360) mg/dl Transferrin % Sat 22 (15-50) % Ferritin 547.5 H (8-388) ng/ml Total Bilirubin 0.5 (0.2-1.0) mg/dl AST 216 H (13-39) U/L ALT 130 H (7-52) U/L Alkaline Phosphatase 77 (34-104) U/L Troponin I High Sens 10.1 (0-14) pg/ml Total Protein 6.1 (6.0-8.3) gm/dl Albumin 3.3 L (3.4-5.0) gm/dl Globulin 2.8 (2.5-4.0) gm/dl Albumin/Globulin Ratio 1.2 (0.9-2) Vitamin B12 (180-914) pg/ml Folate (>5.38) ng/ml TSH (0.300-4.500) uIu/ml Blood Type Blood Type Recheck Antibody Screen Crossmatch Diagnostic Findings Chest X-Ray 06/29/24 14:47 XR chest 1V portable HISTORY: 79 years-old Female syncope COMPARISON: 04/04/2024 TECHNIQUE: AP view of the chest FINDINGS: Cardiac silhouette is upper limits of normal in size. No pneumothorax, pleural effusion or airspace consolidation. The bones appear grossly intact. IMPRESSION: No acute process. ACT 112: Negative or not required by law. The above report was generated using voice recognition software. It may contain grammatical, syntax or spelling errors. Electronically signed by: Lucho Waters M.D. 06/29/2024 3:[address] 06/29/24 14:47 CT head/brain wo con CLINICAL HISTORY: 79 years-old Female with syncope/[facility]. Acute syncope with head trauma TECHNIQUE: Multiple axial CT images of the head were obtained without contrast. A dose lowering technique was utilized adhering to the principles of ALARA. CT DOSE: 625.8 mGy.cm COMPARISON: April 04, 2024 FINDINGS: No acute intracranial hemorrhage, midline shift, intracranial mass, hydrocephalus, territorial ischemia or abnormal extra-axial collection. Involutional changes with chronic microvascular ischemic disease. Partially empty sella. Unchanged scattered subcentimeter cortically based calcifications of the cerebral hemispheres. The calvarium is intact. Bilateral lens repair. The paranasal sinuses, mastoid air cells, and middle ear cavities are clear. IMPRESSION: No acute intracranial abnormality or calvarial fracture. ACT 112: Negative or not required by law. The above report was generated using voice recognition software. It may contain grammatical, syntax or spelling errors. Electronically signed by: Lucho Waters M.D. 06/29/2024 3:20 PM Gallbladder Ultrasound 06/29/24 15:34 EXAM: US Abdomen Limited Right Upper Quadrant INDICATION: Elevated liver function test. TECHNIQUE: Real-time ultrasound of the right upper quadrant with image documentation. COMPARISON: No relevant prior studies available. FINDINGS: Liver: Normal size and contour. Echogenic. No mass or ductal dilation. Gallbladder: No gallstones, wall thickening or surrounding fluid. Common bile duct: Normal common bile duct for age at 7 mm. No visible ductal stone. Tiny stones may not be sonographically detected. Pancreas: No significant abnormality noted. Right kidney: 9.9 cm long. Normal cortical thickness and echotexture. No mass, stone or hydronephrosis. IMPRESSION: 1. Hepatic steatosis. 2. No ductal dilatation. ACT 112: Negative or not required by law. Electronically signed by Michelle De Dios 06-29-2024 5:39 PM
[2024-06-30 11:56] LABS: Hematocrit (blood only) 27.3 % (37.0-47.0); Hemoglobin 9.1 g/dl (12.0-16.0); Mean Corpuscular Hemoglobin 30.4 pg (25.0-34.0); Mean Corpuscular Hgb Conc 33.3 g/dL (32.0-36.0); Mean Corpuscular Volume 91.3 fL (80.0-100.0); Mean Platelet Volume 10.5 fL (9.4-12.4); Platelet Count 167 K/uL (130-400); RDW Coefficient of Variation 15.9 % (11.5-14.5); RDW Standard Deviation 52.1 fL (36.4-46.3); Red Blood Count 2.99 M/uL (4.20-5.40); White Blood Count 5.23 K/ul (4.8-10.8)
--- NOTE | 2024-06-30 15:07 | Hospitalist Progress Note ---
Date of Service June 30, 2024 Assessment & Plan (1) Syncope: (2) Acute blood loss anemia: (3) GI bleed: (4) Transaminitis: Plan This patient is a 79-year-old female with a history of RLS, ataxia with falls, gastric bypass surgery, HTN, kidney stones, hypothyroidism, RA, CVA, HL, mild- moderate aortic stenosis, 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 She has been having melena several times a day for the last 3 days and feeling very fatigued. She was hypotensive and had a hemoglobin of 8.3 on arrival. #Syncope/hypotension-multiple episodes of syncope recently likely secondary to hypotension from acute blood loss anemia from GI bleed. ECG with some competing junctional pacemaker but not overly concerning and no bradycardia or heart block. Mild aortic stenosis on echocardiogram in 09/2023 Troponin negative. s/p 1.25L IV fluid bolus in ED for soft BPs BP remains normotensive 06/30 #GI bleed/acute blood loss anemia/history of gastric bypass- at risk for anastomotic ulcers given history of gastric bypass and occasional NSAID use. She is also on Plavix chronically. Hemoglobin 8.3 on arrival down 2 g from previous hemoglobin in 04/2024. With chronic normocytic anemia likely secondary to gastric bypass and poor absorption nutritionally. With melena x 3 days. Most likely upper GI bleeding-denies epigastric pain or heartburn. hgb dropped to 6.8 overnight and patient required 1 unit PRBCs stable hgb at 9.1 on 06/30 Protonix drip GI consulted - plan for EGD 07/02, clear liquid diet, continue to hold Plavix. Folate decreased at 3.71 B12 WNL at 494 Iron panel revealing Fe 55, TIBC 252, transferrin sat 22% #Transaminitis/fatty liver- likely secondary to liver injury from hypotension. RUQ US performed in ED shows hepatic steatosis. TB 1.2, AST/ALT 232/162 - continue to trend #History of CVA/HTN/mild aortic stenosis/cardiac syndrome X-history of CVA remotely and is on Plavix and atorvastatin. Hold Plavix for bleeding, hold atorvastatin for transaminitis Hold home verapamil for hypotension Continue routine follow-up with cardiology as an outpatient #Chronic conditions Hypothyroidism: levothyroxine RA: Plaquenil Hx of kidney stones: stent removed 2 weeks ago. Continue home Myrbetriq RLS: continue Sinemet, Gabapentin, and Ropinirole DVT prophylaxis-SCDs only at this time due to GI bleeding Disposition-admit to medical floor with telemetry Admission and Anticipated Discharge Date Admission Date: June 29, 2024 Subjective Patient seen and examined this morning. Patient reports she had a bowel movement this morning and her stool was a very dark brown/black color. Reports no lightening of color in her stool since going to the hospital. She denied any abdominal pain, nausea, or vomiting. Reports she feels hungry and was hoping to have some tea. Physical Exam Constitutional: WD/WN, vitals as above Eyes: PERRL, conjunctivae normal, anicteric sclerae Respiratory: normal respiratory effort, lungs clear to auscultation Cardiovascular: RRR, no murmur, no edema Gastrointestinal (Abdomen): normal bowel sounds, soft, nontender, no hepatosplenomegaly Psychiatric: A+Ox3, euthymic affect Results & Data Results & Data Vital Signs (Past 12 Hours) Vital Signs Temp Pulse Pulse Resp BP BP Pulse Ox 06/30/24 13:05 74 06/30/24 11:39 36.7 C 73 18 119/66 95 06/30/24 07:50 06/30/24 07:46 36.8 C 75 16 112/66 96 06/30/24 04:23 36.8 C 74 18 108/54 L 97 06/30/24 03:31 36.8 C 75 18 113/64 97 O2 Del Method 06/30/24 13:05 06/30/24 11:39 Room Air 06/30/24 07:50 Room Air 06/30/24 07:46 Room Air 06/30/24 04:23 06/30/24 03:31 PG Care Time/CCT Total # of Minutes Spent Total Time Spent with Patient: Total time spent is greater than 50% in coordination of care (as documented) at patient's floor/unit and/or counseling patient: Coding Level of Care Code 85483 SUB INP/OBS CARE 2/35MIN Diagnoses Syncope R55 Acute blood loss anemia D62 GI bleed K92.2 Transaminitis R74.01
--- NOTE | 2024-06-30 16:18 | Emergency Department Note ---
Impression & Plan UGIB (upper gastrointestinal bleed), Acute blood loss anemia (ABLA), Orthostatic syncope, Hypotension ED Provider Note CHIEF COMPLAINT: syncope HISTORY OF PRESENT ILLNESS: This 79-year-old female patient past medical history of peripheral vascular disease, degenerative disc disease, hypertension presents to the emergency department with complaints of a syncopal episode. The patient states this has happened multiple times over the last 1 to 2 months. Patient believes she was only down for a few seconds however she waited on the floor until her came back around to find her. She was able to get up with only minimal assistance. She denies hitting her head or having any significant injury sustained. She denies any difficulty with painful urination, vomiting or diarrhea recently. Patient does not take chronic anticoagulation however is on Plavix. REVIEW OF SYSTEMS: A review of systems was performed with positives and pertinent negatives listed in the history of present illness. 10 systems were reviewed and are otherwise negative. ALLERGIES: see below MEDICATIONS: see below PMH: see below SOCIAL HISTORY: see below DDx: Dehydration, infectious etiology such as UTI or pneumonia, PE, cardiac arrhythmia, ACS, among others. PHYSICAL EXAM: Vital signs reviewed. General: chronically ill-appearing 79-year-old female, in no significant distress. HEENT: No scleral icterus, PERRLA, neck supple. moist mucous membranes. Cardiovascular: Regular rate and rhythm, no extra sounds. Pulmonary: Clear to auscultation bilaterally, normal work of breathing. Abdomen: Soft, nontender, nondistended, positive bowel sounds. Musculoskeletal: Atraumatic, no peripheral edema. Significantly kyphotic. Rectal: Guaiac positive melanotic stool Neurologic: Patient awake alert and oriented x 3, speech is clear Skin: Warm, dry, no rash EMERGENCY DEPARTMENT COURSE/MDM: This patient was evaluated and appeared to be in no significant distress. IV access was obtained and laboratory work was drawn. The patient was placed on the cafeteria monitor noted to be in a sinus rhythm with junctional complexes. Blood pressure is noted to be hypotensive. She did respond somewhat to IV hydration. I did confirm with the patient that she is taking verapamil twice daily. Patient is found to be anemic. She is on Plavix, but no anticoagulant. Stool guaiac is positive for melanotic stool. Patient was typed and screened for blood, although not indicated at this time. Consent was signed and placed on the chart. Patient was started on Protonix bolus and drip. Patient's case was discussed with the hospitalist service to evaluate the patient for admission and further management. Patient and are aware of the plan and agreed. MONITORING: An order for cardiac monitoring was placed and the patient is noted to be in a sinus rhythm at 74 beats per minute. RADIOLOGY: Chest x-ray to my interpretation reveals no evidence of focal lung consolidation or failure. Head CT per radiology is negative for acute process. EKG: To my interpretation reveals a sinus rhythm with junctional complexes at [address] segments. QTc of 474. DISPOSITION: Admit Past Med/Surg History Problem List (Updated 07/01/24 @ 13:18 by Adilia Pickett MD) Hypotension (Acute) Orthostatic syncope (Acute) Acute blood loss anemia (ABLA) (Acute) UGIB (upper gastrointestinal bleed) (Acute) Transaminitis GI bleed Syncope Acute blood loss anemia Arthralgia B12 deficiency Vitamin D deficiency Intermittent claudication Paresthesia of hand, bilateral Degenerative disc disease Ureteral stricture (Chronic) Restless leg syndrome (Chronic) Insomnia (Chronic) Medical History Fatty liver Cerebrovascular disease Per records Hydronephrosis, left Urinary urgency Hx of intermittent claudication Hyperparathyroidism, secondary follows with endocrine- likely secondary to gastric bypass surgery in 2000 Lymphedema resolved w/procedure w/dr. 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 Imaging not suggestive of NPH, does not have clinical signs or symptoms suggestive of Parkinson's disease. " Anemia Hgb usually in 10-11 range Vertigo [facility] ER 04/04/24 - states r/t dehydration (neuroimaging and lab studies reassuring per ED records) Urinary incontinence Non-occlusive coronary artery disease Per cardio records = Cardiac Syndrome X (small vessel dysfunction causing angina pectoris in a patient with mild nonocclusive CAD) Aortic stenosis Per 09/21/23 ECHO- Mild aortic stenosis. HARPREET 1.6-1.7 cm; AV mean PG 11.8 mmHg. AV max velocity 2.355 m/s Follows with [facility] cardio Hypothyroidism Hypertension History of femur fracture S/p IM nailing 09/2022 at [facility] from fall Hx of renal calculi Osteoporosis Restless leg syndrome Follows with neuro Trialing Sinemet for RLS- "no signs of parkinsonism on exam to suggest that symptoms are due to PD." per neuro Transient ischemic attack (TIA) Multiple, noted per remote records Stroke 2004 (reason for Plavix)- only residual issue of "falls to left if in a dark room with eyes closed" Hyperlipidemia Surgical History H/O wrist surgery repair after right wrist/forearm injury, done in 09/21/2023, done with [facility] orthopedics History of open reduction and internal fixation (ORIF) procedure rt femur>hardware intact History of gastric bypass 2000 History of esophagogastroduodenoscopy (EGD) History of lithotripsy 09/08/2018 [facility] [place] LMA 4 History of intestinal surgery S/P extracorporeal shock wave therapy S/P cystoscopy with ureteral stent placement multiple Family history of reaction to anesthesia nausea/vomiting Nausea and vomiting after administration of anesthetic agent "has been fine w/ procedures at [facility]" History of bilateral tubal ligation History of total abdominal hysterectomy and bilateral salpingo-oophorectomy History of laminectomy Lumbar History of colonoscopy History of cholecystectomy History of herniorrhaphy Abdomen, x3 History of tooth extraction Stye Surgically removed History of cardiac cath 2019- no stents Family History Sister Ovarian cancer Breast cancer Daughter Family history of reaction to anesthesia PONV Family history of diabetes mellitus Mother Osteoarthritis Other Family history non-contributory Denies family history of Prostate cancer Myocardial infarction Colorectal cancer Social History Smoking Status: Current every day smoker Tobacco Type: Cigarettes Age Started Using Tobacco: 18; Cigarettes Per Day: 5; Second Hand Exposure: No; Do You Dip or Chew Tobacco: No; Tobacco Cessation Education Requested by Patient: No Hx Alcohol Use: No Hx Substance Use: No Preferred Language: Irish Communication Ability: Effective Visual Impairment: No Limitations Hearing Ability: Normal Wildlife [employer] Internship Required: Voice Beliefs That Will Affect Care: None marital status: Current Living Situation: Spouse Current Living Situation Comment: home with current occupational status: retired current occupation: was a homemaker How many Children do You have: 5 Other Information That Helps Us Care for You: No Feels Safe at Home: Yes Safety Concerns: Feels Safe At This Time Childhood Exposure to Second-Hand Smoke: Yes Diet: regular Diet Comment: regular caffeine: Yes during the past year weight has: increased > 10 lbs Dental Care, Regularly: No Physical Activity Frequency: Does not Exercise Seatbelt Use: always Sunscreen Use: Yes Assistive Devices: Cane and Glasses Allergies Allergies Allergy/AdvReac Type Severity Reaction Status Date / Time shellfish derived Allergy Severe Hives Verified 06/29/24 17:53 pecan nut Allergy Intermediate Hives Verified 06/29/24 17:53 Sulfa (Sulfonamide Allergy Intermediate Itching Verified 06/29/24 17:53 Antibiotics) oxycodone Allergy Mild Itching Verified 06/29/24 17:53 alcohol Allergy Unknown Unknown Verified 06/29/24 17:53 [From Mastisol Liquid Adhesive] gum mastic Allergy Unknown Unknown Verified 06/29/24 17:53 [From Mastisol Liquid Adhesive] methyl salicylate Allergy Unknown Unknown Verified 06/29/24 17:53 [From Mastisol Liquid Adhesive] storax Allergy Unknown Unknown Verified 06/29/24 17:53 [From Mastisol Liquid Adhesive] ibuprofen AdvReac Intermediate Nausea, Verified 06/29/24 17:53 upset stomach pregabalin AdvReac Intermediate Triple Verified 06/29/24 17:53 vision Home Meds Home Medications Medication Instructions Recorded Confirmed magnesium chloride 64 mg 64 mg PO HS 07/26/18 06/29/24 (magnesium chloride) tablet,delayed release (Mag 64) hydroxychloroquine 200 mg tablet 200 mg PO BID 09/04/21 06/29/24 cholecalciferol (vitamin D3) 1,250 50,000 unit PO 2XWK 01/22/24 06/29/24 mcg (50,000 unit) capsule nystatin 100,000 unit/gram topical 1 applic topical BID PRN SKIN 01/22/24 06/29/24 cream IRRITATIONS triamcinolone acetonide 0.1 % 1 applic topical BID PRN SKIN 01/22/24 06/29/24 topical cream IRRITATIONS calcitriol 0.25 mcg capsule 0.25 mcg PO DAILY 06/29/24 06/29/24 Previous Rx's Medication Instructions Recorded nitroglycerin 0.4 mg sublingual 0.4 mg sublingual Q5M PRN Chest 02/14/19 tablet Pain #30 tabs clopidogrel 75 mg tablet (Plavix) 75 mg PO QAM #90 tabs 08/03/23 verapamil 180 mg tablet,extended 180 mg PO BID #180 tabs 11/18/23 release levothyroxine 100 mcg tablet 100 mcg PO QAM #90 tabs 01/24/24 prochlorperazine maleate 5 mg 5 mg PO DAILY PRN nausea and 02/11/24 tablet (Compazine) vomiting/vertigo 1 dose #3 tabs ropinirole 2 mg tablet,extended 2 mg PO HS #90 tabs 03/19/24 release 24 hr atorvastatin 40 mg tablet (Lipitor) 40 mg PO HS #90 tabs 04/11/24 mirabegron 25 mg tablet,extended 25 mg PO DAILY #90 tabs 04/13/24 release 24 hr (Myrbetriq) ondansetron 8 mg disintegrating 8 mg PO Q8H PRN nausea and 05/01/24 tablet vomiting #30 tabs carbidopa ER 25 mg-levodopa 100 mg 1 tab PO QAM 90 days #90 tabs 05/10/24 tablet,extended release gabapentin 300 mg capsule 300 mg PO BID #90 caps 05/10/24 tramadol 50 mg tablet 50 mg PO Q6H PRN pain #20 tabs 05/11/24 hydrocodone 5 mg-acetaminophen 300 1 tab PO BID PRN pain #10 tabs 05/15/24 mg tablet romosozumab-aqqg 210 mg/2.34 210 mg (2.34 mL) subcut ONCE #2.34 05/25/24 mL(105 mg/1.17 mL x2)subcutaneous mL syringe (Evenity) hydrocodone 7.5 mg-acetaminophen 1 tab PO Q8H PRN pain #7 tabs 05/28/24 325 mg tablet phenazopyridine 200 mg tablet 200 mg PO Q8H PRN pain #10 tabs 05/28/24 (Pyridium) tamsulosin 0.4 mg capsule 0.4 mg PO HS #30 caps 05/28/24 Results & Data (ED) Vital Signs Vital Signs - 24 hr 06/29/24 18:42 06/29/24 19:18 Pulse Rate 66 Pulse Rate [Apical] 72 Respiratory Rate 24 Blood Pressure [Right Arm] 110/57 L Blood Pressure Mean [Right Arm] 74 Blood Pressure Position [Right Arm] Semi-fowlers Pulse Oximetry 98 Oxygen Delivery Method Room Air Home Medications Current Medication List: was personally reviewed by me Laboratory Data Attestation: I reviewed the patient's lab results. 07/01/24 07:36 07/01/24 07:36 Lab Results 06/29/24 06/29/24 06/29/24 Range/Units 14:09 14:54 15:36 WBC 6.39 (4.8-10.8) K/ul RBC 2.62 L (4.20-5.40) M/uL Hgb 8.3 L (12.0-16.0) g/dl POC Hgb 8.8 L (12.0-16.0) g/dl Hct 25.3 L (37.0-47.0) % POC Hct 26 L (37-47) % MCV 96.6 (80.0-100.0) fL MCH 31.7 (25.0-34.0) pg MCHC 32.8 (32.0-36.0) g/dL RDW Std Deviation 50.4 H (36.4-46.3) fL RDW Coeff of Jeyson 14.7 H (11.5-14.5) % Plt Count 168 (130-400) K/uL MPV 11.0 (9.4-12.4) fL Immature Gran % (Auto) 0.6 % Neut % (Auto) 89.2 % Lymph % (Auto) 9.1 % Powell % (Auto) 0.9 % Eos % (Auto) 0.0 % Baso % (Auto) 0.2 % Neut # (Auto) 5.70 (1.40-6.50) K/uL Lymph # (Auto) 0.58 L (1.20-3.40) K/uL Powell # (Auto) 0.06 L (0.11-0.59) K/uL Eos # (Auto) 0.00 (0.00-0.50) K/uL Baso # (Auto) 0.01 (0.00-0.20) K/uL Immature Gran # (Auto) 0.04 (0.01-0.20) K/uL PT 10.8 (9.0-12.0) Seconds INR 1.0 (0.9-1.1) APTT 23 (21-31) Seconds PTT Ratio 0.9 POC Sodium 143 (135-144) mmol/L Sodium 142 (136-145) mmol/L POC Potassium 4.2 (3.3-5.0) mmol/L Potassium 4.2 (3.5-5.1) mmol/L POC Chloride 108 (101-112) mmol/L Chloride 110 H (98-107) mmol/L Carbon Dioxide 26 (21-32) mmol/L POC Total CO2 24 (24-31) mmol/L Anion Gap 6 (3-11) POC Anion Gap 17.0 (16-25) mmol/L POC BUN 30 H (7-18) mg/dl BUN 34 H (6-23) mg/dl Creatinine 1.15 (0.6-1.2) mg/dl POC Creatinine 1.2 (0.6-1.3) mg/dl Est Cr Clr Drug Dosing 42.4 ml/min eGFR 48.46 BUN/Creatinine Ratio 29.6 H (10-20) Glucose 109 H (70-99(Fasting)) mg/dl POC Glucose (other) 101 H (70-99) mg/dl Calcium 8.8 (8.6-10.3) mg/dl POC Ioniz Calcium Donavon 1.19 (1.12-1.32) mmol/l Magnesium 1.8 (1.7-2.4) mg/dl Iron 55 (35-150) mcg/dl TIBC 252 (250-450) mcg/dl Transferrin 180 L (200-360) mg/dl Transferrin % Sat 22 (15-50) % Ferritin 547.5 H (8-388) ng/ml Total Bilirubin 0.5 (0.2-1.0) mg/dl AST 216 H (13-39) U/L ALT 130 H (7-52) U/L Alkaline Phosphatase 77 (34-104) U/L Troponin I High Sens 10.1 (0-14) pg/ml Total Protein 6.1 (6.0-8.3) gm/dl Albumin 3.3 L (3.4-5.0) gm/dl Globulin 2.8 (2.5-4.0) gm/dl Albumin/Globulin Ratio 1.2 (0.9-2) Blood Type A Negative Antibody Screen NEGATIVE Crossmatch See Detail Administered Medications Acetaminophen (Acetaminophen 325 Mg Tab) 650 mg PO Q4H PRN PRN Reason: Pain or Fever Stop: 07/29/24 23:46 Last Admin: 07/01/24 12:02 Dose: 650 mg Documented By: SARAH Carbidopa/Levodopa (Carbidopa/Levodopa 25/100mg Ext Rel Tab) 1 tab PO QAM OLIVA Stop: 07/30/24 08:59 Last Admin: 07/01/24 09:18 Dose: 1 tab Documented By: Admin: 06/30/24 07:58 Dose: 1 tab Documented By: ELIZABETH Gabapentin (Gabapentin 300 Mg Cap) 300 mg PO BID [facility] Stop: 07/29/24 23:46 Last Admin: 07/01/24 08:55 Dose: 300 mg Documented By: Admin: 06/30/24 20:01 Dose: 300 mg Documented By: Admin: 06/30/24 07:57 Dose: 300 mg Documented By: Admin: 06/30/24 03:58 Dose: Not Given Documented By: MISAEL Hydroxychloroquine Sulfate (Hydroxychloroquine Sulfate 200 Mg Tab) 200 mg PO BID [facility] Stop: 07/29/24 23:46 Last Admin: 07/01/24 08:55 Dose: 200 mg Documented By: Admin: 06/30/24 20:01 Dose: 200 mg Documented By: Admin: 06/30/24 07:58 Dose: 200 mg Documented By: Admin: 06/30/24 03:58 Dose: Not Given Documented By: MISAEL Pantoprazole Sodium 40 mg/ (Dextrose) 100 mls @ 20 mls/hr IV Q5H OLIVA Stop: 07/29/24 17:44 Last Admin: 07/01/24 08:57 Dose: 8 mg/hr, 20 mls/hr Documented By: Infusion: 07/01/24 08:57 Dose: Infused Documented By: Admin: 07/01/24 04:16 Dose: 8 mg/hr, 20 mls/hr Documented By: Infusion: 07/01/24 04:16 Dose: Infused Documented By: Admin: 06/30/24 23:34 Dose: 8 mg/hr, 20 mls/hr Documented By: Infusion: 06/30/24 23:28 Dose: Infused Documented By: Admin: 06/30/24 18:28 Dose: 8 mg/hr, 20 mls/hr Documented By: Infusion: 06/30/24 18:16 Dose: Infused Documented By: Admin: 06/30/24 13:33 Dose: Not Given Documented By: Admin: 06/30/24 13:16 Dose: 8 mg/hr, 20 mls/hr Documented By: Infusion: 06/30/24 13:16 Dose: Infused Documented By: Admin: 06/30/24 08:58 Dose: 8 mg/hr, 20 mls/hr Documented By: Infusion: 06/30/24 08:54 Dose: Infused Documented By: Admin: 06/30/24 03:54 Dose: 8 mg/hr, 20 mls/hr Documented By: Infusion: 06/29/24 23:55 Dose: Infused Documented By: Admin: 06/29/24 18:23 Dose: 8 mg/hr, 20 mls/hr Documented By: NIKKI Levothyroxine Sodium (Levothyroxine Sodium 100 Mcg Tablet) [facility] Stop: 07/30/24 06:29 Last Admin: 07/01/24 05:34 Dose: 100 mcg Documented By: Admin: 06/30/24 05:36 Dose: 100 mcg Documented By: MISAEL Magnesium Chloride (Magnesium Chloride W/Calcium 64mg Delayed Rel Tab) 64 mg PO [facility] Stop: 07/29/24 23:46 Last Admin: 06/30/24 20:01 Dose: 64 mg Documented By: Admin: 06/30/24 03:59 Dose: Not Given Documented By: MISAEL Miconazole Nitrate (Miconazole Nitrate Powder 85 Gm) 1 appln EXT PRN PRN PRN Reason: Affected Skin Folds Stop: 07/30/24 09:54 Last Admin: 07/01/24 05:34 Dose: 1 appln Documented By: Admin: 06/30/24 17:26 Dose: 1 appln Documented By: ELIZABETH Miscellaneous (Order Awaiting Action: Ropinirole 2 Mg Tablet Extended Release 24 Hr) 1 each N/A [facility] Stop: 07/30/24 00:00 Last Admin: 07/01/24 09:15 Dose: Not Given Documented By: Admin: 06/30/24 23:34 Dose: Not Given Documented By: Admin: 06/30/24 16:58 Dose: Not Given Documented By: AEAndrew Admin: 06/30/24 08:01 Dose: Not Given Documented By: Admin: 06/30/24 04:09 Dose: Not Given Documented By: MISAEL Ropinirole HCl (Ropinirole Hcl 2 Mg Tablet) 2 mg PO HS OLIVA Stop: 07/30/24 20:59 Last Admin: 06/30/24 20:55 Dose: 2 mg Documented By: BRANDEN Vibegron (Vibegron 75 Mg Tab) 75 mg PO DAILY OLIVA Stop: 07/30/24 08:59 Last Admin: 07/01/24 08:57 Dose: 75 mg Documented By: Admin: 06/30/24 07:57 Dose: 75 mg Documented By: ELIZABETH Discontinued Medications Sodium Chloride (Nss) 1,000 mls @ 999 mls/hr IV .Q1H1M ONE Stop: 06/29/24 15:47 Last Infusion: 06/29/24 16:26 Dose: Infused Documented By: Admin: 06/29/24 14:57 Dose: 999 mls/hr Documented By: ES Pantoprazole Sodium 80 mg/ (Dextrose) 120 mls @ 480 mls/hr IV NOW ONE Stop: 06/29/24 17:32 Last Infusion: 06/29/24 18:23 Dose: Infused Documented By: Admin: 06/29/24 18:03 Dose: 480 mls/hr Documented By: AM Sodium Chloride (Nss) 250 mls @ 999 mls/hr IV .Q16M ONE Stop: 06/29/24 19:23 Last Infusion: 06/29/24 19:50 Dose: Infused Documented By: Admin: 06/29/24 19:31 Dose: 999 mls/hr Documented By: CEF Non-Formulary Medication (Ropinirole) 2 mg PO HS OLIVA Stop: 07/29/24 23:46 Last Admin: 06/30/24 07:40 Dose: Not Given Documented By: AEAndrew Pantoprazole Sodium (Pantoprazole Bolus/Drip) 1 each IV NOW STA Stop: 06/29/24 17:19 Last Admin: 06/29/24 18:23 Dose: Not Given Documented By: AM Ropinirole HCl (Ropinirole Hcl 2 Mg Tablet) 2 mg PO ONE STA Stop: 06/29/24 19:39 Last Admin: 06/29/24 19:49 Dose: 2 mg Documented By: CEF Discharge Plan Visit Data Chief Complaint: Syncope (Near Syncope) Stated Complaint: FAINTED/TWICE, HEAD PRESSURE, VISION BLACK OUTS ED Provider: Adilia Pickett Discharge Problem: UGIB (upper gastrointestinal bleed), Acute blood loss anemia (ABLA), Orthostatic syncope, Hypotension Patient Disposition: Admitted As Inpatient Discharge Instructions Interventions: ED Discharge Assessment Last Done: 06/29/24 23:00 Discharge Problem: Hypotension Qualifiers: Hypotension type: orthostatic hypotension Qualified Code(s): I95.1 - Orthostatic hypotension
[2024-06-30] MEDS: MICONAZOLE NITRATE POWDER 85 GM EXT PRN (17:26)
[2024-06-30] MEDS: rOPINIRole HCL 2 MG TABLET PO SCH (20:55)
[2024-07-01 08:10] LABS: Hematocrit (blood only) 29.5 % (37.0-47.0); Mean Corpuscular Hgb Conc 33.9 g/dL (32.0-36.0); Mean Corpuscular Volume 91.3 fL (80.0-100.0); Mean Platelet Volume 10.4 fL (9.4-12.4); Platelet Count 210 K/uL (130-400); RDW Coefficient of Variation 15.4 % (11.5-14.5); RDW Standard Deviation 50.5 fL (36.4-46.3); Red Blood Count 3.23 M/uL (4.20-5.40); White Blood Count 5.59 K/ul (4.8-10.8)
[2024-07-01 08:28] LABS: Albumin Globulin Ratio 1.2 (0.9-2); BUN Creatinine Ratio 17.6 (10-20); Bilirubin,Total 0.9 mg/dl (0.2-1.0); Calcium 8.5 mg/dl (8.6-10.3); Creatinine Clr Calc Pharmacy 46.5 ml/min; Globulin 2.6 gm/dl (2.5-4.0); Potassium 4.1 mmol/L (3.5-5.1); Total Protein 5.6 gm/dl (6.0-8.3)
--- NOTE | 2024-07-01 10:05 | Gastroenterology Progress Note ---
Date of Service July 01, 2024 Assessment & Plan (1) GI bleed: Plan: Bleeding seems stable with rising hemoglobin. Plan EGD tomorrow. Procedure and risks discussed. She agrees. Admission and Anticipated Discharge Date Admission Date: June 29, 2024 Subjective Feeling well. Did have one bm yesterday and it was black. Hgb is climbing and is 10 today. No BM today as of yet. No pain. Physical Exam Physical Exam: She looks well Constitutional: WD/WN, vitals as above Results & Data Vital Signs (Past 12 Hours) Vital Signs Temp Pulse Pulse Resp BP Pulse Ox O2 Del Method 07/01/24 07:58 36.8 C 69 16 147/75 H 95 Room Air 07/01/24 07:14 70 07/01/24 03:10 36.6 C 88 18 155/74 H 95 Room Air 06/30/24 22:46 37.2 C 76 18 142/69 H 95 Room Air 06/30/24 22:08 70
[2024-07-01] MEDS: ACETAMINOPHEN 325 MG TAB PO PRN (12:02)
--- NOTE | 2024-07-01 15:18 | Hospitalist Progress Note ---
Date of Service July 01, 2024 Assessment & Plan (1) Syncope: (2) Acute blood loss anemia: (3) GI bleed: (4) Transaminitis: Plan This patient is a 79-year-old female with a history of RLS, ataxia with falls, gastric bypass surgery, HTN, kidney stones, hypothyroidism, RA, CVA, HL, mild- moderate aortic stenosis, 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 She has been having melena several times a day for the last 3 days and feeling very fatigued. She was hypotensive and had a hemoglobin of 8.3 on arrival. #Syncope/hypotension-multiple episodes of syncope recently likely secondary to hypotension from acute blood loss anemia from GI bleed. ECG with some competing junctional pacemaker but not overly concerning and no bradycardia or heart block. Mild aortic stenosis on echocardiogram in 09/2023 Troponin negative. BP's originally low but have returned to normal after 1.25 IV fluid bolus + 1 unit PRBC's #GI bleed/acute blood loss anemia/history of gastric bypass- at risk for anastomotic ulcers given history of gastric bypass and occasional NSAID use. She is also on Plavix chronically. Hemoglobin 8.3 on arrival down 2 g from previous hemoglobin in 04/2024. With melena x 3 days. Most likely upper GI bleeding-denies epigastric pain or heartburn. hgb stable 07/01 at 10.0 continue protonix GI consulted - clear liquid diet, EGD 07/02, hold Plavix. Folate decreased at 3.71 B12 WNL at 494 Iron panel revealing Fe 55, TIBC 252, transferrin sat 22% #Transaminitis/fatty liver- likely secondary to liver injury from hypotension. RUQ US performed in ED shows hepatic steatosis. TB 0.9, AST/ALT 194/144 - continue to trend #History of CVA/HTN/mild aortic stenosis/cardiac syndrome X-history of CVA remotely and is on Plavix and atorvastatin. Hold Plavix for bleeding, hold atorvastatin for transaminitis Hold home verapamil for hypotension Continue routine follow-up with cardiology as an outpatient #Chronic conditions Hypothyroidism: levothyroxine RA: Plaquenil Hx of kidney stones: stent removed 2 weeks ago. Continue home Myrbetriq RLS: continue Sinemet, Gabapentin, and Ropinirole DVT prophylaxis-SCDs only at this time due to GI bleeding Disposition-admit to medical floor with telemetry Admission and Anticipated Discharge Date Admission Date: June 29, 2024 Subjective Patient seen and examined this morning. Patient reports to be feeling better today. She has not had a BM since yesterday morning. Denies any issues with her liquid diet. Denies nausea, vomiting, CP, or SOB. Physical Exam Constitutional: WD/WN, vitals as above Eyes: PERRL, conjunctivae normal, anicteric sclerae Respiratory: breathing unlabored Cardiovascular: well perfused Psychiatric: A+Ox3, euthymic affect Results & Data Results & Data Vital Signs (Past 12 Hours) Vital Signs Temp Pulse Pulse Resp BP Pulse Ox O2 Del Method 07/01/24 13:57 74 07/01/24 07:58 36.8 C 69 16 147/75 H 95 Room Air 07/01/24 07:14 70 PG Care Time/CCT Total # of Minutes Spent Total Time Spent with Patient: Total time spent is greater than 50% in coordination of care (as documented) at patient's floor/unit and/or counseling patient: Coding Level of Care Code 66641 SUB INP/OBS CARE 2/35MIN Diagnoses Syncope R55 Acute blood loss anemia D62 GI bleed K92.2 Transaminitis R74.01
[2024-07-02 07:15] LABS: Basophils # (auto) 0.01 K/uL (0.00-0.20); Basophils % (auto) 0.3 %; Hematocrit (blood only) 27.8 % (37.0-47.0); Hemoglobin 9.1 g/dl (12.0-16.0); Immature Granulocytes # (auto) 0.02 K/uL (0.01-0.20); Immature Granulocytes % (auto) 0.6 %; Lymphocytes # (auto) 0.58 K/uL (1.20-3.40); Lymphocytes % (auto) 16.8 %; Mean Corpuscular Hemoglobin 30.7 pg (25.0-34.0); Mean Corpuscular Hgb Conc 32.7 g/dL (32.0-36.0); Mean Corpuscular Volume 93.9 fL (80.0-100.0); Mean Platelet Volume 10.2 fL (9.4-12.4); Monocytes % (auto) 8.7 %; Neutrophils # (auto) 2.54 K/uL (1.40-6.50); Neutrophils % (auto) 73.6 %; Platelet Count 176 K/uL (130-400); RDW Coefficient of Variation 15.1 % (11.5-14.5); RDW Standard Deviation 50.8 fL (36.4-46.3); Red Blood Count 2.96 M/uL (4.20-5.40); White Blood Count 3.45 K/ul (4.8-10.8)
[2024-07-02 07:21] LABS: BUN Creatinine Ratio 14.2 (10-20); Calcium 7.8 mg/dl (8.6-10.3); Creatinine Clr Calc Pharmacy 45.2 ml/min; Potassium 3.8 mmol/L (3.5-5.1)
--- NOTE | 2024-07-02 09:11 | History & Physical Bridge Note ---
<Statement entered by Eliceo Beck MD - 07/02/24 15:47> Reviewed notes. Patient has symptoms of melena she did have some syncopal and falls at home. Patient has a history of gastric bypass and is using NSAIDs and Plavix. Suspect ulceration at the anastomosis. Schedule EGD for evaluation. Patient has had some fevers this should not preclude performance of an EGD. Reviewed with patient the importance of avoiding aspirin or NSAIDs. If she is unable to do so she should take a long-term PPI for gastric ulcer prophylaxis. Date of Service July 02, 2024 History & Physical Bridge Note I have examined the patient, reviewed the History & Physical and in the interval since the performance of the History & Physical I have noted the following changes of clinical significance: 3,450. H/H currently 9.1/27.8. Patient was noted to be febrile overnight. She is asymptomatic at present. She denies any further melena since 07/01/24. She denies heartburn or epigastric pain. She does recall taking Aleve at home. She continues on a PPI drip at this time. She will remain NPO. We will touch base with her hospitalist team regarding her fever and plan to proceed with EGD when deemed appropriate based on their concern for infectious work-up. Addendum: Discussed with hospitalist provider--patient found to have a UTI when her fever returned and was started on antibiotics. She did also update me that patient had a dark bowel movement after my encounter with her this morning.
[2024-07-02] MEDS: FOLIC ACID 1 MG TAB PO SCH (09:36)
[2024-07-02] MEDS: SODIUM CHLORIDE 0.9% 1,000 ML IV SCH (11:49)
--- NOTE | 2024-07-02 13:10 | CT Scan Report ---
CT OF THE ABDOMEN AND PELVIS WITHOUT CONTRAST CLINICAL HISTORY: fever unknown origin, GI bleeding COMPARISON STUDY: CT of the abdomen and pelvis April 25, 2024. Right upper quadrant ultrasound Dec ember 2023. TECHNIQUE: Axial images of the abdomen and pelvis were obtained without IV contrast. Images were revi ewed in the axial, sagittal, and coronal planes. Automated exposure control was utilized for the shanika dy. A dose lowering technique was utilized adhering to the principles of ALARA. FINDINGS: Trace bilateral pleural effusions. No pneumatosis, free air or portal venous gas is present . Several left renal calculi measure up to 1 cm. Right renal calculi measure up to 5 mm. There are no ureteral calculi. There is mild left hydronephrosis. In addition urothelial thickening of the left c ollecting system and left ureter with adjacent stranding. There is no biliary ductal dilatation statu s post cholecystectomy. Unenhanced images of the liver, spleen, adrenal glands and pancreas are unrem arkable. There is no evidence for a bowel obstruction status post Ry-en-Y gastric bypass. No fluid collections are present within the abdomen or pelvis. There is mild wall thickening of the sigmoid co gume with mild adjacent stranding. This stranding could be related to the left ureter or the colon. Th ere are no associated fluid collections. Healed intertrochanteric fracture of the right femur status post internal fixation is incidentally noted. IMPRESSION: 1. Bilateral nephrolithiasis. Mild left hydronephrosis of uncertain etiology. Urothelial thickening o f the left collecting system and left ureter which could be correlated with urinalysis. The findings favor an infectious process or recently passed calculus. An underlying urothelial lesion is considere d less likely however a follow-up hematuria protocol CT in one month to ensure resolution is recommen ded. 2. Mild sigmoid colon wall thickening with minimal adjacent stranding. This may represent a mild non specific colitis. 3. Status post Ry-en-Y gastric bypass. No evidence for a bowel obstruction. ACT 112: Negative or not required by law. Electronically signed by: Ashu Bustos M.D. 07/02/2024 1:09 PM
[2024-07-02 13:25] LABS: Adenovirus PCR Not Detected (NotDetected); Bordetella parapertussis PCR Not Detected (NotDetected); Bordetella pertussis PCR Not Detected (NotDetected); Chlamydia pneumoniae PCR Not Detected (NotDetected); Coronavirus 229E PCR Not Detected (NotDetected); Coronavirus CoV-2 (COVID19)PCR Not Detected (NotDetected); Coronavirus HKU1 PCR Not Detected (NotDetected); Coronavirus NL63 PCR Not Detected (NotDetected); Coronavirus OC43PCR Not Detected (NotDetected); Human Metapneumovirus PCR Not Detected (NotDetected); Influenza A PCR Not Detected (NotDetected); Influenza B PCR Not Detected (NotDetected); Mycoplasma pneumoniae PCR Not Detected (NotDetected); Parainfluenza Virus 1 PCR Not Detected (NotDetected); Parainfluenza Virus 2 PCR Not Detected (NotDetected); Parainfluenza Virus 3 PCR Not Detected (NotDetected); Parainfluenza Virus 4 PCR Not Detected (NotDetected); Respiratory Syncytial VirusPCR Not Detected (NotDetected); Rhinovirus/Enterovirus PCR Not Detected (NotDetected)
[2024-07-02 14:49] LABS: Appearance Urine Turbid (Clear); Bacteria Urine Automated 4+ (None Seen); Bilirubin Urine Negative (Negative); Blood Urine Trace (Negative); Color Urine Yellow; Glucose Urine UA Negative (Negative); Ketones Urine Negative (Negative); Leukocyte Esterase Urine 3+ (Negative); Nitrite Urine Positive (Negative); Protein Urine 1+ (Negative); Specific Gravity Urine 1.013 (1.000-1.030); Urobilinogen Urine Negative (Negative); WBC Urine Automated >50 /hpf (0-5); pH Urine 6.5 (4.5-7.5)
[2024-07-02 15:43] LABS: Basophils # (auto) 0.02 K/uL (0.00-0.20); Basophils % (auto) 0.4 %; Hematocrit (blood only) 29.5 % (37.0-47.0); Hemoglobin 9.7 g/dl (12.0-16.0); Immature Granulocytes # (auto) 0.03 K/uL (0.01-0.20); Immature Granulocytes % (auto) 0.5 %; Lymphocytes # (auto) 0.27 K/uL (1.20-3.40); Lymphocytes % (auto) 4.8 %; Mean Corpuscular Hemoglobin 30.5 pg (25.0-34.0); Mean Corpuscular Hgb Conc 32.9 g/dL (32.0-36.0); Mean Corpuscular Volume 92.8 fL (80.0-100.0); Mean Platelet Volume 10.1 fL (9.4-12.4); Monocytes # (auto) 0.56 K/uL (0.11-0.59); Monocytes % (auto) 9.9 %; Neutrophils # (auto) 4.77 K/uL (1.40-6.50); Neutrophils % (auto) 84.4 %; Platelet Count 178 K/uL (130-400); RDW Standard Deviation 49.7 fL (36.4-46.3); Red Blood Count 3.18 M/uL (4.20-5.40); White Blood Count 5.65 K/ul (4.8-10.8)
--- NOTE | 2024-07-02 15:49 | Anesthesiology Consultation ---
Date of Service July 02, 2024 Assessment & Plan Chart Review Chart Review: Acceptable Risk for Surgery Consults Requested none ASA ASA3 Proposed Anesthesia Anesthesia Type: MAC History Surgery Operation Date: 07/02/24 17:10 Proposed Procedures p Esophagogastroduodenoscopy Dr. Kiran Beck MD Height/Weight Height: 5 ft 5 in Weight: 80.8 kg Allergies Allergy/AdvReac Type Severity Reaction Status Date / Time shellfish derived Allergy Severe Hives Verified 06/29/24 17:53 pecan nut Allergy Intermediate Hives Verified 06/29/24 17:53 Sulfa (Sulfonamide Allergy Intermediate Itching Verified 06/29/24 17:53 Antibiotics) oxycodone Allergy Mild Itching Verified 06/29/24 17:53 alcohol Allergy Unknown Unknown Verified 06/29/24 17:53 [From Mastisol Liquid Adhesive] gum mastic Allergy Unknown Unknown Verified 06/29/24 17:53 [From Mastisol Liquid Adhesive] methyl salicylate Allergy Unknown Unknown Verified 06/29/24 17:53 [From Mastisol Liquid Adhesive] storax Allergy Unknown Unknown Verified 06/29/24 17:53 [From Mastisol Liquid Adhesive] ibuprofen AdvReac Intermediate Nausea, Verified 06/29/24 17:53 upset stomach pregabalin AdvReac Intermediate Triple Verified 06/29/24 17:53 vision Medications Home Medications Medication Instructions Recorded Confirmed Last Taken magnesium chloride 64 mg 64 mg PO HS 07/26/18 06/29/24 05/27/24 22:00 (magnesium chloride) tablet,delayed release (Mag 64) nitroglycerin 0.4 mg sublingual 0.4 mg sublingual Q5M PRN Chest 02/14/19 06/29/24 05/19/22 tablet Pain #30 tabs hydroxychloroquine 200 mg tablet 200 mg PO BID 09/04/21 06/29/24 05/27/24 22:00 clopidogrel 75 mg tablet (Plavix) 75 mg PO QAM #90 tabs 08/03/23 06/29/24 05/22/24 08:30 verapamil 180 mg tablet,extended 180 mg PO BID #180 tabs 11/18/23 06/29/24 05/27/24 22:00 release cholecalciferol (vitamin D3) 1,250 50,000 unit PO 2XWK 01/22/24 06/29/24 05/25/24 08:30 mcg (50,000 unit) capsule nystatin 100,000 unit/gram topical 1 applic topical BID PRN SKIN 01/22/24 06/29/24 Unknown cream IRRITATIONS triamcinolone acetonide 0.1 % 1 applic topical BID PRN SKIN 01/22/24 06/29/24 Unknown topical cream IRRITATIONS levothyroxine 100 mcg tablet 100 mcg PO QAM #90 tabs 01/24/24 06/29/24 05/27/24 08:00 prochlorperazine maleate 5 mg 5 mg PO DAILY PRN nausea and 02/11/24 06/29/24 Unknown tablet (Compazine) vomiting/vertigo 1 dose #3 tabs ropinirole 2 mg tablet,extended 2 mg PO HS #90 tabs 03/19/24 06/29/24 05/27/24 22:00 release 24 hr atorvastatin 40 mg tablet (Lipitor) 40 mg PO HS #90 tabs 04/11/24 06/29/24 05/27/24 22:00 mirabegron 25 mg tablet,extended 25 mg PO DAILY #90 tabs 04/13/24 06/29/24 05/27/24 08:30 release 24 hr (Myrbetriq) ondansetron 8 mg disintegrating 8 mg PO Q8H PRN nausea and 05/01/24 06/29/24 Unknown tablet vomiting #30 tabs carbidopa ER 25 mg-levodopa 100 mg 1 tab PO QAM 90 days #90 tabs 05/10/24 06/29/24 05/28/24 08:30 tablet,extended release gabapentin 300 mg capsule 300 mg PO BID #90 caps 05/10/24 06/29/24 05/28/24 08:30 tramadol 50 mg tablet 50 mg PO Q6H PRN pain #20 tabs 05/11/24 06/29/24 Unknown hydrocodone 5 mg-acetaminophen 300 1 tab PO BID PRN pain #10 tabs 05/15/24 06/29/24 Unknown mg tablet romosozumab-aqqg 210 mg/2.34 210 mg (2.34 mL) subcut ONCE #2.34 05/25/24 06/29/24 Unknown mL(105 mg/1.17 mL x2)subcutaneous mL syringe (Evenity) hydrocodone 7.5 mg-acetaminophen 1 tab PO Q8H PRN pain #7 tabs 05/28/24 06/29/24 Unknown 325 mg tablet phenazopyridine 200 mg tablet 200 mg PO Q8H PRN pain #10 tabs 05/28/24 06/29/24 Unknown (Pyridium) tamsulosin 0.4 mg capsule 0.4 mg PO HS #30 caps 05/28/24 06/29/24 05/27/24 22:00 calcitriol 0.25 mcg capsule 0.25 mcg PO DAILY 06/29/24 06/29/24 Unknown Active Medications Generic Name Dose Route Start Last Admin Trade Name Freq PRN Reason Stop Dose Admin Acetaminophen 650 mg 06/29/24 23:47 07/02/24 11:16 Acetaminophen 325 Mg Tab PO 07/29/24 23:46 650 mg Q4H PRN Administration Pain or Fever Carbidopa/Levodopa 1 tab 06/30/24 09:00 07/02/24 07:52 Carbidopa/Levodopa 25/100mg Ext Rel Tab PO 07/30/24 08:59 1 tab QAM OLIVA Administration Folic Acid 1 mg 07/02/24 09:00 07/02/24 09:36 Folic Acid 1 Mg Tab PO 08/01/24 08:59 1 mg QAM OLIVA Administration Gabapentin 300 mg 06/29/24 23:47 07/02/24 07:52 Gabapentin 300 Mg Cap PO 07/29/24 23:46 300 mg BID OLIVA Administration Hydroxychloroquine Sulfate 200 mg 06/29/24 23:47 07/02/24 07:52 Hydroxychloroquine Sulfate 200 Mg Tab PO 07/29/24 23:46 200 mg BID OLIVA Administration Pantoprazole Sodium 40 mg/ 100 mls @ 20 mls/hr 06/29/24 17:45 07/02/24 11:16 Dextrose IV 07/29/24 17:44 8 mg/hr Q5H OLIVA 20 mls/hr Administration 8 MG/HR Sodium Chloride 1,000 mls @ 80 mls/hr 07/02/24 11:45 07/02/24 11:49 Nss IV 07/03/24 11:44 80 mls/hr .[id number] OLIVA Administration Levothyroxine Sodium 100 mcg 06/30/24 06:30 07/02/24 05:40 Levothyroxine Sodium 100 Mcg Tablet PO 07/30/24 06:29 100 mcg DAILYBB OLIVA Administration Magnesium Chloride 64 mg 06/29/24 23:47 07/01/24 20:33 Magnesium Chloride W/Calcium 64mg Delayed Rel Tab PO 07/29/24 23:46 64 mg HS OLIVA Administration Miconazole Nitrate 1 appln 06/30/24 09:55 07/01/24 20:33 Miconazole Nitrate Powder 85 Gm EXT 07/30/24 09:54 1 appln PRN PRN Administration Affected Skin Folds Miscellaneous 1 each 06/30/24 00:00 07/02/24 07:53 Order Awaiting Action: Ropinirole 2 Mg Tablet Extended Release 24 Hr N/A 07/30/24 00:00 Not Given QS OLIVA Ropinirole HCl 2 mg 06/30/24 21:00 07/01/24 20:33 Ropinirole Hcl 2 Mg Tablet PO 07/30/24 20:59 2 mg HS OLIVA Administration Vibegron 75 mg 06/30/24 09:00 07/02/24 07:52 Vibegron 75 Mg Tab PO 07/30/24 08:59 75 mg DAILY OLIVA Administration NPO Date Last Intake of Fluids: 07/02/24 Time Last Intake of Fluids: 12:30 Date Last Intake of Solids: 07/01/24 Time Last Intake of Solids: 19:00 Past Medical History Medical History Fatty liver Cerebrovascular disease Per records Hydronephrosis, left Urinary urgency Hx of intermittent claudication Hyperparathyroidism, secondary follows with endocrine- likely secondary to gastric bypass surgery in 2000 Lymphedema resolved w/procedure w/dr. 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 Imaging not suggestive of NPH, does not have clinical signs or symptoms suggestive of Parkinson's disease. " Anemia Hgb usually in 10-11 range Vertigo [facility] 04/04/24 - states r/t dehydration (neuroimaging and lab studies reassuring per ED records) Urinary incontinence Non-occlusive coronary artery disease Per cardio records = Cardiac Syndrome X (small vessel dysfunction causing angina pectoris in a patient with mild nonocclusive CAD) Aortic stenosis Per 09/21/23 ECHO- Mild aortic stenosis. HARPREET 1.6-1.7 cm; AV mean PG 11.8 mmHg. AV max velocity 2.355 m/s Follows with [facility] cardio Hypothyroidism Hypertension History of femur fracture S/p IM nailing 09/[address] [facility] from fall Hx of renal calculi Osteoporosis Restless leg syndrome Follows with neuro Trialing Sinemet for RLS- "no signs of parkinsonism on exam to suggest that symptoms are due to PD." per neuro Transient ischemic attack (TIA) Multiple, noted per remote records Stroke 2004 (reason for Plavix)- only residual issue of "falls to left if in a dark room with eyes closed" Hyperlipidemia Exercise / Class Metabolic Activity III < 4 Walking/Shop/Light housework Past Family History Family History Sister Ovarian cancer Breast cancer Daughter Family history of reaction to anesthesia PONV Family history of diabetes mellitus Mother Osteoarthritis Other Family history non-contributory Denies family history of Prostate cancer Myocardial infarction Colorectal cancer Past Surgical History Surgical History H/O wrist surgery repair after right wrist/forearm injury, done in 09/21/2023, done with [facility] orthopedics History of open reduction and internal fixation (ORIF) procedure rt femur>hardware intact History of gastric bypass 2000 History of esophagogastroduodenoscopy (EGD) History of lithotripsy 09/08/2018 [facility] 4 History of intestinal surgery S/P extracorporeal shock wave therapy S/P cystoscopy with ureteral stent placement multiple Family history of reaction to anesthesia nausea/vomiting Nausea and vomiting after administration of anesthetic agent "has been fine w/ procedures at [facility]" History of bilateral tubal ligation History of total abdominal hysterectomy and bilateral salpingo-oophorectomy History of laminectomy Lumbar History of colonoscopy History of cholecystectomy History of herniorrhaphy Abdomen, x3 History of tooth extraction Stye Surgically removed History of cardiac cath 2019- no stents Past Anesthesia History No Hx of Anesthesia Complications History of PONV No Hx of PONV Social History Smoking Status: Current every day smoker tobacco type: cigarettes Smoking cigarettes per day: 5 Do You Dip or Chew Tobacco: No Hx Alcohol Use: No Alcohol type: wine alcohol intake frequency: a few times a month Hx Substance Use: No substance use type: does not use Review of Systems ROS Unobtainable: All systems reviewed & are unremarkable except as noted in HPI & below Physical Exam Vital Signs Last Vital Signs Temp 37.2 C 07/02/24 15:31 Pulse 77 07/02/24 15:31 Resp 16 07/02/24 15:31 BP 105/56 L 07/02/24 15:31 Pulse Ox 95 07/02/24 15:31 O2 Del Method Room Air 07/02/24 15:31 Constitutional no acute distress ENMT Mouth: + edentulous Thyromental Distance: > or= 3.5 Finger Breadths Mallampati Class: II Neck normal visual inspection Respiratory normal respiratory effort Auscultation: lungs clear to auscultation bilaterally Cardiovascular Rate/Rhythm: regular rate and regular rhythm Testing Laboratory Results 07/02/24 15:16 07/02/24 06:32 PT 10.8 Seconds (9.0-12.0) 06/29/24 14:09 INR 1.0 (0.9-1.1) 06/29/24 14:09 APTT 23 Seconds (21-31) 06/29/24 14:09 Urine Color Yellow 07/02/24 Unknown Urine Appearance Turbid (Clear) A 07/02/24 Unknown Urine pH 6.5 (4.5-7.5) 07/02/24 Unknown Ur Specific [place] 1.013 (1.000-1.030) 07/02/24 Unknown Urine Protein 1+ (Negative) H 07/02/24 Unknown Urine Glucose (UA) Negative (Negative) 07/02/24 Unknown Urine Ketones Negative (Negative) 07/02/24 Unknown Urine Nitrite Positive (Negative) A 07/02/24 Unknown Ur Leukocyte Esterase 3+ (Negative) H 07/02/24 Unknown Urine WBC (Auto) >50 /hpf (0-5) H 07/02/24 Unknown Urine RBC (Auto) 3-5 /hpf (0-2) H 07/02/24 Unknown U Hyaline Cast (Auto) 3-5 /lpf (0-2) H 07/02/24 Unknown U Epithel Cells (Auto) 6-10 /hpf (0-2) H 07/02/24 Unknown Urine Bacteria (Auto) 4+ (None Seen) H 12/30/24 Unknown Blood Type A Negative 06/29/24 15:36 Antibody Screen NEGATIVE 06/29/24 15:36 Echocardiogram EF: 55-60% LV Function: normal
--- NOTE | 2024-07-02 16:05 | Post Operative Brief Note ---
Immediate Post Op Note Date of Surgery July 02, 2024 Pre & Post Diagnosis Operation Date: 07/02/24 17:10 Pre-Op Diagnosis: GI BLEED,SYNCOPE I identified the patient and participated in the time-out.: Yes Procedure Operation Date: 07/02/24 17:10 <No data on this case meets the specified criteria> Surgeon Eliceo Beck MD Resident Medical Officer None Estimated Blood Loss 1 Findings Consistent with Post-Op Diagnosis Gastric ulceration at the anastomosis. No visible vessels or active bleeding. 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 Biopsies performed. Finish current IV Protonix patient can then be switched to oral medication. Avoid NSAIDs going forward. If the patient must use NSAIDs she should stay on long-term PPI prophylaxis to attempt to prevent anastomotic ulcerations
--- NOTE | 2024-07-02 16:17 | GI REPORT ---
[facility] Patient: NUSRAT PULIDO : 1945 Sex at : Female Age: 79 Years Procedure: Upper GI endoscopy Date: 07/02/2024 Attending Physician: Eliceo Beck MD Referring MD: Shin Reilly Indications: - Recent gastrointestinal bleeding - Suspected upper gastrointestinal bleeding Medications: - Monitored Anesthesia Care Complications: - No immediate complications. Estimated Blood Loss: - Estimated blood loss: None. Procedure: - The egd scope was introduced through the mouth and advanced to the second part of the duodenum. - The upper GI endoscopy was accomplished without difficulty. - The patient tolerated the procedure well. Findings: - There were esophageal mucosal changes present in the distal esophagus consistent with short-segment Jimenez's esophagus. The maximum longitudinal extent of these mucosal changes was 2 cm in length. Mucosa was biopsied with a cold forceps for histology. One specimen bottle was sent to pathology. Estimated blood loss was minimal. - Evidence of a gastric bypass was found in the gastric body. This was characterized by ulceration. - The examined jejunum was normal. 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 Biopsied. - A gastric bypass was found, characterized by ulceration. - Normal examined jejunum. Recommendation: - Await pathology results. - Patient should avoid NSAIDs if at all possible. If she cannot or will not avoid NSAIDs she should be on long-term PPI prophylaxis. Procedure Code(s): - 25581, Esophagogastroduodenoscopy, flexible, transoral; with biopsy, single or multiple Diagnosis Code(s): - K92.2, Gastrointestinal hemorrhage, unspecified - Z98.84, Bariatric surgery status - K22.89, Other specified disease of esophagus CPT(R) - 2023 copyright [employer]. All Rights Reserved. The CPT codes, CCI edits and ICD codes generated are intended as suggestions and were generated based on input data. These codes are preliminary and upon certified procedural coder review may be revised to meet current compliance and payer requirements. The provider is responsible for the final determination of appropriate codes, and modifiers. Eliceo Beck MD This document has been electronically signed. Note Initiated:07/02/2024 Note Completed:07/02/2024 4:16 PM \\[email or web address]\[id number]
--- NOTE | 2024-07-02 16:28 | Anesthesiology Progress Note ---
Date of Service July 02, 2024 Anesthesia Post Procedure Vital Signs Vital Signs: Temp Pulse Pulse Resp BP Pulse Ox O2 Del Method 07/02/24 16:18 72 16 99/50 L 94 Room Air 07/02/24 16:03 72 12 104/50 L 100 Room Air 07/02/24 15:31 37.2 C 77 16 105/56 L 95 Room Air 07/02/24 14:37 79 07/02/24 11:35 39.4 C H 91 H 20 147/71 H 97 Room Air 07/02/24 08:13 37.0 C 82 16 129/68 96 Room Air 07/02/24 07:28 69 07/02/24 04:24 37.1 C 07/02/24 03:15 38.4 C H 84 18 134/61 94 Room Air 07/02/24 01:28 37.4 C 07/02/24 00:35 39.0 C H 81 20 121/69 95 Room Air 07/01/24 21:59 70 07/01/24 19:57 36.3 C L 73 18 119/73 98 Room Air Transfer of Care Handoff Completed per policy Notes Mental Status: alert / awake / arousable Patient Amnestic to Procedure: Yes Nausea / Vomiting: adequately controlled Pain: adequately controlled Airway Patency, RR, SpO2: stable & adequate BP & HR: stable & adequate Hydration State: stable & adequate Anesthetic Complications: no major complications apparent and Pt Satisfied with anesthetic care
--- NOTE | 2024-07-02 16:40 | Hospitalist Progress Note ---
Date of Service July 02, 2024 Assessment & Plan (1) Syncope: (2) Acute blood loss anemia: (3) GI bleed: (4) UTI (urinary tract infection): (5) Transaminitis: Plan This patient is a 79-year-old female with a history of RLS, ataxia with falls, gastric bypass surgery, HTN, kidney stones, hypothyroidism, RA, CVA, HL, mild- moderate aortic stenosis, 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 She has been having melena several times a day for the last 3 days and feeling very fatigued. She was hypotensive and had a hemoglobin of 8.3 on arrival. #Syncope/hypotension-multiple episodes of syncope recently likely secondary to hypotension from acute blood loss anemia from GI bleed. ECG with some competing junctional pacemaker but not overly concerning and no bradycardia or heart block. Mild aortic stenosis on echocardiogram in 09/2023 Troponin negative. BP's originally low but have returned to normal after 1.25 IV fluid bolus + 1 unit PRBC's #GI bleed/acute blood loss anemia/history of gastric bypass- at risk for anastomotic ulcers given history of gastric bypass and occasional NSAID use. She is also on Plavix chronically. Hemoglobin 8.3 on arrival down 2 g from previous hemoglobin in 04/2024. With melena x 3 days. Most likely upper GI bleeding-denies epigastric pain or heartburn. hgb stable 07/02 at 9.7 continue Protonix GI consulted and following EGD completed 07/02 which revealed anastomotic ulcer at site of her gastric bypass. Folate decreased at 3.71 B12 WNL at 494 Iron panel revealing Fe 55, TIBC 252, transferrin sat 22% #UTI Patient febrile overnight and 07/02 afternoon. CBC without leukocytosis Procal 0.57 CRP 2.89 Respiratory biofire panel negative Urinalysis + for UTI, UC pending BC pending CTAP completed given GI bleeding - mild left hydronephrosis of uncertain etiology. urothelial thickening of left collecting system and left ureter - findings favor infectious process or recently passed calculus. mild sigmoid colon wall thickening which may represent a mild nonspecific colitis. After infectious work-up, patient started on IV Rocephin 2g IV q24h, tailor based on culture results Tylenol prn for fever Avoid NSAIDs given anastomotic ulcer IVF x 1 bag AM CBC, CMP, CRP, procal #Transaminitis/fatty liver- likely secondary to liver injury from hypotension. RUQ US performed in ED shows hepatic steatosis. TB 0.9, AST/ALT 194/144 - continue to trend #History of CVA/HTN/mild aortic stenosis/cardiac syndrome X-history of CVA remotely and is on Plavix and atorvastatin. Hold Plavix for bleeding, hold atorvastatin for transaminitis Hold home verapamil for hypotension Continue routine follow-up with cardiology as an outpatient #Chronic conditions Hypothyroidism: levothyroxine RA: Plaquenil Hx of kidney stones: stent removed 2 weeks ago. Continue home Myrbetriq RLS: continue Sinemet, Gabapentin, and Ropinirole DVT prophylaxis-SCDs only at this time due to GI bleeding Disposition-admit to medical floor with telemetry Admission and Anticipated Discharge Date Admission Date: June 29, 2024 Subjective Patient seen and examined this morning. Patient reports to be feeling okay today. Overnight she was febrile. Denies any specific symptoms aside from night sweats. She is to undergo an EGD today. Physical Exam Constitutional: WD/WN, vitals as above Eyes: PERRL, conjunctivae normal, anicteric sclerae Respiratory: normal respiratory effort, lungs clear to auscultation Cardiovascular: RRR, no murmur, no edema Psychiatric: A+Ox3, euthymic affect Results & Data Results & Data Vital Signs (Past 12 Hours) Vital Signs Temp Pulse Pulse Resp BP Pulse Ox O2 Del Method 07/02/24 16:18 72 16 99/50 L 94 Room Air 07/02/24 16:03 72 12 104/50 L 100 Room Air 07/02/24 15:31 37.2 C 77 16 105/56 L 95 Room Air 07/02/24 14:37 79 07/02/24 11:35 39.4 C H 91 H 20 147/71 H 97 Room Air 07/02/24 08:13 37.0 C 82 16 129/68 96 Room Air 07/02/24 07:28 69 PG Care Time/CCT Total # of Minutes Spent Total Time Spent with Patient: Total time spent is greater than 50% in coordination of care (as documented) at patient's floor/unit and/or counseling patient: Coding Level of Care Code 60433 SUB INP/OBS CARE 3/50MIN Diagnoses Syncope R55 Acute blood loss anemia D62 GI bleed K92.2 UTI (urinary tract infection) N39.0 Transaminitis R74.01
[2024-07-02] MEDS: cefTRIAXone SODIUM 2,000 MG/50 ML BAG IV SCH (16:57)
[2024-07-02] MEDS: ONDANSETRON INJ 2 MG/ML 2 ML VIAL ONE ×2 (17:21)
[2024-07-02] MEDS: PROPOFOL IV EMULSION 10 MG/ML 20 ML VIAL IV ONE (17:21)
[2024-07-02] MEDS: LIDOCAINE 2% 2 ML VIAL/AMP(20MG/ML) INFIL ONE (17:21)
[2024-07-02] MEDS: PANTOprazole 40 MG/10 ML SYR IV SCH (22:28)
[2024-07-03 05:23] LABS: A calco-baum cmplx NotReported Not Detected (NotDetected); Bact fragilis Not Reported Not Detected (NotDetected); Blood Culture Id Panel See PCR Comment (NotDetected); C auris Not Reported Not Detected (NotDetected); Calbicans Not Reported Not Detected (NotDetected); Candida glabrata Not Reported Not Detected (NotDetected); Candida krusei Not Reported Not Detected (NotDetected); Cneoformans/gatti Not Reported Not Detected (NotDetected); Cparapsilosis Not Reported Not Detected (NotDetected); E cloacae compx Not Reported Not Detected (NotDetected); Efaecalis Not Reported Not Detected (NotDetected); Efaecium Not Reported Not Detected (NotDetected); Enterobacterales DETECTED (NotDetected); Enterobacterales Not Reported DETECTED (NotDetected); Escherichia coli Not Reported DETECTED (NotDetected); H influenzae Not Reported Not Detected (NotDetected); IMP Resistant Gene Not Detected (NotDetected); K aerogenes Not Reported Not Detected (NotDetected); KPC Resistant Gene Not Detected (NotDetected); Koxytoca Not Reported Not Detected (NotDetected); Kpneumoniae grp Not Reported Not Detected (NotDetected); Lmonocyt Not Reported Not Detected (NotDetected); N meningitidis Not Reported Not Detected (NotDetected); NDM Resistant Gene Not Detected (NotDetected); OXA 48 Like Resistant Gene Not Detected (NotDetected); P aeruginosa Not Reported Not Detected (NotDetected); Proteus spp Not Reported Not Detected (NotDetected); Salmonella spp Not Reported Not Detected (NotDetected); Staph lugdunensis Not Reported Not Detected (NotDetected); Staph spp. Not Reported Not Detected (NotDetected); Staphaureus Not Reported Not Detected (NotDetected); Staphepi Not Reported Not Detected (NotDetected); Stenmaltophilia Not Reported Not Detected (NotDetected); Strep agal(GrpB) Not Reported Not Detected (NotDetected); Strep pneum Not Reported Not Detected (NotDetected); Strep pyog (GrpA) Not Reported Not Detected (NotDetected); Strep spp Not Reported Not Detected (NotDetected); VIM Resistant Gene Not Detected (NotDetected); mcr-1 Colistin Resistant Gene Not Detected (NotDetected)
[2024-07-03 05:58] LABS: CTX-M Resistant Gene DETECTED (NotDetected)
[2024-07-03 07:13] LABS: Basophils # (auto) 0.02 K/uL (0.00-0.20); Basophils % (auto) 0.2 %; Hematocrit (blood only) 28.4 % (37.0-47.0); Hemoglobin 9.4 g/dl (12.0-16.0); Immature Granulocytes # (auto) 0.06 K/uL (0.01-0.20); Immature Granulocytes % (auto) 0.6 %; Lymphocytes # (auto) 0.74 K/uL (1.20-3.40); Lymphocytes % (auto) 7.7 %; Mean Corpuscular Hemoglobin 30.9 pg (25.0-34.0); Mean Corpuscular Hgb Conc 33.1 g/dL (32.0-36.0); Mean Corpuscular Volume 93.4 fL (80.0-100.0); Mean Platelet Volume 10.4 fL (9.4-12.4); Monocytes # (auto) 0.83 K/uL (0.11-0.59); Monocytes % (auto) 8.6 %; Neutrophils # (auto) 7.98 K/uL (1.40-6.50); Neutrophils % (auto) 82.9 %; Platelet Count 168 K/uL (130-400); RDW Coefficient of Variation 15.3 % (11.5-14.5); RDW Standard Deviation 50.2 fL (36.4-46.3); Red Blood Count 3.04 M/uL (4.20-5.40); White Blood Count 9.63 K/ul (4.8-10.8)
[2024-07-03 07:41] LABS: Albumin Level 2.5 gm/dl (3.4-5.0); BUN Creatinine Ratio 14.5 (10-20); Bilirubin,Total 0.4 mg/dl (0.2-1.0); C Reactive Protein 7.09 mg/dl (0-0.5); Calcium 7.6 mg/dl (8.6-10.3); Creatinine Clr Calc Pharmacy 43.4 ml/min; Globulin 2.4 gm/dl (2.5-4.0); Potassium 3.6 mmol/L (3.5-5.1); Total Protein 4.9 gm/dl (6.0-8.3)
--- NOTE | 2024-07-03 08:55 | Gastroenterology Progress Note ---
Date of Service July 03, 2024 Assessment & Plan (1) Anastomotic ulcer: Plan -Continue Protonix 40 mg BID -Avoid NSAIDs -Continue to monitor H/H & for signs of ongoing bleeding Admission and Anticipated Discharge Date Admission Date: June 29, 2024 Supervising Physician Co-Signing Physician Notes Agree with above notes per nurse practitioner without change Subjective Patient is a 79 yo female hospitalized with anemia & melena. She underwent an EGD that indicated an anastomotic ulcer. She is currently prescribed Protonix 40 mg BID. H/H 9.4/28.4. No acute complaints today outside of some loose stool. Review of Systems Cardiovascular: no chest pain Gastrointestinal: + diarrhea/loose stools; no abdominal pa in Physical Exam Gastrointestinal (Abdomen): normal bowel sounds, soft, nontender, no hepatosplenomegaly Results & Data Results & Data Vital Signs (Past 12 Hours) Vital Signs Temp Pulse Pulse Resp BP Pulse Ox O2 Del Method 07/03/24 07:53 36.8 C 67 16 124/67 96 Room Air 07/03/24 07:02 64 07/03/24 02:18 36.8 C 76 18 98/57 L 94 Room Air 07/02/24 23:07 38 C H 83 18 97/52 L 91 Room Air 07/02/24 22:35 858 H 07/02/24 20:51 37.2 C 95 H 20 159/74 H 100 Room Air PG Care Time/CCT Total # of Minutes Spent Total Time Spent with Patient: Total time spent is greater than 50% in coordination of care (as documented) at patient's floor/unit and/or counseling patient: Coding Level of Care Code 99202 SUB INP/OBS CARE 2/35MIN Diagnoses Anastomotic ulcer K28.9
[2024-07-03] MEDS: ERTAPENEM 1000MG 1,000 MG/10 ML SYR IV SCH (09:53)
--- NOTE | 2024-07-03 16:54 | Hospitalist Progress Note ---
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 She has been having melena several times a day for the last 3 days and feeling very fatigued. She was hypotensive and had a hemoglobin of 8.3 on arrival. #Syncope/hypotension-multiple episodes of syncope recently likely secondary to hypotension from acute blood loss anemia from GI bleed. ECG with some competing junctional pacemaker but not overly concerning and no bradycardia or heart block. no events on telemetry. Mild aortic stenosis on echocardiogram in 09/2023 Troponin negative. BP's originally low but have returned to normal after 1.25 IV fluid bolus + 1 unit PRBC's #GI bleed/acute blood loss anemia/history of gastric bypass GI consultedEGD performed 07/02 showing anastomotic ulcer. Biopsies taken: No metaplasia. Recommend twice daily PPI and avoid NSAIDs. Plavix held (hx of CVA) Hgb stable 9.4 Folate low (3.71) - PO supplementation started B12 WNL. Iron panel revealing Fe 55, TIBC 252, transferrin sat 22%. #UTI Patient febrile overnight and 07/02 afternoon. UA positive, UC: E. coli Blood cultures: Gram-negative bacilli, ceftriaxone resistant Antibiotics changed to ertapenem 07/03 CRP increasing, continue to trend CTAP completed given GI bleeding - mild left hydronephrosis of uncertain etiology. urothelial thickening of left collecting system and left ureter - findings favor infectious process or recently passed calculus. mild sigmoid colon wall thickening which may represent a mild nonspecific colitis. AM CBC, CMP, CRP #Transaminitis/fatty liver- likely secondary to liver injury from hypotension. RUQ US performed in ED shows hepatic steatosis. TB 1.2, AST/ALT 232/162 on admission, continues to downtrend Statin held #History of CVA/HTN/mild aortic stenosis/cardiac syndrome Hold Plavix for bleeding, hold atorvastatin for transaminitis Hold home verapamil for hypotension Continue routine follow-up with cardiology as an outpatient #Chronic conditions Hypothyroidism: levothyroxine RA: Plaquenil Hx of kidney stones: stent removed 2 weeks ago. Continue home Myrbetriq RLS: continue Sinemet, Gabapentin, and Ropinirole DVT prophylaxis-SCDs only at this time due to GI bleeding Disposition- continued inpatient stay treating bacteremia updated at bedside 07/03 Admission and Anticipated Discharge Date Admission Date: June 29, 2024 Supervising Physician Co-Signing Physician Notes Attending Attestation - Chart reviewed, care plan d/w TERRY Vincent. I agree w/ the valdez components of her documentation. Kyle Macias MD Subjective patient seen lying in bed, present at bedside. States she has not had any more bloody bowel movements today. Overall feeling a little bit weak, ambulating with a walker when she typically uses a cane Is still having fevers chills and sweats Telemetry sinus rhythm 70s Review of Systems Review of Systems: All systems reviewed & are unremarkable except as noted in Subjective Physical Exam Physical Exam: General: NAD, VS as above, flushed and diaphoretic Resp: normal respiratory effort, lungs clear to auscultation CV: RRR, + murmur, Abd: normal bowel sounds, non tender, no hepatosplenomegaly Extremities: Moves all extremities, no edema Neuro: A&O x3, Skin: intact, no lesions noted Results & Data Results & Data Vital Signs (Past 12 Hours) Vital Signs Temp Pulse Pulse Resp BP Pulse Ox O2 Del Method 07/03/24 15:14 98.1 F 71 16 106/66 96 Room Air 07/03/24 14:04 77 07/03/24 10:52 100.0 F H 71 16 118/64 96 Room Air 07/03/24 07:53 98.2 F 67 16 124/67 96 Room Air 07/03/24 07:02 64 Laboratory Results CBC and chemistry reviewed LFTs reviewed CRP reviewed PG Care Time/CCT Total # of Minutes Spent Total Time Spent with Patient: Total time spent is greater than 50% in coordination of care (as documented) at patient's floor/unit and/or counseling patient: Coding Level of Care Code 36947 SUB INP/OBS CARE 3/50MIN Diagnoses Syncope R55 Acute blood loss anemia D62 GI bleed K92.2 UTI (urinary tract infection) N39.0 Transaminitis R74.01
[2024-07-04 08:39] LABS: Basophils # (auto) 0.01 K/uL (0.00-0.20); Basophils % (auto) 0.1 %; Hematocrit (blood only) 26.2 % (37.0-47.0); Hemoglobin 8.7 g/dl (12.0-16.0); Immature Granulocytes # (auto) 0.03 K/uL (0.01-0.20); Immature Granulocytes % (auto) 0.4 %; Lymphocytes # (auto) 0.74 K/uL (1.20-3.40); Mean Corpuscular Hemoglobin 31.3 pg (25.0-34.0); Mean Corpuscular Hgb Conc 33.2 g/dL (32.0-36.0); Mean Corpuscular Volume 94.2 fL (80.0-100.0); Mean Platelet Volume 10.4 fL (9.4-12.4); Monocytes % (auto) 14.8 %; Neutrophils # (auto) 4.96 K/uL (1.40-6.50); Neutrophils % (auto) 73.7 %; Platelet Count 173 K/uL (130-400); RDW Coefficient of Variation 15.2 % (11.5-14.5); RDW Standard Deviation 50.1 fL (36.4-46.3); Red Blood Count 2.78 M/uL (4.20-5.40); White Blood Count 6.74 K/ul (4.8-10.8)
[2024-07-04 09:02] LABS: Albumin Level 2.4 gm/dl (3.4-5.0); BUN Creatinine Ratio 11.9 (10-20); Bilirubin,Total 0.3 mg/dl (0.2-1.0); C Reactive Protein 10.09 mg/dl (0-0.5); Calcium 7.6 mg/dl (8.6-10.3); Creatinine Clr Calc Pharmacy 43.8 ml/min; Globulin 2.3 gm/dl (2.5-4.0); Potassium 3.6 mmol/L (3.5-5.1); Total Protein 4.7 gm/dl (6.0-8.3)
--- NOTE | 2024-07-04 12:55 | Hospitalist Progress Note ---
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 She has been having melena s everal times a day for the last 3 days and feeling very fatigued. She was hypotensive and had a hemoglobin of 8.3 on arrival. #Syncope/hypotension-multiple episodes of syncope recently likely secondary to hypotension from acute blood loss anemia from GI bleed. ECG with some competing junctional pacemaker but not overly concerning and no bradycardia or heart block. no events on telemetry. Mild aortic stenosis on echocardiogram in 09/2023 Troponin negative. BP's originally low but have returned to normal after 1.25 IV fluid bolus + 1 unit PRBC's #GI bleed/acute blood loss anemia/history of gastric bypass GI consultedEGD performed 07/02 showing anastomotic ulcer. Biopsies taken: No metaplasia. Recommend twice daily PPI and avoid NSAIDs. Plavix held (hx of CVA) Hgb slight drop to 8.7, no blood in stools noted. Recheck AM Folate low (3.71) - PO supplementation started B12 WNL. Iron panel revealing Fe 55, TIBC 252, transferrin sat 22%. #UTI Patient febrile overnight and 07/02 afternoon. UA positive, UC: E. coli Blood cultures: Ecoli ESBL Antibiotics changed to ertapenem 07/03 - plan for 14 day course through 07/16. Consent obtained and midline inserted 07/04/24. CM aware to arrange IV abx. CRP increasing, continue to trend CTAP completed given GI bleeding - mild left hydronephrosis of uncertain etiology. urothelial thickening of left collecting system and left ureter - findings favor infectious process or recently passed calculus. mild sigmoid colon wall thickening which may represent a mild nonspecific colitis. AM CBC, CMP, CRP #Transaminitis/fatty liver- likely secondary to liver injury from hypotension. RUQ US performed in ED shows hepatic steatosis. TB 1.2, AST/ALT 232/162 on admission, continues to downtrend, now near normal Statin held #History of CVA/HTN/mild aortic stenosis/cardiac syndrome Hold Plavix for bleeding, hold atorvastatin for transaminitis Hold home verapamil for hypotension Continue routine follow-up with cardiology as an outpatient #Chronic conditions Hypothyroidism: levothyroxine RA: Plaquenil Hx of kidney stones: stent removed 2 weeks ago. Continue home Myrbetriq RLS: continue Sinemet, Gabapentin, and Ropinirole DVT prophylaxis-SCDs only at this time due to GI bleeding Disposition- continued inpatient stay treating bacteremia, arranging IV antibiotics. Stable for downgrade to medical. updated at bedside 07/03 Admission and Anticipated Discharge Date Admission Date: June 29, 2024 Supervising Physician Co-Signing Physician Notes Attending Attestation - Chart reviewed, care plan d/w PA Morenita Vincent. I agree w/ the valdez components of her documentation with the following addition - * bacteremia ESBL e.coli bacteremia / UTI - switch abx to Ertapenem IV. CT a/p with ? findings that would support ascending UTI. Would opt for 10-14 day course of IV Ertapenem. Other plans per Ms Vincent. Kyle Macias MD Subjective patient seen lying in bed, no family present at bedside. States that she is feeling better, anxious to go home. She denies having more fevers or chills overnight No abdominal pain or urinary symptoms Discussed IV antibiotics thinks that her would be able to learn how to administer them agreeable to midline insertion, consent obtained. Tele SR 70s Review of Systems Review of Systems: All systems reviewed & are unremarkable except as noted in Subjective Physical Exam Physical Exam: General: NAD, VS as above, appears much better today Resp: normal respiratory effort, lungs clear to auscultation CV: RRR, + murmur, Abd: normal bowel sounds, non tender, no hepatosplenomegaly Extremities: Moves all extremities, no edema Neuro: A&O x3, Skin: intact, no lesions noted Results & Data Results & Data Vital Signs (Past 12 Hours) Vital Signs Temp Pulse Pulse Resp BP Pulse Ox O2 Del Method 07/04/24 08:52 Room Air 07/04/24 08:01 98.1 F 61 20 109/67 96 Room Air 07/04/24 07:04 65 07/04/24 03:20 99.3 F 72 20 118/56 L 94 Room Air 07/04/24 01:49 99.1 F Laboratory Results cbc, chemistry and CRP reviewed PG Care Time/CCT Total # of Minutes Spent Total Time Spent with Patient: Total time spent is greater than 50% in coordination of care (as documented) at patient's floor/unit and/or counseling patient: Coding Level of Care Code 10850 SUB INP/OBS CARE 3/50MIN Diagnoses Syncope R55 Acute blood loss anemia D62 GI bleed K92.2 UTI (urinary tract infection) N39.0 Transaminitis R74.01
[2024-07-04 23:42] VITALS: O2SAT 96
[2024-07-05 06:30] LABS: Hemoglobin 8.8 g/dl (12.0-16.0); Mean Corpuscular Hemoglobin 30.4 pg (25.0-34.0); Mean Corpuscular Hgb Conc 32.6 g/dL (32.0-36.0); Mean Corpuscular Volume 93.4 fL (80.0-100.0); Mean Platelet Volume 10.6 fL (9.4-12.4); Platelet Count 215 K/uL (130-400); RDW Coefficient of Variation 15.2 % (11.5-14.5); RDW Standard Deviation 49.8 fL (36.4-46.3); Red Blood Count 2.89 M/uL (4.20-5.40); White Blood Count 5.55 K/ul (4.8-10.8)
[2024-07-05 06:50] LABS: Albumin Level 2.6 gm/dl (3.4-5.0); Bilirubin,Total 0.3 mg/dl (0.2-1.0); C Reactive Protein 7.85 mg/dl (0-0.5); Calcium 7.9 mg/dl (8.6-10.3); Creatinine Clr Calc Pharmacy 47.7 ml/min; Globulin 2.5 gm/dl (2.5-4.0); Potassium 3.4 mmol/L (3.5-5.1); Total Protein 5.1 gm/dl (6.0-8.3)
[2024-07-05 07:55] VITALS: RESP 16; TEMP 98.1
[2024-07-05] MEDS: POTASSIUM CHLORIDE CRTAB 20 MEQ TABCR PO STA (08:12)
--- NOTE | 2024-07-05 09:07 | Communication Note ---
Date of Service: July 05, 2024 H/H stable at 8.8/27.0. Stool is noted to be brown. She continues with PPI & NSAID avoidance. GI will sign off at this time.
--- NOTE | 2024-07-05 12:35 | Discharge Summary ---
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 She has been having melena several times a day for the last 3 days and feeling very fatigued. She was hypotensive and had a hemoglobin of 8.3 on arrival. 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 ECG with some competing junctional pacemaker but not overly concerning and no bradycardia or heart block. no events on telemetry. Mild aortic stenosis on echocardiogram in 09/2023 Troponin negative. BP's originally low but have returned to normal after 1.25 IV fluid bolus + 1 unit PRBC's Home verapamil held At discharge #GI bleed/acute blood loss anemia/history of gastric bypass GI consultedEGD performed 07/02 showing anastomotic ulcer. Biopsies taken: No metaplasia. Recommend twice daily PPI x8 weeks and then once daily. and avoid NSAIDs. Plavix held (hx of CVA) - plan to resume 07/07 Hgb stable. No further blood in stools noted. Folate low (3.71) - PO supplementation started B12 WNL. Iron panel revealing Fe 55, TIBC 252, transferrin sat 22%. #UTI/ Bacteremia Patient febrile overnight and 07/02 afternoon. UA positive, UC: E. coli Blood cultures: Ecoli ESBL Antibiotics changed to ertapenem 07/03 - plan for 14 day course through 07/16. patient will be going to [facility] Consent obtained and midline inserted 07/04/24. CRP downtrending CTAP completed given GI bleeding - mild left hydronephrosis of uncertain etiology. urothelial thickening of left collecting system and left ureter - findings favor infectious process or recently passed calculus. mild sigmoid colon wall thickening which may represent a mild nonspecific colitis. #Transaminitis/fatty liver- likely secondary to liver injury from hypotension. RUQ US performed in ED shows hepatic steatosis. TB 1.2, AST/ALT 232/162 on admission, continues to downtrend, now near normal resume statin 07/06 #History of CVA/HTN/mild aortic stenosis/cardiac syndrome resume Plavix and atorvastatin as described above. Hold home verapamil for hypotension Continue routine follow-up with cardiology as an outpatient #Chronic conditions Hypothyroidism: levothyroxine RA: Plaquenil Hx of kidney stones: stent removed 2 weeks ago. Continue home Myrbetriq And Flomax RLS: continue Sinemet, Gabapentin, and Ropinirole dispo: Discharge to home today with updated at bedside 07/03 and 07/05 Notes For Next Care Provider IV antibiotics arranged at [facility] PPI twice daily x 8 weeks then can transition to once daily. Avoid NSAIDs. Verapamil held due to borderline low/normal blood pressures, no palpitations while inpatient but decreased activity compared to her normal. 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 She has passed out a few times in the last couple of weeks but then was unable to get up off the ground today after she passed out. She denies pain or injuries anywhere. She has been feeling very fatigued and reports having black stools 3-4 times a day for the last 3 days. Denies abdominal pains or heartburn. Denies chest pains or shortness of breath. She reports she will take an occasional Aleve tablet every once a while for joint pains with her RA but knows that she is not supposed to with a history of gastric bypass. Otherwise, she is on Plavix for history of CVA in 2014. In the ER, she was found to be hypotensive with a systolic blood pressure in the 70s. Her hemoglobin was low at 8.3 which is a 2 g drop from her last check 2 months prior. Her blood pressure improved with IV fluid boluses and she was started on a Protonix drip. Her AST and ALT were elevated and an RUQ ultrasound showed fatty liver. ECG showed a sinus rhythm with some competing junctional pacemaker and normal rates, no ischemic changes. She will be admitted for syncope related to hypotension from GI bleeding. Discharge Exam General: NAD, VS as above, appears well Resp: normal respiratory effort, lungs clear to auscultation CV: RRR, + murmur, Abd: normal bowel sounds, non tender, no hepatosplenomegaly Extremities: Moves all extremities, no edema Neuro: A&O x3, Skin: intact, no lesions noted Discharge Plan Discharge Items Patient Disposition: Home - Self-Care Reason For Visit: GI BLEED,SYNCOPE Discharge Diagnosis: GI bleed, E.Coli ESBL Bacteremia Activity: Resume your previous activity Weightbearing: Full weightbearing Non-emergency contact: Primary Care Provider Call non-emergency contact if: you have any medication questions, your symptoms worsen, your pain is not controlled and your temperature is above 101 Follow-up/Referrals: Morenita Chong PA-C [[facility]] - (routine f/u - s/p EGD with ulcer ) Laurie Cedeno MD [Primary Care Provider] - 07/12/24 11:00 am () Diet: Regular Addtl Attending Provider Instructions: Ms. Ivan, You were hospitalized after having dark stools, this was found to be a GI bleed. You underwent EGD with biopsies and treatment of ulcer. You are to continue Protonix twice a day for 8 weeks (through 08/28), after that you should continue on once a day. This prescription was sent to your pharmacy. You can resume you plavix on Tuesday, 07/07. Monitor for any signs of bleeding (dark black stools or bright red stools) - if this occurs please call the GI team or return to the ER. Routine follow up with GI. Do NOT take NSAIDs - ibuprofen, aleve, naproxen, etc. Tylenol is okay. You were also found to have a blood stream infection from a UTI - this has to be treated with IV antibiotics. You will be going to [facility] to have these infusions. They will be able to take out the midline when this is finished. If you continue to have loose stools, recommend over the counter probiotic. We checked a folate level which was low and you have been started on folic acid supplementation. I have sent a prescription in for this, but if it is not covered by your insurance please picking supervisor over the counter folic acid supplement. We held your verapamil for low blood pressures - please continue to hold this and discuss with your PCP if this needs to be restarted. Activity: You can do normal everyday activities as your body allows. Take rest breaks if you feel tired. Do not overexert. Stop activity if you have pain, shortness of breath or feel dizzy. Follow-up appointments: Make an appointment with your primary care physician within one week of discharge. A copy of this summary will be sent to them. Every time you see your primary care physician, or any other doctor, bring your medication list, and a list of questions. CONTACT YOUR PRIMARY CARE PROVIDER if you experience any of the following: Shortness of breath or difficulty breathing Fevers or chills Feeling tired with normal activity or experiencing dizziness or fainting Difficulty following your treatment plan, or difficulty taking medications Call GI - bright red stools - black tarry stools - vomiting blood CALL 911 OR GO TO THE EMERGENCY DEPARTMENT if you experience any of the following: Severe abdominal pain or nausea/vomiting Severe chest pain, or chest pain that radiates (moves) to your jaw or arm Sudden, severe shortness of breath or difficulty breathing Thank you for allowing us to participate in your care. Morenita Vincent PA-C Pending Studies at Discharge: No Stand-Alone Forms: [facility], Smoking Cessation Medications and DC Order Prescriptions: New folic acid 1 mg Tablet 1 mg PO QAM Qty: 30 0RF pantoprazole [Protonix] 40 mg tablet,delayed release (DR/EC) 40 mg PO BID Qty: 60 1RF Rx Instructions: twice a day until 08/28 then decrease to once a day Continued nitroglycerin 0.4 mg tablet, sublingual 0.4 mg Sublingual Q5M PRN (Reason: Chest Pain) Qty: 30 5RF Rx Instructions: May take up to 3 doses as needed for chest pain. Call 911 if pain persists. Pt needs new script as this is levothyroxine 100 mcg tablet 100 mcg PO QAM Qty: 90 3RF ropinirole 2 mg tablet extended release 24 hr 2 mg PO HS Qty: 90 3RF atorvastatin [Lipitor] 40 mg tablet 40 mg PO HS Qty: 90 1RF mirabegron [Myrbetriq] 25 mg tablet extended release 24 hr 25 mg PO DAILY Qty: 90 3RF carbidopa-levodopa 25-100 mg tablet extended release 1 tab PO QAM 90 Days Qty: 90 3RF Rx Instructions: take an extra dose at HS prn gabapentin 300 mg capsule 300 mg PO BID Qty: 90 5RF hydrocodone-acetaminophen 5-300 mg tablet 1 tab PO BID PRN (Reason: pain) Qty: 10 0RF hydroxychloroquine 200 mg tablet 200 mg PO BID ondansetron 8 mg tablet,disintegrating 8 mg PO Q8H PRN (Reason: nausea and vomiting) Qty: 30 0RF Evenity 210mg/2.34mL ( 105mg/1.17mLx2) syringe 210 mg subcut ONCE Qty: 2.34 11RF Rx Instructions: inject monthly for 12 monthly doses magnesium chloride [Mag 64] 64 mg Tablet,Delayed Release (Dr/Ec) 64 mg PO HS triamcinolone acetonide 0.1 % cream 1 applic topical BID PRN (Reason: SKIN IRRITATIONS) Rx Instructions: combine small amount with nystatin cream and apply to affected area nystatin 100,000 unit/gram cream 1 applic topical BID PRN (Reason: SKIN IRRITATIONS) Rx Instructions: combine small amount with triamcinolone cream and apply to affected areas cholecalciferol (vitamin D3) 1,250 mcg (50,000 unit) capsule 50,000 unit PO 2XWK Rx Instructions: please take twice weekly prochlorperazine maleate [Compazine] 5 mg tablet 5 mg PO DAILY PRN (Reason: nausea and vomiting/vertigo) Qty: 3 0RF phenazopyridine [Pyridium] 200 mg tablet 200 mg PO Q8H PRN (Reason: pain) Qty: 10 0RF hydrocodone-acetaminophen 7.5-325 mg tablet 1 tab PO Q8H PRN (Reason: pain) Qty: 7 0RF tramadol 50 mg tablet 50 mg PO Q6H PRN (Reason: pain) Qty: 20 0RF calcitriol 0.25 mcg capsule 0.25 mcg PO DAILY Held clopidogrel [Plavix] 75 mg tablet 75 mg PO QAM Qty: 90 3RF Hold Instructions: Resume on 07/07/24. verapamil 180 mg tablet extended release 180 mg PO BID Qty: 180 3RF Hold Instructions: Provider's Order - discuss with PCP tamsulosin 0.4 mg capsule 0.4 mg PO HS Qty: 30 0RF Hold Instructions: Provider's Order Discharge Orders: Discharge Order (Routine); Ordered 07/05/24 Ordered By: Morenita Clark/Other Patient Handouts: Midline Catheter Dc, ED Upper GI Bleeding (Stable) Admission Data Admit Date/Time: 06/29/24 19:33 Attending Provider: Kyle Macias Admit Provider: Mer Keller Primary Care Provider: Laurie Cedeno Other Providers: Mer Keller; Luc Harrell Other Interventions: Discharge Summary Assessment (RN) Last Done: 07/05/24 12:35 Hospital Stay Data Consultations 06/29/24 17:59 ED Decision to Admit Stat 06/29/24 23:47 Consult Gastroenterology Routine Procedures Performed Operation Date: 07/02/24 17:10 Actual Procedures p EGD Biopsy Cytology - Eliceo Beck MD Diagnostic Imagining Performed Chest X-Ray 06/29/24 14:47 XR chest 1V portable HISTORY: 79 years-old Female syncope COMPARISON: 04/04/2024 TECHNIQUE: AP view of the chest FINDINGS: Cardiac silhouette is upper limits of normal in size. No pneumothorax, pleural effusion or airspace consolidation. The bones appear grossly intact. IMPRESSION: No acute process. ACT 112: Negative or not required by law. The above report was generated using voice recognition software. It may contain grammatical, syntax or spelling errors. Electronically signed by: Lucho Waters M.D. 06/29/2024 3:[address] 06/29/24 14:47 CT head/brain wo con CLINICAL HISTORY: 79 years-old Female with syncope/[facility]. Acute syncope with head trauma TECHNIQUE: Multiple axial CT images of the head were obtained without contrast. A dose lowering technique was utilized adhering to the principles of ALARA. CT DOSE: 625.8 mGy.cm COMPARISON: April 04, 2024 FINDINGS: No acute intracranial hemorrhage, midline shift, intracranial mass, hydrocephalus, territorial ischemia or abnormal extra-axial collection. Involutional changes with chronic microvascular ischemic disease. Partially empty sella. Unchanged scattered subcentimeter cortically based calcifications of the cerebral hemispheres. The calvarium is intact. Bilateral lens repair. The paranasal sinuses, mastoid air cells, and middle ear cavities are clear. IMPRESSION: No acute intracranial abnormality or calvarial fracture. ACT 112: Negative or not required by law. The above report was generated using voice recognition software. It may contain grammatical, syntax or spelling errors. Electronically signed by: Lucho Waters M.D. 06/29/2024 3:20 PM Gallbladder Ultrasound 06/29/24 15:34 EXAM: US Abdomen Limited Right Upper Quadrant INDICATION: Elevated liver function test. TECHNIQUE: Real-time ultrasound of the right upper quadrant with image documentation. COMPARISON: No relevant prior studies available. FINDINGS: Liver: Normal size and contour. Echogenic. No mass or ductal dilation. Gallbladder: No gallstones, wall thickening or surrounding fluid. Common bile duct: Normal common bile duct for age at 7 mm. No visible ductal stone. Tiny stones may not be sonographically detected. Pancreas: No significant abnormality noted. Right kidney: 9.9 cm long. Normal cortical thickness and echotexture. No mass, stone or hydronephrosis. IMPRESSION: 1. Hepatic steatosis. 2. No ductal dilatation. ACT 112: Negative or not required by law. Electronically signed by Michelle De Dios 06-29-2024 5:39 PM Abdomen/Pelvis CT 07/02/24 11:41 CT OF THE ABDOMEN AND PELVIS WITHOUT CONTRAST CLINICAL HISTORY: fever unknown origin, GI bleeding COMPARISON STUDY: CT of the abdomen and pelvis April 25, 2024. Right upper quadrant ultrasound June 29, 2024. TECHNIQUE: Axial images of the abdomen and pelvis were obtained without IV contrast. Images were reviewed in the axial, sagittal, and coronal planes. Automated exposure control was utilized for the study. A dose lowering technique was utilized adhering to the principles of ALARA. FINDINGS: Trace bilateral pleural effusions. No pneumatosis, free air or portal venous gas is present. Several left renal calculi measure up to 1 cm. Right renal calculi measure up to 5 mm. There are no ureteral calculi. There is mild left hydronephrosis. In addition urothelial thickening of the left collecting system and left ureter with adjacent stranding. There is no biliary ductal dilatation status post cholecystectomy. Unenhanced images of the liver, spleen, adrenal glands and pancreas are unremarkable. There is no evidence for a bowel obstruction status post Ry-en-Y gastric bypass. No fluid collections are present within the abdomen or pelvis. There is mild wall thickening of the sigmoid colon with mild adjacent stranding. This stranding could be related to the left ureter or the colon. There are no associated fluid collections. Healed intertrochanteric fracture of the right femur status post internal fixation is incidentally noted. IMPRESSION: 1. Bilateral nephrolithiasis. Mild left hydronephrosis of uncertain etiology. Urothelial thickening of the left collecting system and left ureter which could be correlated with urinalysis. The findings favor an infectious process or recently passed calculus. An underlying urothelial lesion is considered less likely however a follow-up hematuria protocol CT in one month to ensure resolution is recommended. 2. Mild sigmoid colon wall thickening with minimal adjacent stranding. This may represent a mild nonspecific colitis. 3. Status post Ry-en-Y gastric bypass. No evidence for a bowel obstruction. ACT 112: Negative or not required by law. Electronically signed by: Ashu Bustos M.D. 07/02/2024 1:09 PM Pending Results Patient Have Any Pending Studies at Discharge: No Discharge Instructions Given to Patient (Per Discharging Provider) Ms. Ivan, You were hospitalized after having dark stools, this was found to be a GI bleed. You underwent EGD with biopsies and treatment of ulcer. You are to continue Protonix twice a day for 8 weeks (through 08/28), after that you should continue on once a day. This prescription was sent to your pharmacy. You can resume you plavix on Tuesday, 07/07. Monitor for any signs of bleeding (dark black stools or bright red stools) - if this occurs please call the GI team or return to the ER. Routine follow up with GI. Do NOT take NSAIDs - ibuprofen, aleve, naproxen, etc. Tylenol is okay. You were also found to have a blood stream infection from a UTI - this has to be treated with IV antibiotics. You will be going to [facility] to have these inf[facility]. They will be able to take out the midline when this is finished. If you continue to have loose stools, recommend over the counter probiotic. We checked a folate level which was low and you have been started on folic acid supplementation. I have sent a prescription in for this, but if it is not covered by your insurance please picking supervisor over the counter folic acid supplement. We held your verapamil for low blood pressures - please continue to hold this and discuss with your PCP if this needs to be restarted. Activity: You can do normal everyday activities as your body allows. Take rest breaks if you feel tired. Do not overexert. Stop activity if you have pain, shortness of breath or feel dizzy. Follow-up appointments: Make an appointment with your primary care physician within one week of discharge. A copy of this summary will be sent to them. Every time you see your primary care physician, or any other doctor, bring your medication list, and a list of questions. CONTACT YOUR PRIMARY CARE PROVIDER if you experience any of the following: Shortness of breath or difficulty breathing Fevers or chills Feeling tired with normal activity or experiencing dizziness or fainting Difficulty following your treatment plan, or difficulty taking medications Call GI - bright red stools - black tarry stools - vomiting blood CALL 911 OR GO TO THE EMERGENCY DEPARTMENT if you experience any of the following: Severe abdominal pain or nausea/vomiting Severe chest pain, or chest pain that radiates (moves) to your jaw or arm Sudden, severe shortness of breath or difficulty breathing Thank you for allowing us to participate in your care. Morenita Vincent PA-C Total Time Total Time Spent Total Time Spent (In Minutes): Time spent day of discharge 42 minutes including direct patient care, medication reconciliation, documentation, review of labs and images, and coordination of care. Coding Level of Care Code 02304 INP/OBS DISCH >30 MIN Diagnoses Syncope R55 Acute blood loss anemia D62 GI bleed K92.2 Bacteremia due to Escherichia coli R78.81; B96.20 UTI (urinary tract infection) N39.0 Transaminitis R74.01
[2024-07-05 12:36] VITALS: BP 119/70; PULSE 72
== END 2024-07-05 14:07 | disposition home or self-care (01) | DRG 378 ==
LOC: ED 14:21 → EDINP 19:33 → SUATTDRO 19:33 → 2N 23:00

== ENCOUNTER 2025-01-03 08:59 | Observation (INO) ==
--- NOTE | 2024-12-27 09:29 | Anesthesiology Consultation ---
Date of Service December 27, 2024 Assessment & Plan (1) Encounter for pre-operative examination: - Infectious disease screening: Per assessment on 12/27/24- No known recent infectious disease contacts or current infectious disease symptoms. - Plavix instructions per surgeon/prescriber - Cardiology office visit 09/24/24 [place]: "...Non-Obstructive CAD, Hypertension, Dyslipidemia, Mild Aortic Stenosis, Hypothyroidism, Parkinson's Disease, Os teoporosis, Prior CVA, Lymphedema, Obesity s/p Gastric Bypass, Recurrent Nephrolithiasis, Nephrolithiasis, and Cardiac Syndrome X (small vessel dysfunction causing angina pectoris in a patient with mild nonocclusive CAD) who presents today for Cardiologic Follow-up...remains stable from a cardiac standpoint...able to perform her usual activities of daily living without limiting cardiopulmonary symptoms although she admits that her low back does limit her activities...has not experienced any angina pectoris, overt signs or symptoms of heart failure, nor has she had any symptoms suggestive of a dysrhythmia...has not had any symptoms suggestive of stroke or mini stroke...Consider restarting Verapamil ER 180 mg daily to treat both her hypertension and her cardiac syndrome X...1 year for cardiologic follow-up. Patient agrees with this plan..." - S/P Cystoscopy, Right: Ureteroscopy, Laser Lithotripsy, Basket Extraction of the Stone, Left: Ureteroscopy and Ureteral dilation (12/03/24): LMA #5 igel at [facility]. No issues noted per post-op anesthesia progress note. Chart Review Chart Review: Acceptable Risk for Surgery and Patient NOT seen in Pre Admission Testing History Surgery Operation Date: 01/03/25 10:45 Proposed Procedures p Cystoscopy, Ureteronephroscopy, Retrograde Pyelogram, with Possible Ureteral Dilation, Laser Destruction or Extraction of the Stone, Insertion or Exchange of Stent Catheter - Left - Carson Tripathi, DO Height/Weight Height: 5 ft 5 in Weight: 79.832 kg Allergies Allergy/AdvReac Type Severity Reaction Status Date / Time shellfish derived Allergy Severe Hives Verified 01/03/25 09:18 pecan nut Allergy Intermediate Hives Verified 01/03/25 09:18 Sulfa (Sulfonamide Allergy Intermediate Itching Verified 01/03/25 09:18 Antibiotics) oxycodone Allergy Mild Itching Verified 01/03/25 09:18 alcohol Allergy Unknown Unknown Verified 01/03/25 09:18 [From Mastisol Liquid Adhesive] gum mastic Allergy Unknown Unknown Verified 01/03/25 09:18 [From Mastisol Liquid Adhesive] methyl salicylate Allergy Unknown Unknown Verified 01/03/25 09:18 [From Mastisol Liquid Adhesive] storax Allergy Unknown Unknown Verified 01/03/25 09:18 [From Mastisol Liquid Adhesive] ibuprofen AdvReac Intermediate Nausea, Verified 01/03/25 09:18 upset stomach pregabalin AdvReac Intermediate Triple Verified 01/03/25 09:18 vision Medications Home Medications Medication Instructions Recorded Confirmed Last Taken nitroglycerin 0.4 mg sublingual 0.4 mg sublingual Q5M PRN Chest 02/14/19 01/03/25 05/19/22 tablet Pain #30 tabs hydroxychloroquine 200 mg tablet 200 mg PO BID 09/04/21 01/03/25 01/02/25 21:00 triamcinolone acetonide 0.1 % 1 applic topical BID PRN SKIN 01/22/24 01/03/25 Unknown topical cream IRRITATIONS levothyroxine 100 mcg tablet 100 mcg PO QAM #90 tabs 01/24/24 01/03/25 01/02/25 05:00 carbidopa ER 25 mg-levodopa 100 mg 1 tab PO QAM 90 days #90 tabs 05/10/24 01/03/25 12/02/24 12:00 tablet,extended release folic acid 1 mg tablet 1 mg PO QAM #30 tabs 07/05/24 01/03/25 01/02/25 08:00 clopidogrel 75 mg tablet (Plavix) 75 mg PO QAM #90 tabs 09/03/24 01/03/2512/26 08:00 atorvastatin 40 mg tablet (Lipitor) 40 mg PO HS #90 tabs 10/11/24 01/03/25 01/02/25 21:00 cholecalciferol (vitamin D3) 1,250 50,000 unit PO 2XWK #24 caps 10/11/24 01/03/25 01/02/25 21:00 mcg (50,000 unit) capsule ropinirole 2 mg tablet,extended 2 mg PO HS #90 tabs 10/11/24 01/03/25 01/02/25 21:00 release 24 hr calcitriol 0.5 mcg capsule 0.5 mcg PO QAM 11/22/24 01/03/25 01/02/25 08:00 pantoprazole 40 mg tablet,delayed 40 mg PO QAM 11/22/24 01/03/25 01/02/25 08:00 release (Protonix) hydrocodone 7.5 mg-acetaminophen 1 tab PO Q8H PRN pain #7 tabs 12/03/24 01/03/25 Unknown 325 mg tablet phenazopyridine 200 mg tablet 200 mg PO Q8H PRN pain #10 tabs 12/03/24 01/03/25 Unknown (Pyridium) tamsulosin 0.4 mg capsule 0.4 mg PO HS #30 caps 12/03/24 01/03/25 01/02/25 21:00 gabapentin 300 mg capsule 300 mg PO BID #90 caps 12/11/24 01/03/25 01/02/25 21:00 solifenacin 5 mg tablet (Vesicare) 5 mg PO QAM 12/11/24 01/03/25 01/02/25 08:00 ciprofloxacin HCl 500 mg tablet 500 mg PO Q12H #14 tabs 01/03/25 Unknown (Cipro) hydrocodone 7.5 mg-acetaminophen 1 tab PO Q8H PRN pain #7 tabs 01/03/25 Unknown 325 mg tablet phenazopyridine 200 mg tablet 200 mg PO Q8H PRN pain #10 tabs 01/03/25 Unknown (Pyridium) tamsulosin 0.4 mg capsule 0.4 mg PO HS #30 caps 01/03/25 Unknown Active Medications Generic Name Dose Route Start Last Admin Trade Name Freq PRN Reason Stop Dose Admin Lactated Ringer's 1,000 mls @ 15 mls/hr 01/03/25 06:00 01/03/25 09:45 Lr IV 01/04/25 05:59 15 mls/hr .Q24H OLIVA Administration Past Medical History Medical History Renal lesion Per records, patient unaware History of blood transfusion 06/2024 for "bleeding ulcer" Hyperlipidemia HTN (hypertension) GERD (gastroesophageal reflux disease) History of stroke 2004 (reason for Plavix)- only residual issue of "falls to left if in a dark room with eyes closed" - as per patient all rooms have continuous lighting to help Hx-TIA (transient ischemic attack) Multiple, noted per remote records, none recent per pt Anastomotic ulcer Hx, taking Protonix Fatty liver Cerebrovascular disease Per records Hydronephrosis, left Hx of intermittent claudication Hyperparathyroidism, secondary Follows with endocrine- likely secondary to gastric bypass surgery in 2000 Lymphedema "Resolved with procedure" with Dr. Larson Cardiac syndrome X Follows with [facility] cardio Venous insufficiency (chronic) (peripheral) Rheumatoid arthritis Lumbar spinal stenosis Ataxic gait Following with neuro- "chronic difficulty with balance, largely multifactorial, related to multiple orthopedic issues and age extensive cerebrovascular disease. Imaging not suggestive of NPH, does not have clinical signs or symptoms suggestive of Parkinson's disease. " as per patient uses cane Anemia Chronic Vertigo Urinary incontinence Non-occlusive coronary artery disease Per cardio records = Cardiac Syndrome X (small vessel dysfunction causing angina pectoris in a patient with mild nonocclusive CAD) Aortic stenosis ECHO 09/2023: Mild aortic stenosis. HARPREET 1.6-1.7 cm; AV mean PG 11.8 mmHg. AV max velocity 2.355 m/s Follows with [facility] cardio Hypothyroidism Hx of renal calculi Osteoporosis Restless leg syndrome Follows with neuro Past Family History Family History Sister Ovarian cancer Breast cancer Daughter Family history of reaction to anesthesia PONV Family history of diabetes mellitus Mother Osteoarthritis Other Family history non-contributory Denies family history of Prostate cancer Myocardial infarction Colorectal cancer Past Surgical History Surgical History History of femur fracture S/p IM nailing 09/[address] [facility] from fall H/O wrist surgery Repair after right wrist/forearm injury (09/2023) History of open reduction and internal fixation (ORIF) procedure Right femur, hardware intact History of gastric bypass 2000 History of esophagogastroduodenoscopy (EGD) (06/2024) History of lithotripsy 2019 History of intestinal surgery S/P extracorporeal shock wave therapy S/P cystoscopy with ureteral stent placement multiple Family history of reaction to anesthesia N/V Nausea and vomiting after administration of anesthetic agent "has been fine w/procedures at [facility]" History of bilateral tubal ligation History of total abdominal hysterectomy and bilateral salpingo-oophorectomy History of laminectomy Lumbar History of colonoscopy History of cholecystectomy History of herniorrhaphy Abdomen, x3 History of tooth extraction Upper Denture Stye Surgically removed History of cardiac cath 2019- no stents Social History Smoking Status: Current every day smoker tobacco type: cigarettes Smoking cigarettes per day: 6-7 Do You Dip or Chew Tobacco: No Hx Alcohol Use: No Alcohol type: wine alcohol intake frequency: a few times a month Hx Substance Use: No substance use type: does not use Physical Exam Vital Signs Last Vital Signs Temp 98.4 F 01/03/25 09:15 Pulse 62 01/03/25 09:15 Resp 20 01/03/25 09:15 BP 136/65 01/03/25 09:15 Pulse Ox 96 01/03/25 09:15 O2 Del Method Room Air 01/03/25 09:15 Lab Results Anesthesia Preop Results Results Anesthesia Widget: WBC 5.48 K/ul (4.8-10.8) 12/25/24 Hgb 11.5 g/dl (12.0-16.0) L 12/25/24 Hct 35.8 % (37.0-47.0) L 12/25/24 Plt 288 K/uL (130-400) 12/25/24 Na 140 mmol/L (136-145) 12/25/24 K 4.0 mmol/L (3.5-5.1) 12/25/24 Cl 108 mmol/L (98-107) H 12/25/24 CO2 25 mmol/L (21-32) 12/25/24 BUN 18 mg/dl (6-23) 12/25/24 Creat 1.15 mg/dl (0.6-1.2) 12/25/24 Glucose Level 85 mg/dl (70-99(Fasting)) 12/25/24 PT 10.3 Seconds (9.0-12.0) 12/06/24 PTT 28 Seconds (21-31) 12/06/24 INR 0.9 (0.9-1.1) 12/06/24 Urine Color See Comment 12/06/24 Urine Appearance Slightly Cloudy (Clear) 12/06/24 Urine pH Not Reportable 12/06/24 Urine Specific [place] 1.013 (1.000-1.030) 12/06/24 Urine Protein Not Reportable 12/06/24 Urine Glucose (UA) Not Reportable 12/06/24 Urine Ketones Not Reportable 12/06/24 Urine Blood Not Reportable 12/06/24 Urine Nitrite Not Reportable 12/06/24 Urine Bilirubin Not Reportable 12/06/24 Urine Urobilinogen Not Reportable 12/06/24 Urine Leukocyte Esterase Not Reportable 12/06/24 Testing Laboratory Results Urine culture (12/18/24): three types of organisms present, all moderate counts Electrocardiogram Date: 12/06/24 Findings: + NSR @ (76) Chest X-Ray Date: 12/25/24 Findings: + NAD Echocardiogram Date: 09/21/23 LVEF 55-60% No regional wall motion abnormalities Mild cLVH Mild aortic stenosis (HARPREET 1.7 cm2, mean pressure gradient 11.8 mmHg) Grade I diastolic dysfunction Stress Test Date: 10/15/19 MPHR 52% Abnormal study, small area of moderate anterior wall ischemia EF 63% Subsequent 10/26/19 cath, mild nonobstructive CAD Cardiac Catheterization Date: 10/26/19 Left main: angiographically normal LAD: mid 30-40% stenosis Cx: mild atherosclerosis RCA: mild atherosclerosis Mild nonobstructive CAD Other Testing Head and neck CTA Date: 01/22/24 1. No significant stenosis, occlusion, or aneurysm within the [place]. 2. No significant stenosis, occlusion, or dissection identified within the carotid or vertebral arteries.
--- NOTE | 2025-01-03 09:28 | History & Physical Bridge Note ---
Date of Service January 03, 2025 History & Physical Bridge Note I have examined the patient, reviewed the History & Physical and in the interval since the performance of the History & Physical I have noted the following changes of clinical significance: no changes noted
[2025-01-03] MEDS: LACTATED RINGER'S 1,000 ML IV SCH (09:45)
[2025-01-03] MEDS ORDERED: LIDOCAINE 2% 2 ML VIAL/AMP(20MG/ML) INFIL ONE (09:51)
[2025-01-03] MEDS ORDERED: PROPOFOL IV EMULSION 10 MG/ML 20 ML VIAL IV ONE (09:51)
[2025-01-03] MEDS ORDERED: DEXAMETHASONE SOD INJ 4 MG/ML VIAL ONE (09:51)
[2025-01-03] MEDS ORDERED: ONDANSETRON INJ 2 MG/ML 2 ML VIAL ONE (09:51)
[2025-01-03] MEDS ORDERED: ONDANSETRON INJ 2 MG/ML 2 ML VIAL IV PRN ×2 (10:29→16:03)
[2025-01-03] MEDS ORDERED: ATROPINE SULFATE 0.1 MG/ML 10ML SYR IV PRN (10:29)
[2025-01-03] MEDS ORDERED: HYDROmorphone INJ 2 MG/ML SYR/VIAL ONE (11:02)
[2025-01-03] MEDS: DIATRIZOATE MEGLUMINE 30% 100ML VIAL INSTIL ONE (11:05)
--- NOTE | 2025-01-03 11:54 | Operative Report ---
PG Post Operative Report Pre & Post Diagnosis Operation Date: 01/03/25 10:45 Pre-Op Diagnosis: Calculus of Kidney Post-Op Diagnosis: Calculus of Kidney I identified the patient and participated in the time-out.: Yes Procedure Operation Date: 01/03/25 10:45 Actual Procedures p Cystoscopy with Left Ureteronephroscopy, Retrograde Pyelogram, Ureteral Dilation, Laser Destruction of Stone, Basket Extraction of the Stone, and Exchange of Stent Catheter - Left(Left) - Carson Tripatih DO Surgeon Carson Tripathi, II, DO Sludge Mill Operator None Estimated Blood Loss 1 Findings Consistent with Post-Op Diagnosis Stricture at the UPJ. Multiple small stones in lower pole of kidney. Stones destroyed to dust and small fragments and larger fragments removed. Specimens Stone Fragments - Left Renal Drains 7 Fr x 24 cm Anesthesia Type General Complications none Disposition Disposition: Recovery Room Indications Patient with bothersome stones. Risks and benefits discussed at length. Description of Procedure Patient was consented and brought back to the operating room. Patient was placed under anesthesia in the supine position and moved to the dorsal lithotomy position. Patient was prepped and draped in the regular sterile fashion. A time out was completed identifying the correct patient and procedure. A 30degree Cystoscope was placed into the bladder and the entire bladder was examined. The UO's were identified. The stent was grasped and partially removed. A wire was placed and the stent was fully removed. Over the wire, the UO was cannulized with a catheter and a retrograde pyelogram was completed. A wire was then replaced. A ureteral access sheath and second safety wire was placed. The flexible ureteroscope was taken into the ureter. The entire ureter and renal pelvis were examined. There was still stricture at the UPJ. The other strictures in the distal and mid ureter were adequately dilated from the last procedure. The stricture at the UPJ was dilated. The scope was then able to advance. The stones were identified. A laser fiber was selected and the stones were pulverized to dust and small fragments. Larger fragments were grasped and removed and sent for analysis. The entire area was once again examined. No residual large fragments or areas of concern were noted. The scope was slowly removed with the wire left in place. Contrast was placed through the scope for a pyelogram to assist in stent placement. The entire ureter was examined as the scope was slowly removed. No obstructions or other areas of concern were noted. With the wire in place, a 7 Fr Double J stent was placed. It was confirmed with fluoroscopy. With the stent in place, the bladder was emptied. The scope was removed. The patient was cleaned, aroused from anesthesia, and transferred to the pacu in stable condition having tolerated the procedure well with no complications. I was present and participated in all aspects of the procedure. The patient will be monitored in the PACU until transferred. Plan to remove stent in approx 2 weeks. I attest to the content of the Intraoperative Record and any orders documented therein. Any exceptions are noted below.
--- NOTE | 2025-01-03 12:17 | Fluoroscopy Report ---
FL retrograde includes kub CLINICAL HISTORY: LEFT COMPARISON STUDY: None FLUOROSCOPY TIME: 30 seconds FLUOROSCOPY IMAGES: 4 EXPOSURE DOSE: 7 mGy FINDINGS: Fluoroscopy was provided for urologic procedure. IMPRESSION: Intraoperative fluoroscopy. ACT 112: Negative or not required by law. Electronically signed by: Tree Delgado M.D. 01/03/2025 12:16 PM
--- NOTE | 2025-01-03 13:17 | Anesthesiology Progress Note ---
Date of Service January 03, 2025 Anesthesia Post Procedure Vital Signs Vital Signs: Temp Pulse Pulse Resp BP BP Pulse Ox 01/03/25 12:35 98.6 F 91 H 18 165/96 H 93 01/03/25 12:00 82 12 177/94 H 95 01/03/25 11:50 97.7 F 81 17 165/84 H 93 01/03/25 11:40 78 18 151/65 H 97 01/03/25 11:30 76 12 158/85 H 99 01/03/25 11:20 96.8 F L 77 13 131/63 98 01/03/25 09:15 98.4 F 62 20 136/65 96 O2 Del Method O2 Flow Rate 01/03/25 12:35 Room Air 01/03/25 12:00 Room Air 0 01/03/25 11:50 Room Air 0 01/03/25 11:40 Room Air 0 01/03/25 11:30 Oxymask 4 01/03/25 11:20 Oxymask 8 01/03/25 09:15 Room Air Transfer of Care Handoff Completed per policy Notes Mental Status: alert / awake / arousable and participated in evaluation Patient Amnestic to Procedure: Yes Nausea / Vomiting: adequately controlled Pain: adequately controlled Airway Patency, RR, SpO2: stable & adequate BP & HR: stable & adequate Hydration State: stable & adequate Anesthetic Complications: no major complications apparent and Pt Satisfied with anesthetic care
--- NOTE | 2025-01-03 14:50 | Anesthesiology Progress Note ---
Date of Service January 03, 2025 Anesthesia Post Procedure Vital Signs Vital Signs: Temp Pulse Pulse Resp BP BP Pulse Ox 01/03/25 14:05 37.7 C H 105 H 24 154/65 H 93 01/03/25 13:05 37.0 C 109 H 22 135/96 95 01/03/25 12:35 37 C 91 H 18 165/96 H 93 01/03/25 12:06 37.3 C 87 16 179/83 H 93 01/03/25 12:00 82 12 177/94 H 95 01/03/25 11:50 36.5 C 81 17 165/84 H 93 01/03/25 11:40 78 18 151/65 H 97 01/03/25 11:30 76 12 158/85 H 99 01/03/25 11:20 36.0 C L 77 13 131/63 98 01/03/25 09:15 36.9 C 62 20 136/65 96 O2 Del Method O2 Flow Rate 01/03/25 14:05 Nasal Cannula 2 01/03/25 13:05 Nasal Cannula 2 01/03/25 12:35 Room Air 01/03/25 12:06 Room Air 01/03/25 12:00 Room Air 0 01/03/25 11:50 Room Air 0 01/03/25 11:40 Room Air 0 01/03/25 11:30 Oxymask 4 01/03/25 11:20 Oxymask 8 01/03/25 09:15 Room Air Transfer of Care Handoff Completed per policy Notes Mental Status: alert / awake / arousable and participated in evaluation Patient Amnestic to Procedure: Yes Nausea / Vomiting: adequately controlled Pain: adequately controlled Airway Patency, RR, SpO2: stable & adequate BP & HR: see Notes below Hydration State: stable & adequate Anesthetic Complications: see Notes below and Pt Satisfied with anesthetic care Notes: pt with tachycardia upon standing. ivf therapy initiated in phase 2. pt somewhat weak when attemping to sit up in bed. has a small oxygen requirement. primary service contacted and plan for overnight observation.
[2025-01-03] MEDS ORDERED: NITROGLYCERIN SL 0.4 MG/TAB TAB SL PRN (16:03)
[2025-01-03] MEDS ORDERED: HYDROmorphone INJ 0.5 MG/0.5 ML SYR IV PRN ×2 (16:03)
[2025-01-03] MEDS ORDERED: PHENAZOPYRIDINE HCL 200 MG TAB PO PRN (16:03)
[2025-01-03] MEDS ORDERED: ACETAMINOPHEN 325 MG TAB PO PRN (16:03)
--- NOTE | 2025-01-03 16:17 | Hospitalist Consultation ---
Date of Consultation January 03, 2025 Assessment & Plan (1) Calcium nephrolithiasis: (2) Restless leg syndrome: (3) Hx-TIA (transient ischemic attack): (4) Hyperlipidemia: Plan Gustavo is a 79F with a PMHx of RLS, HLD, HTN, hx of TIA, GERD, vertigo, aortic stenosis and hypothyroidism who present to the hospital for elective surgery with Dr. Tripathi. Was febrile and tachycardic during the procedure with concerns for SIRS. #Ureteral Stricture/Nephrolithiasis S/p Cystoscopy with Left Ureteronephroscopy, Ureteral Dilation, Laser destruction of Stone and Exchange of Stent Catheter Tmax in OR 99.9 and mild tachycadia. Cipro IV started WBC 21.75, will add CRP and trend AM pro lana Blood Culture pending Urine Culture pending Continue flomax, prn pyridium, oxybutyin DVT proh / pain control / discharge planning per primary Post op O2 requirement - baseline is room air. Encourage IS, wean as able #HTN | Cardiac syndrome X was orginally on verapil, this was dc'ed after hospitalization earlier this year d/t hypotension, but cardiac syndrome x/vasospam symptoms have worsened. Consider restarting if BP allows #hypothyroid - continue synthroid #hx of TIA | HLD Continue plavix, statin # RLS - continue requip and gabapentin # RA - hold Plaquenil with active infection Thank you for allowing us to participate in the care of this patient, please reach out with any questions or concerns. Medicine will continue to follow. Supervising Physician Co-Signing Physician Notes Attending Attestation and Consult Note: Pt seen/examined, chart reviewed, consult care plan d/w TERRY Vincent. I agree w/ the valdez components of her consult documentation except --- patient has systolic murmur on physical exam (see below). 79yo female with RLS, RA, HTN, prior stroke, GERD, vertigo, aortic stenosis, gastric bypass status, and hypothyroidism. Presented today for elective urological surgery including the following -- Cystoscopy with Left Ureteronephroscopy, Ureteral Dilation, Laser destruction of Stone and Exchange of Stent Catheter. Medicine asked to see due to intra-op fever and tachycardia. I saw the patient post-op on the med-tele unit. She was resting in bed watching TV; at bedside. Prior to the surgery she had not been having any infectious symptoms. She did not eat much post-op today. Denied pain in any location; just c/o being tired. PMH/PSH/allergies/meds/sochx/famhx - reviewed VSS, Tm 37.7 gen - lying in bed, looks tired but nontoxic mouth - MM dry neck - no JVD heart - RRR, s1 s2, 2/6 systolic murmur RUSB lungs - CTA b/l abd - soft NT ND BS+; no flank tenderness to palpation ext - no edema, pulses b/l feet 2+ A/P: 1. SIRS/possible early sepsis - presumed urinary source in light of urological procedure today. Agree with cohen-culture and cipro IV empirically. Low threshold to change to cephalosporin if any clinical worsening. 2. Kidney stone/chronic L ureteral stent - s/p Cystoscopy with Left Ureteronephroscopy, Ureteral Dilation, Laser destruction of Stone and Exchange of Stent Catheter by Dr Tripathi. 3. Other chronic medical problems - stable, see Ms Vincent's note for details. Kyle Macias MD History of Present Illness Reason for Consultation: medical management, SIRS Requesting Physician: Dr. Tripathi Attending Physician: Carson Tripathi, II, DO History of Present Illness Gustavo is a 79F with a PMHx of RLS, HLD, HTN, hx of TIA, GERD, vertigo, aortuc stenosis and hypothyroidism who present to the hospital for elective surgery with Dr. Tripathi. Was febrile and tachycardic during the procedure with concerns for SIRS. Seen post operatively and feeling well. Has urinated since her procedure without issue. She has baseline discomfort when she has a stent in place and that has not changed. Denies urinary symptoms, cough, cold or fever this morning or in the last few days. Allergies Allergy/AdvReac Type Severity Reaction Status Date / Time shellfish derived Allergy Severe Hives Verified 01/03/25 09:18 pecan nut Allergy Intermediate Hives Verified 01/03/25 09:18 Sulfa (Sulfonamide Allergy Intermediate Itching Verified 01/03/25 09:18 Antibiotics) oxycodone Allergy Mild Itching Verified 01/03/25 09:18 alcohol Allergy Unknown Unknown Verified 01/03/25 09:18 [From Mastisol Liquid Adhesive] gum mastic Allergy Unknown Unknown Verified 01/03/25 09:18 [From Mastisol Liquid Adhesive] methyl salicylate Allergy Unknown Unknown Verified 01/03/25 09:18 [From Mastisol Liquid Adhesive] storax Allergy Unknown Unknown Verified 01/03/25 09:18 [From Mastisol Liquid Adhesive] ibuprofen AdvReac Intermediate Nausea, Verified 01/03/25 09:18 upset stomach pregabalin AdvReac Intermediate Triple Verified 01/03/25 09:18 vision Home Medications Medication Instructions Recorded Confirmed Type nitroglycerin 0.4 mg sublingual 0.4 mg sublingual Q5M PRN Chest 02/14/19 01/03/25 Rx tablet Pain #30 tabs hydroxychloroquine 200 mg tablet 200 mg PO BID 09/04/21 01/03/25 History triamcinolone acetonide 0.1 % 1 applic topical BID PRN SKIN 01/22/24 01/03/25 History topical cream IRRITATIONS levothyroxine 100 mcg tablet 100 mcg PO QAM #90 tabs 01/24/24 01/03/25 Rx carbidopa ER 25 mg-levodopa 100 mg 1 tab PO QAM 90 days #90 tabs 05/10/24 01/03/25 Rx tablet,extended release folic acid 1 mg tablet 1 mg PO QAM #30 tabs 07/05/24 01/03/25 Rx clopidogrel 75 mg tablet (Plavix) 75 mg PO QAM #90 tabs 09/03/24 01/03/25 Rx atorvastatin 40 mg tablet (Lipitor) 40 mg PO HS #90 tabs 10/11/24 01/03/25 Rx cholecalciferol (vitamin D3) 1,250 50,000 unit PO 2XWK #24 caps 10/11/24 01/03/25 Rx mcg (50,000 unit) capsule ropinirole 2 mg tablet,extended 2 mg PO HS #90 tabs 10/11/24 01/03/25 Rx release 24 hr calcitriol 0.5 mcg capsule 0.5 mcg PO QAM 11/22/24 01/03/25 History pantoprazole 40 mg tablet,delayed 40 mg PO QAM 11/22/24 01/03/25 History release (Protonix) hydrocodone 7.5 mg-acetaminophen 1 tab PO Q8H PRN pain #7 tabs 12/03/24 01/03/25 Rx 325 mg tablet phenazopyridine 200 mg tablet 200 mg PO Q8H PRN pain #10 tabs 12/03/24 01/03/25 Rx (Pyridium) tamsulosin 0.4 mg capsule 0.4 mg PO HS #30 caps 12/03/24 01/03/25 Rx gabapentin 300 mg capsule 300 mg PO BID #90 caps 12/11/24 01/03/25 Rx solifenacin 5 mg tablet (Vesicare) 5 mg PO QAM 12/11/24 01/03/25 History ciprofloxacin HCl 500 mg tablet 500 mg PO Q12H #14 tabs 01/03/25 Rx (Cipro) hydrocodone 7.5 mg-acetaminophen 1 tab PO Q8H PRN pain #7 tabs 01/03/25 Rx 325 mg tablet phenazopyridine 200 mg tablet 200 mg PO Q8H PRN pain #10 tabs 01/03/25 Rx (Pyridium) tamsulosin 0.4 mg capsule 0.4 mg PO HS #30 caps 01/03/25 Rx Patient History Medical History Renal lesion Per records, patient unaware History of blood transfusion 06/2024 for "bleeding ulcer" Hyperlipidemia HTN (hypertension) GERD (gastroesophageal reflux disease) History of stroke 2004 (reason for Plavix)- only residual issue of "falls to left if in a dark room with eyes closed" - as per patient all rooms have continuous lighting to help Hx-TIA (transient ischemic attack) Multiple, noted per remote records, none recent per pt Anastomotic ulcer Hx, taking Protonix Fatty liver Cerebrovascular disease Per records Hydronephrosis, left Hx of intermittent claudication Hyperparathyroidism, secondary Follows with endocrine- likely secondary to gastric bypass surgery in 2000 Lymphedema "Resolved with procedure" with Dr. Larson Cardiac syndrome X Follows with [facility] Venous insufficiency (chronic) (peripheral) Rheumatoid arthritis Lumbar spinal stenosis Ataxic gait Following with neuro- "chronic difficulty with balance, largely multifactorial, related to multiple orthopedic issues and age extensive cerebrovascular disease. Imaging not suggestive of NPH, does not have clinical signs or symptoms suggestive of Parkinson's disease. " as per patient uses cane Anemia Chronic Vertigo Urinary incontinence Non-occlusive coronary artery disease Per cardio records = Cardiac Syndrome X (small vessel dysfunction causing angina pectoris in a patient with mild nonocclusive CAD) Aortic stenosis ECHO 09/2023: Mild aortic stenosis. HARPREET 1.6-1.7 cm; AV mean PG 11.8 mmHg. AV max velocity 2.355 m/s Follows with [facility] cardio Hypothyroidism Hx of renal calculi Osteoporosis Restless leg syndrome Follows with neuro Surgical History History of femur fracture S/p IM nailing 09/2022 at [facility] from fall H/O wrist surgery Repair after right wrist/forearm injury (09/2023) History of open reduction and internal fixation (ORIF) procedure Right femur, hardware intact History of gastric bypass 2000 History of esophagogastroduodenoscopy (EGD) (06/2024) History of lithotripsy 2018 History of intestinal surgery S/P extracorporeal shock wave therapy S/P cystoscopy with ureteral stent placement multiple Family history of reaction to anesthesia N/V Nausea and vomiting after administration of anesthetic agent "has been fine w/procedures at [facility]" History of bilateral tubal ligation History of total abdominal hysterectomy and bilateral salpingo-oophorectomy History of laminectomy Lumbar History of colonoscopy History of cholecystectomy History of herniorrhaphy Abdomen, x3 History of tooth extraction Upper Denture Stye Surgically removed History of cardiac cath 2015, 2019- no stents Family History Sister Ovarian cancer Breast cancer Daughter Family history of reaction to anesthesia PONV Family history of diabetes mellitus Mother Osteoarthritis Other Family history non-contributory Denies family history of Prostate cancer Myocardial infarction Colorectal cancer Social History Smoking Status: Current every day smoker Tobacco Type: Cigarettes Age Started Using Tobacco: 18; packs per day: 0.5; Cigarettes Per Day: 6 or 7; Second Hand Exposure: No; Do You Dip or Chew Tobacco: No; Tobacco Cessation Education Requested by Patient: No Hx Alcohol Use: No Hx Substance Use: No Preferred Language: Spanish Communication Ability: Effective Visual Impairment: No Limitations Hearing Ability: Normal Archives Technician Required: No Beliefs That Will Affect Care: None marital status: Current Living Situation: Spouse Current Living Situation Comment: Live with and dogs current occupational status: retired current occupation: was a homemaker How many Children do You have: 5 Other Information That Helps Us Care for You: No Feels Safe at Home: Yes Safety Concerns: Feels Safe At This Time Childhood Exposure to Second-Hand Smoke: Yes Diet: regular Diet Comment: regular caffeine: Yes during the past year weight has: increased > 10 lbs Dental Care, Regularly: No Physical Activity Frequency: Does not Exercise Seatbelt Use: always Sunscreen Use: Yes Assistive Devices: Cane Assistive Devices Comment: Need cane to complete daily activities Review of Systems Review of Systems: All systems reviewed & are unremarkable except as noted in Subjective Physical Exam Physical Exam: General: NAD, VS as above Resp: normal respiratory effort, lungs clear to auscultation, on 2L NC CV: RRR, no murmur, Abd: normal bowel sounds, non tender, no hepatosplenomegaly Extremities: Moves all extremities, no edema Neuro: A&O x3, Skin: intact, no lesions noted Results & Data Results & Data Vital Signs (Past 12 Hours) Vital Signs Temp Pulse Pulse Resp BP BP Pulse Ox 01/03/25 15:49 98.9 F 106 H 20 145/74 H 99 01/03/25 15:11 99.9 F H 95 H 24 119/69 95 01/03/25 14:05 99.9 F H 105 H 24 154/65 H 93 01/03/25 13:05 98.6 F 109 H 22 135/96 95 01/03/25 12:35 98.6 F 91 H 18 165/96 H 93 01/03/25 12:06 99.1 F 87 16 179/83 H 93 01/03/25 12:00 82 12 177/94 H 95 01/03/25 11:50 97.7 F 81 17 165/84 H 93 01/03/25 11:40 78 18 151/65 H 97 01/03/25 11:30 76 12 158/85 H 99 01/03/25 11:20 96.8 F L 77 13 131/63 98 01/03/25 09:15 98.4 F 62 20 136/65 96 O2 Del Method O2 Flow Rate 01/03/25 15:49 Room Air 01/03/25 15:11 Nasal Cannula 2 01/03/25 14:05 Nasal Cannula 2 01/03/25 13:05 Nasal Cannula 2 01/03/25 12:35 Room Air 01/03/25 12:06 Room Air 01/03/25 12:00 Room Air 0 01/03/25 11:50 Room Air 0 01/03/25 11:40 Room Air 0 01/03/25 11:30 Oxymask 4 01/03/25 11:20 Oxymask 8 01/03/25 09:15 Room Air Laboratory Results cbc reviewed PG Care Time/CCT Total # of Minutes Spent Total Time Spent with Patient: Total time spent is greater than 50% in coordination of care (as documented) at patient's floor/unit and/or counseling patient: Coding Level of Care Code 41250 IN/OBS CONSULT LVL 3,45M Diagnoses Calcium nephrolithiasis N20.0 Restless leg syndrome G25.81 Hx-TIA (transient ischemic attack) Z86.73 Hyperlipidemia E78.5
[2025-01-03 16:52] LABS: Hematocrit (blood only) 36.3 % (37.0-47.0); Hemoglobin 11.4 g/dl (12.0-16.0); Mean Corpuscular Hemoglobin 29.5 pg (25.0-34.0); Mean Corpuscular Volume 93.8 fL (80.0-100.0); Platelet Count 236 K/uL (130-400); RDW Standard Deviation 48.9 fL (36.4-46.3); Red Blood Count 3.87 M/uL (4.20-5.40); White Blood Count 21.75 K/ul (4.8-10.8)
[2025-01-03 17:09] LABS: Immature Granulocytes # (auto) 0.13 K/uL (0.01-0.20); Immature Granulocytes % (auto) 0.6 %; Toxic Vacuolation 1+
[2025-01-03 17:10] LABS: Anion Gap 7.0 (3-11); Blood Urea Nitrogen 16.0 mg/dl (6-23); Calcium 7.9 mg/dl (8.6-10.3); Carbon Dioxide 24.0 mmol/L (21-32); Chloride 110.0 mmol/L (98-107); Creatinine Clr Calc Pharmacy 40.1 ml/min; Glucose 127.0 mg/dl (70-99(Fasting)); Potassium 4.0 mmol/L (3.5-5.1); Sodium 141.0 mmol/L (136-145)
[2025-01-03] MEDS: SODIUM CHLORIDE 0.9% 1,000 ML IV SCH (17:10)
[2025-01-03] MEDS: CIPROFLOXACIN / D5W 400 MG/200 ML BAG IV SCH (21:36)
[2025-01-03] MEDS: ACETAMINOPHEN 325 MG TAB PO PRN (21:36)
[2025-01-03] MEDS: GABAPENTIN 300 MG CAP PO SCH (21:37)
[2025-01-03] MEDS: TAMSULOSIN HCL 0.4 MG CAP PO SCH (21:37)
[2025-01-03] MEDS: ATORVASTATIN 40 MG TAB PO SCH (21:37)
[2025-01-03] MEDS: SODIUM CHLORIDE 0.9% 500 ML IV ONE (23:50)
[2025-01-04] MEDS: LEVOTHYROXINE SODIUM 100 MCG TABLET PO SCH (06:06)
[2025-01-04 06:39] LABS: Hematocrit (blood only) 29.7 % (37.0-47.0); Hemoglobin 9.8 g/dl (12.0-16.0); Mean Corpuscular Hemoglobin 30.4 pg (25.0-34.0); Mean Corpuscular Volume 92.2 fL (80.0-100.0); Platelet Count 219 K/uL (130-400); RDW Standard Deviation 49.0 fL (36.4-46.3); Red Blood Count 3.22 M/uL (4.20-5.40); White Blood Count 36.89 K/ul (4.8-10.8)
[2025-01-04] MEDS ORDERED: VANCOMYCIN CONSULT ACTIVE PRN (06:47)
[2025-01-04 07:08] LABS: Anion Gap 5.0 (3-11); Blood Urea Nitrogen 19.0 mg/dl (6-23); Calcium 7.1 mg/dl (8.6-10.3); Carbon Dioxide 25.0 mmol/L (21-32); Chloride 109.0 mmol/L (98-107); Creatinine Clr Calc Pharmacy 42.9 ml/min; Glucose 94.0 mg/dl (70-99(Fasting)); Potassium 4.3 mmol/L (3.5-5.1); Sodium 139.0 mmol/L (136-145)
[2025-01-04 07:12] LABS: Immature Granulocytes # (auto) 0.72 K/uL (0.01-0.20); Immature Granulocytes % (auto) 2.0 %
[2025-01-04] MEDS: 4.5GM X1 IV STA (07:29)
--- NOTE | 2025-01-04 07:29 | Urology Progress Note ---
Date of Service January 04, 2025 Assessment & Plan (1) SIRS (systemic inflammatory response syndrome): (2) Urge and stress incontinence: (3) Calcium nephrolithiasis: (4) Ureteral stricture: Plan Postop day 1 status post ureteroscopy and stone treatment. Patient had been undergoing staged procedures for bilateral stone disease. Was finalizing with intervention on the remaining stones on the left side. Patient had numerous small stones with previous obstruction and previous issues of stricture. Had stent placed with the last procedure in order to passively dilate the left side. Had undergone intervention on left side yesterday with clearing and destruction of stones. Patient did develop low-grade fevers and hypotension with mild tachycardia. This was discovered in the second stage of recovery after the procedure just prior to discharge. The discharge was canceled and the patient was admitted for observation with broad-spectrum antibiotics and expanded coverage. Patient has since not had a fever or major issue. Does have some mild hypotension this morning. Has not been asymptomatic otherwise. Does have some increasing urgency and frequency and leakage issues likely secondary to the recent intervention. Did discuss continued utilization of antibiotics. Will await the culture results. If able can de-escalate to an oral antibiotic with coverage likely Cipro. If patient does continue to improve may be able to be discharged. Will observe for now and await updated lab work from the morning. Patient did have a severe elevation in white count up to 36.89 creatinine came back at 1.12. Monitor with plan for stent removal in 1-2 weeks. Admission and Anticipated Discharge Date Admission Date: January 03, 2025 Subjective Postop from Ureteroscopy and Laser lithotripsy with stent placement for stones and obstruction issues. Patient developed low-grade fever and issues with tachycardia and hypotension postoperatively. Patient initially was going to be discharged however with the development of of systemic reaction concern for possible early developing SIRS/sepsis postoperatively. Patient's antibiotics were expanded to have pseudomonal coverage due to her previous history of Pseudomonas. Was admitted to the hospital for observation Otherwise, patient has been tolerating well. Has noticed some frequency and ur gency. Is having some incontinence after the procedure likely secondary to combination of irritation from stent and likely infected urine. Has not had severe pain in the back and flank. Does have occasional burning and irritation. No severe episodes or major changes. No new nausea or vomiting. Had tolerated anesthesia without major problems Review of Systems Review of Systems: All systems reviewed & are unremarkable except as noted in HPI & below Physical Exam Physical Exam: General: Alert in no acute distress. HEENT: Normocephalic Atraumatic. Inspection normal. Cranial Nerves 2-12 Grossly intact. Normal inspection of face. Normal inspection of neck. Psychologic: Normal affect. Respiratory: Nonlabored. No use of accessory muscles. No tachypnea or dyspnea. Cardiovascular: No tachycardia Skin: [place] and Dry. No rashes or visible lesions. Extremities/Lymphatics: No edema Abdomen: Soft Non-distended. No rebound or guarding. Results & Data Vital Signs (Past 12 Hours) Vital Signs Temp Pulse Resp BP Pulse Ox O2 Del Method 01/04/25 02:29 36.4 C 57 L 16 91/52 L 96 Room Air 01/04/25 00:30 36.6 C 57 L 16 92/55 L 94 Room Air 01/03/25 23:37 36.8 C 60 16 89/52 L 92 Room Air 01/03/25 23:21 36.9 C 65 16 85/53 L 93 Room Air 01/03/25 19:25 37.0 C 87 18 113/63 93 Room Air PG Care Time/CCT Total # of Minutes Spent Total Time Spent with Patient: Total time spent is greater than 50% in coordination of care (as documented) at patient's floor/unit and/or counseling patient: Coding Level of Care Code 75959 SUB INP/OBS CARE 3/50MIN Diagnoses SIRS (systemic inflammatory response syndrome) R65.10 Urge and stress incontinence N39.46 Calcium nephrolithiasis N20.0 Ureteral stricture N13.5
[2025-01-04] MEDS: VANCOMYCIN HCL 1,750 MG in SODIUM CHLORIDE 0.9% 500 ML IV ONE (08:18)
[2025-01-04] MEDS: OXYBUTYNIN CHLORIDE XL 5 MG TABCR PO SCH (08:23)
[2025-01-04] MEDS: CLOPIDOGREL BISULFATE 75 MG TAB PO SCH (08:23)
[2025-01-04] MEDS: CALCITRIOL 0.25 MCG CAPSULE PO SCH (08:24)
[2025-01-04] MEDS: CARBIDOPA/LEVODOPA 25/100MG EXT REL TAB PO SCH (08:24)
--- NOTE | 2025-01-04 10:51 | Pharmacy Report ---
Pharmacy PK ABX Note - Date of Service January 04, 2025 - Assessment and Plan Assessment 79 year old F receiving Vancomycin and Zosyn for treatment of possible UTI. * Day #2 of antimicrobial therapy. Possible infected stone. * Urine and blood cultures pending. Significant leukocytosis of 37k. SCr slightly improved today. Procalcitonin was 52 ng/mL. Plan Vancomycin * Loading dose: 1750 mg IV x 1 * Maintenance dose: 1250 mg IV every 24 hours * Regimen is predicted to achieve target AUC/NIRANJAN of 400-600 mg/L.hr * Level to be ordered if therapy extends beyond 48 hours Zosyn * 4.5 g IV every 8 hours Pharmacy will continue to follow and will adjust dose/frequency as necessary. Thank you. Pharmacy has transitioned to AUC monitoring for vancomycin. AUC/NIRANJAN is the preferred PK/PD target and is associated with decreased risk of nephrotoxicity compared to traditional trough targets.
[2025-01-04] MEDS: PIPERACILLIN/TAZOBACTAM 4.5 GM/100 ML BAG IV SCH (12:32)
--- NOTE | 2025-01-04 14:00 | Hospitalist Progress Note ---
"Date of Service January 04, 2025 Assessment & Plan (1) SIRS (systemic inflammatory response syndrome): (2) Calcium nephrolithiasis: (3) Restless leg syndrome: (4) Hx-TIA (transient ischemic attack): (5) Hyperlipidemia: Arabella Chen is a 79F with a PMHx of RLS, HLD, HTN, hx of TIA, GERD, vertigo, aortic stenosis and hypothyroidism who present to the hospital for elective surgery with Dr. Tripathi. Was febrile and tachycardic immediately after the procedure with concerns for SIRS. #Ureteral Stricture/Nephrolithiasis - S/p Cystoscopy with Left Ureteronephroscopy, Ureteral Dilation, Laser destruction of Stone and Exchange of Stent Catheter - Significant leukocytosis now at 36.89 with neutrophil predominance. Procal significantly elevated at 51.90. CRP elevated at 7.27 - Initially started on IV Cipro, however now switched to IV Vanco + Zosyn given history of E. coli ESBL and psuedomonas - Blood Culture pending - Urine Culture pending - Continue flomax, prn pyridium, oxybutyin - DVT proh / pain control / discharge planning per primary - Will trend CBC, CRP, procal with AM labs #HTN | Cardiac syndrome X - Was originally on verapamil, this was dc'ed after hospitalization earlier this year d/t hypotension, but cardiac syndrome x/vasospasm symptoms have worsened. Consider restarting if BP allows however currently remains hypotensive (asymptomatic) # RA - HOLD Plaquenil with active infection #hypothyroid - continue Synthroid #hx of TIA | HLD - Continue Plavix, statin # RLS - continue Requip and gabapentin Thank you for allowing us to participate in the care of this patient, please reach out with any questions or concerns. Medicine will continue to follow. Discussed case with urology and pharmacy Updated at bedside Discontinued Cipro and started Vanco/Zosyn Admission and Anticipated Discharge Date Admission Date: January 03, 2025 Supervising Physician Co-Signing Physician Notes Attending Attestation: Chart reviewed, consult care plan d/w TERRY Dick. I agree w/ the valdez components of her consult documentation with the following addition - --sepsis due to complicated UTI A/P: 1. Sepsis - 2nd to complicated UTI in the setting of a chronic ureteral stent & urological procedure; agree with antibiotic changes. Follow cx's. BPs remain stable. 2. Kidney stone/chronic L ureteral stent - POD #1 - s/p Cystoscopy with Left Ureteronephroscopy, Ureteral Dilation, Laser destruction of Stone and Exchange of Stent Catheter by Dr Tripathi. Kyle Macias MD Subjective Patient seen and evaluated at bedside with her present. She reports feeling well. Denies fever, chills, nausea, abdominal pain, back/flank pain, urinary symptoms. She notes that she has been urinating without difficulty since her procedure. We discussed her lab results from this morning and the concern for infection based on these results. We discussed the importance of her remaining inpatient while these cultures are pending. Reviewed antibiotics and treatment plan. All questions/concerns were answered. She reports minimal appetite which is her baseline, and she notes good sleep at night. No additional complaints or concerns at this time. Physical Exam Physical Exam: General: No acute distress, nondiaphoretic, well-developed, well-nourished. Skin: Warm, dry. No rashes or peripheral edema noted. Cardiac: Regular rate and rhythm without murmurs gallops or rubs. Pulm: Clear to auscultation bilaterally without wheezes, rales or rhonchi. Normal respiratory effort. 94% on room air. Abdominal: Soft, nontender, nondistended. Bowel sounds present. Neuro: A&O x3. No focal neurological deficits. Results & Data Results & Data Vital Signs (Past 12 Hours) Vital Signs Temp Pulse Pulse Resp BP BP Pulse Ox 01/04/25 12:04 63 90/49 L 01/04/25 11:09 98.2 F 60 16 84/43 L 94 01/04/25 08:31 97.7 F 57 L 18 99/60 L 96 01/04/25 05:50 53 L 01/04/25 02:29 97.6 F 57 L 16 91/52 L 96 O2 Del Method 01/04/25 12:04 01/04/25 11:09 Room Air 01/04/25 08:31 Room Air 01/04/25 05:50 01/04/25 02:29 Room Air Laboratory Results Reviewed CBC with differential Reviewed BMP, chemistries Blood cultures and urine culture pending PG Care Time/CCT Total # of Minutes Spent Total Time Spent with Patient: Total time spent is greater than 50% in coordination of care (as documented) at patient's floor/unit and/or counseling patient: Coding Level of Care Code 23925 SUB INP/OBS CARE 3/50MIN Diagnoses SIRS (systemic inflammatory response syndrome) R65.10 Calcium nephrolithiasis N20.0 Restless leg syndrome G25.81 Hx-TIA (transient ischemic attack) Z86.73 Hyperlipidemia E78.5"
[2025-01-05 05:09] LABS: A calco-baum cmplx NotReported Not Detected (NotDetected); Bact fragilis Not Reported Not Detected (NotDetected); Blood Culture Id Panel PCR Panel Negative (NotDetected); C auris Not Reported Not Detected (NotDetected); Calbicans Not Reported Not Detected (NotDetected); Candida glabrata Not Reported Not Detected (NotDetected); Candida krusei Not Reported Not Detected (NotDetected); Cneoformans/gatti Not Reported Not Detected (NotDetected); Cparapsilosis Not Reported Not Detected (NotDetected); Ctropicalis Not Reported Not Detected (NotDetected); E cloacae compx Not Reported Not Detected (NotDetected); Efaecalis Not Reported Not Detected (NotDetected); Efaecium Not Reported Not Detected (NotDetected); Enterobacterales Not Reported Not Detected (NotDetected); Escherichia coli Not Reported Not Detected (NotDetected); H influenzae Not Reported Not Detected (NotDetected); K aerogenes Not Reported Not Detected (NotDetected); Koxytoca Not Reported Not Detected (NotDetected); Kpneumoniae grp Not Reported Not Detected (NotDetected); Lmonocyt Not Reported Not Detected (NotDetected); N meningitidis Not Reported Not Detected (NotDetected); P aeruginosa Not Reported Not Detected (NotDetected); Proteus spp Not Reported Not Detected (NotDetected); Salmonella spp Not Reported Not Detected (NotDetected); Staph lugdunensis Not Reported Not Detected (NotDetected); Staph spp. Not Reported Not Detected (NotDetected); Staphaureus Not Reported Not Detected (NotDetected); Staphepi Not Reported Not Detected (NotDetected); Stenmaltophilia Not Reported Not Detected (NotDetected); Strep agal(GrpB) Not Reported Not Detected (NotDetected); Strep pneum Not Reported Not Detected (NotDetected); Strep pyog (GrpA) Not Reported Not Detected (NotDetected); Strep spp Not Reported Not Detected (NotDetected)
[2025-01-05 06:37] LABS: Hematocrit (blood only) 29.1 % (37.0-47.0); Hemoglobin 9.3 g/dl (12.0-16.0); Mean Corpuscular Hemoglobin 29.7 pg (25.0-34.0); Mean Corpuscular Volume 93.0 fL (80.0-100.0); Platelet Count 199 K/uL (130-400); RDW Standard Deviation 49.6 fL (36.4-46.3); Red Blood Count 3.13 M/uL (4.20-5.40); White Blood Count 25.38 K/ul (4.8-10.8)
[2025-01-05 07:08] LABS: Anion Gap 5.0 (3-11); Calcium 6.9 mg/dl (8.6-10.3); Carbon Dioxide 22.0 mmol/L (21-32); Chloride 111.0 mmol/L (98-107); Potassium 3.8 mmol/L (3.5-5.1); Sodium 138.0 mmol/L (136-145)
[2025-01-05 07:12] LABS: Immature Granulocytes # (auto) 0.35 K/uL (0.01-0.20); Immature Granulocytes % (auto) 1.4 %
[2025-01-05 07:14] LABS: Blood Urea Nitrogen 21.0 mg/dl (6-23); Creatinine Clr Calc Pharmacy 42.6 ml/min; Glucose 76.0 mg/dl (70-99(Fasting))
[2025-01-05] MEDS: ERGOCALCIFEROL 1250 MCG (50,000 UNITS) CAP PO SCH (08:00)
[2025-01-05] MEDS: VANCOMYCIN HCL 1,250 MG in SODIUM CHLORIDE 0.9% 250 ML IV SCH (08:00)
--- NOTE | 2025-01-05 08:58 | Hospitalist Progress Note ---
"Date of Service January 05, 2025 Assessment & Plan (1) SIRS (systemic inflammatory response syndrome): (2) UTI due to extended-spectrum beta lactamase (ESBL) producing Escherichia coli: (3) Calcium nephrolithiasis: (4) Restless leg syndrome: (5) Hx-TIA (transient ischemic attack): (6) Hyperlipidemia: (7) Sepsis: (8) Infection associated with indwelling ureteral stent: (9) Complicated UTI (urinary tract infection): Arabella Chen is a 79F with a PMHx of RLS, HLD, HTN, hx of TIA, GERD, vertigo, aortic stenosis and hypothyroidism who present to the hospital for elective surgery with Dr. Tripathi. Was febrile and tachycardic immediately after the procedure with concerns for SIRS. #Ureteral Stricture/Nephrolithiasis - S/p Cystoscopy with Left Ureteronephroscopy, Ureteral Dilation, Laser destruction of Stone and Exchange of Stent Catheter. No complications noted in op report. Postoperatively, patient had significant leukocytosis with neutrophil predominance at 36.89, procalcitonin 51.90, CRP 7.27. Initially started on IV Cipro, however switched to IV Vanco + Zosyn given history of E. coli ESBL and pseudomonas. - WBC decreased to 25.38, procalcitonin decreased to 45.30, CRP further increased to 9.45, - Urine Culture with MDR ESBL E. coli - Blood Cultures prelim with gram positive bacilli in 1/2 cultures. Likely a contaminant, but recommend remaining inpatient until blood culture speciates - Will switch Zosyn to Ertapenem given possibility of induced-resistance to Zosyn - Continue on Ertapenem 1 g IV Q24H + Vancomycin IV Q24H. If blood culture is in fact a contaminant, then can discontinue Vanco and continue on Ertapenem monotherapy - Continue flomax, prn pyridium, oxybutyin - DVT proh / pain control / discharge planning per primary - Will trend CBC, CRP, procal with AM labs #HTN | Cardiac syndrome X - Was originally on verapamil, this was dc'ed after hospitalization earlier this year d/t hypotension, but cardiac syndrome x/vasospasm symptoms have worsened. Consider restarting if BP allows. Was hypotensive (asymptomatic), now normotensive # RA - HOLD Plaquenil with active infection #hypothyroid - continue Synthroid #hx of TIA | HLD - Continue Plavix, statin # RLS - continue Requip and gabapentin Thank you for allowing us to participate in the care of this patient, please reach out with any questions or concerns. Medicine will continue to follow. Discontinued Zosyn Started Ertapenem Admission and Anticipated Discharge Date Admission Date: January 03, 2025 Supervising Physician Co-Signing Physician Notes Attending Attestation: Chart reviewed, consult care plan d/w PA Jenny Dick. I agree w/ the valdez components of her consult documentation with the following addition - --complicated UTI // infection associated with indwelling ureteral stent Urine cx with ESBL e.coli. Change zosyn to ertapenem. May need up to 10-14 days of Rx given severity of the infection, high wbcs and high procal, etc. GPR in 1/4 blood cx's - likely contaminant, but follow to completion. Cont IV vanco for now. Kyle Macias MD Subjective Patient seen and evaluated at bedside. She reports feeling well overall and denies any complaints. We discussed the results of her cultures and changes in her antibiotic regimen. No complaints or concerns. Physical Exam Physical Exam: General: No acute distress, nondiaphoretic, well-developed, well-nourished. Skin: Warm, dry. No rashes or peripheral edema noted. Cardiac: Regular rate and rhythm without murmurs gallops or rubs. Pulm: Clear to auscultation bilaterally without wheezes, rales or rhonchi. Normal respiratory effort. 95% on room air. Abdominal: Soft, nontender, nondistended. Bowel sounds present. Neuro: A&O x3. No focal neurological deficits. Results & Data Results & Data Vital Signs (Past 12 Hours) Vital Signs Temp Pulse Pulse Resp BP BP Pulse Ox 01/05/25 08:18 98.4 F 53 L 18 133/73 95 01/05/25 06:45 58 L 01/05/25 03:25 98.2 F 64 18 113/62 96 01/04/25 22:49 98.1 F 61 16 112/65 97 01/04/25 21:52 63 O2 Del Method 01/05/25 08:18 Room Air 01/05/25 06:45 01/05/25 03:25 Room Air 01/04/25 22:49 Room Air 01/04/25 21:52 Laboratory Results Reviewed CBC Reviewed BMP Reviewed urine culture Reviewed blood cultures PG Care Time/CCT Total # of Minutes Spent Total Time Spent with Patient: Total time spent is greater than 50% in coordination of care (as documented) at patient's floor/unit and/or counseling patient: Coding Level of Care Code 47066 SUB INP/OBS CARE 3/50MIN Diagnoses SIRS (systemic inflammatory response syndrome) R65.10 UTI due to extended-spectrum beta lactamase (ESBL) producing Escherichia coli N39.0; B96.29; Z16.12 Calcium nephrolithiasis N20.0 Restless leg syndrome G25.81 Hx-TIA (transient ischemic attack) Z86.73 Hyperlipidemia E78.5 Sepsis A41.9 Infection associated with indwelling ureteral stent T83.592A Complicated UTI (urinary tract infection) N39.0"
--- NOTE | 2025-01-05 09:07 | Urology Progress Note ---
Date of Service January 05, 2025 Assessment & Plan (1) UTI due to extended-spectrum beta lactamase (ESBL) producing Escherichia coli: (2) SIRS (systemic inflammatory response syndrome): (3) Calcium nephrolithiasis: Plan 79-year-old female who is status post left ureteroscopy for stone treatment on 01/30/2025. Developed hypotension and mild tachycardia postoperatively and was admitted for observation. Hemodynamically stable, leukocytosis is downtrending. Urine cultures prelim ESBL E. coli. 1 of 2 blood cultures positive, however gram-positive bacilli so this may be contaminant. Continue vancomycin and Zosyn until blood cultures finalized Appreciate medicine's recommendations Will remain inpatient until cultures finalized and appropriate antibiotics for outpatient follow-up can be decided upon Admission and Anticipated Discharge Date Admission Date: January 03, 2025 Subjective No acute issues overnight. Afebrile with stable vitals. Labs today show leukocytosis of 25.3, down from 36. Hemoglobin stable at 9.3. Creatinine stable at 1.14. Urine culture from 01/03/2025 showing E. coli ESBL preliminarily. She is currently on vancomycin and Zosyn. Denies any complaints today. Physical Exam Physical Exam: General: Alert and oriented, no acute distress HEENT: Normocephalic, mucous membranes moist Pulmonary: Nonlabored respirations Abdomen: Nondistended Extremities: Moves all 4 spontaneously Neuro: No gross deficits Skin: Warm, dry, no rashes noted Results & Data Vital Signs (Past 12 Hours) Vital Signs Temp Pulse Pulse Resp BP BP Pulse Ox 01/05/25 08:18 36.9 C 53 L 18 133/73 95 01/05/25 06:45 58 L 01/05/25 03:25 36.8 C 64 18 113/62 96 01/04/25 22:49 36.7 C 61 16 112/65 97 01/04/25 21:52 63 O2 Del Method 01/05/25 08:18 Room Air 01/05/25 06:45 01/05/25 03:25 Room Air 01/04/25 22:49 Room Air 01/04/25 21:52 PG Care Time/CCT Total # of Minutes Spent Total Time Spent with Patient: Total time spent is greater than 50% in coordination of care (as documented) at patient's floor/unit and/or counseling patient: Coding Level of Care Code 48943 SUB INP/OBS CARE 235MIN Diagnoses UTI due to extended-spectrum beta lactamase (ESBL) producing Escherichia coli N39.0; B96.29; Z16.12 SIRS (systemic inflammatory response syndrome) R65.10 Calcium nephrolithiasis N20.0
[2025-01-05] MEDS: ERTAPENEM 1000MG 1,000 MG/10 ML SYR IV SCH (13:27)
[2025-01-06 05:59] LABS: Hematocrit (blood only) 29.7 % (37.0-47.0); Hemoglobin 9.5 g/dl (12.0-16.0); Immature Granulocytes # (auto) 0.08 K/uL (0.01-0.20); Immature Granulocytes % (auto) 0.7 %; Mean Corpuscular Hemoglobin 29.8 pg (25.0-34.0); Mean Corpuscular Volume 93.1 fL (80.0-100.0); Platelet Count 212 K/uL (130-400); RDW Standard Deviation 49.0 fL (36.4-46.3); Red Blood Count 3.19 M/uL (4.20-5.40); White Blood Count 11.82 K/ul (4.8-10.8)
[2025-01-06 06:09] LABS: Anion Gap 3.0 (3-11); Blood Urea Nitrogen 16.0 mg/dl (6-23); Calcium 7.5 mg/dl (8.6-10.3); Carbon Dioxide 24.0 mmol/L (21-32); Chloride 111.0 mmol/L (98-107); Creatinine Clr Calc Pharmacy 49.1 ml/min; Glucose 74.0 mg/dl (70-99(Fasting)); Potassium 4.0 mmol/L (3.5-5.1); Sodium 138.0 mmol/L (136-145)
--- NOTE | 2025-01-06 08:26 | Hospitalist Progress Note ---
"Date of Service January 06, 2025 Assessment & Plan (1) SIRS (systemic inflammatory response syndrome): (2) UTI due to extended-spectrum beta lactamase (ESBL) producing Escherichia coli: (3) Infection associated with indwelling ureteral stent: (4) Complicated UTI (urinary tract infection): (5) Calcium nephrolithiasis: Plan Gustavo is a 79F with a PMHx of RLS, HLD, HTN, hx of TIA, GERD, vertigo, aortic stenosis and hypothyroidism who present to the hospital for elective surgery with Dr. Tripathi. Was febrile and tachycardic immediately after the procedure with concerns for SIRS. Initially started on IV Cipro, however switched to IV Vanco + Zosyn given history of E. coli ESBL and pseudomonas. Further switched Zosyn to Ertapenem given possibility of induced-resistance to Zosyn with ESBL E. coli. #Ureteral Stricture/Nephrolithiasis - S/p Cystoscopy with Left Ureteronephroscopy, Ureteral Dilation, Laser destruction of Stone and Exchange of Stent Catheter. No complications noted in op report. Postoperatively, patient had significant leukocytosis with neutrophil predominance at 36.89, procalcitonin 51.90, CRP 7.27. Urine Culture with MDR ESBL E. coli. - WBC decreased to 11.82, procalcitonin decreased to 28.50, CRP pending - Blood Cultures prelim with Bifidobacterium scardovii (gram positive bacilli) in 1/2 anaerobic cultures. Likely a contaminant. Will discontinue IV Vanco at this time and continue on Ertapenem monotherapy - Continue on Ertapenem 1 g IV Q24H. Recommend at least 10-14 days of treatment - Discussed with IV team - can use US guided peripheral IV for IV antibiotics on discharge. Will order US guided IV placement now - Consulted Case Management for coordination of IV antibiotics either at home or at [facility] - Will trend CBC, CRP, procal with AM labs - PT/OT consulted #HTN | Cardiac syndrome X - Was originally on verapamil, this was dc'ed after hospitalization earlier this year d/t hypotension, but cardiac syndrome x/vasospasm symptoms have worsened - Consider restarting if BP allows - Was hypotensive (asymptomatic), now normotensive - Monitor BP to determine need for resuming #RA - HOLD Plaquenil with active infection #Hypothyroid - continue Synthroid #Hx of TIA | HLD - Continue Plavix, statin #RLS - continue Requip and gabapentin DVT proh / pain control / discharge planning per primary Thank you for allowing us to participate in the care of this patient, please reach out with any questions or concerns. Medicine will continue to follow. Discussed with IV team and ordered US guided peripheral IV Consulted CM Discussed blood culture result with micro lab Discontinued IV Vanco Admission and Anticipated Discharge Date Admission Date: January 03, 2025 Supervising Physician Co-Signing Physician Notes Attending Attestation: Chart reviewed, consult care plan d/w PA Jenny Dick. I agree w/ the valdez components of her documentation. Kyle Macias MD Subjective Patient seen and evaluated at bedside with her and daughter present. We reviewed her updated treatment plan. She denies any acute complaints or concerns at this time. RN reports she is weak with ambulation. Physical Exam Physical Exam: General: No acute distress, nondiaphoretic, well-developed, well-nourished. Skin: Warm, dry. No rashes or peripheral edema noted. Cardiac: Regular rate and rhythm without murmurs gallops or rubs. Pulm: Clear to auscultation bilaterally without wheezes, rales or rhonchi. Normal respiratory effort. 97% on room air. Abdominal: Soft, nontender, nondistended. Bowel sounds present. Neuro: A&O x3. No focal neurological deficits. Results & Data Results & Data Vital Signs (Past 12 Hours) Vital Signs Temp Pulse Pulse Resp BP Pulse Ox O2 Del Method 01/06/25 08:05 97.7 F 100 H 18 152/74 H 96 Room Air 01/06/25 06:45 63 01/06/25 02:41 98.4 F 61 18 134/84 96 Room Air 01/05/25 22:49 59 L 01/05/25 22:44 98.6 F 58 L 16 146/76 H 96 Room Air Laboratory Results Reviewed CBC Reviewed BMP Reviewed blood and urine cultures PG Care Time/CCT Total # of Minutes Spent Total Time Spent with Patient: Total time spent is greater than 50% in coordination of care (as documented) at patient's floor/unit and/or counseling patient: Coding Level of Care Code 80227 SUB INP/OBS CARE 3/50MIN Diagnoses SIRS (systemic inflammatory response syndrome) R65.10 UTI due to extended-spectrum beta lactamase (ESBL) producing Escherichia coli N39.0; B96.29; Z16.12 Infection associated with indwelling ureteral stent T83.592A Complicated UTI (urinary tract infection) N39.0 Calcium nephrolithiasis N20.0"
--- NOTE | 2025-01-06 08:57 | Urology Progress Note ---
Date of Service January 06, 2025 Assessment & Plan (1) Complicated UTI (urinary tract infection): (2) UTI due to extended-spectrum beta lactamase (ESBL) producing Escherichia coli: (3) Calcium nephrolithiasis: Plan 79-year-old female who is status post left ureteroscopy for stone treatment on 01/30/2025. Developed hypotension and mild tachycardia postoperatively and was admitted for observation. Hemodynamically stable, leukocytosis continues to downtrend. Urine cultures finalized ESBL E. coli. 1 of 2 blood cultures positive, however suspect this is contaminant Agree with switching patient over to ertapenem Oral antibiotic options are limited due to sensitivities and her allergies. She did have some itching with Bactrim but it does not sound like she had hives so this may be something we want to try as an inpatient before discharging her. Can discuss this tomorrow. Appreciate medicine's recommendations Will remain inpatient until cultures finalized and appropriate antibiotics for outpatient follow-up can be decided upon Admission and Anticipated Discharge Date Admission Date: January 03, 2025 Subjective No acute issues overnight. Afebrile with stable vitals. Labs today show leukocytosis 11.8, creatinine stable at 0.99. Urine cultures finalized ESBL. Blood culture has finalized Bifidobacterium scardovii. Patient was switched to ertapenem yesterday. Vancomycin was discontinued. Denies any complaints today Physical Exam Physical Exam: General: Alert and oriented, no acute distress HEENT: Normocephalic, mucous membranes moist Pulmonary: Nonlabored respirations Abdomen: Nondistended Extremities: Moves all 4 spontaneously Neuro: No gross deficits Skin: Warm, dry, no rashes noted Results & Data Vital Signs (Past 12 Hours) Vital Signs Temp Pulse Pulse Resp BP Pulse Ox O2 Del Method 01/06/25 08:05 36.5 C 100 H 18 152/74 H 96 Room Air 01/06/25 06:45 63 01/06/25 02:41 36.9 C 61 18 134/84 96 Room Air 01/05/25 22:49 59 L 01/05/25 22:44 37 C 58 L 16 146/76 H 96 Room Air PG Care Time/CCT Total # of Minutes Spent Total Time Spent with Patient: Total time spent is greater than 50% in coordination of care (as documented) at patient's floor/unit and/or counseling patient: Coding Level of Care Code 22394 SUB INP/OBS CARE MIN Diagnoses Complicated UTI (urinary tract infection) N39.0 UTI due to extended-spectrum beta lactamase (ESBL) producing Escherichia coli N39.0; B96.29; Z16.12 Calcium nephrolithiasis N20.0
[2025-01-07 07:20] LABS: Hematocrit (blood only) 31.1 % (37.0-47.0); Hemoglobin 10.2 g/dl (12.0-16.0); Mean Corpuscular Hemoglobin 29.7 pg (25.0-34.0); Mean Corpuscular Volume 90.4 fL (80.0-100.0); Platelet Count 242 K/uL (130-400); RDW Standard Deviation 47.2 fL (36.4-46.3); Red Blood Count 3.44 M/uL (4.20-5.40); White Blood Count 7.42 K/ul (4.8-10.8)
[2025-01-07 07:37] LABS: Anion Gap 4.0 (3-11); Blood Urea Nitrogen 11.0 mg/dl (6-23); Calcium 8.2 mg/dl (8.6-10.3); Carbon Dioxide 25.0 mmol/L (21-32); Chloride 109.0 mmol/L (98-107); Creatinine Clr Calc Pharmacy 57.3 ml/min; Glucose 76.0 mg/dl (70-99(Fasting)); Potassium 4.1 mmol/L (3.5-5.1); Sodium 138.0 mmol/L (136-145)
[2025-01-07 08:06] VITALS: RESP 18; TEMP 98.3
--- NOTE | 2025-01-07 10:26 | Urology Progress Note ---
Date of Service January 07, 2025 Assessment & Plan (1) Complicated UTI (urinary tract infection): (2) UTI due to extended-spectrum beta lactamase (ESBL) producing Escherichia coli: (3) Calcium nephrolithiasis: Plan 79-year-old female who is status post left ureteroscopy for stone treatment on 01/30/2025. Developed hypotension and mild tachycardia postoperatively and was admitted for observation. Afebrile and hemodynamically stable. Leukocytosis resolved. Hemoglobin stable. Normal renal function. Urine cultures finalized ESBL E. coli. 1 of 2 blood cultures positive, however suspect this is contaminant. Continues on Ertapenem. Case Management consulted to help coordinate IV antibiotics at home - appreciate assistance. Medicine team following, appreciate recommendations/assistance. Will remain inpatient until appropriate outpatient antibiotic therapy can be arranged. Admission and Anticipated Discharge Date Admission Date: January 03, 2025 Subjective Pt seen at bedside today Awake and resting in bed on arrival No acute distress Feeling well overall. No reported pain. Denies f/c/n/v. Review of Systems Constitutional: as per Subjective / HPI Genitourinary: as per Subjective / HPI Physical Exam Constitutional: no acute distress Respiratory: no respiratory distress and no labored breathing Neurologic: awake Psychiatric: A+Ox3, euthymic affect Results & Data Vital Signs (Past 12 Hours) Vital Signs Temp Pulse Pulse Resp BP Pulse Ox O2 Del Method 01/07/25 08:01 36.8 C 58 L 18 162/63 H 95 Room Air 01/07/25 06:45 52 L 01/07/25 04:33 36.8 C 59 L 20 137/72 96 Room Air 01/07/25 00:29 145/75 H 01/07/25 00:22 36.8 C 62 20 171/82 H 96 Room Air PG Care Time/CCT Total # of Minutes Spent Total Time Spent with Patient: Total time spent is greater than 50% in coordination of care (as documented) at patient's floor/unit and/or counseling patient: Coding Level of Care Code 46167 SUB INP/OBS CARE 2/35MIN Diagnoses Complicated UTI (urinary tract infection) N39.0 UTI due to extended-spectrum beta lactamase (ESBL) producing Escherichia coli N39.0; B96.29; Z16.12 Calcium nephrolithiasis N20.0
[2025-01-07 11:29] VITALS: BP 146/76; PULSE 59; O2SAT 96
--- NOTE | 2025-01-07 12:27 | Hospitalist Progress Note ---
"Date of Service January 07, 2025 Assessment & Plan (1) SIRS (systemic inflammatory response syndrome): (2) UTI due to extended-spectrum beta lactamase (ESBL) producing Escherichia coli: (3) Infection associated with indwelling ureteral stent: (4) Complicated UTI (urinary tract infection): (5) Calcium nephrolithiasis: Plan Gustavo is a 79F with a PMHx of RLS, HLD, HTN, hx of TIA, GERD, vertigo, aortic stenosis and hypothyroidism who present to the hospital for elective surgery with Dr. Tripathi. Was febrile and tachycardic immediately after the procedure with concerns for SIRS. Initially started on IV Cipro, however switched to IV Vanco + Zosyn given history of E. coli ESBL and pseudomonas. Further switched Zosyn to Ertapenem given possibility of induced-resistance to Zosyn with ESBL E. coli. #Ureteral Stricture/Nephrolithiasis S/p Cystoscopy with Left Ureteronephroscopy, Ureteral Dilation, Laser destruction of Stone and Exchange of Stent Catheter. Postoperatively, patient had significant leukocytosis with neutrophil predominance at 36.89, procalcitonin 51.90, CRP 7.27. Urine Culture with MDR ESBL E. coli. WBC now WNL; procal/CRP continue to downtrend. Blood Cultures with Bifidobacterium scardovii (gram positive bacilli) in 1/2 anaerobic cultures. Likely a contaminant. Continue on Ertapenem 1 g IV Q24H through 01/16/2025 w/ weekly labs. s/p US guided IV Home health arranged prior to dc to help w/ infusions. #HTN | Cardiac syndrome X Was originally on verapamil, this was dc'ed after hospitalization earlier this year d/t hypotension, but cardiac syndrome x/vasospasm symptoms have worsened Consider restarting if BP allows #RA - HOLD Plaquenil with active infection #Hypothyroid - continue Synthroid #Hx of TIA | HLD - Continue Plavix, statin #RLS - continue Requip and gabapentin Discussed w/ urology & CM extensively 01/07. Patient stable from a medical standpoint for discharge. Please reach out with questions and concerns. our hospitalist service will sign off. Admission and Anticipated Discharge Date Admission Date: January 03, 2025 Dinora Chen seen and examined this morning. She reports she is doing well. Denied complaints. Reports she is ready to go home. Physical Exam Physical Exam: General: no acute distress; non-toxic appearing; well-nourished; cooperative HEENT: normocephalic, atraumatic; no scleral icterus; PERRLA w/ EOMs intact; vision and hearing grossly intact Neck: trachea midline Skin: warm, dry without signs of tenting; no cyanosis; no rashes, bruising, lesions, or erythema noted Lungs: no acute respiratory distress; symmetrical chest wall expansion MSK: no edema noted in the LEs b/l, nonerythematous Neuro: A&Ox3; normal mood and affect; fluent speech; no focal deficits Results & Data Results & Data Vital Signs (Past 12 Hours) Vital Signs Temp Pulse Pulse Resp BP Pulse Ox O2 Del Method 01/07/25 11:28 36.8 C 59 L 18 146/76 H 96 Room Air 01/07/25 08:01 36.8 C 58 L 18 162/63 H 95 Room Air 01/07/25 06:45 52 L 01/07/25 04:33 36.8 C 59 L 20 137/72 96 Room Air 01/07/25 00:29 145/75 H PG Care Time/CCT Total # of Minutes Spent Total Time Spent with Patient: Total time spent is greater than 50% in coordination of care (as documented) at patient's floor/unit and/or counseling patient: Coding Level of Care Code 29595 SUB INP/OBS CARE 3/50MIN Diagnoses SIRS (systemic inflammatory response syndrome) R65.10 UTI due to extended-spectrum beta lactamase (ESBL) producing Escherichia coli N39.0; B96.29; Z16.12 Infection associated with indwelling ureteral stent T83.592A Complicated UTI (urinary tract infection) N39.0 Calcium nephrolithiasis N20.0"
[2025-01-08 12:07] LABS: C-Reactive Protein High Sens. >20.0 mg/L
[2025-01-11 03:36] LABS: Source KIDNEY STONE
--- NOTE | 2025-01-14 08:44 | Discharge Summary ---
Date of Service January 14, 2025 Admission HPI Per Admitting Provider See H&P Admission Exam Per Admitting Provider See H&P Principal Diagnosis Stone Discharge Exam General: Alert in no acute distress. HEENT: Normocephalic Atraumatic. Inspection normal. Psychologic: Normal affect. Skin: [place] and Dry. No rashes or visible lesions. Abdomen: Soft Non-distended. No rebound or guarding. Discharge Data Allergies Allergy/AdvReac Type Severity Reaction Status Date / Time shellfish derived Allergy Severe Hives Verified 01/08/25 12:47 pecan nut Allergy Intermediate Hives Verified 01/08/25 12:47 Sulfa (Sulfonamide Allergy Intermediate Itching Verified 01/08/25 12:47 Antibiotics) oxycodone Allergy Mild Itching Verified 01/08/25 12:47 alcohol Allergy Unknown Unknown Verified 01/08/25 12:47 [From Mastisol Liquid Adhesive] gum mastic Allergy Unknown Unknown Verified 01/08/25 12:47 [From Mastisol Liquid Adhesive] methyl salicylate Allergy Unknown Unknown Verified 01/08/25 12:47 [From Mastisol Liquid Adhesive] storax Allergy Unknown Unknown Verified 01/08/25 12:47 [From Mastisol Liquid Adhesive] ibuprofen AdvReac Intermediate Nausea, Verified 01/08/25 12:47 upset stomach pregabalin AdvReac Intermediate Triple Verified 01/08/25 12:47 vision Consultations 01/03/25 16:03 Consult Hospitalist Routine Procedures Performed Operation Date: 01/03/25 10:45 Actual Procedures p Cystoscopy, Ureteronephroscopy, Retrograde Pyelogram, with Ureteral Dilation, Laser Destruction Extraction of the Stone,(Left) - Carson Tripathi DO s Exchange of Stent Catheter - Left(Left) - Carson Tripathi DO Ordered Studies 01/03/25 10:45 FL retrograde includes kub Routine Hospital Course (1) Complicated UTI (urinary tract infection): (2) UTI due to extended-spectrum beta lactamase (ESBL) producing Escherichia coli: (3) Calcium nephrolithiasis: Plan 79-year-old female who is status post left ureteroscopy for stone treatment on 01/30/2025. Developed hypotension and mild tachycardia postoperatively and was admitted for observation. Afebrile and hemodynamically stable. Leukocytosis resolved. Hemoglobin stable. Normal renal function. Urine cultures finalized ESBL E. coli. 1 of 2 blood cultures positive, however suspect this is contaminant. Continues on Ertapenem. Case Management consulted to help coordinate IV antibiotics at home - appreciate assistance. Medicine team following, appreciate recommendations/assistance. Will remain inpatient until appropriate outpatient antibiotic therapy can be arranged. Total Time Total Time Spent Total Time Spent (In Minutes): 10 minutes Total Time Includes: Examination of the Patient, Discharge Planning, Medication Reconciliation and Communication With Other Providers Discharge Plan Discharge Items Patient Disposition: Home - Self-Care Reason For Visit: NEPHROLITHIASIS Discharge Diagnosis: Same Condition on Discharge: Good Activity: Per Instructions section Non-emergency contact: Urologist Call non-emergency contact if: your pain is not controlled, you have a fever and your temperature is above 101 Follow-up/Referrals: Laurie Cedeno MD [Primary Care Provider] - 01/08/25 1:20 pm Carson Tripathi DO [Physician] - 01/22/25 10:30 am Diet: Regular Addtl Attending Provider Instructions: The surgery you had was ureteroscopy with laser lithotripsy and stent placement. Okay to resume regular diet. Please take all medications as prescribed and keep all follow-ups as scheduled. Please call our office at [phone] with any questions, concerns or need to reschedule appointments for any reason. We are happy to assist you. Medications: please resume your normal medications as previously prescribed. Antibiotics and medications for pain control were prescribed. For pain, it is ok to take tylenol alternating with ibuprofen. You can also take AZO, which can be purchased xxdd-dim-ofungwy at the drugstore. Be aware this turns your urine a bright orange color. If you are prescribed a stronger medication you can take this according to instructions on the label. What to expect after your ureteroscopy and stone removal procedure: You may notice small pieces of stone or stone dust/gravel in your urine over the next few days. Drink plenty of liquids to help flush your system. You may notice some blood in your urine. As long as you are able to urinate, this is ok. You have a ureteral stent in place - this will need to be removed. As long as the stent is in place, you may see some blood in the urine. You may have pain in your side when you urinate. When to call [facility] at [phone]: Fever of 101F or higher Heavy bleeding Pain that is not controlled with medicine Uncontrolled vomiting Problems urinating or inability to urinate Pending Studies at Discharge: Yes Stand-Alone Forms: Anesthesia/Sedation, Adult, [facility], [facility] Medications and DC Order Prescriptions: New phenazopyridine [Pyridium] 200 mg tablet 200 mg PO Q8H PRN (Reason: pain) Qty: 10 0RF tamsulosin 0.4 mg capsule 0.4 mg PO HS Qty: 30 0RF hydrocodone-acetaminophen 7.5-325 mg tablet 1 tab PO Q8H PRN (Reason: pain) Qty: 7 0RF Continued nitroglycerin 0.4 mg tablet, sublingual 0.4 mg Sublingual Q5M PRN (Reason: Chest Pain) Qty: 30 5RF Rx Instructions: May take up to 3 doses as needed for chest pain. Call 911 if pain persists. Pt needs new script as this is levothyroxine 100 mcg tablet 100 mcg PO QAM Qty: 90 3RF carbidopa-levodopa 25-100 mg tablet extended release 1 tab PO QAM 90 Days Qty: 90 3RF Rx Instructions: take an extra dose at HS prn clopidogrel [Plavix] 75 mg tablet 75 mg PO QAM Qty: 90 3RF Hold Instructions: Resume on 07/07/24. cholecalciferol (vitamin D3) 1,250 mcg (50,000 unit) capsule 50,000 unit PO 2XWK Qty: 24 3RF Rx Instructions: please take twice weekly ropinirole 2 mg tablet extended release 24 hr 2 mg PO HS Qty: 90 3RF atorvastatin [Lipitor] 40 mg tablet 40 mg PO HS Qty: 90 1RF hydroxychloroquine 200 mg tablet 200 mg PO BID gabapentin 300 mg capsule 300 mg PO BID Qty: 90 5RF solifenacin [Vesicare] 5 mg tablet 5 mg PO QAM pantoprazole [Protonix] 40 mg tablet,delayed release (DR/EC) 40 mg PO QAM calcitriol 0.5 mcg capsule 0.5 mcg PO QAM hydrocodone-acetaminophen 7.5-325 mg tablet 1 tab PO Q8H PRN (Reason: pain) Qty: 7 0RF folic acid 1 mg Tablet 1 mg PO QAM Qty: 30 0RF Discharge Orders: Discharge Order (Routine); Ordered 01/07/25 Ordered By: Alysha Clark/Other Patient Handouts: DVT Post Op Prevention Admission Data Admit Date/Time: 01/03/25 14:51 Attending Provider: Carson Tripathi Admit Provider: Carson Tripathi Primary Care Provider: Laurie Cedeno Other Providers: [facility]; [facility],Referral Center; [place],Fax; Shin Reilly; Kyle Macias; Wale Yuen Other Interventions: Discharge Summary Assessment (RN) Last Done: 01/07/25 12:45 Coding Level of Care Code 32623 IN/OBS DISCH 30 MIN/LESS Diagnoses Complicated UTI (urinary tract infection) N39.0 UTI due to extended-spectrum beta lactamase (ESBL) producing Escherichia coli N39.0; B96.29; Z16.12 Calcium nephrolithiasis N20.0
== END 2025-01-07 13:24 | disposition home or self-care (01) | DRG 854 ==
LOC: ASU 08:59 → 2W 14:51 → INTOOBSV 14:51

== ENCOUNTER 2025-02-28 09:48 | Observation (INO) ==
--- NOTE | 2025-02-20 09:58 | Anesthesiology Consultation ---
Date of Service February 20, 2025 Assessment & Plan (1) Encounter for pre-operative examination: Chart Review Chart Review: Acceptable Risk for Surgery and Patient NOT seen in Pre Admission Testing Consults Requested none Additional Notes Cardiology visit: 02/07/2025 Patient presents for preoperative cardiac evaluation. She is scheduled to undergo left carpal tunnel and ulnar nerve surgery. From cardiac standpoint is stable. She remains fairly active without anginal type symptoms. No signs of heart failure on exam. From cardiac standpoint she is acceptable risk to proceed with planned surgery. History Surgery Operation Date: 02/28/25 11:25 Proposed Procedures p Left Ulnar Nerve Decompression, Possible Transposition, Carpal Tunnel Release - Donal Toribio MD Height/Weight Height: 5 ft 5 in Weight: 79.832 kg Allergies Allergy/AdvReac Type Severity Reaction Status Date / Time shellfish derived Allergy Severe Hives Verified 02/20/25 08:16 pecan nut Allergy Intermediate Hives Verified 02/20/25 08:16 Sulfa (Sulfonamide Allergy Intermediate Itching Verified 02/20/25 08:16 Antibiotics) oxycodone Allergy Mild Itching Verified 02/20/25 08:16 alcohol Allergy Unknown Unknown Verified 02/20/25 08:16 [From Mastisol Liquid Adhesive] gum mastic Allergy Unknown Unknown Verified 02/20/25 08:16 [From Mastisol Liquid Adhesive] methyl salicylate Allergy Unknown Unknown Verified 02/20/25 08:16 [From Mastisol Liquid Adhesive] storax Allergy Unknown Unknown Verified 02/20/25 08:16 [From Mastisol Liquid Adhesive] ibuprofen AdvReac Intermediate Nausea, Verified 02/20/25 08:16 upset stomach pregabalin AdvReac Intermediate Triple Verified 02/20/25 08:16 vision Medications Home Medications Medication Instructions Recorded Confirmed Last Taken nitroglycerin 0.4 mg sublingual 0.4 mg sublingual Q5M PRN Chest 02/14/19 02/20/25 05/19/22 tablet Pain #30 tabs hydroxychloroquine 200 mg tablet 200 mg PO BID 09/04/21 02/20/25 01/02/25 21:00 carbidopa ER 25 mg-levodopa 100 mg 1 tab PO QAM 90 days #90 tabs 05/10/24 02/20/25 12/02/24 12:00 tablet,extended release phenazopyridine 200 mg tablet 200 mg PO Q8H PRN pain #10 tabs 01/03/25 02/20/25 Unknown (Pyridium) atorvastatin 40 mg tablet (Lipitor) 40 mg PO HS #90 tabs 01/14/25 02/20/25 Unknown pantoprazole 40 mg tablet,delayed 40 mg PO QAM #90 tabs 01/14/25 02/20/25 Unknown release (Protonix) ascorbate calcium (vitamin C) 500 500 mg PO DAILY #30 tabs 02/11/25 02/20/25 Unknown mg tablet calcitriol 0.5 mcg capsule 0.5 mcg PO QAM #90 caps 02/14/25 02/20/25 Unknown cholecalciferol (vitamin D3) 1,250 50,000 unit PO 2XWK #24 caps 02/14/25 02/20/25 Unknown mcg (50,000 unit) capsule clopidogrel 75 mg tablet (Plavix) 75 mg PO QAM #90 tabs 02/14/25 02/20/25 Unknown folic acid 1 mg tablet 1 mg PO QAM #30 tabs 02/14/25 02/20/25 Unknown gabapentin 300 mg capsule 300 mg PO BID #90 caps 02/14/25 02/20/25 Unknown levothyroxine 100 mcg tablet 100 mcg PO QAM #90 tabs 02/14/25 02/20/25 Unknown ropinirole 2 mg tablet,extended 2 mg PO HS #90 tabs 02/14/25 02/20/25 Unknown release 24 hr solifenacin 5 mg tablet (Vesicare) 5 mg PO QAM #90 tabs 02/14/25 02/20/25 Unknown tamsulosin 0.4 mg capsule 0.4 mg PO HS #30 caps 02/14/25 02/20/25 Unknown Past Medical History Medical History SIRS (systemic inflammatory response syndrome) hx, per [place] records "he was admitted to the hospital from 01/03 through 01/07. She was admitted for elective surgery with urology for ureteral strictur e/nephrolithiasis and during her procedure developed fever and tachycardia with concern for SIRS. She was found to have ESBL E. coli in her urine culture and did have positive blood culture felt to be likely contaminant. She was ultimately discharged on ertapenem IV antibiotics." all abx completed at this time per pt. History of recent hospitalization per [place] records "she was admitted to the hospital from 01/03 through 01/07. She was admitted for elective surgery with urology for ureteral stricture/nephrolithiasis and during her procedure developed fever and tachycardia with concern for SIRS. She was found to have ESBL E. coli in her urine culture and did have positive blood culture felt to be likely contaminant. She was ultimately discharged on ertapenem IV antibiotics. Due to this hospitalization, her surgery had been postponed."; all abx completed at this point per pt. Renal lesion Per records, patient unaware History of blood transfusion 06/2024 for "bleeding ulcer" Hyperlipidemia HTN (hypertension) GERD (gastroesophageal reflux disease) History of stroke 2004 (reason for Plavix)- only residual issue of "falls to left if in a dark room with eyes closed" - as per patient all rooms have continuous lighting to help Hx-TIA (transient ischemic attack) Multiple, noted per remote records, none recent per pt Anastomotic ulcer Hx, taking Protonix Fatty liver Cerebrovascular disease Per records Hydronephrosis, left Hx of intermittent claudication Hyperparathyroidism, secondary Follows with endocrine- likely secondary to gastric bypass surgery in 2000 Lymphedema "Resolved with procedure" with Dr. Larson Cardiac syndrome X Follows with [facility] cardio Venous insufficiency (chronic) (peripheral) Rheumatoid arthritis Lumbar spinal stenosis Ataxic gait Following with neuro- "chronic difficulty with balance, largely multifactorial, related to multiple orthopedic issues and age extensive cerebrovascular disease. Imaging not suggestive of NPH, does not have clinical signs or symptoms suggestive of Parkinson's disease. " as per patient uses cane Anemia Chronic Vertigo Urinary incontinence Non-occlusive coronary artery disease Per cardio records = Cardiac Syndrome X (small vessel dysfunction causing angina pectoris in a patient with mild nonocclusive CAD) Aortic stenosis ECHO 09/2023: Mild aortic stenosis. HARPREET 1.6-1.7 cm; AV mean PG 11.8 mmHg. AV max velocity 2.355 m/s Follows with [facility] cardio Hypothyroidism Hx of renal calculi Osteoporosis Restless leg syndrome Follows with neuro Past Family History Family History Sister Ovarian cancer Breast cancer Daughter Family history of reaction to anesthesia PONV Family history of diabetes mellitus Mother Osteoarthritis Other Family history non-contributory Denies family history of Prostate cancer Myocardial infarction Colorectal cancer Past Surgical History Surgical History History of femur fracture S/p IM nailing 09/2022 at [facility] from fall H/O wrist surgery Repair after right wrist/forearm injury (09/2023) History of open reduction and internal fixation (ORIF) procedure Right femur, hardware intact History of gastric bypass 2000 History of esophagogastroduodenoscopy (EGD) (06/2024) History of lithotripsy 2018 History of intestinal surgery S/P extracorporeal shock wave therapy S/P cystoscopy with ureteral stent placement multiple; most recent 01/2025 w/laser of stone Family history of reaction to anesthesia N/V Nausea and vomiting after administration of anesthetic agent "has been fine w/procedures at [facility]" History of bilateral tubal ligation History of total abdominal hysterectomy and bilateral salpingo-oophorectomy History of laminectomy ~1980, Lumbar History of colonoscopy History of cholecystectomy History of herniorrhaphy Abdomen, x3 History of tooth extraction Upper Denture Stye Surgically removed History of cardiac cath 2019- no stents Social History Smoking Status: Current every day smoker tobacco type: cigarettes Smoking cigarettes per day: 6-7 Do You Dip or Chew Tobacco: No Hx Alcohol Use: No Alcohol type: wine alcohol intake frequency: a few times a month Hx Substance Use: No substance use type: does not use Testing Electrocardiogram Date: 12/06/24 Findings: + NSR @ (76 bpm) Echocardiogram Date: 09/21/23 EF: 55-60 LV Function: normal Other Findings: + diastolic dysfunction (G1) Valvular Disease: + (mild)
[~2025-02-28 09:48] MED LIST changes: -ASPI81TA28 PO; -ATOR-24 PO; -ATROPINE SULFATE 0.1 MG/ML 5ML SYR IV PRN; -BUPIVACAINE/EPINEPHRINE 0.25% 1:200,000 30 ML VIAL ONE; -CALC-354 PO; -CARB50TA3 PO; -CEFAZOLIN 2000 MG/60 ML D5W IV SCH; -CHOL1000 PO; -CLOP1TAB15 PO; -CYAN30003 SL; -DEXAMETHASONE SOD INJ 4 MG/ML VIAL ONE; -DILT120C51 PO; -EpHEDrine SULFATE 50MG/5ML SYR ONE; -EpHEDrine SULFATE INJ 50 MG/ML AMP IV PRN; -EpINEphrine INJ 1MG/ML AMP 1 MG/ML AMP ONE; -FENTANYL CITRATE INJ 50 MCG/1 ML 2 ML VIAL IV PRN; -FENTANYL CITRATE INJ 50 MCG/1 ML 2 ML VIAL ONE; -GABA-113 PO; -HYDROmorphone INJ 1 MG/ML SYR IV PRN; -ISOS30TA3 PO; -LACTATED RINGER'S 1000ML 1,000 ML IV SCH; +LIDOCAINE 2% 2 ML VIAL/AMP(20MG/ML) INFIL ONE; -LIDOCAINE HCL 1% MPF 2 ML VIAL ONE; -LIDOCAINE HCL 2% 2 ML VIAL (20MG/ML) ONE; -MAGN65TA PO; -METH500T37 PO; -MIDAZOLAM HCL 1 MG/ML 2ML VIAL ONE; -NTRGSL/4 UT; -ONDANSETRON INJ 2 MG/ML 2 ML VIAL IV PRN; -ONDANSETRON INJ 2 MG/ML 2 ML VIAL ONE; -OXYB10TA13 PO; -OXYC-57 PO; -OXYCODONE/ACETAMINOPHEN 5-325 TAB PO PRN; -ROPI1TAB PO; -ROPIVACAINE 0.5% 5 MG/ML 30 ML VIAL ONE; -SODIUM CHLORIDE 0.9% 1000ML 1,000 ML IV SCH; -VITA1TAB4 PO; -[UNRECOGNIZED DRUG - OTHER] SQ
[2025-02-28] MEDS: LACTATED RINGER'S 1,000 ML IV SCH (10:20)
[2025-02-28] MEDS: LR 15ML/HR IV SCH (10:20)
--- NOTE | 2025-02-28 10:57 | History & Physical Bridge Note ---
Date of Service February 28, 2025 History & Physical Bridge Note I have examined the patient, reviewed the History & Physical and in the interval since the performance of the History & Physical I have noted the following changes of clinical significance: no changes noted
[2025-02-28] MEDS ORDERED: GLYCOPYRROLATE 0.2 MG/ML VIAL ONE (11:43)
[2025-02-28] MEDS ORDERED: ePHEDrine sulfate 50 MG/5 ML SYR ONE (11:46)
[2025-02-28] MEDS ORDERED: PHENYLEPHRINE 100MCG/ML 5ML SYR ONE (11:58)
[2025-02-28] MEDS: BUPIVACAINE/EPINEPHRINE 0.5% MPF 1:200,000 30 ML VIAL ONE (12:00)
[2025-02-28] MEDS ORDERED: ESMOLOL HCL INJ 10 MG/ML 10ML VIAL IV ONE (12:04)
[2025-02-28] MEDS ORDERED: DEXAMETHASONE SOD INJ 4 MG/ML VIAL ONE (12:15)
[2025-02-28] MEDS ORDERED: ONDANSETRON INJ 2 MG/ML 2 ML VIAL ONE (12:15)
--- NOTE | 2025-02-28 12:27 | Operative Report ---
Post Operative Report Pre & Post Diagnosis Operation Date: 02/28/25 11:20 Pre-Op Diagnosis: Left Cubital tunnel syndrome, Left Carpal Tunnel Syndrome Post-Op Diagnosis: Left cubital tunnel syndrome, Left Carpal Tunnel Syndrome I identified the patient and participated in the time-out.: Yes Procedure Operation Date: 02/28/25 11:20 Actual Procedures Left Ulnar Nerve Decompression, Carpal Tunnel Release(Left) - Donal Toribio MD Surgeon Donal Toribio MD Compass Operator REGINE Flores PA-C. No resident or fellow was available to assist. Estimated Blood Loss 5 Findings Consistent with Post-Op Diagnosis Specimens None Anesthesia Type General Complications none Disposition Disposition: Recovery Room Indications 80-year-old female with left carpal tunnel and cubital tunnel syndrome refractory to conservative management. 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 Her main complaint is with numbness in her fingers. I had a long discussion with her about the risks and benefits of surgery, alternatives to surgery, and expected outcomes. After reviewing all these she elected to proceed with surgery. She understood that she would still have the arthritis in her thumb as a result of surgery. All questions were answered. Informed consent was signed. Description of Procedure Patient was identified in the preoperative holding area where the surgical sites were marked. Patient was then brought back to the main operating room where they were placed on the operating room table and general anesthesia was administered. All bony prominences were padded. Perioperative antibiotics were administered. The operative extremity was then prepped and draped in usual sterile fashion. Prior to incision a multidisciplinary timeout was called. All in the room were in agreement. I began by injecting the skin at the incision sites with a total of 15 cc of half percent Marcaine with epinephrine. The limb was then exsanguinated with an Esmarch bandage. Tourniquet was inflated to 250 mmHg. I began with the carpal tunnel release. A 3 cm long incision was made utilizing one of her skin creases that was localized midway between the thenar and hypothenar eminences. I dissected down through the subcutaneous tissues to the palmar fascia. This was incised in line with the incision. Self-retaining retractor was placed. The underlying transverse carpal ligament was identified. This was then incised in line with the incision. transverse carpal ligament release was extended distally to the level of the palmar fat and proximally to the level of the antecubital fascia. The leaflets of the ligament spread apart nicely. Wound was then carefully inspected to ensure the transverse carpal ligament was completely released which was confirmed. Wound was then irrigated with copious amounts normal saline. The skin was closed using horizontal m attress 4-0 nylon sutures in interrupted fashion. I then turned my attention toward the ulnar nerve decompression. An approximately 10 cm long incision was made overlying the course of the ulnar nerve centered at the proximal edge of Camarena's ligament. I dissected down through the subcutaneous tissues. Small crossing venous branches were coagulated with the bipolar. Branches of the medial antebrachial cutaneous nerve were identified and protected throughout the case. Fascia overlying the ulnar nerve was then incised proximal to Camarena's ligament. This fascial incision was extended proximally all the way to the arcade of [place]. We then worked distally through Camarena's ligament and through the fascia overlying the split heads of the FCU. Once the ulnar nerve superficial surface was completely released I then inspected the ulnar nerve. This revealed []. The elbow was then brought the up into full flexion. The nerve did not subluxate out of the cubital tunnel, therefore no transposition was indicated. The wound was then irrigated out with copious amounts normal saline. Tourniquet was let down and meticulous hemostasis was ensured. We then began to close. Deep dermal layer was closed with interrupted 3-0 Vicryl sutures. Skin was closed with running subcuticular 3-0 Monocryl. Steri-Strips were applied followed by sterile dressing. Patient was then awoken from anesthesia and transferred recovery in stable condition. Postoperative course: Patient will be discharged home from recovery room. Immediate elbow range of motion will be allowed, although elbow flexion should be kept below 90 degrees for the first 1 week. No lifting more than 5 to 10 pounds for the first 1 month after surgery. Resume Plavix for DVT prophylaxis. I attest to the content of the Intraoperative Record and any orders documented therein. Any exceptions are noted below.
[2025-02-28] MEDS ORDERED: diphenhydrAMINE 50 MG/ML VIAL IV PRN (12:41)
[2025-02-28] MEDS ORDERED: ONDANSETRON INJ 2 MG/ML 2 ML VIAL IV PRN ×2 (12:41→13:00)
[2025-02-28] MEDS ORDERED: PROMETHAZINE HCL 6.25 MG in SODIUM CHLORIDE 0.9% 50 ML IV PRN (13:00)
[2025-02-28] MEDS ORDERED: HYDROmorphone INJ 1 MG/ML SYRINGE IV PRN (13:00)
[2025-02-28] MEDS ORDERED: ATROPINE SULFATE 0.1 MG/ML 10ML SYR IV PRN (13:00)
--- NOTE | 2025-02-28 13:56 | Anesthesiology Progress Note ---
Date of Service February 28, 2025 Anesthesia Post Procedure Vital Signs Vital Signs: Temp Pulse Pulse Resp BP Pulse Ox O2 Del Method 02/28/25 13:50 77 15 125/63 95 Room Air 02/28/25 13:35 80 14 124/62 94 Room Air 02/28/25 13:25 36.3 C L 85 17 123/67 96 Room Air 02/28/25 13:15 84 15 120/61 95 Room Air 02/28/25 13:05 86 15 128/63 98 Room Air 02/28/25 12:55 91 H 15 127/70 99 Oxymask 02/28/25 12:45 96 H 15 128/65 100 Oxymask 02/28/25 12:39 36 C L 102 H 14 128/71 99 Oxymask 02/28/25 10:05 36.6 C 58 L 18 149/73 H 98 Room Air O2 Flow Rate 02/28/25 13:50 02/28/25 13:35 02/28/25 13:25 02/28/25 13:15 02/28/25 13:05 02/28/25 12:55 3 02/28/25 12:45 6 02/28/25 12:39 8 02/28/25 10:05 Pain Intensity Left Arm: Pain Intensity: 5 Transfer of Care Handoff Completed per policy Notes Mental Status: alert / awake / arousable and participated in evaluation Patient Amnestic to Procedure: Yes Nausea / Vomiting: adequately controlled Pain: adequately controlled Airway Patency, RR, SpO2: stable & adequate BP & HR: stable & adequate Hydration State: stable & adequate Anesthetic Complications: no major complications apparent
[2025-02-28] MEDS ORDERED: NITROGLYCERIN SL 0.4 MG/TAB TAB SL PRN (15:11)
[2025-02-28] MEDS ORDERED: PHENAZOPYRIDINE HCL 200 MG TAB PO PRN (15:11)
[2025-02-28 16:13] VITALS: RESP 16
[2025-02-28] MEDS: TAMSULOSIN HCL 0.4 MG CAP PO SCH (19:57)
[2025-02-28] MEDS: ATORVASTATIN 40 MG TAB PO SCH (19:57)
[2025-02-28] MEDS: GABAPENTIN 300 MG CAP PO SCH (19:57)
[2025-02-28] MEDS: ROPINIROLE HCL 2 MG PO SCH (19:57)
[2025-02-28] MEDS: HYDROXYCHLOROQUINE SULFATE 200 MG TAB PO SCH (19:57)
[2025-02-28] MEDS: ACETAMINOPHEN 325 MG TAB PO PRN (20:02)
[2025-03-01] MEDS: LEVOTHYROXINE SODIUM 100 MCG TABLET PO SCH (05:54)
[2025-03-01] MEDS: PNEUMOCOCCAL VACCINE (PCV20) 20-VAL CONJ-DIP CRM/PF 0.5 ML SYR IM ONE (06:06)
--- NOTE | 2025-03-01 08:39 | Orthopedic Progress Note ---
Date of Service March 01, 2025 Assessment & Plan (1) S/P carpal tunnel release: (2) S/P decompression of ulnar nerve: Plan Postop day #1 status post carpal tunnel release and ulnar nerve decompression with Dr. Toribio. Patient has had no complications overnight. Her vitals are stable and her pain is well-controlled. She will be administered another dose of Tylenol this morning but did not require pain medication. She denies any systemic symptoms. Her Chapito wrap was removed and she has a small amount of dried blood on the gauze of each dressing but otherwise the dressing is intact and was left in place. A new Chapito wrap was applied and she was given several additional Chapito wrap's to use as needed. She will keep this dry until her 1 week follow-up wound check appointment. She was provided with several additional Tegaderm dressings to reinforce as needed. She will use Tylenol and tramadol for pain control. Tramadol had previously been prescribed, which she has at home. Ice 20 minutes every 1-2 hours. Elevate above heart as needed for swelling. She will resume her Plavix as prescribed. No NSAIDs due to history of bleeding gastric ulcer. Scheduled a wound check appointment with myself in the office 03/07/2025. Will transition her to Tubigrip sleeve at that visit. Plan for discharge today after breakfast and a dose of tylenol. All questions were answered. She will contact our clinic with any questions or concerns. Admission and Anticipated Discharge Date Admission Date: February 28, 2025 Subjective Patient is seen in bed this morning. She states that she is doing well. She slept well. Her pain is well-controlled. She had some Tylenol last night, and would like another dose of Tylenol this morning. She feels that the tingling in her fingers is already starting to improve but not completely resolved. She denies any fevers, chills, nausea, vomiting, chest pain, or shortness of breath. She feels ready to be discharged home today. Physical Exam Constitutional: Resting comfortably in bed. Eating breakfast. No distress. Pleasant. Cardiovascular: Capillary refill less than 2 seconds in left fingers. Left fingers are warm and well-perfused. Musculoskeletal: Left upper extremity: Chapito wrap removed. Underlying dressing over the volar wrist and medial elbow are intact. There is a small amount of dried blood on the gauze of each dressing but no active drainage and no saturation. Trace amount of swelling in the left hand. Motor function with thumb extension, thumb opposition to little finger, resisted finger abduction, and wrist extension intact. Moves all fingers. Elbow range of motion 0 to 90 degrees. Neurologic: Altered sensation in middle, ring, and little finger on the left with light touch compared to contralateral. No numbness appreciated. Results & Data Vital Signs (Past 12 Hours) Vital Signs Temp Pulse Resp BP Pulse Ox O2 Del Method 03/01/25 05:40 98.2 F 61 16 102/61 95 Room Air 03/01/25 02:06 97.9 F 63 16 127/68 95 Room Air 02/28/25 22:35 98.7 F 64 16 120/74 96 Room Air
[2025-03-01 08:40] VITALS: BP 104/62; PULSE 59; TEMP 98.4; O2SAT 97
[2025-03-01] MEDS: OXYBUTYNIN CHLORIDE XL 5 MG TABCR PO SCH (08:40)
[2025-03-01] MEDS: ASCORBIC ACID 500 MG TAB PO SCH (08:40)
[2025-03-01] MEDS: CLOPIDOGREL BISULFATE 75 MG TAB PO SCH (08:40)
[2025-03-01] MEDS: CALCITRIOL 0.25 MCG CAPSULE PO SCH (08:41)
[2025-03-01] MEDS: CARBIDOPA/LEVODOPA 25/100MG EXT REL TAB PO SCH (08:41)
[2025-03-01] MEDS: FOLIC ACID 1 MG TAB PO SCH (08:41)
--- NOTE | 2025-03-01 08:42 | Discharge Summary ---
Date of Service March 01, 2025 Principal Diagnosis s/p left carpal tunnel release, left ulnar nerve decompression Discharge Data Allergies Allergy/AdvReac Type Severity Reaction Status Date / Time shellfish derived Allergy Severe Hives Verified 02/28/25 10:02 pecan nut Allergy Intermediate Hives Verified 02/28/25 10:02 Sulfa (Sulfonamide Allergy Intermediate Itching Verified 02/28/25 10:02 Antibiotics) oxycodone Allergy Mild Itching Verified 02/28/25 10:02 alcohol Allergy Unknown Unknown Verified 02/28/25 10:02 [From Mastisol Liquid Adhesive] gum mastic Allergy Unknown Unknown Verified 02/28/25 10:02 [From Mastisol Liquid Adhesive] methyl salicylate Allergy Unknown Unknown Verified 02/28/25 10:02 [From Mastisol Liquid Adhesive] storax Allergy Unknown Unknown Verified 02/28/25 10:02 [From Mastisol Liquid Adhesive] ibuprofen AdvReac Intermediate Nausea, Verified 02/28/25 10:02 upset stomach pregabalin AdvReac Intermediate Triple Verified 02/28/25 10:02 vision Procedures Performed Operation Date: 02/28/25 11:20 Actual Procedures p Left Ulnar Nerve Decompression, (Left) - oDnal Toribio MD s Carpal Tunnel Release(Left) - Donal Toribio MD Hospital Course (1) S/P carpal tunnel release: (2) S/P decompression of ulnar nerve: Arabella Chen is an 80-year-old female who underwent an uncomplicated left carpal tunnel release and ulnar nerve decompression with Dr. Toribio on 02/28/2025. She was admitted to the hospital for observation overnight due to age and comorbidities. She did quite well overnight and did not have any adverse events. Her pain was well-controlled with Tylenol alone and did not require any narcotic medication. She denied any systemic symptoms and her vitals were stable. Her Chapito wrap was removed and she had a small amount of dried blood on the gauze of each dressing but otherwise the dressing is intact and was left in place. A new Chapito wrap was applied and she was given several additional Chapito wrap's to use as needed. She will keep this dry until her 1 week follow-up wound check appointment. She was provided with several additional Tegaderm dressings to reinforce as needed. She will use Tylenol and tramadol for pain control. Tramadol had previously been prescribed, which she has at home. Ice 20 minutes every 1-2 hours. Elevate above heart as needed for swelling. She will resume her Plavix as prescribed. No NSAIDs due to history of bleeding gastric ulcer. Scheduled a wound check appointment with myself in the office 03/07/2025. Will transition her to Tubigrip sleeve at that visit. She will be discharged the following day 03/01/2025her will be transporting her home. All questions were answered. She will contact our clinic with any questions or concerns. Total Time Total Time Spent Total Time Spent (In Minutes): 10 Discharge Plan Discharge Items Patient Disposition: Home - Self-Care Reason For Visit: Left Ulnar Nerve Lesion, Left Carpal Tunnel Syndro Discharge Diagnosis: s/p left carpal tunnel release; ulnar nerve decompression Activity: As commented below Lifting: Wait until after follow-up appointment Bathing: Keep incision dry Bathing Comment: May shower tomorrow Sexual Activity: Wait until after follow-up appointment Exercise/Sports: Wait until after follow-up appointment Driving/Machine Use: No driving until cleared by document specialist Weightbearing: Left partial Weightbearing Comment: No lifting more than coffee cups until otherwise instructed (with left arm) Non-emergency contact: Surgeon Call non-emergency contact if: you have any medication questions, your pain is not controlled, your temperature is above 101.5, your wound has increased drainage and your wound pain has increased Follow-up/Referrals: Laurie Cedeno MD [Primary Care Provider] - Kwaku Flores PA-C [Physician Sand Cutter] - 03/13/25 11:00 am Britton Carranza PA [Physician Sand Cutter] - 03/07/25 9:15 am Diet: Heart Healthy Addtl Attending Provider Instructions: Post-operative Instructions Dear Patient and Family/Friends, Before you are discharged from the hospital, it is important to know what to expect when you get home after surgery. To that end, we have created this sheet of discharge instructions which covers many commonly asked questions. Make sure you go through this sheet in its entirety with your nurse before you are discharged. Please note that we will go over the specifics of your surgery and recovery when you return for your first post-operative visit. Sincerely, Dr. Toribio Medications 1. Resume your Plavix for blood clot prevention 2. Tramadol 50 mg: take 1 tablet every 6 hours as need for post operative pain control. This has been sent to your pharmacy previously, which you picked up. 3. Extra Strength tylenol 500 mg: Take 1 tablet every 6-8 hours as needed additional pain relief. Please purchase this medication. Pain Expect to be in a fair amount of pain after surgery. Remember, our goal is not to eliminate your pain, but to make it tolerable. It is a good idea to stay ahead of your pain by taking the medications you were prescribed once you get home. Typically, the pain starts improving 3-7 days after surgery. You should start weaning off the narcotic pain medication (tramadol) as soon as your pain improves. Please call our office if your pain is not adequately controlled. Ice Ice your operative site at least 5 times a day for 15-30 minutes at a time. Make sure you have a thin cloth between the ice or cooling unit and your skin to prevent sherman bite. This is especially important if you received a nerve block. Continue icing your operative site for the first 5-7 days after surgery, then as needed. Diet/Nausea/Vomiting Start by drinking clear liquids and eating crackers. If you can tolerate this, then you may resume your normal diet. If you feel nauseated or vomit, take Zofran/ondansetron (if prescribed). Please call our office if you have intractable nausea or vomiting, or, if after hours, you may go to the Emergency Room for help. Constipation Constipation is a common side effect of narcotic pain medication. If you have not had a bowel movement within 2 days after surgery, we recommend purchasing an over the counter laxative such as Milk of Magnesia, Dulcolax, or Miralax from a local pharmacy, and taking it as instructed. Call our clinic if any questions. Slings and Braces If you were placed in a sling or brace, it must be worn at all times, including sleep. You may remove your sling or brace for physical therapy, home exercises, and showering. The length of time you will be in your brace and range of motion restrictions depends on what surgery you had; these details will be reviewed at your first post-operative appointment. Nerve block The anesthesia team sometimes places a nerve block to help with post-operative pain control. This results in significant numbness and inability to move the extremity. The nerve block usually wears off in 8-12 hours, but sometimes can last up to 24 hours. Please call our office if you are still unable to move your extremity after 24 hours, unless you received a pain pump to take home. Nerve blocks typically wear off quickly, so start taking pain medication as soon as you start feeling soreness near your surgical site. Weight bearing and Range of Motion. Do not bear any weight through your operative extremity immediately after surgery. Immediate elbow range of motion will be allowed, although you should only bend your elbow to 90 degrees for the first week. Physical therapy Begin PT as previously instructed 5 days after surgery. Wound care and showering Leave the CHAPITO wrap in place. You can re-wrap as needed. Several extra wraps were sent home with you. Leave the underlying dressing intact. A small amount of blood on the dressing is normal and not of concern. We will change her dressing at your 1 week appointment. Keep everything dry until you follow-up in 1 week. KRISTINE stockings If you were given white stockings, these are to be worn at all times except to shower (on both legs) for the first 2 weeks after surgery. Driving You may not drive while taking narcotic pain medication or while in a cast, splint, sling or brace. You, the patient, need to make the final determination about when you are safe to drive, however, the earliest you may consider driving after surgery is below: Hand/Wrist/Elbow Surgery: 3 days Shoulder Surgery: 2 weeks Hip,/Knee/Ankle Surgery: 4 weeks Fracture repair: 6 weeks Travel Avoid long distance travel (greater than 1 hour) in airplanes and cars for the first 6 weeks after surgery. If you must travel, you need to have a Doppler ultrasound done before you travel to rule out a blood clot in your legs. Follow-up You have a new wound check/dressing change appointment scheduled for 03/07/2025 at 9:15 arrival. When to call the office It is normal to have swelling and bruising in the limb that was operated on. This will improve with time. It is also normal to have fevers for the first 2 days after surgery. Reasons you should call your doctor include: Uncontrolled pain; Nausea, vomiting, or constipation that does not improve with medication; Fevers over 101.5, chills, sweats; Drainage or bleeding from the wound; Foul odor; Spreading areas of redness; Any other concerns. Contact Information Please call Dr. Toribio's office at [phone] with any concerns. Pending Studies at Discharge: No Stand-Alone Forms: My [facility] Medications and DC Order Prescriptions: New acetaminophen [Tylenol Extra Strength] 500 mg tablet 500 mg PO Q6H PRN (Reason: pain) 14 Days Qty: 56 0RF Continued nitroglycerin 0.4 mg tablet, sublingual 0.4 mg Sublingual Q5M PRN (Reason: Chest Pain) Qty: 30 5RF Rx Instructions: May take up to 3 doses as needed for chest pain. Call 911 if pain persists. Pt needs new script as this is carbidopa-levodopa 25-100 mg tablet extended release 1 tab PO QAM 90 Days Qty: 90 3RF Rx Instructions: take an extra dose at HS prn atorvastatin [Lipitor] 40 mg tablet 40 mg PO HS Qty: 90 1RF pantoprazole [Protonix] 40 mg tablet,delayed release (DR/EC) 40 mg PO QAM Qty: 90 1RF ascorbate calcium (vitamin C) 500 mg tablet 500 mg PO DAILY Qty: 30 0RF tamsulosin 0.4 mg capsule 0.4 mg PO HS Qty: 30 0RF cholecalciferol (vitamin D3) 1,250 mcg (50,000 unit) capsule 50,000 unit PO 2XWK Qty: 24 3RF Rx Instructions: please take twice weekly calcitriol 0.5 mcg capsule 0.5 mcg PO QAM Qty: 90 1RF clopidogrel [Plavix] 75 mg tablet 75 mg PO QAM Qty: 90 3RF Hold Instructions: Resume on 07/07/24. folic acid 1 mg tablet 1 mg PO QAM Qty: 30 0RF levothyroxine 100 mcg tablet 100 mcg PO QAM Qty: 90 3RF solifenacin [Vesicare] 5 mg tablet 5 mg PO QAM Qty: 90 1RF ropinirole 2 mg tablet extended release 24 hr 2 mg PO HS Qty: 90 3RF gabapentin 300 mg capsule 300 mg PO BID Qty: 90 5RF hydroxychloroquine 200 mg tablet 200 mg PO BID phenazopyridine [Pyridium] 200 mg tablet 200 mg PO Q8H PRN (Reason: pain) Qty: 10 0RF Discharge Orders: Discharge Order (Routine); Ordered 03/01/25 Ordered By: Britton Carranza Admission Data Admit Date/Time: 02/28/25 14:08 Attending Provider: Donal Toribio Admit Provider: Donal Toribio Primary Care Provider: Laurie Cedeno
== END 2025-03-01 11:24 | disposition home or self-care (01) ==
LOC: 3N 09:48 → ASU 09:48